=== PATIENT | female | born 1945 | race African-American/Black ===

== ENCOUNTER 2016-09-14 12:55 | Inpatient (IN) | payer MEDICARE ==
[~2016-09-14 12:55] MED LIST: ETOMIDATE 20 MG/10 ML VIAL IV ONE; MIDAZOLAM 5 MG/5 ML VIAL IV ONE; SUCCINYLCHOLINE 20 MG/1 ML INJ 10 ML MDV IV ONE
[2016-09-14 13:45] LABS: ABG Draw Site Right Radial; ALLEN'S TEST PASS; BEb 7.4 (+/- 2); TCO2 37.3 MMOL/L (23-27)
--- NOTE | 2016-09-14 14:02 | DIRPT ---
CLINICAL DATA: Dyspnea. Symptoms for 1 month, progressively worsening, with lower extremity swelling. EXAM: PORTABLE CHEST 1 VIEW COMPARISON: 03/28/2015 FINDINGS: Changes from CABG surgery are stable from the prior study. There is moderate enlargement of the cardiopericardial silhouette. No gross mediastinal mass. Elli are not well evaluated due to contiguous lung opacity. Lungs show central vascular congestion with perihilar and lower lung zone airspace opacity. Small pleural effusions are suspected. No pneumothorax. Bony thorax is grossly intact. IMPRESSION: 1. Chest radiographic findings are similar to the prior study with cardiomegaly and central vascular congestion, as well as patchy perihilar and lung base airspace opacity. Findings are most suggestive of congestive heart failure with pulmonary edema. Electronically Signed By: Lyle Pedraza M.D. On: 09/14/2016 13:59
[2016-09-14 14:06] LABS: AUTOMATED BASOPHIL 0.5 % (0-2); AUTOMATED EOSINOPHIL 0.3 % (0-5); AUTOMATED LYMPH 8.4 % (17-44); AUTOMATED MONOCYTE 12.7 % (3-10); AUTOMATED NEUTROPHIL 78.1 % (45-76)
[2016-09-14 14:22] LABS: BLOOD UREA NITROGEN 16 MG/DL (7-17); CALCIUM 8.4 MG/DL (8.4-10.2); CALCULATED OSMOLALITY 232 MOs/Kg (270-290); CHLORIDE 76 mEq/L (98-107); CPK TOTAL WITH POSSIBLE MB 237 IU/L (30-134); GLUCOSE 162 MG/DL (70-99); TOTAL PROTEIN 7.5 G/DL (6.3-8.2)
[2016-09-14 14:42] LABS: SODIUM LEVEL 117 mEq/L (137-146)
[2016-09-14 14:43] LABS: CPKMB 5.7 ng/mL (0-4.5); PARTIAL THROMB. TIME 38.4 SEC (22-35); PT-INR 2.6
[2016-09-14] MEDS ORDERED: Pharmacy Review for Metformin - IV Contrast Given SCH (15:00)
--- NOTE | 2016-09-14 15:59 | DIRPT ---
CLINICAL DATA: Dyspnea/ respiratory distress for 1 month. Lower extremity swelling. EXAM: CT ANGIOGRAPHY CHEST WITH CONTRAST TECHNIQUE: Multidetector CT imaging of the chest was performed using the standard protocol during bolus administration of intravenous contrast. Multiplanar CT image reconstructions and MIPs were obtained to evaluate the vascular anatomy. CONTRAST: 80 mL of Isovue 370 intravenous contrast COMPARISON: Current chest radiograph FINDINGS: Angiographic study: Study somewhat limited by respiratory motion and somewhat suboptimal opacification of the more peripheral pulmonary arteries particularly to the upper lobes. Lung for this, there is no evidence of a pulmonary embolus. There is enlargement of the pulmonary arteries, the main measuring 4.3 cm, right measuring 3.8 cm and left measuring 3.3 cm. Neck base and axilla: Heterogeneous thyroid gland with several hypo attenuating nodules, largest from the left lobe measuring 1.8 cm in size. Right lobe calcification. No neck base or axillary masses or adenopathy. Mediastinum and kacey: Heart is [id number]-gc-[id number] only enlarged. There are mild coronary artery calcifications and changes from previous CABG surgery. There are no mediastinal or hilar masses or pathologically enlarged lymph nodes. Lungs and pleura: Small right and minimal left pleural effusions some fluid tracks along the right oblique fissure. There is linear and reticular type opacity at the lung bases, right greater than left, with some in the mean hazy airspace opacity at the right base. This is all likely atelectasis. There is no convincing pneumonia and no pulmonary edema. No pneumothorax. Limited upper abdomen: Trace ascites. Otherwise unremarkable. Musculoskeletal: Degenerative changes along the thoracic spine. No osteoblastic or osteolytic lesions. Review of the MIP images confirms the above findings. IMPRESSION: 1. Somewhat limited exam. Smaller segmental and subsegmental pulmonary emboli are not completely excluded. Allowing for this, no pulmonary embolus is visualized. 2. Moderate to marked cardiomegaly. 3. Pulmonary artery enlargement suggestive pulmonary artery hypertension. 4. Small right and minimal left pleural effusions. Associated lung base opacity, right greater the left, consistent with atelectasis. 5. No convincing pulmonary edema. The appearance of pulmonary edema seen on the current chest radiograph was apparently due to a combination of vascular prominence and the pleural effusions and lung base atelectasis. Electronically Signed By: Lyle Pedraza M.D. On: 09/14/2016 15:56
[2016-09-14] MEDS ORDERED: FUROSEMIDE 40 MG/4 ML VIAL IV ONE (16:05)
--- NOTE | 2016-09-14 16:05 | EDPRACDOC ---
- General Information Chief Complaint: Dyspnea/Resp distress Stated Complaint: GENERALIZED WEAKNESS/SHOB Time Seen by Provider: 09/14/16 13:40 Information Source: Patient Home Medications: Home Medications Diltiazem HCl [Cardizem Cd] 300 mg PO QAM 05/25/14 Lisinopril/Hydrochlorothiazide [Zestoretic 20-12.5 mg Tablet] 1 tab PO BID 05/25 POTASSIUM CHLORIDE Tablet [K-DUR 20 mEq Tablet*] 20 meq PO QAM 05/25/14 Pravastatin [Pravachol] 80 mg PO HS 05/25/14 Sertraline HCl [Zoloft] 25 mg PO DAILY 03/19/15 Warfarin Sodium [Coumadin] 7 mg PO SUTUTHSA 09/14/16 Warfarin Sodium [Coumadin] 7.5 mg PO MOWEFR 09/14/16 Allergies/Adverse Reactions: Allergies Allergy/AdvReac Type Severity Reaction Status Date / Time Penicillins Allergy Severe Edema-Oral/ Verified 03/27/15 02:07 Lip propoxyphene HCl Allergy Unknown Verified 03/19/15 16:55 [From [facility]] ED Past Medical History - Patient Medical History Neurological History: Reports: Cerebrovascular Accident Cardiac History: Reports: Atrial Fibrillation, Hypertension, Hypercholesterolemia, Cardiomyopathy (HEART SURGERY 20 YEARS AGO) Respiratory History: Reports: COPD Psychological History: Denies: Depression Surgical History: Reports: Other (PT UNABLE TO SAY) - Social Medical History Smoking Status: Never smoker - Physical Exam Last recorded Vital Signs: Last Vital Signs Temp 98.7 F 09/14/16 13:28 Pulse 69 09/14/16 14:38 Resp 20 09/14/16 14:38 BP 157/75 09/14/16 14:38 Pulse Ox 97 09/14/16 14:38 Oxygen Pulse Oxygen Saturation 97 O2 Device Nasal Cannula Oxygen Flow Rate Fraction of Inspired Oxygen ( FIO2) ED SOB MDM - Results Result Diagrams: 09/14/16 13:55 09/14/16 13:55 Results: WBC 6.2 xk/uL (3.8-10.8) 09/14/16 13:55 RBC 4.39 xM/uL (4.20-5.40) 09/14/16 13:55 Hgb 11.2 g/dL (12.0-16.0) L 09/14/16 13:55 Hct 34.2 % (36-47) L 09/14/16 13:55 MCV 78 fL (81-99) L 09/14/16 13:55 MCH 25.4 pg (27-32) L 09/14/16 13:55 MCHC 32.6 g/dl (33-36) L 09/14/16 13:55 RDW 17.5 % (11.5-14.5) H 09/14/16 13:55 Plt Count 197 xk/uL (130-400) 09/14/16 13:55 MPV 8.0 fL (7.4-10.4) 09/14/16 13:55 Neut % (Auto) 78.1 % (45-76) H 09/14/16 13:55 Lymph % (Auto) 8.4 % (17-44) L 09/14/16 13:55 [facility] % (Auto) 12.7 % (3-10) H 09/14/16 13:55 Eos % (Auto) 0.3 % (0-5) 09/14/16 13:55 Baso % (Auto) 0.5 % (0-2) 09/14/16 13:55 Absolute Neuts (auto) 4.84 xk/uL (1.7-8.2) 09/14/16 13:55 Absolute Lymphs (auto) 0.50 xk/uL (0.65-4.75) L 09/14/16 13:55 PT 26.6 SEC (9.2-11.2) H 09/14/16 13:55 INR 2.6 09/14/16 13:55 APTT 38.4 SEC (22-35) H 09/14/16 13:55 Puncture Site Right radial 09/14/16 13:40 pH 7.350 pH UNITS (7.35-7.45) 09/14/16 13:40 pCO2 64.0 mmHg (35-45) H 09/14/16 13:40 pO2 57.0 mmHg (80-100) L 09/14/16 13:40 HCO3 35.3 MMOL/L (22-26) H 09/14/16 13:40 Total CO2 37.3 MMOL/L (23-27) H 09/14/16 13:40 Base Excess 7.4 (+/- 2) H 09/14/16 13:40 FiO2 % 21% 09/14/16 13:40 Specimen Drawn By Roude 09/14/16 13:40 Sodium 117 mEq/L (137-146) L* 09/14/16 13:55 Potassium 3.5 mEq/L (3.5-5.1) 09/14/16 13:55 Chloride 76 mEq/L (98-107) L 09/14/16 13:55 Carbon Dioxide 35 mMOL/L (22-33) H 09/14/16 13:55 Anion Gap 10 mEq/L (8-16) 09/14/16 13:55 BUN 16 MG/DL (7-17) 09/14/16 13:55 Creatinine 0.60 MG/DL (0.52-1.04) 09/14/16 13:55 Estimated GFR (MDRD) > 60 mL/min (>=60) 09/14/16 13:55 Glucose 162 MG/DL (70-99) H 09/14/16 13:55 Calculated Osmolality 232 MOs/Kg (270-290) L 09/14/16 13:55 Calcium 8.4 MG/DL (8.4-10.2) 09/14/16 13:55 Total Bilirubin 0.6 MG/DL (0.2-1.3) 09/14/16 13:55 AST 44 IU/L (14-36) H 09/14/16 13:55 ALT 30 IU/L (9-52) 09/14/16 13:55 Alkaline Phosphatase 95 IU/L (55-165) 09/14/16 13:55 Creatine Kinase 237 IU/L (30-134) H 09/14/16 13:55 CK-MB (CK-2) 5.7 ng/mL (0-4.5) H 09/14/16 13:55 Troponin I < 0.01 ng/mL (<.04) 09/14/16 13:55 Pdr-X-Rcwmyalhvuy Pept 1210 pg/mL (0-900) H 09/14/16 13:55 Total Protein 7.5 G/DL (6.3-8.2) 09/14/16 13:55 Albumin 4.1 G/DL (3.5-5.0) 09/14/16 13:55 Lab Results 09/14/16 09/14/16 09/14/16 13:55 13:55 13:55 WBC 6.2 RBC 4.39 Hgb 11.2 L Hct 34.2 L MCV 78 L MCH 25.4 L MCHC 32.6 L RDW 17.5 H Plt Count 197 MPV 8.0 Neut % (Auto) 78.1 H Lymph % (Auto) 8.4 L [facility] % (Auto) 12.7 H Eos % (Auto) 0.3 Baso % (Auto) 0.5 Absolute Neuts (auto) 4.84 Absolute Lymphs (auto) 0.50 L PT 26.6 H INR 2.6 APTT 38.4 H Puncture Site pH pCO2 pO2 HCO3 Total CO2 Base Excess FiO2 % Specimen Drawn By Sodium 117 L* Potassium 3.5 Chloride 76 L Carbon Dioxide 35 H Anion Gap 10 BUN 16 Creatinine 0.60 Estimated GFR (MDRD) > 60 Glucose 162 H Calculated Osmolality 232 L Calcium 8.4 Total Bilirubin 0.6 AST 44 H ALT 30 Alkaline Phosphatase 95 Creatine Kinase 237 H CK-MB (CK-2) 5.7 H Troponin I < 0.01 Dpc-M-Ixlhljruyjf Pept 1210 H Total Protein 7.5 Albumin 4.1 09/14/16 13:40 WBC RBC Hgb Hct MCV MCH MCHC RDW Plt Count MPV Neut % (Auto) Lymph % (Auto) [facility] % (Auto) Eos % (Auto) Baso % (Auto) Absolute Neuts (auto) Absolute Lymphs (auto) PT INR APTT Puncture Site Right radial pH 7.350 pCO2 64.0 H pO2 57.0 L HCO3 35.3 H Total CO2 37.3 H Base Excess 7.4 H FiO2 % 21% Specimen Drawn By Roude Sodium Potassium Chloride Carbon Dioxide Anion Gap BUN Creatinine Estimated GFR (MDRD) Glucose Calculated Osmolality Calcium Total Bilirubin AST ALT Alkaline Phosphatase Creatine Kinase CK-MB (CK-2) Troponin I Qul-I-Rzpyemnqbxb Pept Total Protein Albumin - Diagnostic Imaging Chest Image interpreted by: Radiologist Diagnostic Imaging Comments: 1. Somewhat limited exam. Smaller segmental and subsegmental pulmonary emboli are not completely excluded. Allowing for this, no pulmonary embolus is visualized. 2. Moderate to marked cardiomegaly. 3. Pulmonary artery enlargement suggestive pulmonary artery hypertension. 4. Small right and minimal left pleural effusions. Associated lung base opacity, right greater the left, consistent with atelectasis. 5. No convincing pulmonary edema. The appearance of pulmonary edema seen on the current chest radiograph was apparently due to a combination of vascular prominence and the pleural effusions and lung base atelectasis. - Departure Yes I personally saw and evaluated the patient. Disposition: Admit IP To This Hospital Final Diagnosis: Hyponatremia, Acute respiratory failure with hypoxia, Pulmonary artery hypertension, Bilateral pleural effusion, Peripheral edema Education/Counseling Given To: Patient Education/Counseling Given Regarding: Diagnosis, Treatment Referrals: Brandon Browning MD [Primary Care Provider] - One Week Decision to Admit Time: 16:09 Decision to admit date: 09/14/16 Decision to admit: from ED - Physician Consulted Hospitalist Provider Called: Celeste Frank
[2016-09-14] MEDS ORDERED: BISACODYL 10 MG SUPP PR PRN (16:27)
[2016-09-14] MEDS ORDERED: BENZONATATE 100 MG PERLES PO PRN (16:27)
[2016-09-14] MEDS ORDERED: PROMETHAZINE 25 MG/ML VIAL IV PRN (16:27)
[2016-09-14] MEDS ORDERED: ACETAMINOPHEN 325 MG SUPP PR PRN (16:27)
[2016-09-14] MEDS ORDERED: ONDANSETRON HCL 4 MG/2 ML VIAL IV PRN (16:27)
[2016-09-14] MEDS ORDERED: TUSSIONEX 5 ML ORAL SYRINGE PO PRN (16:27)
[2016-09-14] MEDS ORDERED: SENNA CONCENTRATE TAB PO PRN (16:27)
[2016-09-14] MEDS ORDERED: ACETAMINOPHEN 325 MG/TAB TABLET PO PRN (16:27)
[2016-09-14 16:58] LABS: BLOOD UREA NITROGEN 16 MG/DL (7-17); CALCIUM 8.3 MG/DL (8.4-10.2); CALCULATED OSMOLALITY 228 MOs/Kg (270-290); CHLORIDE 75 mEq/L (98-107); GLUCOSE 103 MG/DL (70-99); TOTAL PROTEIN 7.9 G/DL (6.3-8.2)
[2016-09-14] MEDS ORDERED: WARFARIN EDUCATION DOCUMENTATION ONE (17:00)
[2016-09-14] MEDS ORDERED: ENOXAPARIN 40 MG/0.4 ML PFS SQ SCH (17:00)
[2016-09-14] MEDS ORDERED: Pharmacy Order Set Alert SCH (17:00)
[2016-09-14 17:11] LABS: SODIUM LEVEL 117 mEq/L (137-146)
[2016-09-14] MEDS ORDERED: WARFARIN 7.5 MG TAB PO SCH (18:00)
[2016-09-14 18:03] LABS: CPK TOTAL WITH POSSIBLE MB 239 IU/L (30-134)
[2016-09-14 18:18] LABS: CPKMB 5.9 ng/mL (0-4.5)
--- NOTE | 2016-09-14 19:44 | HISTPHYS ---
- Chief Complaint Shortness breath for the past 3 weeks but worse over the past 24 hours - History of Present Illness Primary care provider is Dr. Brandon Browning Patient is a very pleasant 70-year-old female who comes in the emergency room today complaining of 3 weeks worth of progressive shortness of breath peripheral edema and denies any history of coronary artery disease or a previous myocardial infarction. She also goes on to say that she never smoked and does not have COPD. She tells me that she has been unable to sleep well over the past month due to orthopnea and is starting to get were "wiped out" more easily than before. She has a known history of atrial fib for which she is on Coumadin that she has been taking since 2010 with her stroke causing her difficulty with her speech and nothing else. This was transient. Over the past month she has also noticed some worsening edema which she states is not as bad today as it has been. She has used an albuterol inhaler in the past but to no aid. She is not aware of ever having had congestive heart failure and has not been on any diuretics other than hydrochlorothiazide which is in her combination FRANCOISE-inhibitor blood pressure pill. She also suffers with 2-3 pillow orthopnea that is getting more troublesome. She tells me that 3 weeks ago with an episode of shortness breath she also had chest heaviness and tightness. She tells me that she will get up every 20 minutes with her shortness breath it is severely interfering with her sleep. - Medical History Cardiac History: Reports: Atrial Fibrillation (On long-term Coumadin anticoagulation), Hypertension, Cardiomyopathy (Echocardiogram done 2014 showed ejection fraction between 45 and 50%), Other (ASD repair 1993 in [place] outside of [place], [place]) Respiratory History: Reports: Cough, Other (History of pulmonary hypertension on echocardiogram). Denies: COPD (denies) GI/ History: Reports: No Significant History Neurological History: Reports: Cerebrovascular Accident (2010) Psychological History: Reports: Depression (On Zoloft chronically) - Surgical History Reports: Other (Patient had ASD repaired 1993 outside of [facility]) - Medictions/Allergies Allergies Penicillins Allergy (Severe, Verified 03/27/15 02:07) Edema-Oral/Lip propoxyphene HCl [From [facility]] Allergy (Verified 03/19/15 16:55) Unknown Current Medication List: Reviewed Home Medications Diltiazem HCl [Cardizem Cd] 300 mg PO QAM 05/25/14 Lisinopril/Hydrochlorothiazide [Zestoretic 20-12.5 mg Tablet] 1 tab PO BID 05/25 POTASSIUM CHLORIDE Tablet [K-DUR 20 mEq Tablet*] 20 meq PO QAM 05/25/14 Pravastatin [Pravachol] 80 mg PO HS 05/25/14 Sertraline HCl [Zoloft] 25 mg PO DAILY 03/19/15 Warfarin Sodium [Coumadin] 7 mg PO SUTUTHSA 09/14/16 Warfarin Sodium [Coumadin] 7.5 mg PO MOWEFR 09/14/16 - Family History Reports: Hypertension - Social History Travel Outside of [place] in the Last 3 Months?: No Lives: Other Smoking Status: Never smoker Social History: Denies: Alcohol Use, Substance Use Disorder - Review of Systems Constitutional: No Symptoms Reported (No Fever, chills, wt loss/gain, diaphoresis), Fatigue, Weakness Eyes: No Symptoms Reported (No blurry vision, visual changes, eye pain, or eye redness.) Ears: No Symptoms Reported (No ear pain or discharge) Nose: No Symptoms Reported (No nasal discharge/congestion or bleeding) Mouth: No Symptoms Reported (No oropharyngeal lesions or erythema) Throat/Neck: No Symptoms Reported (No throat pain or swelling.No oropharyngeal lesions or erythema.) Respiratory: Shortness of Breath Cardiovascular: Edema, Orthopnea, PND Gastrointestinal: No Symptoms Reported (No abdominal pain, nausea, vomiting, diarrhea, constipation, or bloody stool.) Genitourinary: No Symptoms Reported (No dysuria or hematuria.) Neurological: No Symptoms Reported (No headache, dizziness, seizures, or focal weakness.) Musculoskeletal:: Weakness Integumentary: No Symptoms Reported (no rashes or lesions) Allergic/Immunologic: No Symptoms Reported (no rashes or lesions) Hematologic: Anemia, Other (Lymphatics- no lymph node swelling or pain.) Endocrine: No Symptoms Reported (No thyroid issues, polyuria, or polydipsia.) Psychiatric: No Symptoms Reported (Fully oriented, with normal and appropriate affect.) - Physical Exam Vital Signs: Initial Vitals Temperature 98.7 F 09/14/16 13:28 Pulse Rate 62 09/14/16 13:28 Respiratory Rate 32 H 09/14/16 13:28 Blood Pressure 149/66 09/14/16 13:28 Pulse Oxygen Saturation 85 L 09/14/16 13:28 Constitutional: Alert (Awake, Fully oriented. Normal and appropriate affect.Well appearing. Well nourished.), No apparent distress Oriented to: Time, Person, Place - HEENT Head: Normal (normocephalic, atraumatic.), Other (No cervical lymphadenopathy. No supraclavicular lymphadenopathy. Neck: No palpable mass, supple , trachea midline.) Eye: Normal (pupils equal, reactive to light, and round; EOMI, Sclera white) Oropharynx: Normal (Pharynx: Moist without exudate,Gums-no swelling, No oropharyngeal lesions or erythema, Mucous membranes are dry.) ENT EAC: Normal (No oropharyngeal lesions or erythema. Mucous membranes are dry. ) TMJ: Normal Nose: No Symptoms Reported (septum midline, Nares patent, without discharge or bleeding.) Respiratory: Rales. negative: Rhonchi, Tachypnea, Wheezes Cardiovascular: Normal (Normal rate but irregular), Irregular - GI Auscultation: Normal (normal active sounds) Palpation: Normal (Soft,non distended,nontender. No hepatosplenomegaly.) Tenderness: Non tender (No rebound or guarding) Longo's Sign: Negative - Musculoskeletal Back: Normal (Non-Tender) Extremities: Edema (2+ bilateral lower extremity edema), Pedal Pulse. negative : Clubbing, Cyanosis Spine: non-tender, normal inspection - Integumentary Skin: Normal (Clean, dry, and intact. No rashes. No lesions.) Lymphatics: Normal (No cervical lymphadenopathy. No supraclavicular lymphadenopathy.) - Neurologic Memory Impaired: Normal Motor Function: Normal (Motor 5/5 throughout.Normal tone, Pulses 2+ No cyanosis or edema, FROM) Cranial Nerve: Normal (CN II-XII intact sensation, strength 5/5) Cerebellar: Normal (Babinski: toes downgoing bilaterally. Intact Finger to nose. Sensory grossly intact to light touch. Intact rapid alternating movements bilaterally. No pronator drift.) Mood Description: Normal (Fully oriented. Normal and appropriate affect.) Thought: Coherent Perception: Normal (Normal and appropriate affect.) - Focused CV Perfusion Exam Vital Signs: Last Vital Signs Temp 98.7 F 09/14/16 13:28 Pulse 81 09/14/16 17:12 Resp 20 09/14/16 17:12 BP 150/78 09/14/16 18:01 Pulse Ox 97 09/14/16 17:12 - Lab Results 09/14/16 13:55 09/14/16 16:26 Laboratory Results - last 24 hr 09/14/16 09/14/16 09/14/16 13:40 13:55 13:55 WBC 6.2 RBC 4.39 Hgb 11.2 L Hct 34.2 L MCV 78 L MCH 25.4 L MCHC 32.6 L RDW 17.5 H Plt Count 197 MPV 8.0 Neut % (Auto) 78.1 H Lymph % (Auto) 8.4 L Russell % (Auto) 12.7 H Eos % (Auto) 0.3 Baso % (Auto) 0.5 Absolute Neuts (auto) 4.84 Absolute Lymphs (auto) 0.50 L PT INR APTT Puncture Site Right radial pH 7.350 pCO2 64.0 H pO2 57.0 L HCO3 35.3 H Total CO2 37.3 H Base Excess 7.4 H FiO2 % 21% Specimen Drawn By Roude Sodium 117 L* Potassium 3.5 Chloride 76 L Carbon Dioxide 35 H Anion Gap 10 BUN 16 Creatinine 0.60 Estimated GFR (MDRD) > 60 Glucose 162 H Calculated Osmolality 232 L Calcium 8.4 Total Bilirubin 0.6 AST 44 H ALT 30 Alkaline Phosphatase 95 Creatine Kinase 237 H CK-MB (CK-2) 5.7 H Troponin I < 0.01 Acu-B-Mlduvcwuzbx Pept 1210 H Total Protein 7.5 Albumin 4.1 09/14/16 09/14/16 09/14/16 13:55 16:26 16:26 WBC RBC Hgb Hct MCV MCH MCHC RDW Plt Count MPV Neut % (Auto) Lymph % (Auto) Russell % (Auto) Eos % (Auto) Baso % (Auto) Absolute Neuts (auto) Absolute Lymphs (auto) PT 26.6 H INR 2.6 APTT 38.4 H Puncture Site pH pCO2 pO2 HCO3 Total CO2 Base Excess FiO2 % Specimen Drawn By Sodium 117 L* Potassium 4.1 Chloride 75 L Carbon Dioxide 35 H Anion Gap 11 BUN 16 Creatinine 0.60 Estimated GFR (MDRD) > 60 Glucose 103 H Calculated Osmolality 228 L Calcium 8.3 L Total Bilirubin 0.7 AST 44 H ALT 28 Alkaline Phosphatase 118 Creatine Kinase 239 H CK-MB (CK-2) 5.9 H Troponin I 0.01 Csk-L-Rxffjogrbpi Pept Total Protein 7.9 Albumin 4.1 - Diagnostic Findings CT of chest: IMPRESSION: 1. Somewhat limited exam. Smaller segmental and subsegmental pulmonary emboli are not completely excluded. Allowing for this, no pulmonary embolus is visualized. 2. Moderate to marked cardiomegaly. 3. Pulmonary artery enlargement suggestive pulmonary artery hypertension. 4. Small right and minimal left pleural effusions. Associated lung base opacity, right greater the left, consistent with atelectasis. 5. No convincing pulmonary edema. The appearance of pulmonary edema seen on the current chest radiograph was apparently due to a combination of vascular prominence and the pleural effusions and lung base atelectasis. - Assessment (1) Respiratory failure with hypoxia and hypercapnia J96.91 - RESPIRATORY FAILURE, UNSPECIFIED WITH HYPOXIA; J96.92 - RESPIRATORY FAILURE, UNSPECIFIED WITH HYPERCAPNIA Acute Present on Admission: Yes Qualifiers: Chronicity: acute on chronic Qualified Code(s): J96.21 - Acute and chronic respiratory failure with hypoxia; J96.22 - Acute and chronic respiratory failure with hypercapnia Careful with supplemental O2 as patient has tendency to retain CO2. (2) Diastolic CHF I50.30 - UNSPECIFIED DIASTOLIC (CONGESTIVE) HEART FAILURE Acute Present on Admission: Yes Qualifiers: Congestive heart failure chronicity: acute on chronic Qualified Code(s): I50.33 - Acute on chronic diastolic (congestive) heart failure Concerned there may be a component of systolic CHF given the findings on physical examination. Echocardiogram ordered for tomorrow. IV Lasix is initiated. Fluid restriction necessary for hyponatremia. (3) Atrial fibrillation, controlled I48.91 - UNSPECIFIED ATRIAL FIBRILLATION Chronic Present on Admission: Yes On chronic Coumadin therapy with therapeutic INR today. (4) Bilateral pleural effusion J90 - PLEURAL EFFUSION, NOT ELSEWHERE CLASSIFIED Acute Present on Admission: Yes (5) Hyponatremia E87.1 - HYPO-OSMOLALITY AND HYPONATREMIA Acute Present on Admission: Yes P.o. fluid restriction ordered. (6) Peripheral edema R60.9 - EDEMA, UNSPECIFIED Acute Present on Admission: Yes IV Lasix for this manifestation of CHF. (7) Pulmonary artery hypertension I27.2 - OTHER SECONDARY PULMONARY HYPERTENSION Acute Present on Admission: Yes Echocardiogram is pending. - Plan Due to the presence of and / or the risk of deterioration, my attendance to this patient required critical care time, including assessment/reassessment, documentation, ordering and interpreting ancillary studies, discussion with staff and consultants,patient and family, and excludes time spent on separately billable procedures. This individual is critically ill and in danger of dying. Case Care Discussed with: Patient, Nursing Staff, Resource Management Total Time: Critical care time spent One Hour 18 minutes Critical Care: No Code: 291 (292)
[2016-09-14] MEDS: LISINOPRIL 20 MG TAB PO SCH (20:44)
[2016-09-14] MEDS: PRAVASTATIN 80 MG TABLET PO SCH (20:44)
[2016-09-14] MEDS ORDERED: LISINOPRIL PO SCH (21:00)
[2016-09-14] MEDS ORDERED: HYDROCHLOROTHIAZIDE PO SCH (21:00)
[2016-09-14] MEDS ORDERED: HYDROCHLOROTHIAZIDE 12.5 MG CAP PO SCH (21:00)
[2016-09-14] MEDS ORDERED: [UNRECOGNIZED DRUG - OTHER] PO SCH (21:00)
[2016-09-14 23:31] LABS: LEUKOCYTES/URINE NEG (NEGATIVE); NITRITE/URINE NEG (NEGATIVE); URINE OCCULT BLOOD 1+ (NEG/TRACE)
[2016-09-15] MEDS: FUROSEMIDE 40 MG/4 ML VIAL IV SCH ×3 (00:48→17:42)
[2016-09-15] MEDS ORDERED: Vaccine Screening Complete SCH (01:00)
[2016-09-15 03:38] LABS: PT-INR 2.8
--- NOTE | 2016-09-15 07:56 | GENMEDPROG ---
Chief Complaint: NAUSEA GOT ZOFRAN LETHARGIC AND HYPOXIC SHE WAS THEN GIVEN INCREASED FIO2 NOW VERY LETHARGIC AND LIKELY RETAINING CO2. Patient urgently placed on BiPAP and volumes were extremely low at approximately 150 cc. Given this I contacted anesthesia to intubate urgently. Notes Reviewed: Yes Events from last night noted and discussed with Clinical Staff Current Medication List: Reviewed Currently: Reports: Cough DVT Prophylaxis: Yes - Physical Examination Vital Signs and I&O: Last Vital Signs Temp 97.8 F 09/15/16 03:54 Pulse 80 09/15/16 06:00 Resp 20 09/15/16 03:54 BP 128/60 09/15/16 03:54 Pulse Ox 94 09/15/16 05:14 Oxygen Pulse Oxygen Saturation 94 O2 Device Nasal Cannula Oxygen Flow Rate 2 Fraction of Inspired Oxygen ( FIO2) Intake & Output 09/12/16 09/13/16 09/14/16 09/15/16 23:59 23:59 23:59 23:59 Intake Total 150 Output Total 400 800 Balance -400 -650 Patient's weight 66.395 kg 65.941 kg General: Severe distress, Well nourished, Weakness, Fatigue HEENT: Normal (Normocephalic, atraumatic;EOMI.Sclera white, Nares patent, without discharge or bleeding. No oropharyngeal lesions or erythema. Mucous membranes are dry.) Neck: No Masses palpable, No Thyromegaly palpable, Limited range of motion, JVD (jvd to angle of jaw) Lymphatics: Normal (No cervical lymphadenopathy. No supraclavicular lymphadenopathy.) Respiratory: Diminished, Rales. negative: Rhonchi, Tachypnea, Wheezes Cardiovascular: Normal S1, No Gallops,Rubs/Murmurs, Normal S2, Irregular GI: Normal bowel sounds (normal active sounds), Soft (non-distended), Non tender , No hepatospenomegaly, No masses Extremities/Musculoskeletal: Normal pulses (DP pulses 2+ bilaterally) Skin: Warm,Dry and Intact, No rashes, No significant lesion Neurological: Normal tone, Cranial nerves 3-12 NL ( 2-12 grossly intact.), Somnolent, Lethargy. negative: Strength at 5/5 X4 ext Psych/Mental Status: Drowsy, Somnolent Lab/DI/Studies Reviewed: 09/15/16 09:47 09/15/16 17:35 Laboratory Results - last 24 hr 09/14/16 09/15/16 09/15/16 23:09 02:45 02:45 WBC RBC Hgb Hct MCV MCH MCHC RDW Plt Count MPV PT 29.3 H INR 2.8 Puncture Site pH pCO2 pO2 HCO3 Total CO2 Base Excess Vent Mode FiO2 % Tidal Volume PEEP Specimen Drawn By Sodium Potassium Chloride Carbon Dioxide Anion Gap BUN Creatinine Estimated GFR (MDRD) Glucose POC Capillary Glucose Calculated Osmolality Calcium Magnesium 1.40 L Urine Color Dark yellow Urine Clarity Clear Urine pH 6.0 Ur Specific [place] 1.010 Urine Protein 2+ H Urine Glucose (UA) Neg Urine Ketones Neg Urine Occult Blood 1+ H Urine Nitrite Neg Urine Bilirubin Neg Urine Urobilinogen <2.0 Ur Leukocyte Esterase Neg Urine RBC 2-5 Urine WBC 2-5 Ur Epithelial Cells Occ Urine Bacteria Few Hyaline Casts 0-2 Urine Mucus Occ 09/15/16 09/15/16 09/15/16 06:03 07:36 07:43 WBC RBC Hgb Hct MCV MCH MCHC RDW Plt Count MPV PT INR Puncture Site Left radial pH 7.140 L* pCO2 > 124.0 H* pO2 97.0 HCO3 Total CO2 Base Excess Vent Mode FiO2 % 15lnrb Tidal Volume PEEP Specimen Drawn By Belja Sodium Potassium Chloride Carbon Dioxide Anion Gap BUN Creatinine Estimated GFR (MDRD) Glucose POC Capillary Glucose 123 H 203 H Calculated Osmolality Calcium Magnesium Urine Color Urine Clarity Urine pH Ur Specific [place] Urine Protein Urine Glucose (UA) Urine Ketones Urine Occult Blood Urine Nitrite Urine Bilirubin Urine Urobilinogen Ur Leukocyte Esterase Urine RBC Urine WBC Ur Epithelial Cells Urine Bacteria Hyaline Casts Urine Mucus 09/15/16 09/15/16 09/15/16 09:47 09:47 10:16 WBC 6.4 RBC 4.56 Hgb 11.5 L Hct 36.0 MCV 79 L MCH 25.3 L MCHC 31.9 L RDW 17.5 H Plt Count 148 MPV 8.5 PT INR Puncture Site Right radial pH 7.550 H pCO2 54.0 H pO2 63.0 L HCO3 47.2 H Total CO2 48.9 H Base Excess 21.4 H Vent Mode Ac rate 18 FiO2 % 50% Tidal Volume 500 PEEP 5 Specimen Drawn By Kasgl Sodium 119 L* Potassium 3.4 L Chloride 75 L Carbon Dioxide 33 Anion Gap 14 BUN 12 Creatinine 0.50 L Estimated GFR (MDRD) > 60 Glucose 154 H POC Capillary Glucose Calculated Osmolality 233 L Calcium 7.8 L Magnesium Urine Color Urine Clarity Urine pH Ur Specific [place] Urine Protein Urine Glucose (UA) Urine Ketones Urine Occult Blood Urine Nitrite Urine Bilirubin Urine Urobilinogen Ur Leukocyte Esterase Urine RBC Urine WBC Ur Epithelial Cells Urine Bacteria Hyaline Casts Urine Mucus 09/15/16 17:35 WBC RBC Hgb Hct MCV MCH MCHC RDW Plt Count MPV PT INR Puncture Site pH pCO2 pO2 HCO3 Total CO2 Base Excess Vent Mode FiO2 % Tidal Volume PEEP Specimen Drawn By Sodium 118 L* Potassium 3.4 L Chloride 74 L Carbon Dioxide > 40 H Anion Gap 7 L BUN 13 Creatinine 0.60 Estimated GFR (MDRD) > 60 Glucose 79 POC Capillary Glucose Calculated Osmolality 227 L Calcium 7.8 L Magnesium Urine Color Urine Clarity Urine pH Ur Specific [place] Urine Protein Urine Glucose (UA) Urine Ketones Urine Occult Blood Urine Nitrite Urine Bilirubin Urine Urobilinogen Ur Leukocyte Esterase Urine RBC Urine WBC Ur Epithelial Cells Urine Bacteria Hyaline Casts Urine Mucus - Assessment (1) Respiratory failure with hypoxia and hypercapnia Acute J96.91 - RESPIRATORY FAILURE, UNSPECIFIED WITH HYPOXIA; J96.92 - RESPIRATORY FAILURE, UNSPECIFIED WITH HYPERCAPNIA Qualifiers: Chronicity: acute on chronic Qualified Code(s): J96.21 - Acute and chronic respiratory failure with hypoxia; J96.22 - Acute and chronic respiratory failure with hypercapnia Comment/Plan: ACUTE RESP FAILURE RETAINING CO2 TRANSFER TO ICU START ON BIPAP. Likely became lethargic from the Zofran and then hypoxic with O2 sats in the 80s prompting the administration of high-flow O2 and now with significant CO2 retention noting it to be> 124 pH to 7.14. (2) Diastolic CHF Acute I50.30 - UNSPECIFIED DIASTOLIC (CONGESTIVE) HEART FAILURE Qualifiers: Congestive heart failure chronicity: acute on chronic Qualified Code(s): I50.33 - Acute on chronic diastolic (congestive) heart failure Comment/Plan: Concerned there may be a component of systolic CHF given the findings on physical examination. Echocardiogram showed normal ejection fraction so this is acute on chronic diastolic CHF. IV Lasix is initiated and has diuresed 1 L of fluid since yesterday. Fluid restriction necessary for hyponatremia. (3) Atrial fibrillation, controlled Chronic I48.91 - UNSPECIFIED ATRIAL FIBRILLATION Comment/Plan: On chronic Coumadin therapy with atrial fib with therapeutic INR today. (4) Bilateral pleural effusion Acute J90 - PLEURAL EFFUSION, NOT ELSEWHERE CLASSIFIED Comment/Plan: Related to her CHF. (5) Hyponatremia Acute E87.1 - HYPO-OSMOLALITY AND HYPONATREMIA Comment/Plan: P.o. fluid restriction ordered. Concerned that her hyponatremia may be related to occult pneumonia. Now that she is on the ventilator will be able to get a better sputum specimen. Agree with Dr. Umanzor that we should start her on Rocephin Zithromax. Will increase IV saline and administer Lasix. Concerned she has SIADH associated with her respiratory infection. (6) Peripheral edema Acute R60.9 - EDEMA, UNSPECIFIED Comment/Plan: IV Lasix for this manifestation of CHF. (7) Pulmonary artery hypertension Acute I27.2 - OTHER SECONDARY PULMONARY HYPERTENSION Comment/Plan: Echocardiogram is showed ejection fraction of 60% and left ventricular hypertrophy which shows the CHF to be more diastolic than systolic failure. Additional Notes: Due to the presence of and / or the risk of deterioration, my attendance to this patient required critical care time, including assessment/reassessment, documentation, ordering and interpreting ancillary studies, discussion with staff and consultants,patient and family, and excludes time spent on separately billable procedures. This individual is critically ill and in danger of dying. Case Care Discussed with: Family, Nursing Staff Education/Counseling Given To: Family Member Education/Counseling Given Regarding: Diagnosis, Treatment Total Time: Critical care time spent 48 minutes Critical Care: Yes Code: 291
[2016-09-15 07:59] LABS: ALLEN'S TEST PASS; PCO2 > 124.0 mmHg (35-45)
[2016-09-15 08:00] LABS: ABG Draw Site Left Radial
[2016-09-15] MEDS ORDERED: CHAPSTICK LIP BALM TOP PRN (09:03)
[2016-09-15] MEDS ORDERED: FENTANYL 2,500 MCG/250 ML BAG IV ONE ×2 (09:13→17:25)
[2016-09-15] MEDS: FENTANYL 2,500 MCG/250 ML BAG IV SCH (09:20)
--- NOTE | 2016-09-15 09:33 | HIM.ANESP ---
INTUBATION Informed of risks, benefits and alternatives described.: Yes (Spoke w son) Informed Consent Signed: Written Intubation Date: 09/15/16 Time of Intubation: 08:58 Inserted in which dept: ICU Inserted By: Richard Marc Number of Attempts: 1 ET Insertion Site: Oral Endotracheal ET Tube Size: 7.5 Tube Position: Right ETCO2 Detector Positive: Yes Breath Sounds Equal Bilaterally: Yes Stocz Used: No Glidescope/Fiberoptic/LTA/Eschman: Glidescope Comments: 09/15/16 09:32 Etomidate 12mg Succ 100mg
[2016-09-15 10:04] LABS: MPV 8.5 fL (7.4-10.4)
[2016-09-15 10:20] LABS: ALLEN'S TEST PASS; BEb 21.4 (+/- 2); TCO2 48.9 MMOL/L (23-27)
[2016-09-15] MEDS: POTASSIUM CHLORIDE 20 MEQ TAB PO SCH (10:21)
[2016-09-15 10:22] LABS: ABG Draw Site Right Radial
[2016-09-15 10:24] LABS: MODE AC RATE 18 RATE
[2016-09-15 10:31] LABS: BLOOD UREA NITROGEN 12 MG/DL (7-17); CALCIUM 7.8 MG/DL (8.4-10.2); CALCULATED OSMOLALITY 233 MOs/Kg (270-290); CHLORIDE 75 mEq/L (98-107); GLUCOSE 154 MG/DL (70-99)
--- NOTE | 2016-09-15 10:32 | DIRPT ---
CLINICAL DATA: CHF EXAM: PORTABLE CHEST 1 VIEW COMPARISON: Yesterday FINDINGS: Endotracheal tube placed. Tip is 8.4 cm from the marilou. NG tube placed with its tip beyond the gastroesophageal junction. Pulmonary edema has improved. Cardiomegaly persists. No pneumothorax. IMPRESSION: Improved pulmonary edema. Endotracheal and NG tubes as described. Electronically Signed By: Florentin Reyes M.D. On: 09/15/2016 10:14
[2016-09-15 10:34] LABS: SODIUM LEVEL 119 mEq/L (137-146)
[2016-09-15] MEDS: LISINOPRIL 20 MG TAB PO SCH ×2 (10:34→22:35)
[2016-09-15] MEDS ORDERED: ALBUTEROL 0.083% 3 ML NEB NEB PRN (10:34)
[2016-09-15] MEDS: SERTRALINE HCL 25 MG TAB PO SCH (10:35)
[2016-09-15] MEDS: CEFTRIAXONE 1 GM in D5W 100 ML IV SCH (11:31)
[2016-09-15] MEDS ORDERED: NS/KCl 20 mEq 1,000 ML IV SCH ×2 (13:30→21:05)
[2016-09-15] MEDS ORDERED: Magnesium Sulfate 2 gm/D5W 2 GM/50 ML RTU IV ONE ×2 (13:30→19:04)
[2016-09-15] MEDS: Levofloxacin 750 mg/150 ml D5W 750 MG/150 ML RTU IV SCH (13:47)
[2016-09-15] MEDS: LORAZEPAM 2 MG/ML VIAL IV PRN (13:50)
--- NOTE | 2016-09-15 14:00 | CAPUECHO ---
INDICATION: CHF HEIGHT: 160.0 cm (5 ft 3.0 in) WEIGHT: 66.2 kg (146.0 lbs) BP: 128/60 BSA: 1.35076 m MEASUREMENTS 2D RVIDd: 2.7 cm LVOT Diam: 2.1 cm IVSd: 1.3 cm LVIDd: 5.1 cm LVPWd: 1.3 cm LVIDs: 3.9 cm EF(Teich): 45.62 % LA Diam: 6.2 cm EF Biplane: 42.55 % LAESV MOD A4C: 224.1 ml LAESV MOD A2C: 311.8 ml LAESV Index (A-L): 168.93 ml/m DOPPLER MV E Aryan: 1.14 m/s MV A Aryan: 0.00 m/s MV PHT: 51.37 ms MVA By PHT: 4.28 cm LVOT Vmax: 1.14 m/s AV Vmax: 1.66 m/s DYLAN Vmax, Pt: 2.48 cm TR Vmax: 2.29 m/s TR maxP mmHg RVSP: 30.99 mmHg FINDINGS ------- Procedure:2D images, m-mode, color and spectral Doppler were obtained and reviewed. ECG rhythm:Atrial fibrillation. Study quality:This was a technically adequate study. Left Ventricle:There is mild concentric left ventricular hypertrophy. Overall left ventricular sys tolic function is normal with, an EF between 55 - 60 %. Right Ventricle:The right ventricle is normal in size and function. Left Atrium:The left atrium is markedly dilated. Left atrium is severely dilated by volume. Right Atrium:The right atrium is mildly enlarged. Aortic Valve:The aortic valve is trileaflet, and appears structurally normal. No aortic stenosis or regurgitation. Mitral Valve:Normal appearing mitral valve. Mild mitral regurgitation is present. Tricuspid Valve:The tricuspid valve appears structurally normal. Mild tricuspid regurgitation pres ent. The right ventricular systolic pressure, as measured by Doppler, is 31 mmhg}. Pulmonic Valve:The pulmonic valve is normal. Trace/mild (physiologic) pulmonic regurgitation. Aorta:The aortic root, ascending aorta and aortic arch appear normal. IVC:Normal inferior vena cava with normal inspiratory collapse. Pericardium:There is no pericardial effusion. CONCLUSIONS 1. Atrial fibrillation. 2. There is mild concentric left ventricular hypertrophy. 3. Overall left ventricular systolic function is normal with, an EF between 55 - 60 %. 4. The left atrium is markedly dilated. 5. Left atrium is severely dilated by volume. 6. Mild mitral regurgitation is present. 7. Mild tricuspid regurgitation present. Electronically Signed By: Zander Polo MD -- Electronically Signed On: 13:53:14
[2016-09-15] MEDS: POTASSIUM CHLORIDE 20 MEQ/15 ML ORAL SOLN NG SCH ×3 (14:17→17:40)
[2016-09-15] MEDS ORDERED: ALBUTEROL 6.7 GM MDI INH SCH (14:23)
[2016-09-15] MEDS: ALBUTEROL 6.7 GM MDI INH PRN (16:23)
[2016-09-15] MEDS ORDERED: WARFARIN 1 MG TAB PO SCH (16:29)
[2016-09-15] MEDS: This patient is receiving warfarin therapy SCH (17:43)
[2016-09-15] MEDS ORDERED: WARFARIN SODIUM PO SCH ×2 (18:00)
[2016-09-15] MEDS: CHLORHEXIDINE 0.12% ORAL SOLN 15 ML PO SCH (18:11)
[2016-09-15 18:12] LABS: BLOOD UREA NITROGEN 13 MG/DL (7-17); CALCIUM 7.8 MG/DL (8.4-10.2); CALCULATED OSMOLALITY 227 MOs/Kg (270-290); CHLORIDE 74 mEq/L (98-107); GLUCOSE 79 MG/DL (70-99)
[2016-09-15 18:19] LABS: SODIUM LEVEL 118 mEq/L (137-146)
--- NOTE | 2016-09-15 19:20 | HIMCONS ---
DATE OF CONSULT: REQUESTING PHYSICIAN: Scott Simmons MD REASON FOR CONSULTATION: Respiratory failure. HISTORY OF PRESENT ILLNESS: This patient is a 70-year-old lady with past medical history significant for atrial fibrillation, on long-term Coumadin with cardiomyopathy and also showing history of pulmonary hypertension on echo. The patient has not been feeling well for about 3 weeks prior to her admission according to the chart because of peripheral edema. The patient has no history of smoking, was having more orthopnea for the past several weeks prior to her admission, and became extremely weak, had difficulty speaking. Albuterol inhaler did not help and she has not been on diuretics, has been on hydrochlorothiazide with FRANCOISE inhibitors. The patient was therefore admitted with respiratory failure with hypoxia and hypercarbia, placed on oxygen. It seemed like the patient retained significant carbon dioxide and was found obtunded and therefore had to be intubated. PAST MEDICAL HISTORY: Significant for atrial fibrillation, long-term anticoagulation therapy, hypertension, cardiomyopathy with ejection fraction of 45-50%, ( ), history of pulmonary artery hypertension ( ), history of stroke in 2010, depression. PAST SURGICAL HISTORY: As above. ALLERGIES: THE PATIENT IS ALLERGIC TO PENICILLIN AND PROPOXYPHENE. MEDICATIONS: In the chart and noted. FAMILY HISTORY: Significant for hypertension. SOCIAL HISTORY: The patient has no history of smoking, drinking, or drug abuse. REVIEW OF SYSTEMS: Negative except for as mentioned in the history of present illness. PHYSICAL EXAMINATION: VITAL SIGNS: Temperature is 97.8 degrees Fahrenheit, pulse is 76, respirations 12, blood pressure 105/69, pulse ox 96% on 50% oxygen on the ventilator. CHEST: Clear to auscultation. No wheezing. HEART: S1, S2. Regularly irregular. No murmur. EXTREMITIES: No clubbing, cyanosis, or edema. ABDOMEN: Soft and nontender. Bowel sounds present. ( ). NEURO: The patient is sedated at this time on the ventilator. LABORATORY DATA: White count 6.4, hemoglobin is 11.5, hematocrit 36.0, and platelets are 148, blood gas showed a pH of 7.14, pCO2 was more than 124. Sodium 197 on 15 liters non-rebreather. Sodium 117, potassium 4.1, chloride 75, carbon dioxide 35, BUN 16, creatinine 0.6, glucose is 103. LFTs were within normal limits. CK-MB fraction was positive. IMAGING REPORTS: Chest x-ray was seen personally. The patient has history of significant enlarged heart and high endotracheal tube cannot rule out left basal infiltrates; however, the CAT scan of the chest that was seen does not show any acute infiltrate at that time; however, perihilar infiltrates cannot be ruled out. IMPRESSION: 1. [id number] respiratory failure with possible congestive heart failure and right-sided heart failure with CO2 retention. 2. Atrial fibrillation with significant hyponatremia and pulmonary artery hypertension. PLAN: The patient is going to be on the ventilator. I checked blood gas again and cut down the rate to 12 with volume 500, FiO2 is 50%, and PEEP of 5. Continue with sedation with fentanyl drip. I would start the patient on Rocephin and Levaquin IV at this time. I would continue the other supportive care. The patient was placed on diuretics with Lasix by Dr. Simmons. I would follow the patient closely as far as her sodium is concerned and repeat BMP at 1800 hours. I think the patient should improve once she has significant diuresis, antibiotics on board, and carbon dioxide level lowered. She remains critically ill and she is in danger of dying. Thank you very much for the consultation and I will follow the patient with you. Critical care time spent was approximately 90 minutes. The patient will be discussed with Dr. Simmons in detail as well. [id number]
[2016-09-15] MEDS: DILTIAZEM 60 MG TAB NG SCH ×2 (22:34→22:39)
[2016-09-15] MEDS: PROBIOTIC BLEND TAB PO SCH (22:35)
[2016-09-15] MEDS: PRAVASTATIN 80 MG TABLET PO SCH (22:35)
[2016-09-15] MEDS: CHLORHEXIDINE (HIBICLENS) 4 OZ BOTTLE TOP SCH (22:36)
[2016-09-16] MEDS: NS/KCl 20 mEq 1,000 ML IV SCH ×2 (00:19→17:52)
[2016-09-16] MEDS: FENTANYL 2,500 MCG/250 ML BAG IV SCH ×2 (01:25→09:50)
[2016-09-16] MEDS: FUROSEMIDE 40 MG/4 ML VIAL IV SCH ×2 (01:27→09:41)
[2016-09-16 04:36] LABS: ALLEN'S TEST PASS; BEb 16.2 (+/- 2); TCO2 43.8 MMOL/L (23-27)
[2016-09-16 04:37] LABS: ABG Draw Site Left Radial; ABG Draw Tech BKL
[2016-09-16 04:38] LABS: MODE AC RATE 12 RATE
[2016-09-16 05:31] LABS: AUTOMATED BASOPHIL 0.7 % (0-2); AUTOMATED EOSINOPHIL 0.4 % (0-5); AUTOMATED LYMPH 7.3 % (17-44); AUTOMATED MONOCYTE 13.2 % (3-10); AUTOMATED NEUTROPHIL 78.4 % (45-76); MPV 8.5 fL (7.4-10.4)
[2016-09-16] MEDS: DILTIAZEM 60 MG TAB NG SCH ×3 (05:36→22:42)
[2016-09-16 05:40] LABS: PT-INR 3.5
[2016-09-16] MEDS: LANSOPRAZOLE 30 MG TAB NG SCH (05:42)
[2016-09-16] MEDS: CHLORHEXIDINE 0.12% ORAL SOLN 15 ML PO SCH ×2 (05:42→16:35)
[2016-09-16 05:44] LABS: BLOOD UREA NITROGEN 17 MG/DL (7-17); CALCIUM 7.8 MG/DL (8.4-10.2); CALCULATED OSMOLALITY 233 MOs/Kg (270-290); CHLORIDE 78 mEq/L (98-107); GLUCOSE 75 MG/DL (70-99)
[2016-09-16 06:29] LABS: SODIUM LEVEL 120 mEq/L (137-146)
--- NOTE | 2016-09-16 07:36 | DIRPT ---
CLINICAL DATA: Acute respiratory failure. On ventilator. EXAM: PORTABLE CHEST 1 VIEW COMPARISON: 09/15/2016 FINDINGS: Endotracheal tube and nasogastric tube remain in appropriate position. Marked cardiac enlargement is stable. Mild bilateral airspace opacity in the mid and lower lung field shows no significant change, most likely due to pulmonary edema. Small pleural effusions cannot be excluded, however no pneumothorax visualized. IMPRESSION: Marked cardiac enlargement and mild pulmonary edema, without significant change. Electronically Signed By: Michael Berry M.D. On: 09/16/2016 07:33
[2016-09-16] MEDS: ALBUTEROL 6.7 GM MDI INH PRN (09:04)
[2016-09-16] MEDS: SERTRALINE HCL 25 MG TAB PO SCH (09:42)
[2016-09-16] MEDS: LISINOPRIL 20 MG TAB PO SCH ×2 (10:03→22:41)
--- NOTE | 2016-09-16 10:11 | PCM.PULM ---
Chief Complaint: Acute respiratory failure with hypoxia Diastolic CHF COPD exacerbation Bilateral pleural effusions Pulmonary artery hypertension Patient in Intensive care unit bed intubated sedated and on ventilator Medication list reviewed:yes Notes reviewed:yes, Events from last night noted and discussed with Clinical Staff DVT/GI prophylaxis:yes - Physical Examination Vital Signs and I&O: Last Vital Signs Temp 98.7 F 09/16/16 07:00 Pulse 90 09/16/16 10:00 Resp 12 09/16/16 10:00 BP 98/56 L 09/16/16 10:00 Pulse Ox 98 09/16/16 10:00 Oxygen Pulse Oxygen Saturation 98 O2 Device Vent Oxygen Flow Rate 40 Fraction of Inspired Oxygen ( 40 FIO2) Intake & Output 09/13/16 09/14/16 09/15/16 09/16/16 23:59 23:59 23:59 23:59 Intake Total 773 1756 Output Total 400 1625 425 Balance -400 -852 1331 Patient's weight 66.395 kg 65.941 kg 66.043 kg General: No acute distress, Other (Patient sedated intubated and on ventilator) Respiratory: Normal - CTA Cardiovascular: Regular rate, Regular rate and rhythm, Normal S1, No Gallops, Rubs/Murmurs, Normal S2, Good Pedal Pulses (Dp pulses 2+ bilaterally) GI: Normal bowel sounds, Soft, Non tender, No hepatospenomegaly, No masses Extremities/Musculoskeletal: Normal pulses Skin: Warm,Dry and Intact, No rashes, No breakdown, No significant lesion Psych/Mental Status: Sedated Result Diagrams: 09/16/16 05:10 09/16/16 05:10 Labs (last 24 hours): Laboratory Results - last 24 hr 09/15/16 09/15/16 09/15/16 09:47 10:16 17:35 WBC RBC Hgb Hct MCV MCH MCHC RDW Plt Count MPV Neut % (Auto) Lymph % (Auto) [place] % (Auto) Eos % (Auto) Baso % (Auto) Absolute Neuts (auto) Absolute Lymphs (auto) PT INR Puncture Site Right radial pH 7.550 H pCO2 54.0 H pO2 63.0 L HCO3 47.2 H Total CO2 48.9 H Base Excess 21.4 H Vent Mode Ac rate 18 FiO2 % 50% Tidal Volume 500 PEEP 5 Specimen Drawn By Kasgl Sodium 119 L* 118 L* Potassium 3.4 L 3.4 L Chloride 75 L 74 L Carbon Dioxide 33 > 40 H Anion Gap 14 7 L BUN 12 13 Creatinine 0.50 L 0.60 Estimated GFR (MDRD) > 60 > 60 Glucose 154 H 79 Calculated Osmolality 233 L 227 L Calcium 7.8 L 7.8 L Magnesium 09/16/16 09/16/16 09/16/16 04:30 05:10 05:10 WBC RBC Hgb Hct MCV MCH MCHC RDW Plt Count MPV Neut % (Auto) Lymph % (Auto) [place] % (Auto) Eos % (Auto) Baso % (Auto) Absolute Neuts (auto) Absolute Lymphs (auto) PT 36.3 H INR 3.5 Puncture Site Left radial pH 7.500 H pCO2 54.0 H pO2 69.0 L HCO3 42.1 H Total CO2 43.8 H Base Excess 16.2 H Vent Mode Ac rate 12 FiO2 % 40 Tidal Volume 500 PEEP 5 Specimen Drawn By Bkl Sodium 120 L* Potassium 3.7 Chloride 78 L Carbon Dioxide 37 H Anion Gap 9 BUN 17 Creatinine 1.00 D Estimated GFR (MDRD) > 60 Glucose 75 Calculated Osmolality 233 L Calcium 7.8 L Magnesium 09/16/16 09/16/16 05:10 05:10 WBC 7.3 RBC 4.14 L Hgb 10.5 L Hct 32.1 L MCV 77 L MCH 25.4 L MCHC 32.8 L RDW 17.7 H Plt Count 153 MPV 8.5 Neut % (Auto) 78.4 H Lymph % (Auto) 7.3 L [place] % (Auto) 13.2 H Eos % (Auto) 0.4 Baso % (Auto) 0.7 Absolute Neuts (auto) 5.69 Absolute Lymphs (auto) 0.51 L PT INR Puncture Site pH pCO2 pO2 HCO3 Total CO2 Base Excess Vent Mode FiO2 % Tidal Volume PEEP Specimen Drawn By Sodium Potassium Chloride Carbon Dioxide Anion Gap BUN Creatinine Estimated GFR (MDRD) Glucose Calculated Osmolality Calcium Magnesium 2.50 H Lab/DI/Studies Reviewed: EKG: NSR, NO ST or ST wave changes noted cxray: 1view Chest x-ray was seen personally patient seems to have pulmonary edema and significant cardiomegaly Microbiology 09/14/16 23:05 Urine - Clean Catch - Midstream Urine Culture - Final Mixed skin/vaginal contaminants Medications: Lansoprazole (Prevacid Solutabs) 30 mg NG 0600 [facility] Stop: 09/29/16 16:59 Last Admin: 09/16/16 05:42 Dose: 30 mg Warfarin Sodium 3 mg/ Warfarin (Sodium 4 mg) 7 mg PO [email or web address] [facility] Stop: 09/22/16 17:59 Last Admin: 09/15/16 17:42 Dose: 7 mg Sennosides (Senokot) 1 tab PO BID PRN PRN Reason: Constipation - First Option Stop: 09/28/16 16:59 Promethazine HCl (Phenergan) 12.5 mg IV Q6H PRN; Protocol PRN Reason: Nausea/Vomiting - Alternative Stop: 09/28/16 16:59 Acetaminophen (Tylenol Suppository) 325 mg NM Q6H PRN; Protocol PRN Reason: Mild Pain or Fever above 100.4 Stop: 09/28/16 16:59 Acetaminophen (Tylenol Tablet) 325 mg PO Q6H PRN; Protocol PRN Reason: Mild Pain or Fever above 100.4 Stop: 09/28/16 16:59 Albuterol (Proventil Hfa) 8 puff INH Q6H PRN PRN Reason: WHEEZING Stop: 09/29/16 14:21 Last Admin: 09/16/16 09:04 Dose: 8 puff Benzonatate (Tessalon) 200 mg PO Q8H PRN PRN Reason: Cough - First Option Stop: 09/28/16 16:59 Ceftriaxone Sodium 1 gm/ (Dextrose) 100 mls @ 100 mls/hr IV Q24H [facility] Stop: 09/22/16 11:59 Last Admin: 09/16/16 11:36 Dose: 100 mls/hr Chlorphenir/Hydrocodone Polistirex (Tussionex) 5 ml PO BID PRN PRN Reason: Cough - Alternative Stop: 09/28/16 16:59 Diltiazem HCl (Cardizem Cd) 300 mg PO QAM [facility] Stop: 09/29/16 08:59 Last Admin: 09/15/16 10:21 Dose: Not Given Diltiazem HCl (Cardizem) 90 mg NG Q8 [facility] Stop: 09/29/16 16:59 Last Admin: 09/16/16 05:36 Dose: Not Given Fentanyl Citrate (Fentanyl 10 Mcg/Ml) 2,500 mcg in 250 mls @ 5 mls/hr IV Q12H [place]; 50 MCG/HR PRN Reason: Protocol Stop: 09/22/16 16:59 Last Admin: 09/16/16 09:50 Dose: 5 mls/hr Furosemide (Lasix) 40 mg IV Q8H [facility] Stop: 09/29/16 00:59 Last Admin: 09/16/16 09:41 Dose: 40 mg Lact Acid/Bifidobact/Lact [place]/Streptoc Th (Felisha Q) 1 tab PO BIDLS [facility] Stop: 09/29/16 21:59 Last Admin: 09/16/16 11:36 Dose: 1 tab Levofloxacin/Dextrose (Levaquin 750 Mg) 750 mg in 150 mls @ 100 mls/hr IV Q24H [facility] Stop: 09/22/16 13:59 Last Admin: 09/15/16 13:47 Dose: 100 mls/hr Lisinopril (Zestril) 20 mg PO BID [facility] Stop: 09/28/16 20:59 Last Admin: 09/16/16 10:03 Dose: Not Given Lorazepam (Ativan) 1 - 2 mg IV Q30M PRN PRN Reason: Acute Agitation/on Ventilator Stop: 09/29/16 10:40 Last Admin: 09/15/16 13:50 Dose: 2 mg Petrolatum ([place]) 1 tube TOP DIR PRN PRN Reason: Oral Care While Intubated Stop: 09/29/16 16:59 Potassium Chloride (Kcl 20 Meq/15 Ml Oral Liquid) 20 meq NG 1200 [facility] Stop: 09/30/16 11:59 Last Admin: 09/16/16 11:36 Dose: 20 meq Potassium Chloride/Sodium Chloride (Normal Saline-Kcl 20 Meq Per 1000 Ml) 1, 000 mls @ 50 mls/hr IV Q20H [facility] Stop: 09/29/16 21:04 Last Admin: 09/16/16 00:19 Dose: Not Given Pravastatin Sodium (Pravachol) 80 mg PO HS [facility] Stop: 09/28/16 20:59 Last Admin: 09/15/16 22:35 Dose: 80 mg Sertraline HCl (Zoloft) 25 mg PO DAILY [facility] Stop: 09/29/16 08:59 Last Admin: 09/16/16 09:42 Dose: 25 mg Warfarin Sodium (Coumadin) 7.5 mg PO [email or web address] [facility] Stop: 09/21/16 17:59 Last Admin: 09/14/16 20:44 Dose: 7.5 mg - Assessment/Plan (1) Acute respiratory failure with hypoxia Acute J96.01 - ACUTE RESPIRATORY FAILURE WITH HYPOXIA Comment/Plan: I would continue the current vent settings however cut down the tidal volume to 400 because the patient seems to be significantly alkalotic at this time she remains significantly edematous and has pulmonary edema I would change the Lasix to IV drip 10 milligrams/hour and titrate according to the blood pressure continue other supportive care with DVT and GI prophylaxis repeat chest x-ray and blood gas in the morning continue Rocephin and Levaquin (2) Bilateral pleural effusion Acute J90 - PLEURAL EFFUSION, NOT ELSEWHERE CLASSIFIED Comment/Plan: Effusions have been improving slowly I would change the Lasix to drip (3) Diastolic CHF Acute I50.30 - UNSPECIFIED DIASTOLIC (CONGESTIVE) HEART FAILURE acute on chronic I50.33 - Acute on chronic diastolic (congestive) heart failure Comment/Plan: Continue supportive care continue diuresis (4) Pulmonary artery hypertension Acute I27.2 - OTHER SECONDARY PULMONARY HYPERTENSION (5) COPD exacerbation Acute J44.1 - CHRONIC OBSTRUCTIVE PULMONARY DISEASE W (ACUTE) EXACERBATION Comment/Plan: Needs to be evaluated as an outpatient within right heart catheterization I personally saw and evaluated the patient.: Yes Total Face to Face Time: 35 minutes Case Care Discussed with: Nursing Staff, Respiratory Therapy
[2016-09-16] MEDS: CEFTRIAXONE 1 GM in D5W 100 ML IV SCH (11:36)
[2016-09-16] MEDS: PROBIOTIC BLEND TAB PO SCH ×2 (11:36→16:38)
[2016-09-16] MEDS ORDERED: POTASSIUM CHLORIDE 20 MEQ/15 ML ORAL SOLN NG SCH (12:00)
--- NOTE | 2016-09-16 12:15 | GENMEDPROG ---
Chief Complaint: Intubated on vent Notes Reviewed: Yes Events from last night noted and discussed with Clinical Staff Current Medication List: Reviewed Currently: Reports: Cough DVT Prophylaxis: Yes - Physical Examination Vital Signs and I&O: Last Vital Signs Temp 98.3 F 09/16/16 10:10 Pulse 81 09/16/16 12:07 Resp 12 09/16/16 12:00 BP 100/57 L 09/16/16 12:00 Pulse Ox 99 09/16/16 12:00 Oxygen Pulse Oxygen Saturation 99 O2 Device Vent Oxygen Flow Rate 40 Fraction of Inspired Oxygen ( 40 FIO2) Intake & Output 09/13/16 09/14/16 09/15/16 09/16/16 23:59 23:59 23:59 23:59 Intake Total 773 1756 Output Total 400 1625 425 Balance -400 -852 1331 Patient's weight 66.395 kg 65.941 kg 66.043 kg General: Severe distress, Well nourished, Weakness, Fatigue HEENT: Normal (Normocephalic, atraumatic;EOMI.Sclera white, Nares patent, without discharge or bleeding. No oropharyngeal lesions or erythema. Mucous membranes are dry.) Neck: No Masses palpable, No Thyromegaly palpable, Limited range of motion, JVD (jvd to angle of jaw) Lymphatics: Normal (No cervical lymphadenopathy. No supraclavicular lymphadenopathy.) Respiratory: Diminished, Rales. negative: Rhonchi, Tachypnea, Wheezes Cardiovascular: Normal S1, No Gallops,Rubs/Murmurs, Normal S2, Irregular GI: Normal bowel sounds (normal active sounds), Soft (non-distended), Non tender , No hepatospenomegaly, No masses Extremities/Musculoskeletal: Normal pulses (DP pulses 2+ bilaterally) Skin: Warm,Dry and Intact, No rashes, No significant lesion Neurological: Normal tone, Cranial nerves 3-12 NL ( 2-12 grossly intact.), Somnolent, Lethargy. negative: Strength at 5/5 X4 ext Psych/Mental Status: Drowsy, Somnolent - Assessment (1) Diastolic CHF Acute I50.30 - UNSPECIFIED DIASTOLIC (CONGESTIVE) HEART FAILURE Qualifiers: Congestive heart failure chronicity: acute on chronic Qualified Code(s): I50.33 - Acute on chronic diastolic (congestive) heart failure Comment/Plan: Echocardiogram showed normal ejection fraction so this is acute on chronic diastolic CHF. IV Lasix is initiated and has diuresed 1 L of fluid yesterday but has now gained fluid and agree with continuous Lasix infusion. Hopefully the sodium will continue to rise with the measures taken. (2) Respiratory failure with hypoxia and hypercapnia Acute J96.91 - RESPIRATORY FAILURE, UNSPECIFIED WITH HYPOXIA; J96.92 - RESPIRATORY FAILURE, UNSPECIFIED WITH HYPERCAPNIA Qualifiers: Chronicity: acute on chronic Qualified Code(s): J96.21 - Acute and chronic respiratory failure with hypoxia; J96.22 - Acute and chronic respiratory failure with hypercapnia Comment/Plan: Patient had to be intubated yesterday and now on the vent and appreciate Dr. Umanzor's input. (3) Atrial fibrillation, controlled Chronic I48.91 - UNSPECIFIED ATRIAL FIBRILLATION Comment/Plan: On chronic Coumadin therapy with atrial fib with supratherapeutic INR today so holding Coumadin. (4) Hyponatremia Acute E87.1 - HYPO-OSMOLALITY AND HYPONATREMIA Comment/Plan: P.o. fluid restriction ordered. Concerned that her hyponatremia may be related to occult pneumonia. Now that she is on the ventilator will be able to get a better sputum specimen. Agree with Dr. Umanzor that we should start her on Rocephin Zithromax. Will increase IV saline and administer Lasix. Concerned she has SIADH associated with her respiratory infection. (5) Bilateral pleural effusion Acute J90 - PLEURAL EFFUSION, NOT ELSEWHERE CLASSIFIED Comment/Plan: Related to her CHF. (6) Peripheral edema Acute R60.9 - EDEMA, UNSPECIFIED Comment/Plan: IV Lasix for this manifestation of CHF. (7) Pulmonary artery hypertension Acute I27.2 - OTHER SECONDARY PULMONARY HYPERTENSION Comment/Plan: Echocardiogram is showed ejection fraction of 60% and left ventricular hypertrophy which shows the CHF to be more diastolic than systolic failure. - Plan Due to the presence of and / or the risk of deterioration, my attendance to this patient required critical care time, including assessment/reassessment, documentation, ordering and interpreting ancillary studies, discussion with staff and consultants,patient and family, and excludes time spent on separately billable procedures. This individual is critically ill and in danger of dying. Case Care Discussed with: Patient, Consultants, Nursing Staff Education/Counseling Given Regarding: Diagnosis, Treatment Total Time: Critical care time spent 42 minutes Critical Care: No Code: 291
[2016-09-16 12:45] LABS: TOTAL PROTEIN 5.5 G/DL (6.3-8.2)
[2016-09-16] MEDS: POTASSIUM CHLORIDE 20 MEQ TAB PO SCH (12:49)
[2016-09-16] MEDS: Levofloxacin 750 mg/150 ml D5W 750 MG/150 ML RTU IV SCH (14:40)
[2016-09-16] MEDS: Furosemide 100 MG in NS 40 ML IV SCH (16:28)
[2016-09-16] MEDS: This patient is receiving warfarin therapy SCH (16:37)
[2016-09-16] MEDS ORDERED: Furosemide 100 MG/10 ML VIAL IV SCH (17:00)
[2016-09-16] MEDS ORDERED: KCl 10 mEq/100 ml Premix (Run) 10 MEQ/100 ML RTU IV ONE (17:05)
[2016-09-16] MEDS: LORAZEPAM 2 MG/ML VIAL IV PRN (19:54)
[2016-09-16] MEDS: AZITHROMYCIN 500 MG in D5W 250 ML IV SCH (19:54)
[2016-09-16] MEDS: PRAVASTATIN 80 MG TABLET PO SCH (22:38)
[2016-09-17] MEDS: Furosemide 100 MG in NS 40 ML IV SCH ×4 (01:15→19:46)
[2016-09-17] MEDS: CHLORHEXIDINE (HIBICLENS) 4 OZ BOTTLE TOP SCH ×2 (02:57→21:08)
[2016-09-17] MEDS: FENTANYL 2,500 MCG/250 ML BAG IV SCH ×3 (02:57→19:45)
[2016-09-17 04:10] LABS: ALLEN'S TEST PASS; BEb 11.8 (+/- 2); TCO2 40.3 MMOL/L (23-27)
[2016-09-17 04:13] LABS: ABG Draw Site Left Radial; ABG Draw Tech BKL; MODE AC/VC RATE
[2016-09-17] MEDS: DILTIAZEM 60 MG TAB NG SCH ×3 (05:41→22:25)
[2016-09-17] MEDS: LANSOPRAZOLE 30 MG TAB NG SCH (05:45)
[2016-09-17] MEDS: CHLORHEXIDINE 0.12% ORAL SOLN 15 ML PO SCH ×2 (05:45→16:31)
[2016-09-17 05:47] LABS: AUTOMATED BASOPHIL 0.7 % (0-2); AUTOMATED EOSINOPHIL 0.5 % (0-5); AUTOMATED LYMPH 4.7 % (17-44); AUTOMATED MONOCYTE 11.3 % (3-10); AUTOMATED NEUTROPHIL 82.8 % (45-76); MPV 8.4 fL (7.4-10.4)
[2016-09-17 05:56] LABS: BLOOD UREA NITROGEN 15 MG/DL (7-17); CALCIUM 7.8 MG/DL (8.4-10.2); CALCULATED OSMOLALITY 235 MOs/Kg (270-290); CHLORIDE 81 mEq/L (98-107); GLUCOSE 71 MG/DL (70-99)
[2016-09-17 06:05] LABS: SODIUM LEVEL 122 mEq/L (137-146)
[2016-09-17 06:16] LABS: PT-INR 4.4
--- NOTE | 2016-09-17 07:35 | DIRPT ---
CLINICAL DATA: Respiratory failure. EXAM: PORTABLE CHEST 1 VIEW COMPARISON: 09/16/2016. FINDINGS: Endotracheal tube and NG tube in stable position. Prior CABG.Cardiomegaly. Mild bilateral pulmonary infiltrates/pulmonary edema again noted. Small bilateral pleural effusions again noted. No interim change. No pneumothorax. IMPRESSION: 1. Lines and tubes in stable position. 2. Prior CABG. Persistent severe cardiomegaly. Mild bilateral pulmonary edema and small pleural effusions again noted. No interim change. Electronically Signed By: Fritz Desai On: 09/17/2016 07:32
--- NOTE | 2016-09-17 08:42 | GENMEDPROG ---
Subjective Note: Patient intubated and sedated on ventilator. She does not arouse for examination. Notes Reviewed: Yes Events from last night noted and discussed with Clinical Staff Current Medication List: Reviewed Currently: Reports: Cough DVT Prophylaxis: Yes - Physical Examination Vital Signs and I&O: Last Vital Signs Temp 99.0 F 09/17/16 03:00 Pulse 103 09/17/16 06:00 Resp 12 09/17/16 06:00 BP 86/54 L 09/17/16 06:00 Pulse Ox 97 09/17/16 06:00 Oxygen Pulse Oxygen Saturation 97 O2 Device Vent Oxygen Flow Rate 40 Fraction of Inspired Oxygen ( 35 FIO2) Intake & Output 09/14/16 09/15/16 09/16/16 09/17/16 23:59 23:59 23:59 23:59 Intake Total 773 2190 1401 Output Total 400 1625 1675 1200 Balance -400 -852 515 201 Patient's weight 66.395 kg 65.941 kg 66.043 kg 63.367 kg General: Severe distress, Well nourished, Weakness, Fatigue HEENT: Normal (Normocephalic, atraumatic;EOMI.Sclera white, Nares patent, without discharge or bleeding. No oropharyngeal lesions or erythema. Mucous membranes are dry.) Neck: No Masses palpable, No Thyromegaly palpable, Limited range of motion, JVD (jvd to angle of jaw) Lymphatics: Normal (No cervical lymphadenopathy. No supraclavicular lymphadenopathy.) Respiratory: Diminished, Rales. negative: Rhonchi, Tachypnea, Wheezes Cardiovascular: Normal S1, No Gallops,Rubs/Murmurs, Normal S2, Irregular GI: Normal bowel sounds (normal active sounds), Soft (non-distended), Non tender , No hepatospenomegaly, No masses Extremities/Musculoskeletal: Normal pulses (DP pulses 2+ bilaterally), Edema ( Especially in dependent areas) Skin: Warm,Dry and Intact, No rashes, No significant lesion Neurological: Normal tone, Cranial nerves 3-12 NL ( 2-12 grossly intact.), Somnolent, Lethargy. negative: Strength at 5/5 X4 ext Psych/Mental Status: Drowsy, Somnolent Lab/DI/Studies Reviewed: Abnormal Lab Results 09/16/16 09/16/16 09/17/16 05:10 05:10 04:00 Hgb Hct MCV MCH MCHC RDW Neut % (Auto) Lymph % (Auto) Lyman % (Auto) Absolute Lymphs (auto) PT pCO2 58.0 H pO2 74.0 L HCO3 38.5 H Total CO2 40.3 H Base Excess 11.8 H Sodium Chloride Carbon Dioxide Calculated Osmolality Calcium Magnesium 2.50 H Total Protein 5.5 L Albumin 2.8 L 09/17/16 09/17/16 09/17/16 05:25 05:25 05:25 Hgb 11.0 L Hct 34.4 L MCV 78 L MCH 25.1 L MCHC 32.0 L RDW 17.8 H Neut % (Auto) 82.8 H Lymph % (Auto) 4.7 L Lyman % (Auto) 11.3 H Absolute Lymphs (auto) 0.37 L PT 46.3 H pCO2 pO2 HCO3 Total CO2 Base Excess Sodium 122 L* Chloride 81 L Carbon Dioxide 35 H Calculated Osmolality 235 L Calcium 7.8 L Magnesium Total Protein Albumin PORTABLE CHEST 1 VIEW COMPARISON: 09/16/2016. FINDINGS: Endotracheal tube and NG tube in stable position. Prior CABG.Cardiomegaly. Mild bilateral pulmonary infiltrates/pulmonary edema again noted. Small bilateral pleural effusions again noted. No interim change. No pneumothorax. IMPRESSION: 1. Lines and tubes in stable position. 2. Prior CABG. Persistent severe cardiomegaly. Mild bilateral pulmonary edema and small pleural effusions again noted. No interim change. Electronically Signed By: Fritz Kasilof On: 09/17/2016 07:32 - Assessment (1) Diastolic CHF Acute I50.30 - UNSPECIFIED DIASTOLIC (CONGESTIVE) HEART FAILURE Qualifiers: Congestive heart failure chronicity: acute on chronic Qualified Code(s): I50.33 - Acute on chronic diastolic (congestive) heart failure Comment/Plan: Diastolic dysfunction patient on a Lasix drip. Still with significant amounts of central edema (2) Respiratory failure with hypoxia and hypercapnia Acute J96.91 - RESPIRATORY FAILURE, UNSPECIFIED WITH HYPOXIA; J96.92 - RESPIRATORY FAILURE, UNSPECIFIED WITH HYPERCAPNIA Qualifiers: Chronicity: acute on chronic Qualified Code(s): J96.21 - Acute and chronic respiratory failure with hypoxia; J96.22 - Acute and chronic respiratory failure with hypercapnia Comment/Plan: Continue ventilator management. Wean once able. (3) Atrial fibrillation, controlled Chronic I48.91 - UNSPECIFIED ATRIAL FIBRILLATION Comment/Plan: On chronic Coumadin therapy with atrial fib with supratherapeutic INR again today Saturday the so holding Coumadin. (4) Hyponatremia Acute E87.1 - HYPO-OSMOLALITY AND HYPONATREMIA Comment/Plan: Continues to improve monitor daily. (5) Bilateral pleural effusion Acute J90 - PLEURAL EFFUSION, NOT ELSEWHERE CLASSIFIED Comment/Plan: Related to her CHF. (6) Peripheral edema Acute R60.9 - EDEMA, UNSPECIFIED Comment/Plan: IV Lasix for this manifestation of CHF. (7) Pulmonary artery hypertension Acute I27.2 - OTHER SECONDARY PULMONARY HYPERTENSION Comment/Plan: Echocardiogram is showed ejection fraction of 60% and left ventricular hypertrophy which shows the CHF to be more diastolic than systolic failure. - Plan Patient remains on ventilator critically ill. Will continue Lasix infusion. Due to the presence of and/or the risk of deterioration, my attendance to this patient required critical care time, including assessment/reassessment, documentation, ordering and interpreting ancillary studies, discussion with staff and consultants,patient and family, and excludes time spent on separately billable procedures. In summary, this patient is acutely and critically ill. The patient requires treatment of vital organ failure and measures to prevent further life-threatening deterioration of condition. Case Care Discussed with: Nursing Staff Total Time: 55 minutes Critical Care: Yes Couseling Time (>50% in counseling/coordination): No
[2016-09-17] MEDS: POTASSIUM CHLORIDE 20 MEQ/15 ML ORAL SOLN NG SCH ×3 (09:38→16:31)
[2016-09-17] MEDS: LISINOPRIL 20 MG TAB PO SCH ×2 (09:38→21:08)
[2016-09-17] MEDS: SERTRALINE HCL 25 MG TAB PO SCH (09:39)
[2016-09-17] MEDS: CEFTRIAXONE 1 GM in D5W 100 ML IV SCH (11:02)
[2016-09-17] MEDS: PROBIOTIC BLEND TAB PO SCH ×2 (11:03→16:32)
--- NOTE | 2016-09-17 12:32 | PCM.PULM ---
Chief Complaint: Uneventful overnight Patient in bed intubated on ventilator. Not breathing much over the ventilator Medication list reviewed:yes Notes reviewed:yes, Events from last night noted and discussed with Clinical Staff DVT/GI prophylaxis:yes - Physical Examination Vital Signs and I&O: Last Vital Signs Temp 99.1 F 09/17/16 11:00 Pulse 104 09/17/16 12:00 Resp 10 09/17/16 10:27 BP 87/54 L 09/17/16 12:00 Pulse Ox 96 09/17/16 12:00 Oxygen Pulse Oxygen Saturation 96 O2 Device Vent Oxygen Flow Rate 40 Fraction of Inspired Oxygen ( 35 FIO2) Intake & Output 09/14/16 09/15/16 09/16/16 09/17/16 23:59 23:59 23:59 23:59 Intake Total 773 2190 1580 Output Total 400 5463 7390 1825 Balance -400 -213 263 -891 Patient's weight 66.395 kg 65.941 kg 66.043 kg 63.367 kg General: No acute distress (intubated sedated on ventilator) Respiratory: Normal - CTA Cardiovascular: Regular rate, Regular rate and rhythm, Normal S1, No Gallops, Rubs/Murmurs, Normal S2 GI: Normal bowel sounds, Soft, Non tender, No hepatospenomegaly, No masses Extremities/Musculoskeletal: Normal pulses Skin: Warm,Dry and Intact, No rashes, No breakdown, No significant lesion Psych/Mental Status: Sedated Result Diagrams: 09/17/16 05:25 09/17/16 05:25 Labs (last 24 hours): Laboratory Results - last 24 hr 09/16/16 09/17/16 09/17/16 05:10 04:00 05:25 WBC RBC Hgb Hct MCV MCH MCHC RDW Plt Count MPV Neut % (Auto) Lymph % (Auto) Navarro % (Auto) Eos % (Auto) Baso % (Auto) Absolute Neuts (auto) Absolute Lymphs (auto) PT 46.3 H INR 4.4 Puncture Site Left radial pH 7.430 pCO2 58.0 H pO2 74.0 L HCO3 38.5 H Total CO2 40.3 H Base Excess 11.8 H Vent Mode Ac/vc FiO2 % 35 Tidal Volume 400 PEEP 5 Specimen Drawn By Bkl Sodium Potassium Chloride Carbon Dioxide Anion Gap BUN Creatinine Estimated GFR (MDRD) Glucose Calculated Osmolality Calcium Total Bilirubin 0.7 Direct Bilirubin 0.50 AST 34 ALT 36 Alkaline Phosphatase 63 Total Protein 5.5 L Albumin 2.8 L 09/17/16 09/17/16 05:25 05:25 WBC 9.3 RBC 4.39 Hgb 11.0 L Hct 34.4 L MCV 78 L MCH 25.1 L MCHC 32.0 L RDW 17.8 H Plt Count 153 MPV 8.4 Neut % (Auto) 82.8 H Lymph % (Auto) 4.7 L Navarro % (Auto) 11.3 H Eos % (Auto) 0.5 Baso % (Auto) 0.7 Absolute Neuts (auto) 7.63 Absolute Lymphs (auto) 0.37 L PT INR Puncture Site pH pCO2 pO2 HCO3 Total CO2 Base Excess Vent Mode FiO2 % Tidal Volume PEEP Specimen Drawn By Sodium 122 L* Potassium 3.6 Chloride 81 L Carbon Dioxide 35 H Anion Gap 10 BUN 15 Creatinine 0.90 Estimated GFR (MDRD) > 60 Glucose 71 Calculated Osmolality 235 L Calcium 7.8 L Total Bilirubin Direct Bilirubin AST ALT Alkaline Phosphatase Total Protein Albumin Lab/DI/Studies Reviewed: EKG: NSR, NO ST or ST wave changes noted Cxray: 1 view Chest x-ray was seen personally patient seems to have significant cardiomegaly and bilateral pulmonary edema with effusions not much change from yesterday Microbiology: 09/16/16 01:30 Tracheal Aspirate Gram Stain - Final 09/15/16 16:23 Sputum Gram Stain - Final 09/15/16 16:23 Sputum Sputum Culture - Final Normal oral/respiratory varun present 09/16/16 01:30 Tracheal Aspirate Tracheal Culture (HI) - Preliminary Medications: Lansoprazole (Prevacid Solutabs) 30 mg NG 0600 [facility] Stop: 09/29/16 16:59 Last Admin: 09/16/16 05:42 Dose: 30 mg Sennosides (Senokot) 1 tab PO BID PRN PRN Reason: Constipation - First Option Stop: 09/28/16 16:59 Promethazine HCl (Phenergan) 12.5 mg IV Q6H PRN; Protocol PRN Reason: Nausea/Vomiting - Alternative Stop: 09/28/16 16:59 Potassium Chloride (Kcl 20 Meq/15 Ml Oral Liquid) 20 meq NG TIDWM [facility] Stop: 10/01/16 16:59 Last Admin: 09/17/16 11:03 Dose: 20 meq Acetaminophen (Tylenol Suppository) 325 mg DE Q6H PRN; Protocol PRN Reason: Mild Pain or Fever above 100.4 Stop: 09/28/16 16:59 Acetaminophen (Tylenol Tablet) 325 mg PO Q6H PRN; Protocol PRN Reason: Mild Pain or Fever above 100.4 Stop: 09/28/16 16:59 Albuterol (Proventil Hfa) 8 puff INH Q6H PRN PRN Reason: WHEEZING Stop: 09/29/16 14:21 Last Admin: 09/16/16 09:04 Dose: 8 puff Benzonatate (Tessalon) 200 mg PO Q8H PRN PRN Reason: Cough - First Option Stop: 09/28/16 16:59 Ceftriaxone Sodium 1 gm/ (Dextrose) 100 mls @ 100 mls/hr IV Q24H [facility] Stop: 09/22/16 11:59 Last Admin: 09/16/16 11:36 Dose: 100 mls/hr Chlorphenir/Hydrocodone Polistirex (Tussionex) 5 ml PO BID PRN PRN Reason: Cough - Alternative Stop: 09/28/16 16:59 Diltiazem HCl (Cardizem Cd) 300 mg PO QAM [facility] Stop: 09/29/16 08:59 Last Admin: 09/15/16 10:21 Dose: Not Given Diltiazem HCl (Cardizem) 90 mg NG Q8 [facility] Stop: 09/29/16 16:59 Last Admin: 09/16/16 05:36 Dose: Not Given Fentanyl Citrate (Fentanyl 10 Mcg/Ml) 2,500 mcg in 250 mls @ 5 mls/hr IV Q12H [facility]; 50 MCG/HR PRN Reason: Protocol Stop: 09/22/16 16:59 Last Admin: 09/16/16 09:50 Dose: 5 mls/hr Lact Acid/Bifidobact/Lact [place]/Streptoc Th (Varun Q) 1 tab PO BIDLS [facility] Stop: 09/29/16 21:59 Last Admin: 09/16/16 11:36 Dose: 1 tab Levofloxacin/Dextrose (Levaquin 750 Mg) 750 mg in 150 mls @ 100 mls/hr IV Q24H [facility] Stop: 09/22/16 13:59 Last Admin: 09/15/16 13:47 Dose: 100 mls/hr Lisinopril (Zestril) 20 mg PO BID [facility] Stop: 09/28/16 20:59 Last Admin: 09/16/16 10:03 Dose: Not Given Lorazepam (Ativan) 1 - 2 mg IV Q30M PRN PRN Reason: Acute Agitation/on Ventilator Stop: 09/29/16 10:40 Last Admin: 09/15/16 13:50 Dose: 2 mg Petrolatum ([place]) 1 tube TOP DIR PRN PRN Reason: Oral Care While Intubated Stop: 09/29/16 16:59 Potassium Chloride/Sodium Chloride (Normal Saline-Kcl 20 Meq Per 1000 Ml) 1, 000 mls @ 50 mls/hr IV Q20H [facility] Stop: 09/29/16 21:04 Last Admin: 09/16/16 00:19 Dose: Not Given Pravastatin Sodium (Pravachol) 80 mg PO HS [facility] Stop: 09/28/16 20:59 Last Admin: 09/15/16 22:35 Dose: 80 mg Sertraline HCl (Zoloft) 25 mg PO DAILY [facility] Stop: 09/29/16 08:59 Last Admin: 09/16/16 09:42 Dose: 25 mg Warfarin Sodium (Coumadin) 7.5 mg PO [id number] [facility] Stop: 09/21/16 17:59 Last Admin: 09/14/16 20:44 Dose: 7.5 mg Furosemide 100 mg/ Sodium (Chloride) 50 mls @ 5 mls/hr IV Q10H [facility]; 10 MG/HR PRN Reason: Protocol Stop: 09/30/16 15:59 Last Admin: 09/17/16 11:02 Dose: 5 mls/hr - Assessment/Plan (1) Acute respiratory failure with hypoxia Acute J96.01 - ACUTE RESPIRATORY FAILURE WITH HYPOXIA Comment/Plan: Patient has not been breathing over the ventilator and has been alkalotic on the blood gas which is why I think that the patient should have lower rate and I would continue on a rate of 10 at this time I am not too much concerned about carbon dioxide as the patient seems to have baseline carbon dioxide at a higher level any way. Continue the Lasix drip and it would increase it as needed continue supportive care DVT and GI prophylaxis and would repeat chest x-ray and a blood gas in the morning. I would continue the current antibiotics (2) Bilateral pleural effusion Acute J90 - PLEURAL EFFUSION, NOT ELSEWHERE CLASSIFIED Comment/Plan: Effusions have been improving slowly I would increase the Lasix drip to 15 milligrams/hour and keep the patient negative balance (3) Diastolic CHF Acute I50.30 - UNSPECIFIED DIASTOLIC (CONGESTIVE) HEART FAILURE I50.33 - Acute on chronic diastolic (congestive) heart failure Comment/Plan: Continue supportive care continue diuresis (4) Pulmonary artery hypertension Acute I27.2 - OTHER SECONDARY PULMONARY HYPERTENSION (5) COPD exacerbation Acute J44.1 - CHRONIC OBSTRUCTIVE PULMONARY DISEASE W (ACUTE) EXACERBATION Comment/Plan: Continue the current supportive care on this patient had a prolonged discussion with the nursing staff and the respiratory therapist regarding this patient's condition if the patient starts breathing over the ventilator would attempt a CPAP trial in the morning she remains critically ill and is in danger of getting worse I personally saw and evaluated the patient.: Yes Total Face to Face Time: 35 minutes Case Care Discussed with: Patient, Nursing Staff, Respiratory Therapy Education/Counseling Given To: Patient Education/Counseling Given Regarding: Diagnosis, Treatment, Prognosis, Follow Up , Disposition Plan
[2016-09-17 14:37] LABS: A-1-ANTITRYPSIN 172 mg/dL (90-200)
[2016-09-17] MEDS: WARFARIN 7.5 MG TAB PO SCH (14:50)
[2016-09-17] MEDS: This patient is receiving warfarin therapy SCH (14:50)
[2016-09-17] MEDS: NS/KCl 20 mEq 1,000 ML IV SCH ×2 (16:14→16:29)
[2016-09-17] MEDS: AZITHROMYCIN 500 MG in D5W 250 ML IV SCH (16:29)
--- NOTE | 2016-09-17 17:49 | PCM.SURGCO ---
Consultation Date: 09/17/16 Requesting Physician: Jessica Oviedo Director Television: Lyle Andre Consult Reason: Poor Venous Access - History of Present Illness Patient is a 70 YO Female with Resp Failure currently on Ventilator. She has CHF and AFib. Sedated and unable to give any history. Chief Complaint: Shortness breath for the past 3 weeks but worse over the past 24 hours - Past Medical and Surgical History Cardiac History: Reports: No Significant History Respiratory History: Reports: No Significant History GI/ History: Reports: No Significant History Systemic History: Reports: No Significant History Musculoskeletal History: Reports: No Significant History Psychological History: Reports: No Significant History. Denies: Substance Use Disorder Neurological History: Reports: No Significant History Past Surgical History: Reports: No Significant History Allergies egg Allergy (Verified 09/14/16 23:42) Nausea/Vomiting propoxyphene HCl [From Darvon] Allergy (Verified 03/19/15 16:55) Unknown Home Medications Diltiazem HCl [Cardizem Cd] 300 mg PO QAM 05/25/14 Lisinopril/Hydrochlorothiazide [Zestoretic 20-12.5 mg Tablet] 1 tab PO BID 05/25 POTASSIUM CHLORIDE Tablet [K-DUR 20 mEq Tablet*] 20 meq PO QAM 05/25/14 Pravastatin [Pravachol] 80 mg PO HS 05/25/14 Sertraline HCl [Zoloft] 25 mg PO DAILY 03/19/15 Warfarin Sodium [Coumadin] 7 mg PO SUTUTHSA 09/14/16 Warfarin Sodium [Coumadin] 7.5 mg PO MOWEFR 09/14/16 - Social History Social History: Denies: Substance Use Disorder - Family History Reports: No Significant History, Hypertension - Review of Systems Yes Review of systems cannot be obtained due to the patient's medical condition (sedated and on ventilator.) - Physical Exam Vital Signs: Initial Vitals Temperature 98.7 F 09/14/16 13:28 Pulse Rate 62 09/14/16 13:28 Respiratory Rate 32 H 09/14/16 13:28 Blood Pressure 149/66 09/14/16 13:28 Pulse Oxygen Saturation 85 L 09/14/16 13:28 Constitutional: No apparent distress, Other (Sedated and on Vent) - HEENT Head: Normal. negative: Deformity, Swelling Eye: negative: Edema, Scleral Icterus Respiratory: Diminished, Rales. negative: Rhonchi, Tachypnea, Wheezes Cardiovascular: Irregular. negative: Diastolic murmur, Systolic murmur - GI Auscultation: Normal Palpation: Normal Tenderness: Non tender Longo's Sign: Negative - Musculoskeletal Back: negative: Ecchymosis, CVA Tenderness Extremities: Edema. negative: Calf Tenderness, Clubbing, Cyanosis - Integumentary Skin: Warm, Dry. negative: Diaphoretic Lymphatics: negative: Adenopathy, Inguinal Erythema - Lab Results 09/17/16 05:25 09/17/16 05:25 - Assessment/Plan (1) Poor venous access I87.8 - OTHER SPECIFIED DISORDERS OF VEINS Acute (2) Acute respiratory failure with hypoxia J96.01 - ACUTE RESPIRATORY FAILURE WITH HYPOXIA Acute (3) Diastolic CHF I50.30 - UNSPECIFIED DIASTOLIC (CONGESTIVE) HEART FAILURE Acute acute on chronic I50.33 - Acute on chronic diastolic (congestive) heart failure (4) COPD exacerbation J44.1 - CHRONIC OBSTRUCTIVE PULMONARY DISEASE W (ACUTE) EXACERBATION Acute (5) Atrial fibrillation, controlled I48.91 - UNSPECIFIED ATRIAL FIBRILLATION Chronic Plan: Will go ahead with central line placement.
--- NOTE | 2016-09-17 17:54 | HIMOPRPT ---
PROCEDURE: DATE OF PROCEDURE: 09/17/16 PREOPERATIVE DIAGNOSES: Poor Venous Access POSTOPERATIVE DIAGNOSES: Poor Venous Access PROCEDURES: Central Line Placement using ultrasound Guidance (Images Obtained) SURGEON: Lyle Andre MD ANESTHESIA: Local COMPLICATIONS: None. ESTIMATED BLOOD LOSS: Minimal OPERATIVE NOTE: Patient was placed supine on the hospital bed. Patient was then prepped and draped in the usual fashion. Using ultrasound guidance I was able to visualize the right internal jugular vein. The skin and subcutaneous tissue was anesthetized using local anesthetic. Large-bore needle was placed directly into the vein using ultrasound guidance. Guidewire was passed through the needle and the needle was removed. We then placed the dilator over the guidewire and then removed the dilator. Central Line was passed over the guidewire and the guidewire was removed. This left the central line in place. All 3 ports were easily aspirated and then flushed with saline. Central line was secured with silk sutures and then a dressing was applied.
[2016-09-17] MEDS ORDERED: Furosemide 100 MG in NS 40 ML IV SCH (18:00)
--- NOTE | 2016-09-17 19:13 | DIRPT ---
CLINICAL DATA: Status post central line placement. EXAM: PORTABLE CHEST 1 VIEW COMPARISON: 09/17/2016 FINDINGS: There has been interval placement of right internal jugular approach central venous catheter, tip overlies the expected location of superior vena cava. Enteric catheter, is seen with tip overlying the expected location of gastric body. Endotracheal tube is unchanged. Median sternotomy wires are noted. The cardiac silhouette is enlarged and globular. There is enlargement of the pulmonary trunk as well. Mediastinal contours appear intact. There is no evidence of focal airspace consolidation, or pneumothorax. There is a probable small right pleural effusion. Osseous structures are without acute abnormality. Soft tissues are grossly normal. IMPRESSION: Status post placement of right internal jugular approach central venous catheter. No evidence of pneumothorax. Stably enlarged cardiac silhouette. Enlargement of the pulmonary trunk. Probable small right pleural effusion. Electronically Signed By: Jeramie José M.D. On: 09/17/2016 19:10
[2016-09-17] MEDS: PRAVASTATIN 80 MG TABLET PO SCH (21:08)
[2016-09-18] MEDS: Furosemide 100 MG in NS 40 ML IV SCH ×3 (02:21→14:57)
[2016-09-18 04:27] LABS: ALLEN'S TEST PASS; BEb 8.1 (+/- 2); TCO2 39.6 MMOL/L (23-27)
[2016-09-18 04:28] LABS: ABG Draw Site Left Radial
[2016-09-18 04:29] LABS: MODE A/C 10 RATE
[2016-09-18] MEDS ORDERED: FENTANYL 2,500 MCG/250 ML BAG IV ONE ×2 (05:02→18:26)
[2016-09-18] MEDS: DILTIAZEM 60 MG TAB NG SCH ×3 (05:31→21:55)
[2016-09-18] MEDS: CHLORHEXIDINE 0.12% ORAL SOLN 15 ML PO SCH ×2 (05:32→18:30)
[2016-09-18] MEDS: LANSOPRAZOLE 30 MG TAB NG SCH (05:32)
[2016-09-18 06:21] LABS: AUTOMATED BASOPHIL 0.6 % (0-2); AUTOMATED EOSINOPHIL 0.1 % (0-5); AUTOMATED LYMPH 4.7 % (17-44); AUTOMATED MONOCYTE 12.1 % (3-10); AUTOMATED NEUTROPHIL 82.5 % (45-76); MPV 8.8 fL (7.4-10.4)
[2016-09-18 06:34] LABS: SODIUM LEVEL 125 mEq/L (137-146)
[2016-09-18 06:36] LABS: BLOOD UREA NITROGEN 15 MG/DL (7-17); CALCIUM 7.7 MG/DL (8.4-10.2); CALCULATED OSMOLALITY 242 MOs/Kg (270-290); CHLORIDE 84 mEq/L (98-107); GLUCOSE 80 MG/DL (70-99); PT-INR 4.2
[2016-09-18] MEDS: LORAZEPAM 2 MG/ML VIAL IV PRN (07:12)
[2016-09-18] MEDS: POTASSIUM CHLORIDE 20 MEQ/15 ML ORAL SOLN NG SCH ×3 (08:06→18:30)
[2016-09-18] MEDS: SERTRALINE HCL 25 MG TAB PO SCH (08:06)
[2016-09-18] MEDS: KCL 20 mEq/100 ml Premix Run 20 MEQ/100 ML RTU IV SCH ×2 (08:06→12:19)
[2016-09-18] MEDS: LISINOPRIL 20 MG TAB PO SCH ×2 (08:07→20:42)
[2016-09-18] MEDS: Magnesium Sulfate 2 gm/D5W 2 GM/50 ML RTU IV SCH ×2 (08:07→11:06)
--- NOTE | 2016-09-18 08:13 | DIRPT ---
CLINICAL DATA: Respiratory failure EXAM: PORTABLE CHEST 1 VIEW COMPARISON: Chest radiograph from one day prior. FINDINGS: Right internal jugular central venous catheter terminates in the lower third of the superior vena cava. Enteric tube terminates in the proximal stomach. Endotracheal tube tip is 2.9 cm above the marilou. Sternotomy wires appear aligned and intact. Stable cardiomediastinal silhouette with marked cardiomegaly. No pneumothorax. Stable small right pleural effusion. Stable mild pulmonary edema. Stable scarring versus atelectasis at the right lung base. IMPRESSION: 1. Well-positioned support hardware . 2. Stable marked cardiomegaly and mild pulmonary edema in keeping with mild congestive heart failure. 3. Stable small right pleural effusion. 4. Stable scarring versus atelectasis at the right lung base. Electronically Signed By: Brandon Camilo M.D. On: 09/18/2016 08:10
--- NOTE | 2016-09-18 08:42 | GENMEDPROG ---
Subjective Note: Patient intubated and sedated on ventilator. P CO2 is very high today. Notes Reviewed: Yes Events from last night noted and discussed with Clinical Staff Current Medication List: Reviewed Currently: Reports: Cough DVT Prophylaxis: Yes - Physical Examination Vital Signs and I&O: Last Vital Signs Temp 98.9 F 09/18/16 07:00 Pulse 75 09/18/16 08:00 Resp 16 09/18/16 07:42 BP 98/56 L 09/18/16 08:00 Pulse Ox 95 09/18/16 08:00 Oxygen Pulse Oxygen Saturation 95 O2 Device Vent Oxygen Flow Rate 40 Fraction of Inspired Oxygen ( 30 FIO2) Intake & Output 09/15/16 09/16/16 09/17/16 09/18/16 23:59 23:59 23:59 23:59 Intake Total 773 2190 3141 799 Output Total 1625 1675 2750 675 Balance -852 515 391 124 Patient's weight 65.941 kg 66.043 kg 63.367 kg 63.367 kg General: No acute distress, Moderate distress, Well nourished HEENT: Normal (Normocephalic, atraumatic;EOMI.Sclera white, Nares patent, without discharge or bleeding. No oropharyngeal lesions or erythema. Mucous membranes are dry.) Neck: Non-tender Lymphatics: negative: Adenopathy, Inguinal Erythema Respiratory: Diminished, Rales. negative: Rhonchi, Tachypnea, Wheezes Cardiovascular: Regular rate and rhythm (No bradycardia or tachycardia), Normal S1, No Gallops,Rubs/Murmurs, Normal S2, Good Pedal Pulses (DP pulses 2+ bilaterally) GI: Normal bowel sounds (normal active sounds), Soft (non-distended), Non tender , No hepatospenomegaly, No masses Extremities/Musculoskeletal: Normal pulses (DP pulses 2+ bilaterally) Skin: Warm,Dry and Intact, No rashes, No significant lesion Neurological: Strength at 5/5 X4 ext (Motor 5/5 throughout.), Normal tone, Cranial nerves 3-12 NL ( 2-12 grossly intact.) Lab/DI/Studies Reviewed: PORTABLE CHEST 1 VIEW COMPARISON: Chest radiograph from one day prior. FINDINGS: Right internal jugular central venous catheter terminates in the lower third of the superior vena cava. Enteric tube terminates in the proximal stomach. Endotracheal tube tip is 2.9 cm above the marilou. Sternotomy wires appear aligned and intact. Stable cardiomediastinal silhouette with marked cardiomegaly. No pneumothorax. Stable small right pleural effusion. Stable mild pulmonary edema. Stable scarring versus atelectasis at the right lung base. IMPRESSION: 1. Well-positioned support hardware . 2. Stable marked cardiomegaly and mild pulmonary edema in keeping with mild congestive heart failure. 3. Stable small right pleural effusion. 4. Stable scarring versus atelectasis at the right lung base. Electronically Signed By: Brandon Camilo M.D. On: 09/18/2016 08:10 - Assessment (1) Diastolic CHF Acute I50.30 - UNSPECIFIED DIASTOLIC (CONGESTIVE) HEART FAILURE Qualifiers: Congestive heart failure chronicity: acute on chronic Qualified Code(s): I50.33 - Acute on chronic diastolic (congestive) heart failure Comment/Plan: Diastolic dysfunction patient on a Lasix drip. Still with significant amounts of central edema. Continue diuresis will consult Cardiology. (2) Respiratory failure with hypoxia and hypercapnia Acute J96.91 - RESPIRATORY FAILURE, UNSPECIFIED WITH HYPOXIA; J96.92 - RESPIRATORY FAILURE, UNSPECIFIED WITH HYPERCAPNIA Qualifiers: Chronicity: acute on chronic Qualified Code(s): J96.21 - Acute and chronic respiratory failure with hypoxia; J96.22 - Acute and chronic respiratory failure with hypercapnia Comment/Plan: Continue ventilator management. Wean once able. Consult Dr. Umanzor. (3) Atrial fibrillation, controlled Chronic I48.91 - UNSPECIFIED ATRIAL FIBRILLATION Comment/Plan: On chronic Coumadin therapy with atrial fib with supratherapeutic INR again today ( saturday) so holding Coumadin. (4) Hyponatremia Acute E87.1 - HYPO-OSMOLALITY AND HYPONATREMIA Comment/Plan: Continues to improve monitor daily. (5) Bilateral pleural effusion Acute J90 - PLEURAL EFFUSION, NOT ELSEWHERE CLASSIFIED Comment/Plan: Related to her CHF. (6) Peripheral edema Acute R60.9 - EDEMA, UNSPECIFIED Comment/Plan: IV Lasix for this manifestation of CHF. (7) Pulmonary artery hypertension Acute I27.2 - OTHER SECONDARY PULMONARY HYPERTENSION Comment/Plan: Echocardiogram is showed ejection fraction of 60% and left ventricular hypertrophy which shows the CHF to be more diastolic than systolic failure. - Plan Patient remains on ventilator critically ill. Will continue Lasix infusion. Due to the presence of and/or the risk of deterioration, my attendance to this patient required critical care time, including assessment/reassessment, documentation, ordering and interpreting ancillary studies, discussion with staff and consultants,patient and family, and excludes time spent on separately billable procedures. In summary, this patient is acutely and critically ill. The patient requires treatment of vital organ failure and measures to prevent further life-threatening deterioration of condition. Case Care Discussed with: Consultants, Nursing Staff Total Time: 55 min Critical Care: Yes
--- NOTE | 2016-09-18 09:38 | PCM.PULM ---
Chief Complaint: Patient in bed sedated on ventilator,gets agitated at times. Ventilator setting AC rate 10, %35,400,5. Current medication list and notes reviewed:yes, Events from last night noted and discussed with Clinical Staff DVT/GI prophylaxis:yes - Physical Examination Vital Signs and I&O: Last Vital Signs Temp 98.9 F 09/18/16 07:00 Pulse 75 09/18/16 08:00 Resp 16 09/18/16 07:42 BP 98/56 L 09/18/16 08:00 Pulse Ox 95 09/18/16 08:00 Oxygen Pulse Oxygen Saturation 95 O2 Device Vent Oxygen Flow Rate 40 Fraction of Inspired Oxygen ( 30 FIO2) Intake & Output 09/15/16 09/16/16 09/17/16 09/18/16 23:59 23:59 23:59 23:59 Intake Total 773 2190 3141 799 Output Total 1625 1675 2750 675 Balance -852 515 391 124 Patient's weight 65.941 kg 66.043 kg 63.367 kg 63.367 kg General: No acute distress, Other (sedated on ventilator) Respiratory: Normal - CTA Cardiovascular: Regular rate, Regular rate and rhythm, Normal S1, No Gallops, Rubs/Murmurs, Normal S2 GI: Normal bowel sounds, Soft, Non tender, No hepatospenomegaly, No masses Extremities/Musculoskeletal: Normal pulses Skin: Warm,Dry and Intact, No rashes, No breakdown, No significant lesion Psych/Mental Status: Agitated (at times), Sedated Result Diagrams: 09/18/16 05:50 09/18/16 05:50 Labs (last 24 hours): Laboratory Results - last 24 hr 09/18/16 09/18/16 09/18/16 04:16 05:50 05:50 WBC RBC Hgb Hct MCV MCH MCHC RDW Plt Count MPV Neut % (Auto) Lymph % (Auto) [place] % (Auto) Eos % (Auto) Baso % (Auto) Absolute Neuts (auto) Absolute Lymphs (auto) PT 43.8 H INR 4.2 Puncture Site Left radial pH 7.310 L pCO2 74.0 H* pO2 72.0 L HCO3 37.3 H Total CO2 39.6 H Base Excess 8.1 H Vent Mode A/c 10 FiO2 % 35 Tidal Volume 400 PEEP 5 Specimen Drawn By Kaytr Sodium 125 L Potassium 3.8 Chloride 84 L Carbon Dioxide 33 Anion Gap 12 BUN 15 Creatinine 0.90 Estimated GFR (MDRD) > 60 Glucose 80 Calculated Osmolality 242 L Calcium 7.7 L Magnesium 1.40 L Lbm-J-Xdmgksnhjve Pept 2920 H 09/18/16 05:50 WBC 12.9 H RBC 4.40 Hgb 10.9 L Hct 35.0 L MCV 80 L MCH 24.9 L MCHC 31.2 L RDW 18.2 H Plt Count 158 MPV 8.8 Neut % (Auto) 82.5 H Lymph % (Auto) 4.7 L [place] % (Auto) 12.1 H Eos % (Auto) 0.1 Baso % (Auto) 0.6 Absolute Neuts (auto) 10.58 H Absolute Lymphs (auto) 0.52 L PT INR Puncture Site pH pCO2 pO2 HCO3 Total CO2 Base Excess Vent Mode FiO2 % Tidal Volume PEEP Specimen Drawn By Sodium Potassium Chloride Carbon Dioxide Anion Gap BUN Creatinine Estimated GFR (MDRD) Glucose Calculated Osmolality Calcium Magnesium Koy-X-Icvrazwxmju Pept Lab/DI/Studies Reviewed: EKG: Atrial fibrillation Cxray: 1 view Chest x-ray was seen personally patient seems to have significant cardiomegaly and mild pulmonary edema with small right-sided effusion with basal atelectasis Medications Lansoprazole (Prevacid Solutabs) 30 mg NG 0600 [facility] Stop: 09/29/16 16:59 Last Admin: 09/16/16 05:42 Dose: 30 mg Sennosides (Senokot) 1 tab PO BID PRN PRN Reason: Constipation - First Option Stop: 09/28/16 16:59 Promethazine HCl (Phenergan) 12.5 mg IV Q6H PRN; Protocol PRN Reason: Nausea/Vomiting - Alternative Stop: 09/28/16 16:59 Warfarin Sodium 3 mg/ Warfarin (Sodium 4 mg) 7 mg PO [id number]@1800 [facility] Stop: 09/25/16 17:59 Acetaminophen (Tylenol Suppository) 325 mg MO Q6H PRN; Protocol PRN Reason: Mild Pain or Fever above 100.4 Stop: 09/28/16 16:59 Acetaminophen (Tylenol Tablet) 325 mg PO Q6H PRN; Protocol PRN Reason: Mild Pain or Fever above 100.4 Stop: 09/28/16 16:59 Albuterol (Proventil Hfa) 8 puff INH Q6H PRN PRN Reason: WHEEZING Stop: 09/29/16 14:21 Last Admin: 09/16/16 09:04 Dose: 8 puff Benzonatate (Tessalon) 200 mg PO Q8H PRN PRN Reason: Cough - First Option Stop: 09/28/16 16:59 Ceftriaxone Sodium 1 gm/ (Dextrose) 100 mls @ 100 mls/hr IV Q24H [facility] Stop: 09/22/16 11:59 Last Admin: 09/16/16 11:36 Dose: 100 mls/hr Chlorphenir/Hydrocodone Polistirex (Tussionex) 5 ml PO BID PRN PRN Reason: Cough - Alternative Stop: 09/28/16 16:59 Diltiazem HCl (Cardizem Cd) 300 mg PO QAM [facility] Stop: 09/29/16 08:59 Last Admin: 09/15/16 10:21 Dose: Not Given Diltiazem HCl (Cardizem) 90 mg NG Q8 [facility] Stop: 09/29/16 16:59 Last Admin: 09/16/16 05:36 Dose: Not Given Lact Acid/Bifidobact/Lact [place]/Streptoc Th (Felisha Q) 1 tab PO BIDLS [facility] Stop: 09/29/16 21:59 Last Admin: 09/16/16 11:36 Dose: 1 tab Lisinopril (Zestril) 20 mg PO BID [facility] Stop: 09/28/16 20:59 Last Admin: 09/16/16 10:03 Dose: Not Given Lorazepam (Ativan) 1 - 2 mg IV Q30M PRN PRN Reason: Acute Agitation/on Ventilator Stop: 09/29/16 10:40 Last Admin: 09/15/16 13:50 Dose: 2 mg Petrolatum ([place]) 1 tube TOP DIR PRN PRN Reason: Oral Care While Intubated Stop: 09/29/16 16:59 Pravastatin Sodium (Pravachol) 80 mg PO HS [facility] Stop: 09/28/16 20:59 Last Admin: 09/15/16 22:35 Dose: 80 mg Sertraline HCl (Zoloft) 25 mg PO DAILY [facility] Stop: 09/29/16 08:59 Last Admin: 09/16/16 09:42 Dose: 25 mg Warfarin Sodium (Coumadin) 7.5 mg PO [id number]@1800 [facility] Stop: 09/21/16 17:59 Last Admin: 09/14/16 20:44 Dose: 7.5 mg Diltiazem HCl (Cardizem) 90 mg NG Q8 [facility] Stop: 09/29/16 16:59 Last Admin: 09/17/16 05:41 Dose: Not Given Magnesium Sulfate/Dextrose (Magnesium 2 Gram/50 Ml D5w) 2 gm in 50 mls @ 12.5 mls/hr IV NOW ONE Stop: 09/18/16 17:59 Potassium Chloride (Kcl 20 Meq/15 Ml Oral Liquid) 20 meq NG TIDWM [facility] Stop: 10/01/16 16:59 Last Admin: 09/18/16 11:06 Dose: 20 meq Potassium Chloride/Sodium Chloride (Normal Saline-Kcl 20 Meq Per 1000 Ml) 1, 000 mls @ 50 mls/hr IV Q20H [facility] Stop: 09/29/16 21:04 Last Admin: 09/17/16 16:29 Dose: 50 mls/hr Furosemide 100 mg/ Sodium (Chloride) 50 mls @ 7.5 mls/hr IV Q7H [facility]; 15 MG/HR PRN Reason: Protocol Stop: 10/01/16 17:59 Last Admin: 09/18/16 07:12 Dose: 7.5 mls/hr Fentanyl Citrate (Fentanyl 10 Mcg/Ml) 2,500 mcg in 250 mls @ 5 mls/hr IV Q12H [facility]; 50 MCG/HR PRN Reason: Protocol Stop: 09/22/16 16:59 Last Admin: 09/18/16 12:14 Dose: 5 mls/hr - Assessment/Plan (1) Acute respiratory failure with hypoxia Acute J96.01 - ACUTE RESPIRATORY FAILURE WITH HYPOXIA Comment/Plan: Patient has been having is some acidosis I think that her carbon dioxide level remains in the 60s IV would go up on the rate to 14 at this time with a tidal volume 400 FiO2 35% and peep of 5 her sodium remains 125 I would discontinue the Lasix drip as patient is minimally in negative balance and the that cardiology does not think that it is her congestive heart failure continue Rocephin and Zithromax at this time start the patient on Solu-Medrol 60 mg IV q.6 hours repeat chest x-ray and a blood gas in the morning and since the patient never smoked I think this is most likely restrictive lung disease because of significant cardiomegaly that is causing problems for this patient along with pneumonia (2) Bilateral pleural effusion Acute J90 - PLEURAL EFFUSION, NOT ELSEWHERE CLASSIFIED Comment/Plan: Effusions have been improving slowly I would discontinue the Lasix drip at this time and start the patient 60 mg IV Q 12 hours of Lasix (3) Diastolic CHF Acute I50.30 - UNSPECIFIED DIASTOLIC (CONGESTIVE) HEART FAILURE acute on chronic I50.33 - Acute on chronic diastolic (congestive) heart failure Comment/Plan: Continue supportive care continue diuresis (4) Pulmonary artery hypertension Resolved I27.2 - OTHER SECONDARY PULMONARY HYPERTENSION Comment/Plan: No treatment at this time continue current oxygen and on the ventilator (5) COPD exacerbation Acute J44.1 - CHRONIC OBSTRUCTIVE PULMONARY DISEASE W (ACUTE) EXACERBATION Comment/Plan: Recurrent the son blood patient never smoked therefore I would continue the current supportive care however keep the patient on Solu-Medrol I personally saw and evaluated the patient.: Yes Total Face to Face Time: 35 minutes Case Care Discussed with: Family, Nursing Staff, Respiratory Therapy Education/Counseling Given To: Family Member (I had a prolonged discussion the patient's son) Education/Counseling Given Regarding: Diagnosis, Treatment, Prognosis, Follow Up , Disposition Plan
--- NOTE | 2016-09-18 10:51 | PCM.CARDCO ---
Consultation Date: 09/17/16 Requesting Physician: Jessica Oviedo Donor Services Manager: Lyle Andre Consult Reason: CHF - History of Present Illness She is admitted to the hospital with respiratory failure requiring intubation and presented with severe hyponatremia serum sodium 117. Her son relates she has had no pulmonary evaluation to his knowledge as an outpatient. Her other cardiac problems include atrial fibrillation rate controlled as an outpatient she takes calcium channel nikolas and is anticoagulated with warfarin. As an outpatient she is on a thiazide diuretic and FRANCOISE-inhibitor no loop diuretic. Her BNP level is elevated chest x-ray suggest heart failure. She is intubated sedated with propofol and history is obtained from the son in chart review Chief Complaint: Admitted to the hospital with chronic lung disease and respiratory failure and felt to be clinically and radiographically in heart failure. CT of the chest done recently shows findings of pulmonary artery hypertension. Echocardiogram shows normal left ventricular function and no significant valvular heart disease. - Past Medical and Surgical History Cardiac History: Reports: No Significant History, Atrial Fibrillation ( Anticoagulated with previous stroke), Hypertension, Other (Notation previous record about an ASD repair decades ago with secondary pulmonary hypertension. The ER records available for me is an echocardiogram in 2014 with minimal elevation in pulmonary pressure clinically insignificant) Respiratory History: Reports: Other (Has a history of previous hypercapnic respiratory failure but no known history of chronic lung disease) GI/ History: Reports: No Significant History Systemic History: Reports: No Significant History Musculoskeletal History: Reports: No Significant History Psychological History: Reports: Depression. Denies: Substance Use Disorder Neurological History: Reports: Cerebrovascular Accident Past Surgical History: Reports: No Significant History Allergies egg Allergy (Verified 09/14/16 23:42) Nausea/Vomiting propoxyphene HCl [From Darvon] Allergy (Verified 03/19/15 16:55) Unknown Home Medications Diltiazem HCl [Cardizem Cd] 300 mg PO QAM 05/25/14 Lisinopril/Hydrochlorothiazide [Zestoretic 20-12.5 mg Tablet] 1 tab PO BID 05/25 POTASSIUM CHLORIDE Tablet [K-DUR 20 mEq Tablet*] 20 meq PO QAM 05/25/14 Pravastatin [Pravachol] 80 mg PO HS 05/25/14 Sertraline HCl [Zoloft] 25 mg PO DAILY 03/19/15 Warfarin Sodium [Coumadin] 7 mg PO SUTUTHSA 09/14/16 Warfarin Sodium [Coumadin] 7.5 mg PO MOWEFR 09/14/16 - Social History Social History: Denies: Substance Use Disorder - Family History Reports: No Significant History, Hypertension - Review of Systems Yes Review of systems cannot be obtained due to the patient's medical condition (Sedation intubation) Constitutional: No Symptoms Reported (No Fever, chills, wt loss/gain, diaphoresis), Fatigue, Weakness - Physical Exam Constitutional: Other (Sedated and on Vent, she does not appear acutely or chronically ill) Exam: Last Vital Signs Temp 98.9 F 09/18/16 07:00 Pulse 75 09/18/16 08:00 Resp 16 09/18/16 07:42 BP 98/56 L 09/18/16 08:00 Pulse Ox 95 09/18/16 08:00 Intake & Output 09/17/16 09/18/16 09/18/16 23:59 07:59 15:59 Intake Total 995 799 Output Total 600 675 Balance 395 124 Patient's weight 139 lb 11.2 oz - HEENT Head: Normal (No neck vein distention or bruit). negative: Deformity, Swelling Eye: negative: Edema, Scleral Icterus - Respiratory/Cardiovascular Respiratory: Diminished. negative: Rales, Wheezes Cardiovascular: Normal. negative: Systolic murmur, Gallop/S3, Gallop/S4 - GI Auscultation: Normal (Soft nondistended) Palpation: Normal Tenderness: Non tender - Musculoskeletal Back: negative: Ecchymosis, CVA Tenderness Extremities: Femoral Pulse, Pedal Pulse, Radial Pulse. negative: Calf Tenderness, Clubbing, Cyanosis, Edema, Pedal Edema - Integumentary Skin: Warm, Dry Lymphatics: negative: Adenopathy, Inguinal Erythema - Lab Results Laboratory Tests 09/14/16 09/18/16 09/18/16 13:55 04:16 05:50 WBC Hgb Hct Plt Count Absolute Neuts (auto) pH 7.310 L pCO2 74.0 H* pO2 72.0 L Sodium 125 L Potassium 3.8 Estimated GFR (MDRD) > 60 Eye-E-Oyvygtvdgqr Pept 1210 H 2920 H 09/18/16 05:50 WBC 12.9 H Hgb 10.9 L Hct 35.0 L Plt Count 158 Absolute Neuts (auto) 10.58 H pH pCO2 pO2 Sodium Potassium Estimated GFR (MDRD) [id number]-[id number] Pept Chest x-ray suggest heart failure and pleural effusion EKG and monitor rate controlled atrial fibrillation - Diagnostic Findings Selected Entries 09/14/16 09/14/16 09/16/16 13:28 19:51 01:40 Patient's 135 lb 5 oz 146 lb 6 oz 145 lb 6 oz weight 09/17/16 09/18/16 05:00 05:00 Patient's 139 lb 11.2 oz 139 lb 11.2 oz weight - Assessment/Plan (1) H/O atrial septal defect repair Chronic Present on Admission: Yes Comment: I clinical an echo criteria she has had an excellent result in at this time is no evidence of residual pulmonary hypertension. I do not feel that her congenital heart disease contributed to respiratory failure (2) Diastolic CHF I50.30 - UNSPECIFIED DIASTOLIC (CONGESTIVE) HEART FAILURE Acute Present on Admission: Clinically Unable to Determine acute on chronic I50.33 - Acute on chronic diastolic (congestive) heart failure Comment: At this time appears to be compensated she has no edema. (3) Pulmonary artery hypertension I27.2 - OTHER SECONDARY PULMONARY HYPERTENSION Resolved Present on Admission: No Comment: Recent echocardiogram shows normal pulmonary pressures. (4) Atrial fibrillation, controlled I48.91 - UNSPECIFIED ATRIAL FIBRILLATION Chronic Present on Admission: Yes Comment: Rate controlled with calcium channel nikolas and anticoagulated effectively with a chads 2 Vasc score of 6.
[2016-09-18] MEDS: CEFTRIAXONE 1 GM in D5W 100 ML IV SCH (11:06)
[2016-09-18] MEDS: PROBIOTIC BLEND TAB PO SCH ×2 (11:06→18:30)
[2016-09-18] MEDS: FENTANYL 2,500 MCG/250 ML BAG IV SCH ×3 (12:14→20:36)
[2016-09-18] MEDS ORDERED: Magnesium Sulfate 2 gm/D5W 2 GM/50 ML RTU IV ONE (14:00)
[2016-09-18] MEDS: NS/KCl 20 mEq 1,000 ML IV SCH (16:29)
[2016-09-18] MEDS: WARFARIN SODIUM PO SCH ×2 (16:30)
[2016-09-18] MEDS: This patient is receiving warfarin therapy SCH (16:30)
[2016-09-18] MEDS: AZITHROMYCIN 500 MG in D5W 250 ML IV SCH (18:30)
[2016-09-18] MEDS: METHYLPREDNISOLONE 125 MG/2 ML VIAL IV SCH ×2 (18:30→23:18)
[2016-09-18] MEDS: Furosemide 100 MG/10 ML VIAL IV SCH (18:31)
[2016-09-18] MEDS: CHLORHEXIDINE (HIBICLENS) 4 OZ BOTTLE TOP SCH (20:42)
[2016-09-18] MEDS: PRAVASTATIN 80 MG TABLET PO SCH (20:42)
[2016-09-19] MEDS: FENTANYL 2,500 MCG/250 ML BAG IV SCH ×2 (01:48→08:48)
[2016-09-19] MEDS: LORAZEPAM 2 MG/ML VIAL IV PRN (01:53)
[2016-09-19 04:28] LABS: ALLEN'S TEST PASS
[2016-09-19 04:29] LABS: BEb 10.3 (+/- 2); TCO2 36.5 MMOL/L (23-27)
[2016-09-19 04:53] LABS: ABG Draw Site Right Brachial; MODE AC 14 RATE
[2016-09-19] MEDS: Furosemide 100 MG/10 ML VIAL IV SCH ×2 (06:09→17:24)
[2016-09-19] MEDS: DILTIAZEM 60 MG TAB NG SCH ×3 (06:09→22:09)
[2016-09-19] MEDS: LANSOPRAZOLE 30 MG TAB NG SCH (06:09)
[2016-09-19] MEDS: CHLORHEXIDINE 0.12% ORAL SOLN 15 ML PO SCH ×2 (06:09→17:24)
[2016-09-19] MEDS: METHYLPREDNISOLONE 125 MG/2 ML VIAL IV SCH ×3 (06:10→17:24)
[2016-09-19] MEDS: NS/KCl 20 mEq 1,000 ML IV SCH ×2 (06:10→12:35)
[2016-09-19 07:05] LABS: BLOOD UREA NITROGEN 16 MG/DL (7-17); CALCIUM 8.2 MG/DL (8.4-10.2); CALCULATED OSMOLALITY 255 MOs/Kg (270-290); CHLORIDE 87 mEq/L (98-107); GLUCOSE 153 MG/DL (70-99); SODIUM LEVEL 130 mEq/L (137-146)
[2016-09-19 07:06] LABS: MPV 8.6 fL (7.4-10.4)
[2016-09-19 07:08] LABS: PT-INR 2.9
--- NOTE | 2016-09-19 07:40 | PCM.CARD ---
- Subjective Reason for visit: For heart failure Current Assessment: No New Symptoms (Remains intubated sedated) Vital Signs: Last Vital Signs Temp 97.9 F 09/19/16 06:00 Pulse 61 09/19/16 07:00 Resp 14 09/19/16 07:00 BP 101/65 09/19/16 07:00 Pulse Ox 95 09/19/16 07:00 Vital Signs Temp 97.9 F 09/19/16 06:00 Pulse 61 09/19/16 07:00 Resp 14 09/19/16 07:00 BP 101/65 09/19/16 07:00 Pulse Ox 95 09/19/16 07:00 Intake & Output 09/17/16 09/18/16 09/19/16 23:59 23:59 23:59 Intake Total 3141 2772 759 Output Total 2750 4720 650 Balance 391 1948 109 Patient's weight 139 lb 11.2 oz 139 lb 11.2 oz 139 lb 11.2 oz Intake: IV Fluids 2941 2652 759 Fentanyl 10 mcg/ml 2,500 621 765 279 mcg In 250 ml UD IV .STK- [facility] Rx#:[id number] Lasix 100 MG In Normal 129 Saline 40 ml @ 10 MG/HR 5 mls/hr IV Q10H [facility] Rx#: [id number] Lasix 100 MG In Normal 32 137 Saline 40 ml @ 15 MG/HR 7 .5 mls/hr IV Q10H [facility] Rx# :[id number] NS+MEDS 646 523 80 Normal Saline-KCl 20 Meq 1513 1227 400 Per 1000 ml 1,000 ml @ 50 mls/hr IV Q20H [facility] Rx#: [id number] Free Water Bolus Amount 200 120 Output: Gastric Drainage 0 20 100 Paisley sump (NG) 0 20 100 Urine 2750 4700 550 Other: Irrigation Fluid Type Paisley sump (NG) Water Water Water Feeding Tube Type NG Tube Tube Irrigation Amount Paisley sump (NG) 60 60 60 Elimination Method Indwelling Catheter Indwelling Catheter Indwelling Catheter Urine Color Yellow Yellow Yellow Urethral (Marlow) Yellow Yellow Wt Change in KG 2.676 kg loss No Change No Change Weight Change from 5.9 lb(s) loss No Change No Change Previous Weight Weight (Calculated 63.367 63.367 63.367 Kilograms) Respiratory: Diminished. negative: Rales Jugular Vein Distention: None Pulse Rhythm: Irregular EKG Rhythm: Atrial Fibrillation (Controlled rate) EKG Ectopy: negative: Runs >10 beats Heart Sounds: Distant. negative: S1 & S2 (Variable S1), S3, Murmur (She has no edema) Lab/DI Results Reviewed: Telemetry strips reviewed Selected Entries 09/14/16 09/16/16 09/16/16 13:28 01:40 05:00 Patient's 135 lb 5 oz 145 lb 6 oz 145 lb 9.6 oz weight 09/17/16 09/18/16 05:00 05:00 Patient's 139 lb 11.2 oz 139 lb 11.2 oz weight Laboratory Tests 09/14/16 09/14/16 09/14/16 13:40 13:55 16:26 WBC Hgb Hct Absolute Neuts (auto) INR pH 7.350 pCO2 64.0 H pO2 57.0 L Sodium Potassium Creatinine Magnesium Troponin I < 0.01 0.01 Cuk-D-Kgkkhpjgcvq Pept 1210 H 09/14/16 09/15/16 09/15/16 20:15 07:36 17:35 WBC Hgb Hct Absolute Neuts (auto) INR pH 7.140 L* pCO2 > 124.0 H* pO2 Sodium 118 L* Potassium Creatinine Magnesium Troponin I < 0.01 Vao-X-Btfkixkcwhp Pept 09/16/16 09/17/16 09/18/16 05:10 05:25 04:16 WBC Hgb Hct Absolute Neuts (auto) INR pH 7.310 L pCO2 74.0 H* pO2 72.0 L Sodium 120 L* 122 L* Potassium Creatinine Magnesium Troponin I Wio-F-Akjrneotxvj Pept 09/18/16 09/18/16 09/18/16 05:50 05:50 05:50 WBC 12.9 H Hgb 10.9 L Hct 35.0 L Absolute Neuts (auto) 10.58 H INR 4.2 pH pCO2 pO2 Sodium 125 L Potassium 3.8 Creatinine Magnesium 1.40 L Troponin I Imq-Z-Behktskmwnp Pept 2920 H 09/19/16 09/19/16 06:30 06:30 WBC 9.3 Hgb 11.3 L Hct 34.5 L Absolute Neuts (auto) INR pH pCO2 pO2 Sodium 130 L Potassium 3.9 Creatinine 0.80 Magnesium Troponin I Xzc-C-Xnjwmjdeplu Pept - Assessment/Plan (1) H/O atrial septal defect repair Chronic Present on Admission: Yes Comment/Plan: Stable no evidence of right ventricular dysfunction or pulmonary artery hypertension by recent echocardiogram (2) Diastolic CHF Acute I50.30 - UNSPECIFIED DIASTOLIC (CONGESTIVE) HEART FAILURE Present on Admission: Clinically Unable to Determine acute on chronic I50.33 - Acute on chronic diastolic (congestive) heart failure Comment/Plan: Stable compensated continue current treatment including loop diuretic (3) Atrial fibrillation, controlled Chronic I48.91 - UNSPECIFIED ATRIAL FIBRILLATION Present on Admission: Yes Comment/Plan: Rate controlled on calcium channel nikolas remains anticoagulated with a high chads 2 Vasc score with warfarin
[2016-09-19 07:46] LABS: SEG NEUTROPHIL 93 % (45-76)
[2016-09-19] MEDS: LISINOPRIL 20 MG TAB PO SCH ×2 (07:54→20:17)
[2016-09-19] MEDS: POTASSIUM CHLORIDE 20 MEQ/15 ML ORAL SOLN NG SCH ×3 (07:54→17:23)
[2016-09-19] MEDS: SERTRALINE HCL 25 MG TAB PO SCH (07:54)
--- NOTE | 2016-09-19 08:13 | DIRPT ---
CLINICAL DATA: Endotracheal tube placement EXAM: PORTABLE CHEST 1 VIEW COMPARISON: 09/18/2016 FINDINGS: Endotracheal tube in good position. Right jugular central venous catheter tip in the lower SVC unchanged. No pneumothorax Cardiac enlargement. Progressive bilateral airspace disease most consistent with pulmonary edema. Possible small pleural effusions. Mild right lower lobe atelectasis. IMPRESSION: Support lines remain in good position Progressive bilateral airspace disease consistent with pulmonary edema. Electronically Signed By: John Morales M.D. On: 09/19/2016 08:11
--- NOTE | 2016-09-19 09:55 | PCM.PULM ---
Chief Complaint: Respiratory failure acute on chronic with hypoxia COPD exacerbation Bilateral pleural effusion Pneumonia Pulmonary artery hypertension Uneventful overnight Patient has been on ventilator and off the sedation her rate was increased to 10 however patient is still drowsy and has not been able to be weaned today Current medication list reviewed:yes Notes reviewed:yes, Events from last night noted and discussed with Clinical Staff GI/DVT prophylaxis:yes - Physical Examination Vital Signs and I&O: Last Vital Signs Temp 97.9 F 09/19/16 06:00 Pulse 62 09/19/16 09:00 Resp 14 09/19/16 09:00 BP 117/65 09/19/16 09:00 Pulse Ox 95 09/19/16 09:00 Oxygen Pulse Oxygen Saturation 95 O2 Device Vent Oxygen Flow Rate 40 Fraction of Inspired Oxygen ( 30 FIO2) Intake & Output 09/16/16 09/17/16 09/18/16 09/19/16 23:59 23:59 23:59 23:59 Intake Total 2190 3141 2772 759 Output Total 1675 2750 4720 650 Balance 515 938 -1645 109 Patient's weight 66.043 kg 63.367 kg 63.367 kg 63.367 kg General: No acute distress (sedated on ventilator) Respiratory: Normal - CTA Cardiovascular: Regular rate, No Gallops,Rubs/Murmurs, Good Pedal Pulses, Irregular (atrial fibrillation with controlled rate) GI: Normal bowel sounds, Soft, Non tender, No hepatospenomegaly, No masses Extremities/Musculoskeletal: Normal pulses Skin: Warm,Dry and Intact, No rashes, No significant lesion Psych/Mental Status: Agitated, Sedated Result Diagrams: 09/19/16 06:30 09/19/16 06:30 Labs (last 24 hours): Laboratory Results - last 24 hr 09/19/16 09/19/16 09/19/16 04:25 06:30 06:30 WBC RBC Hgb Hct MCV MCH MCHC RDW Plt Count MPV Neut % (Auto) Lymph % (Auto) [place] % (Auto) Eos % (Auto) Baso % (Auto) Absolute Neuts (auto) Absolute Lymphs (auto) Seg Neuts % (Manual) Band Neutrophils % Lymphocytes % (Manual) Monocytes % (Manual) Absolute Neutrophils Absolute Lymphocytes Platelet Estimate RBC Morphology PT 29.8 H INR 2.9 Puncture Site Right brachial pH 7.490 H pCO2 46.0 H pO2 71.0 L HCO3 35.1 H Total CO2 36.5 H Base Excess 10.3 H Vent Mode Ac 14 FiO2 % .30 Tidal Volume 400 PEEP 5 Specimen Drawn By Baras Sodium 130 L Potassium 3.9 Chloride 87 L Carbon Dioxide 34 H Anion Gap 13 BUN 16 Creatinine 0.80 Estimated GFR (MDRD) > 60 Glucose 153 H Calculated Osmolality 255 L Calcium 8.2 L Magnesium 2.10 09/19/16 06:30 WBC 9.3 RBC 4.42 Hgb 11.3 L Hct 34.5 L MCV 78 L MCH 25.7 L MCHC 32.8 L RDW 17.8 H Plt Count 162 MPV 8.6 Neut % (Auto) Cancelled Lymph % (Auto) Cancelled [place] % (Auto) Cancelled Eos % (Auto) Cancelled Baso % (Auto) Cancelled Absolute Neuts (auto) Cancelled Absolute Lymphs (auto) Cancelled Seg Neuts % (Manual) 93 H Band Neutrophils % 1 Lymphocytes % (Manual) 4 L Monocytes % (Manual) 2 Absolute Neutrophils 8.74 H Absolute Lymphocytes 0.37 L Platelet Estimate Norm RBC Morphology 1+ aniso PT INR Puncture Site pH pCO2 pO2 HCO3 Total CO2 Base Excess Vent Mode FiO2 % Tidal Volume PEEP Specimen Drawn By Sodium Potassium Chloride Carbon Dioxide Anion Gap BUN Creatinine Estimated GFR (MDRD) Glucose Calculated Osmolality Calcium Magnesium Lab/DI/Studies Reviewed: EKG: atrial fibrillation Cxray: 1 view Chest x-ray was seen personally patient seems to have bilateral airspace disease consistent with congestive heart failure or pneumonia with significant cardiomegaly Medications Lansoprazole (Prevacid Solutabs) 30 mg NG 0600 [facility] Stop: 09/29/16 16:59 Last Admin: 09/16/16 05:42 Dose: 30 mg Sennosides (Senokot) 1 tab PO BID PRN PRN Reason: Constipation - First Option Stop: 09/28/16 16:59 Promethazine HCl (Phenergan) 12.5 mg IV Q6H PRN; Protocol PRN Reason: Nausea/Vomiting - Alternative Stop: 09/28/16 16:59 Acetaminophen (Tylenol Suppository) 325 mg UT Q6H PRN; Protocol PRN Reason: Mild Pain or Fever above 100.4 Stop: 09/28/16 16:59 Acetaminophen (Tylenol Tablet) 325 mg PO Q6H PRN; Protocol PRN Reason: Mild Pain or Fever above 100.4 Stop: 09/28/16 16:59 Albuterol (Proventil Hfa) 8 puff INH Q6H PRN PRN Reason: WHEEZING Stop: 09/29/16 14:21 Last Admin: 09/16/16 09:04 Dose: 8 puff Benzonatate (Tessalon) 200 mg PO Q8H PRN PRN Reason: Cough - First Option Stop: 09/28/16 16:59 Ceftriaxone Sodium 1 gm/ (Dextrose) 100 mls @ 100 mls/hr IV Q24H [facility] Stop: 09/22/16 11:59 Last Admin: 09/16/16 11:36 Dose: 100 mls/hr Chlorphenir/Hydrocodone Polistirex (Tussionex) 5 ml PO BID PRN PRN Reason: Cough - Alternative Stop: 09/28/16 16:59 Lact Acid/Bifidobact/Lact [place]/Streptoc Th (Felisha Q) 1 tab PO BIDLS [facility] Stop: 09/29/16 21:59 Last Admin: 09/16/16 11:36 Dose: 1 tab Levofloxacin/Dextrose (Levaquin 750 Mg) 750 mg in 150 mls @ 100 mls/hr IV Q24H [facility] Stop: 09/22/16 13:59 Last Admin: 09/15/16 13:47 Dose: 100 mls/hr Lisinopril (Zestril) 20 mg PO BID [facility] Stop: 09/28/16 20:59 Last Admin: 09/16/16 10:03 Dose: Not Given Lorazepam (Ativan) 1 - 2 mg IV Q30M PRN PRN Reason: Acute Agitation/on Ventilator Stop: 09/29/16 10:40 Last Admin: 09/15/16 13:50 Dose: 2 mg Petrolatum ([place]) 1 tube TOP DIR PRN PRN Reason: Oral Care While Intubated Stop: 09/29/16 16:59 Pravastatin Sodium (Pravachol) 80 mg PO HS [facility] Stop: 09/28/16 20:59 Last Admin: 09/15/16 22:35 Dose: 80 mg Sertraline HCl (Zoloft) 25 mg PO DAILY [facility] Stop: 09/29/16 08:59 Last Admin: 01/15/17 09:42 Dose: 25 mg Diltiazem HCl (Cardizem) 90 mg NG Q8 [facility] Stop: 09/29/16 16:59 Last Admin: 09/17/16 05:41 Dose: Not Given Fentanyl Citrate (Fentanyl 10 Mcg/Ml) 2,500 mcg in 250 mls @ 5 mls/hr IV Q12H [facility]; 50 MCG/HR PRN Reason: Protocol Stop: 09/22/16 16:59 Last Admin: 09/19/16 08:48 Dose: 5 mls/hr Potassium Chloride (Kcl 20 Meq/15 Ml Oral Liquid) 20 meq NG TIDWM [facility] Stop: 10/01/16 16:59 Last Admin: 09/19/16 07:54 Dose: 20 meq Potassium Chloride/Sodium Chloride (Normal Saline-Kcl 20 Meq Per 1000 Ml) 1, 000 mls @ 50 mls/hr IV Q20H [facility] Stop: 09/29/16 21:04 Last Admin: 09/19/16 06:10 Dose: Not Given Furosemide (Lasix) 60 mg IV Q12H [facility] Stop: 10/02/16 17:59 Last Admin: 09/19/16 06:09 Dose: 60 mg Warfarin Sodium (Coumadin) 7.5 mg PO [id number] [facility] Stop: 09/24/16 17:59 Last Admin: 09/17/16 14:50 Dose: Not Given Warfarin Sodium 3 mg/ Warfarin (Sodium 4 mg) 7 mg PO [id number]@1800 [facility] Stop: 09/25/16 17:59 Last Admin: 09/18/16 16:30 Dose: Not Given Azithromycin 500 mg/ Dextrose 250 mls @ 250 mls/hr IV Q24H [facility] Stop: 09/21/16 17:59 Last Admin: 09/18/16 18:30 Dose: 250 mls/hr Diltiazem HCl (Cardizem Cd) 300 mg PO QAM [facility] Stop: 09/29/16 08:59 Last Admin: 09/15/16 10:21 Dose: Not Given Methylprednisolone Sodium Succinate (Solu-Medrol) 60 mg IV Q6H [facility] Stop: 10/02/16 17:59 Last Admin: 09/19/16 06:10 Dose: 60 mg - Assessment/Plan (1) Acute respiratory failure with hypoxia Acute J96.01 - ACUTE RESPIRATORY FAILURE WITH HYPOXIA Comment/Plan: I would cut down the rate to 10 I would continue the current supportive care with DVT and GI prophylaxis and would stop the sedation completely till morning I am hoping that patient would be more awake and alert in the morning and be able to breathe better and hopefully we can do the CPAP trial and wean the patient off the ventilator continue the Lasix continue nebulizers DVT and GI prophylaxis continue Rocephin and Zithromax repeat chest x-ray and blood gas in the morning patient remains critically ill she is in ICU and will be kept here for being so sick (2) Bilateral pleural effusion Acute J90 - PLEURAL EFFUSION, NOT ELSEWHERE CLASSIFIED Comment/Plan: Effusions have been improving slowly continue Lasix at 60 mg IV Q 12 hours (3) Diastolic CHF Acute I50.30 - UNSPECIFIED DIASTOLIC (CONGESTIVE) HEART FAILURE acute on chronic I50.33 - Acute on chronic diastolic (congestive) heart failure Comment/Plan: Continue supportive care continue diuresis (4) Pulmonary artery hypertension Resolved I27.2 - OTHER SECONDARY PULMONARY HYPERTENSION Comment/Plan: No treatment at this time continue current oxygen and on the ventilator (5) COPD exacerbation Acute J44.1 - CHRONIC OBSTRUCTIVE PULMONARY DISEASE W (ACUTE) EXACERBATION Comment/Plan: Recurrent the son blood patient never smoked therefore I would continue the current supportive care however keep the patient on Solu-Medrol I personally saw and evaluated the patient.: Yes Total Face to Face Time: 35 minutes Case Care Discussed with: Consultants, Family, Nursing Staff, Respiratory Therapy Education/Counseling Given To: Family Member Education/Counseling Given Regarding: Diagnosis, Treatment, Prognosis, Follow Up , Disposition Plan
[2016-09-19] MEDS: PROBIOTIC BLEND TAB PO SCH ×2 (11:00→17:24)
[2016-09-19] MEDS: CEFTRIAXONE 1 GM in D5W 100 ML IV SCH (11:04)
--- NOTE | 2016-09-19 14:47 | GENMEDPROG ---
Subjective Note: 70-year-old female admitted to our facility with a CONGESTIVE HEART FAILURE exacerbation. She required intubation is now been on the ventilator. We are attempting to wean her accept she is not waking up. She remains sedated. Notes Reviewed: Yes Events from last night noted and discussed with Clinical Staff Current Medication List: Reviewed Currently: Reports: Cough DVT Prophylaxis: Yes - Physical Examination Vital Signs and I&O: Last Vital Signs Temp 97.8 F 09/19/16 14:00 Pulse 70 09/19/16 14:00 Resp 10 09/19/16 14:00 BP 103/60 09/19/16 14:00 Pulse Ox 94 09/19/16 14:00 Oxygen Pulse Oxygen Saturation 94 O2 Device Vent Oxygen Flow Rate 40 Fraction of Inspired Oxygen ( 30 FIO2) Intake & Output 09/16/16 09/17/16 09/18/16 09/19/16 23:59 23:59 23:59 23:59 Intake Total 2190 3141 2772 1428 Output Total 1675 2750 4720 1250 Balance 515 843 -8329 178 Patient's weight 66.043 kg 63.367 kg 63.367 kg 63.367 kg General: negative: Alert, Oriented x3 HEENT: Normal (Normocephalic, atraumatic;EOMI.Sclera white, Nares patent, without discharge or bleeding. No oropharyngeal lesions or erythema. Mucous membranes are dry.) Neck: Non-tender, Full range of motion, Normal Trachea alignment, Normal inspection (No cervical lymphadenopathy. No supraclavicular lymphadenopathy.), No Masses palpable, Supple Respiratory: Diminished. negative: Rales Cardiovascular: Regular rate and rhythm (No bradycardia or tachycardia), Normal S1, No Gallops,Rubs/Murmurs, Normal S2, Good Pedal Pulses (DP pulses 2+ bilaterally) GI: Normal bowel sounds (normal active sounds), Soft (non-distended), Non tender , No hepatospenomegaly, No masses Extremities/Musculoskeletal: Normal pulses (DP pulses 2+ bilaterally) Skin: Warm,Dry and Intact, No rashes, No significant lesion Neurological: Strength at 5/5 X4 ext (Motor 5/5 throughout.), Normal tone, Cranial nerves 3-12 NL ( 2-12 grossly intact.) Psych/Mental Status: Appropriate, Normal Affect Lab/DI/Studies Reviewed: Laboratory Results - last 24 hr 09/19/16 09/19/16 09/19/16 04:25 06:30 06:30 WBC RBC Hgb Hct MCV MCH MCHC RDW Plt Count MPV Neut % (Auto) Lymph % (Auto) [place] % (Auto) Eos % (Auto) Baso % (Auto) Absolute Neuts (auto) Absolute Lymphs (auto) Seg Neuts % (Manual) Band Neutrophils % Lymphocytes % (Manual) Monocytes % (Manual) Absolute Neutrophils Absolute Lymphocytes Platelet Estimate RBC Morphology PT 29.8 H INR 2.9 Puncture Site Right brachial pH 7.490 H pCO2 46.0 H pO2 71.0 L HCO3 35.1 H Total CO2 36.5 H Base Excess 10.3 H Vent Mode Ac 14 FiO2 % .30 Tidal Volume 400 PEEP 5 Specimen Drawn By Baras Sodium 130 L Potassium 3.9 Chloride 87 L Carbon Dioxide 34 H Anion Gap 13 BUN 16 Creatinine 0.80 Estimated GFR (MDRD) > 60 Glucose 153 H Calculated Osmolality 255 L Calcium 8.2 L Magnesium 2.10 09/19/16 06:30 WBC 9.3 RBC 4.42 Hgb 11.3 L Hct 34.5 L MCV 78 L MCH 25.7 L MCHC 32.8 L RDW 17.8 H Plt Count 162 MPV 8.6 Neut % (Auto) Cancelled Lymph % (Auto) Cancelled [place] % (Auto) Cancelled Eos % (Auto) Cancelled Baso % (Auto) Cancelled Absolute Neuts (auto) Cancelled Absolute Lymphs (auto) Cancelled Seg Neuts % (Manual) 93 H Band Neutrophils % 1 Lymphocytes % (Manual) 4 L Monocytes % (Manual) 2 Absolute Neutrophils 8.74 H Absolute Lymphocytes 0.37 L Platelet Estimate Norm RBC Morphology 1+ aniso PT INR Puncture Site pH pCO2 pO2 HCO3 Total CO2 Base Excess Vent Mode FiO2 % Tidal Volume PEEP Specimen Drawn By Sodium Potassium Chloride Carbon Dioxide Anion Gap BUN Creatinine Estimated GFR (MDRD) Glucose Calculated Osmolality Calcium Magnesium - Assessment (1) Diastolic CHF Acute I50.30 - UNSPECIFIED DIASTOLIC (CONGESTIVE) HEART FAILURE Qualifiers: Congestive heart failure chronicity: acute on chronic Qualified Code(s): I50.33 - Acute on chronic diastolic (congestive) heart failure Comment/Plan: Diastolic dysfunction patient on a Lasix drip. Still with significant amounts of central edema. Cardiology consult appreciated. (2) Respiratory failure with hypoxia and hypercapnia Acute J96.91 - RESPIRATORY FAILURE, UNSPECIFIED WITH HYPOXIA; J96.92 - RESPIRATORY FAILURE, UNSPECIFIED WITH HYPERCAPNIA Qualifiers: Chronicity: acute on chronic Qualified Code(s): J96.21 - Acute and chronic respiratory failure with hypoxia; J96.22 - Acute and chronic respiratory failure with hypercapnia Comment/Plan: Continue ventilator management. too sedated to wean today (3) Atrial fibrillation, controlled Chronic I48.91 - UNSPECIFIED ATRIAL FIBRILLATION Comment/Plan: On chronic Coumadin therapy with atrial fib with therapeutic INR today (Saturday) so restarting Coumadin. (4) Hyponatremia Acute E87.1 - HYPO-OSMOLALITY AND HYPONATREMIA Comment/Plan: Continues to improve monitor daily. Improving significantly. (5) Bilateral pleural effusion Acute J90 - PLEURAL EFFUSION, NOT ELSEWHERE CLASSIFIED Comment/Plan: Related to her CHF. (6) Peripheral edema Acute R60.9 - EDEMA, UNSPECIFIED Comment/Plan: IV Lasix for this manifestation of CHF. (7) Pulmonary artery hypertension Resolved I27.2 - OTHER SECONDARY PULMONARY HYPERTENSION Comment/Plan: Echocardiogram is showed ejection fraction of 60% and left ventricular hypertrophy which shows the CHF to be more diastolic than systolic failure. - Plan Patient remains on ventilator critically ill. Will continue Lasix infusion. Due to the presence of and/or the risk of deterioration, my attendance to this patient required critical care time, including assessment/reassessment, documentation, ordering and interpreting ancillary studies, discussion with staff and consultants,patient and family, and excludes time spent on separately billable procedures. In summary, this patient is acutely and critically ill. The patient requires treatment of vital organ failure and measures to prevent further life-threatening deterioration of condition. Disposition Plan: Hopefully home Case Care Discussed with: Consultants, Nursing Staff Total Time: 45 minutes Critical Care: No Couseling Time (>50% in counseling/coordination): No
[2016-09-19] MEDS: This patient is receiving warfarin therapy SCH (15:52)
[2016-09-19] MEDS: WARFARIN 7.5 MG TAB PO SCH (17:24)
[2016-09-19] MEDS: ENTERAL NUTRITION FORMULA NG SCH (17:24)
[2016-09-19] MEDS: AZITHROMYCIN 500 MG in D5W 250 ML IV SCH (17:25)
[2016-09-19] MEDS: CHLORHEXIDINE (HIBICLENS) 4 OZ BOTTLE TOP SCH (20:17)
[2016-09-19] MEDS: PRAVASTATIN 80 MG TABLET PO SCH (22:09)
[2016-09-20] MEDS: METHYLPREDNISOLONE 125 MG/2 ML VIAL IV SCH ×2 (00:36→05:18)
[2016-09-20] MEDS: NS/KCl 20 mEq 1,000 ML IV SCH ×3 (02:48→09:00)
[2016-09-20] MEDS: LORAZEPAM 2 MG/ML VIAL IV PRN (03:41)
[2016-09-20 04:43] LABS: ALLEN'S TEST PASS; BEb 7.4 (+/- 2)
[2016-09-20] MEDS: CHLORHEXIDINE 0.12% ORAL SOLN 15 ML PO SCH ×2 (05:18→16:59)
[2016-09-20] MEDS: Furosemide 100 MG/10 ML VIAL IV SCH ×2 (05:18→16:59)
[2016-09-20] MEDS: LANSOPRAZOLE 30 MG TAB NG SCH (05:20)
[2016-09-20 05:46] LABS: ABG Draw Site Right Radial
[2016-09-20 05:47] LABS: MODE SIMV10 RATE
[2016-09-20] MEDS: DILTIAZEM 60 MG TAB NG SCH (06:35)
[2016-09-20 07:23] LABS: PT-INR 3.4
[2016-09-20] MEDS: POTASSIUM CHLORIDE 20 MEQ/15 ML ORAL SOLN NG SCH ×3 (07:38→16:59)
[2016-09-20] MEDS: LISINOPRIL 20 MG TAB PO SCH ×2 (07:39→21:02)
[2016-09-20] MEDS: SERTRALINE HCL 25 MG TAB PO SCH (07:39)
[2016-09-20] MEDS ORDERED: CALCIUM CHLORIDE 1000 MG/10 ML (10%) PFS IV ONE ×2 (07:58→09:00)
--- NOTE | 2016-09-20 08:02 | DIRPT ---
CLINICAL DATA: Respiratory failure. EXAM: PORTABLE CHEST 1 VIEW COMPARISON: 09/19/2016. FINDINGS: Endotracheal tube, NG tube, right IJ line stable position. Prior median sternotomy. Stable severe cardiomegaly. Interim partial clearing of bilateral pulmonary infiltrates/edema. Low lung volumes with right base subsegmental atelectasis. Small right pleural effusion . No pneumothorax. IMPRESSION: 1. Lines and tubes in stable position. 2. Prior median sternotomy. Stable severe cardiomegaly. Interim partial clearing of bilateral pulmonary infiltrates and or edema. Small right pleural effusion. 3. Low lung volumes with mild right base subsegmental atelectasis. Electronically Signed By: Fritz [place] On: 09/20/2016 07:59
[2016-09-20 08:33] LABS: MPV 8.6 fL (7.4-10.4)
[2016-09-20 08:59] LABS: BLOOD UREA NITROGEN 29 MG/DL (7-17); CALCIUM 8.2 MG/DL (8.4-10.2); CALCULATED OSMOLALITY 267 MOs/Kg (270-290); CHLORIDE 91 mEq/L (98-107); GLUCOSE 198 MG/DL (70-99); SODIUM LEVEL 132 mEq/L (137-146)
[2016-09-20] MEDS ORDERED: NS IV ONE (09:00)
[2016-09-20] MEDS ORDERED: CALCIUM CHLORIDE IV ONE (09:00)
--- NOTE | 2016-09-20 09:15 | GENMEDPROG ---
Subjective Note: Patient still on the ventilator had episodes of heart rate into the low 30s and 40s today. She remains very somnolent lethargic despite being off sedation for 24 hours. She was more alert and awake yesterday afternoon following commands. Notes Reviewed: Yes Events from last night noted and discussed with Clinical Staff Current Medication List: Reviewed Currently: Reports: Cough DVT Prophylaxis: Yes - Physical Examination Vital Signs and I&O: Last Vital Signs Temp 97.8 F 09/20/16 07:00 Pulse 78 09/20/16 08:00 Resp 9 L 09/20/16 08:00 BP 106/58 L 09/20/16 08:00 Pulse Ox 98 09/20/16 08:00 Oxygen Pulse Oxygen Saturation 98 O2 Device Vent Oxygen Flow Rate 40 Fraction of Inspired Oxygen ( 30 FIO2) Intake & Output 09/17/16 09/18/16 09/19/16 09/20/16 23:59 23:59 23:59 23:59 Intake Total 3141 2772 2284 735 Output Total 2750 4720 1580 200 Balance 391 -1445 704 535 Patient's weight 63.367 kg 63.367 kg 63.367 kg 64.274 kg General: negative: Alert, Oriented x3 HEENT: Normal (Normocephalic, atraumatic;EOMI.Sclera white, Nares patent, without discharge or bleeding. No oropharyngeal lesions or erythema. Mucous membranes are dry.) Neck: Non-tender, Full range of motion, Normal Trachea alignment, Normal inspection (No cervical lymphadenopathy. No supraclavicular lymphadenopathy.), No Masses palpable, Supple Respiratory: Diminished. negative: Rales Cardiovascular: Regular rate and rhythm (No bradycardia or tachycardia), Normal S1, No Gallops,Rubs/Murmurs, Normal S2, Good Pedal Pulses (DP pulses 2+ bilaterally) GI: Normal bowel sounds (normal active sounds), Soft (non-distended), Non tender , No hepatospenomegaly, No masses Extremities/Musculoskeletal: Normal pulses (DP pulses 2+ bilaterally) Skin: Warm,Dry and Intact, No rashes, No significant lesion Neurological: Strength at 5/5 X4 ext (Motor 5/5 throughout.), Normal tone, Cranial nerves 3-12 NL ( 2-12 grossly intact.) Psych/Mental Status: Appropriate, Normal Affect Lab/DI/Studies Reviewed: PORTABLE CHEST 1 VIEW COMPARISON: 09/19/2016. FINDINGS: Endotracheal tube, NG tube, right IJ line stable position. Prior median sternotomy. Stable severe cardiomegaly. Interim partial clearing of bilateral pulmonary infiltrates/edema. Low lung volumes with right base subsegmental atelectasis. Small right pleural effusion . No pneumothorax. IMPRESSION: 1. Lines and tubes in stable position. 2. Prior median sternotomy. Stable severe cardiomegaly. Interim partial clearing of bilateral pulmonary infiltrates and or edema. Small right pleural effusion. 3. Low lung volumes with mild right base subsegmental atelectasis. Electronically Signed By: Fritz [place] On: 09/20/2016 07:59 Abnormal Lab Results 09/20/16 09/20/16 09/20/16 04:37 05:44 05:45 Hgb Hct MCV MCH MCHC RDW PT 35.4 H pH 7.330 L pCO2 68.0 H* pO2 73.0 L HCO3 35.9 H Total CO2 38.0 H Base Excess 7.4 H Sodium Chloride BUN Glucose POC Capillary Glucose 196 H Calculated Osmolality Calcium 09/20/16 09/20/16 05:45 05:45 Hgb 10.7 L Hct 33.6 L MCV 79 L MCH 25.2 L MCHC 31.8 L RDW 18.6 H PT pH pCO2 pO2 HCO3 Total CO2 Base Excess Sodium 132 L Chloride 91 L BUN 29 H Glucose 198 H POC Capillary Glucose Calculated Osmolality 267 L Calcium 8.2 L - Assessment (1) Bradycardia Acute R00.1 - BRADYCARDIA, UNSPECIFIED Comment/Plan: Patient's heart rate slow will hold her oral Cardizem. She is receiving 90 mg q.8 hours. I have given her dose of calcium chloride IV and ask pharmacy to put some calcium in her IV fluids. Heart rate is now up to 65. (2) Diastolic CHF Acute I50.30 - UNSPECIFIED DIASTOLIC (CONGESTIVE) HEART FAILURE Qualifiers: Congestive heart failure chronicity: acute on chronic Qualified Code(s): I50.33 - Acute on chronic diastolic (congestive) heart failure Comment/Plan: Diastolic dysfunction patient on a Lasix every 12 hours.. Still with significant amounts of central edema. Cardiology consult appreciated. (3) Respiratory failure with hypoxia and hypercapnia Acute J96.91 - RESPIRATORY FAILURE, UNSPECIFIED WITH HYPOXIA; J96.92 - RESPIRATORY FAILURE, UNSPECIFIED WITH HYPERCAPNIA Qualifiers: Chronicity: acute on chronic Qualified Code(s): J96.21 - Acute and chronic respiratory failure with hypoxia; J96.22 - Acute and chronic respiratory failure with hypercapnia Comment/Plan: Continue ventilator management. Try CPAP trial today. (4) Atrial fibrillation, controlled Chronic I48.91 - UNSPECIFIED ATRIAL FIBRILLATION Comment/Plan: Continue Coumadin therapy. Continue rate control as able. Holding Cardizem for today. (5) Hyponatremia Acute E87.1 - HYPO-OSMOLALITY AND HYPONATREMIA Comment/Plan: Continues to improve monitor daily. Improving significantly but still abnormal.. (6) Bilateral pleural effusion Acute J90 - PLEURAL EFFUSION, NOT ELSEWHERE CLASSIFIED Comment/Plan: Related to her CHF. (7) Peripheral edema Acute R60.9 - EDEMA, UNSPECIFIED Comment/Plan: IV Lasix for this manifestation of CHF. (8) Pulmonary artery hypertension Resolved I27.2 - OTHER SECONDARY PULMONARY HYPERTENSION Comment/Plan: Echocardiogram is showed ejection fraction of 60% and left ventricular hypertrophy which shows the CHF to be more diastolic than systolic failure. - Plan Patient remains on ventilator critically ill. Will continue Lasix and rate control measures.. Due to the presence of and/or the risk of deterioration, my attendance to this patient required critical care time, including assessment/reassessment, documentation, ordering and interpreting ancillary studies, discussion with staff and consultants,patient and family, and excludes time spent on separately billable procedures. In summary, this patient is acutely and critically ill. The patient requires treatment of vital organ failure and measures to prevent further life-threatening deterioration of condition. Case Care Discussed with: Nursing Staff Education/Counseling Given To: Family Member (No family present) Total Time: 65 minutes Critical Care: Yes Couseling Time (>50% in counseling/coordination): No
[2016-09-20 09:27] LABS: SEG NEUTROPHIL 98 % (45-76)
--- NOTE | 2016-09-20 10:47 | PCM.CARD ---
- Subjective Reason for visit: For diastolic heart failure and bradycardia in the intensive care unit, she is on a fentanyl drip and 1 of the side effects can be bradycardia, she will likely need to resume her calcium channel nikolas once extubated Current Assessment: No New Symptoms (She remains intubated no longer sedated she is lethargic but arousable and there is a waning attempt in process. She appears of a poor respiratory Dr.) Vital Signs: Last Vital Signs Temp 98.3 F 09/20/16 10:00 Pulse 85 09/20/16 10:00 Resp 10 09/20/16 10:00 BP 132/68 09/20/16 10:00 Pulse Ox 93 09/20/16 10:00 Bradycardia is improved, currently off calcium channel nikolas Respiratory: Diminished. negative: Rales, Rhonchi, Wheezes Jugular Vein Distention: None Pulse Rhythm: Irregular EKG Rhythm: Atrial Fibrillation (Rate controlled atrial fibrillation) Heart Sounds: negative: S1 & S2 (Variable S1), S3, Murmur (She has no edema) Lab/DI Results Reviewed: Laboratory Tests 09/20/16 09/20/16 09/20/16 04:37 05:45 05:45 Hgb 10.7 L Absolute Neutrophils 8.22 H pH 7.330 L pCO2 68.0 H* pO2 73.0 L Potassium 4.9 D Creatinine 0.90 Monitor strips reviewed - Assessment/Plan (1) H/O atrial septal defect repair Chronic Present on Admission: Yes Comment/Plan: Stable she has no evidence of right heart failure pulmonary hypertension at this time and I do not think that her congenital heart disease plays a role in her respiratory failure (2) Diastolic CHF Acute I50.30 - UNSPECIFIED DIASTOLIC (CONGESTIVE) HEART FAILURE Present on Admission: Clinically Unable to Determine acute on chronic I50.33 - Acute on chronic diastolic (congestive) heart failure Comment/Plan: Nicely compensated she has no volume overload continue current diuretic (3) Atrial fibrillation, controlled Chronic I48.91 - UNSPECIFIED ATRIAL FIBRILLATION Present on Admission: Yes Comment/Plan: She is bradycardic yesterday which may have been influenced by her fentanyl, rates are controlled will likely need to resume her calcium channel nikolas. If rapid heart rates recurrent limited weaning we could place her on IV Cardizem to transition back to oral.
[2016-09-20] MEDS: CEFTRIAXONE 1 GM in D5W 100 ML IV SCH (11:06)
[2016-09-20] MEDS: PROBIOTIC BLEND TAB PO SCH ×2 (11:08→16:59)
[2016-09-20] MEDS: ENTERAL NUTRITION FORMULA NG SCH (11:13)
--- NOTE | 2016-09-20 14:00 | PCM.PULM ---
Chief Complaint: Current medication list reviewed:yes Notes reviewed:yes, Events from last night noted and discussed with Clinical Staff patient was placed on CPAP trial and blood gas showed significant worsening with hypoxia and hypercarbia and therefore CPAP trial was terminated DVT/GI prophylaxis:yes - Physical Examination Vital Signs and I&O: Last Vital Signs Temp 98.3 F 09/20/16 10:00 Pulse 87 09/20/16 13:00 Resp 8 L 09/20/16 12:00 BP 109/60 09/20/16 13:00 Pulse Ox 95 09/20/16 13:00 Oxygen Pulse Oxygen Saturation 95 O2 Device Vent Oxygen Flow Rate 40 Fraction of Inspired Oxygen ( 40 FIO2) Intake & Output 09/17/16 09/18/16 09/19/16 09/20/16 23:59 23:59 23:59 23:59 Intake Total 3141 2772 2284 1171 Output Total 2750 4747 1580 600 Balance 391 -8630 701 571 Patient's weight 63.367 kg 63.367 kg 63.367 kg 64.274 kg General: No acute distress, Other (sedated on ventilator) Respiratory: Normal - CTA Cardiovascular: Regular rate, No Gallops,Rubs/Murmurs, Irregular (atrial fibrillation at the rate of 70s) GI: Normal bowel sounds, Soft, Non tender, No hepatospenomegaly Extremities/Musculoskeletal: Normal pulses Skin: Warm,Dry and Intact, No rashes, No breakdown, No significant lesion Psych/Mental Status: Sedated (intubated sedated on ventilator) Result Diagrams: 09/20/16 05:45 09/20/16 05:45 Labs (last 24 hours): Laboratory Results - last 24 hr 09/20/16 09/20/16 09/20/16 04:37 05:44 05:45 WBC RBC Hgb Hct MCV MCH MCHC RDW Plt Count MPV Neut % (Auto) Lymph % (Auto) [place] % (Auto) Eos % (Auto) Baso % (Auto) Absolute Neuts (auto) Absolute Lymphs (auto) Seg Neuts % (Manual) Band Neutrophils % Lymphocytes % (Manual) Absolute Neutrophils Absolute Lymphocytes Platelet Estimate RBC Morphology PT 35.4 H INR 3.4 Puncture Site Right radial pH 7.330 L pCO2 68.0 H* pO2 73.0 L HCO3 35.9 H Total CO2 38.0 H Base Excess 7.4 H Vent Mode Simv10 FiO2 % 30 Tidal Volume 400 PEEP 5 Specimen Drawn By [place] Sodium Potassium Chloride Carbon Dioxide Anion Gap BUN Creatinine Estimated GFR (MDRD) Glucose POC Capillary Glucose 196 H Calculated Osmolality Calcium Magnesium 09/20/16 09/20/16 09/20/16 05:45 05:45 05:45 WBC 8.3 RBC 4.24 Hgb 10.7 L Hct 33.6 L MCV 79 L MCH 25.2 L MCHC 31.8 L RDW 18.6 H Plt Count 181 MPV 8.6 Neut % (Auto) Cancelled Lymph % (Auto) Cancelled [place] % (Auto) Cancelled Eos % (Auto) Cancelled Baso % (Auto) Cancelled Absolute Neuts (auto) Cancelled Absolute Lymphs (auto) Cancelled Seg Neuts % (Manual) 98 H Band Neutrophils % 1 Lymphocytes % (Manual) 1 L Absolute Neutrophils 8.22 H Absolute Lymphocytes 0.08 L Platelet Estimate Norm RBC Morphology Reviewed this admiss PT INR Puncture Site pH pCO2 pO2 HCO3 Total CO2 Base Excess Vent Mode FiO2 % Tidal Volume PEEP Specimen Drawn By Sodium 132 L Potassium 4.9 D Chloride 91 L Carbon Dioxide 33 Anion Gap 13 BUN 29 H Creatinine 0.90 Estimated GFR (MDRD) > 60 Glucose 198 H POC Capillary Glucose Calculated Osmolality 267 L Calcium 8.2 L Magnesium 1.90 Cancelled Lab/DI/Studies Reviewed: EKG: Atrial fibrillation at the rate of 70s cxray: 1 view Chest x-ray was seen personally patient seems to have major cardiomegaly with bibasilar atelectasis and possible small right-sided effusion improving bilateral pulmonary infiltrates was noted Medications: Lansoprazole (Prevacid Solutabs) 30 mg NG 0600 [facility] Stop: 09/29/16 16:59 Last Admin: 09/16/16 05:42 Dose: 30 mg Sennosides (Senokot) 1 tab PO BID PRN PRN Reason: Constipation - First Option Stop: 09/28/16 16:59 Promethazine HCl (Phenergan) 12.5 mg IV Q6H PRN; Protocol PRN Reason: Nausea/Vomiting - Alternative Stop: 09/28/16 16:59 Azithromycin 500 mg/ Dextrose 250 mls @ 250 mls/hr IV Q24H [facility] Stop: 09/21/16 17:59 Last Admin: 09/18/16 18:30 Dose: 250 mls/hr Acetaminophen (Tylenol Suppository) 325 mg [place] Q6H PRN; Protocol PRN Reason: Mild Pain or Fever above 100.4 Stop: 09/28/16 16:59 Acetaminophen (Tylenol Tablet) 325 mg PO Q6H PRN; Protocol PRN Reason: Mild Pain or Fever above 100.4 Stop: 09/28/16 16:59 Albuterol (Proventil Hfa) 8 puff INH Q6H PRN PRN Reason: WHEEZING Stop: 09/29/16 14:21 Last Admin: 09/16/16 09:04 Dose: 8 puff Benzonatate (Tessalon) 200 mg PO Q8H PRN PRN Reason: Cough - First Option Stop: 09/28/16 16:59 Ceftriaxone Sodium 1 gm/ (Dextrose) 100 mls @ 100 mls/hr IV Q24H [facility] Stop: 09/22/16 11:59 Last Admin: 09/16/16 11:36 Dose: 100 mls/hr Chlorphenir/Hydrocodone Polistirex (Tussionex) 5 ml PO BID PRN PRN Reason: Cough - Alternative Stop: 09/28/16 16:59 Fentanyl Citrate (Fentanyl 10 Mcg/Ml) 2,500 mcg in 250 mls @ 5 mls/hr IV Q12H [facility]; 50 MCG/HR PRN Reason: Protocol Stop: 09/22/16 16:59 Last Admin: 09/16/16 09:50 Dose: 5 mls/hr Lact Acid/Bifidobact/Lact [place]/Streptoc Th (Felisha Q) 1 tab PO BIDLS [facility] Stop: 09/29/16 21:59 Last Admin: 09/16/16 11:36 Dose: 1 tab Lisinopril (Zestril) 20 mg PO BID [facility] Stop: 09/28/16 20:59 Last Admin: 09/16/16 10:03 Dose: Not Given Lorazepam (Ativan) 1 - 2 mg IV Q30M PRN PRN Reason: Acute Agitation/on Ventilator Stop: 09/29/16 10:40 Last Admin: 09/15/16 13:50 Dose: 2 mg Petrolatum ([place]) 1 tube TOP DIR PRN PRN Reason: Oral Care While Intubated Stop: 09/29/16 16:59 Pravastatin Sodium (Pravachol) 80 mg PO HS [facility] Stop: 09/28/16 20:59 Last Admin: 09/15/16 22:35 Dose: 80 mg Sertraline HCl (Zoloft) 25 mg PO DAILY [facility] Stop: 09/29/16 08:59 Last Admin: 09/16/16 09:42 Dose: 25 mg Diltiazem HCl (Cardizem) 90 mg NG Q8 [facility] Stop: 09/29/16 16:59 Last Admin: 09/17/16 05:41 Dose: Not Given Fentanyl Citrate (Fentanyl 10 Mcg/Ml) 2,500 mcg in 250 mls @ 5 mls/hr IV Q12H [facility]; 50 MCG/HR PRN Reason: Protocol Stop: 09/22/16 16:59 Last Admin: 09/18/16 12:14 Dose: 5 mls/hr Furosemide (Lasix) 60 mg IV Q12H [facility] Stop: 10/02/16 17:59 Last Admin: 09/19/16 06:09 Dose: 60 mg Warfarin Sodium (Coumadin) 7.5 mg PO [id number] [facility] Stop: 09/24/16 17:59 Last Admin: 09/19/16 17:24 Dose: 7.5 mg Methylprednisolone Sodium Succinate (Solu-Medrol) 60 mg IV Q12H [facility] Stop: 10/04/16 17:59 Last Admin: 09/20/16 16:59 Dose: 60 mg Warfarin Sodium 3 mg/ Warfarin (Sodium 4 mg) 7 mg PO [id number] [facility] Stop: 09/25/16 17:59 Last Admin: 09/18/16 16:30 Dose: Not Given Enteral Nutritional Formula (Jevity 1.0) 1,000 ml NG Q18H [facility] Stop: 10/03/16 17:59 Last Admin: 09/20/16 11:13 Dose: 1,000 ml Diltiazem HCl (Cardizem Cd) 300 mg PO QAM [facility] Stop: 09/29/16 08:59 Last Admin: 09/15/16 10:21 Dose: Not Given - Assessment/Plan (1) Acute respiratory failure with hypoxia Acute J96.01 - ACUTE RESPIRATORY FAILURE WITH HYPOXIA Comment/Plan: Patient feels the CPAP trial and therefore would be placed back on assist control with a rate of 12 and would continue the current supportive care keep the patient off sedation and would try to do the CPAP trial in the morning for an hour and followed by a blood gas. Continue supportive care at this time continue diuresis as the patient has positive balance at this time would observe the patient closely as she is critically ill in ICU and and has a danger of dying also consider [place] evaluation on this patient for further long-term caring would repeat a blood gas in the morning continue the current antibiotics including Rocephin and Zithromax Patient was significantly awake at the time of examination and therefore I would go ahead and start her on Diprivan drip for tonight and stop it in the morning in an attempt to wean the ventilator (2) Bilateral pleural effusion Acute J90 - PLEURAL EFFUSION, NOT ELSEWHERE CLASSIFIED Comment/Plan: Effusions have been improving slowly would start Lasix at 60 mg IV Q 8 hours (3) Diastolic CHF Acute I50.30 - UNSPECIFIED DIASTOLIC (CONGESTIVE) HEART FAILURE acute on chronic I50.33 - Acute on chronic diastolic (congestive) heart failure Comment/Plan: Continue supportive care continue diuresis (4) Pulmonary artery hypertension Resolved I27.2 - OTHER SECONDARY PULMONARY HYPERTENSION Comment/Plan: No treatment at this time continue current oxygen and on the ventilator (5) COPD exacerbation Acute J44.1 - CHRONIC OBSTRUCTIVE PULMONARY DISEASE W (ACUTE) EXACERBATION Comment/Plan: Recurrent the son blood patient never smoked therefore I would continue the current supportive care however keep the patient on Solu-Medrol however would change Solu-Medrol to 40 mg IV q.8 hours I personally saw and evaluated the patient.: Yes Total Face to Face Time: 35 minutes Case Care Discussed with: Family, Nursing Staff, Respiratory Therapy Education/Counseling Given To: Family Member Education/Counseling Given Regarding: Diagnosis, Treatment, Prognosis, Follow Up , Disposition Plan
[2016-09-20 15:07] LABS: ALLEN'S TEST PASS; BEb 4.9 (+/- 2); TCO2 38.8 MMOL/L (23-27)
[2016-09-20 15:10] LABS: ABG Draw Site Right Radial; PS 10 cm H2O
[2016-09-20 15:11] LABS: MODE CPAP RATE
[2016-09-20] MEDS: This patient is receiving warfarin therapy SCH (15:28)
[2016-09-20] MEDS: AZITHROMYCIN 500 MG in D5W 250 ML IV SCH (16:59)
[2016-09-20] MEDS ORDERED: METHYLPREDNISOLONE 125 MG/2 ML VIAL IV SCH (18:00)
[2016-09-20] MEDS: PRAVASTATIN 80 MG TABLET PO SCH (21:03)
[2016-09-20] MEDS: CHLORHEXIDINE (HIBICLENS) 4 OZ BOTTLE TOP SCH (21:08)
[2016-09-21] MEDS: METHYLPREDNISOLONE 40 MG/1 ML VIAL IV SCH ×4 (00:11→21:45)
[2016-09-21] MEDS: Furosemide 100 MG/10 ML VIAL IV SCH ×2 (05:36→16:53)
[2016-09-21] MEDS: CHLORHEXIDINE 0.12% ORAL SOLN 15 ML PO SCH ×2 (05:38→17:02)
[2016-09-21] MEDS: ENTERAL NUTRITION FORMULA NG SCH (05:39)
[2016-09-21] MEDS: LANSOPRAZOLE 30 MG TAB NG SCH (05:41)
[2016-09-21] MEDS: POTASSIUM CHLORIDE 20 MEQ/15 ML ORAL SOLN NG SCH ×3 (05:42→16:57)
[2016-09-21 06:08] LABS: MPV 8.5 fL (7.4-10.4)
[2016-09-21 06:42] LABS: PT-INR 3.8
[2016-09-21 06:49] LABS: BLOOD UREA NITROGEN 38 MG/DL (7-17); CALCIUM 8.5 MG/DL (8.4-10.2); CALCULATED OSMOLALITY 272 MOs/Kg (270-290); CHLORIDE 92 mEq/L (98-107); GLUCOSE 249 MG/DL (70-99); SODIUM LEVEL 132 mEq/L (137-146)
[2016-09-21] MEDS: SERTRALINE HCL 25 MG TAB PO SCH (08:09)
[2016-09-21] MEDS: LISINOPRIL 20 MG TAB PO SCH ×2 (08:09→21:45)
[2016-09-21 08:19] LABS: ALLEN'S TEST PASS; BEb 10.5 (+/- 2); TCO2 39.7 MMOL/L (23-27)
[2016-09-21 08:21] LABS: ABG Draw Site Right Radial; MODE AC RATE 12 RATE
--- NOTE | 2016-09-21 08:28 | DIRPT ---
CLINICAL DATA: Hypoxia EXAM: PORTABLE CHEST 1 VIEW COMPARISON: September 20, 2016 chest radiograph [address] chest CT September 14, 2016 FINDINGS: Endotracheal tube tip is 4.7 cm above marilou. Central catheter tip is in the superior vena cava. No pneumothorax. There is a right pleural effusion with right base atelectasis. Lungs elsewhere clear. There is generalized cardiac enlargement with pulmonary vascular within normal limits. No adenopathy. Patient is status post median sternotomy. There is degenerative change in each shoulder. IMPRESSION: Tube and catheter positions as described without pneumothorax. Stable generalized cardiomegaly. Small right pleural effusion with right base atelectasis, stable. No new opacity. Electronically Signed By: Sd Lund III, M.D. On: 09/21/2016 08:26
[2016-09-21 08:41] LABS: SEG NEUTROPHIL 86 % (45-76); TOTAL CELL COUNT 100
--- NOTE | 2016-09-21 09:26 | PCM.PULM ---
Chief Complaint: Uneventful overnight Patient in bed sedated on ventilator gets agitated at times Medication list and notes reviewed:yes, Events form last night noted and discussed with Clinical Staff DVT prophylaxis:yes - Physical Examination Vital Signs and I&O: Last Vital Signs Temp 97.6 F 09/21/16 07:00 Pulse 126 H 09/21/16 09:06 Resp 23 09/21/16 08:28 BP 154/87 09/21/16 08:28 Pulse Ox 97 09/21/16 08:00 Oxygen Pulse Oxygen Saturation 97 O2 Device Vent Oxygen Flow Rate 40 Fraction of Inspired Oxygen ( 30 FIO2) Intake & Output 09/18/16 09/19/16 09/20/16 09/21/16 23:59 23:59 23:59 23:59 Intake Total 2772 2284 2520 657 Output Total 4720 1580 1700 400 Balance -1948 704 820 257 Patient's weight 63.367 kg 63.367 kg 64.274 kg 65.408 kg General: No acute distress Respiratory: Normal - CTA Cardiovascular: Regular rate, No Gallops,Rubs/Murmurs, Irregular (atrial fibrillation) GI: Normal bowel sounds, Soft, Non tender, No hepatospenomegaly, No masses Extremities/Musculoskeletal: Normal pulses Skin: Warm,Dry and Intact, No rashes, No breakdown, No significant lesion Psych/Mental Status: Agitated, Sedated Result Diagrams: 09/21/16 05:20 09/21/16 05:20 Labs (last 24 hours): Laboratory Results - last 24 hr 09/20/16 09/20/16 09/21/16 05:45 15:00 05:20 WBC 8.3 7.0 RBC 4.24 4.17 L Hgb 10.7 L 10.6 L Hct 33.6 L 33.2 L MCV 79 L 80 L MCH 25.2 L 25.5 L MCHC 31.8 L 32.0 L RDW 18.6 H 18.5 H Plt Count 181 180 MPV 8.6 8.5 Neut % (Auto) Cancelled Cancelled Lymph % (Auto) Cancelled Cancelled Pitt % (Auto) Cancelled Cancelled Eos % (Auto) Cancelled Cancelled Baso % (Auto) Cancelled Cancelled Absolute Neuts (auto) Cancelled Cancelled Absolute Lymphs (auto) Cancelled Cancelled Seg Neuts % (Manual) 98 H 86 H Band Neutrophils % 1 7 H Lymphocytes % (Manual) 1 L 4 L Monocytes % (Manual) 3 Absolute Neutrophils 8.22 H 6.51 Absolute Lymphocytes 0.08 L 0.28 L Vacuolated Neuts 1+ Toxic Granulation Tr Dohle Bodies Present Platelet Estimate Norm Norm RBC Morphology Reviewed this admiss 1+ schisto PT INR Puncture Site Right radial pH 7.210 L* pCO2 90.0 H* pO2 118.0 H HCO3 36.0 H Total CO2 38.8 H Base Excess 4.9 H Vent Mode Cpap FiO2 % 40 Tidal Volume PEEP 5 Pressure Support 10 Specimen Drawn By Mike Sodium Potassium Chloride Carbon Dioxide Anion Gap BUN Creatinine Estimated GFR (MDRD) Glucose POC Capillary Glucose Calculated Osmolality Calcium Magnesium Hwk-K-Xxwkneqcgve Pept 09/21/16 09/21/16 09/21/16 05:20 05:20 05:20 WBC RBC Hgb Hct MCV MCH MCHC RDW Plt Count MPV Neut % (Auto) Lymph % (Auto) Pitt % (Auto) Eos % (Auto) Baso % (Auto) Absolute Neuts (auto) Absolute Lymphs (auto) Seg Neuts % (Manual) Band Neutrophils % Lymphocytes % (Manual) Monocytes % (Manual) Absolute Neutrophils Absolute Lymphocytes Vacuolated Neuts Toxic Granulation Dohle Bodies Platelet Estimate RBC Morphology PT 39.3 H INR 3.8 Puncture Site pH pCO2 pO2 HCO3 Total CO2 Base Excess Vent Mode FiO2 % Tidal Volume PEEP Pressure Support Specimen Drawn By Sodium 132 L Potassium 4.9 Chloride 92 L Carbon Dioxide 34 H Anion Gap 11 BUN 38 H Creatinine 0.80 Estimated GFR (MDRD) > 60 Glucose 249 H POC Capillary Glucose Calculated Osmolality 272 Calcium 8.5 Magnesium 1.80 Tka-L-Nfxccwmuxnq Pept 3930 H 09/21/16 09/21/16 05:27 08:14 WBC RBC Hgb Hct MCV MCH MCHC RDW Plt Count MPV Neut % (Auto) Lymph % (Auto) Pitt % (Auto) Eos % (Auto) Baso % (Auto) Absolute Neuts (auto) Absolute Lymphs (auto) Seg Neuts % (Manual) Band Neutrophils % Lymphocytes % (Manual) Monocytes % (Manual) Absolute Neutrophils Absolute Lymphocytes Vacuolated Neuts Toxic Granulation Dohle Bodies Platelet Estimate RBC Morphology PT INR Puncture Site Right radial pH 7.400 pCO2 61.0 H pO2 74.0 L HCO3 37.8 H Total CO2 39.7 H Base Excess 10.5 H Vent Mode Ac rate 12 FiO2 % 30% Tidal Volume 400 PEEP 5 Pressure Support Specimen Drawn By Kasgl Sodium Potassium Chloride Carbon Dioxide Anion Gap BUN Creatinine Estimated GFR (MDRD) Glucose POC Capillary Glucose 248 H Calculated Osmolality Calcium Magnesium Bxr-B-Vmokrbkgcae Pept Lab/DI/Studies Reviewed: EKG: Atrial fibrillation Cxray: 1 view Tube and catheter positions as described without pneumothorax. Stable generalized cardiomegaly. Small right pleural effusion with right base atelectasis, stable. No new opacity. Medications Lansoprazole (Prevacid Solutabs) 30 mg NG 0600 [facility] Stop: 09/29/16 16:59 Last Admin: 09/16/16 05:42 Dose: 30 mg Sennosides (Senokot) 1 tab PO BID PRN PRN Reason: Constipation - First Option Stop: 09/28/16 16:59 Promethazine HCl (Phenergan) 12.5 mg IV Q6H PRN; Protocol PRN Reason: Nausea/Vomiting - Alternative Stop: 09/28/16 16:59 Azithromycin 500 mg/ Dextrose 250 mls @ 250 mls/hr IV Q24H [facility] Stop: 09/21/16 17:59 Last Admin: 09/18/16 18:30 Dose: 250 mls/hr Acetaminophen (Tylenol Suppository) 325 mg [place] Q6H PRN; Protocol PRN Reason: Mild Pain or Fever above 100.4 Stop: 09/28/16 16:59 Acetaminophen (Tylenol Tablet) 325 mg PO Q6H PRN; Protocol PRN Reason: Mild Pain or Fever above 100.4 Stop: 09/28/16 16:59 Albuterol (Proventil Hfa) 8 puff INH Q6H PRN PRN Reason: WHEEZING Stop: 09/29/16 14:21 Last Admin: 09/16/16 09:04 Dose: 8 puff Benzonatate (Tessalon) 200 mg PO Q8H PRN PRN Reason: Cough - First Option Stop: 09/28/16 16:59 Ceftriaxone Sodium 1 gm/ (Dextrose) 100 mls @ 100 mls/hr IV Q24H [facility] Stop: 09/22/16 11:59 Last Admin: 09/16/16 11:36 Dose: 100 mls/hr Chlorphenir/Hydrocodone Polistirex (Tussionex) 5 ml PO BID PRN PRN Reason: Cough - Alternative Stop: 09/28/16 16:59 Diltiazem HCl (Cardizem Cd) 300 mg PO QAM [facility] Stop: 09/29/16 08:59 Last Admin: 09/15/16 10:21 Dose: Not Given Diltiazem HCl (Cardizem) 90 mg NG Q8 [facility] Stop: 09/29/16 16:59 Last Admin: 09/16/16 05:36 Dose: Not Given Lact Acid/Bifidobact/Lact [place]/Streptoc Th (Felisha Q) 1 tab PO BIDLS [facility] Stop: 09/29/16 21:59 Last Admin: 09/16/16 11:36 Dose: 1 tab Lisinopril (Zestril) 20 mg PO BID [facility] Stop: 09/28/16 20:59 Last Admin: 09/16/16 10:03 Dose: Not Given Lorazepam (Ativan) 1 - 2 mg IV Q30M PRN PRN Reason: Acute Agitation/on Ventilator Stop: 09/29/16 10:40 Last Admin: 09/15/16 13:50 Dose: 2 mg Petrolatum ([place]) 1 tube TOP DIR PRN PRN Reason: Oral Care While Intubated Stop: 09/29/16 16:59 Pravastatin Sodium (Pravachol) 80 mg PO HS [facility] Stop: 09/28/16 20:59 Last Admin: 09/15/16 22:35 Dose: 80 mg Sertraline HCl (Zoloft) 25 mg PO DAILY [facility] Stop: 09/29/16 08:59 Last Admin: 09/16/16 09:42 Dose: 25 mg Warfarin Sodium (Coumadin) 7.5 mg PO [email or web address] [facility] Stop: 09/21/16 17:59 Last Admin: 09/14/16 20:44 Dose: 7.5 mg Diltiazem HCl (Cardizem) 90 mg NG Q8 [facility] Stop: 09/29/16 16:59 Last Admin: 09/17/16 05:41 Dose: Not Given Fentanyl Citrate (Fentanyl 10 Mcg/Ml) 2,500 mcg in 250 mls @ 5 mls/hr IV Q12H [facility]; 50 MCG/HR PRN Reason: Protocol Stop: 09/22/16 16:59 Last Admin: 09/18/16 12:14 Dose: 5 mls/hr Potassium Chloride (Kcl 20 Meq/15 Ml Oral Liquid) 20 meq NG TIDWM [facility] Stop: 10/01/16 16:59 Last Admin: 09/19/16 07:54 Dose: 20 meq Warfarin Sodium 3 mg/ Warfarin (Sodium 4 mg) 7 mg PO [email or web address] [facility] Stop: 09/25/16 17:59 Last Admin: 09/18/16 16:30 Dose: Not Given Enteral Nutritional Formula (Jevity 1.0) 1,000 ml NG Q18H [facility] Stop: 10/03/16 17:59 Last Admin: 09/20/16 11:13 Dose: 1,000 ml Furosemide (Lasix) 60 mg IV Q12H [facility] Stop: 10/02/16 17:59 Last Admin: 09/21/16 05:36 Dose: 60 mg Methylprednisolone Sodium Succinate (Solu-Medrol) 40 mg IV Q8H [facility] Stop: 10/05/16 00:00 Last Admin: 09/21/16 08:09 Dose: 40 mg - Assessment/Plan (1) Acute respiratory failure with hypoxia Acute J96.01 - ACUTE RESPIRATORY FAILURE WITH HYPOXIA Comment/Plan: Patient has failed the CPAP trial again and would be placed back on the ventilator at a rate of 12 and would attempt to do a CPAP trial again in the morning I would continue the current supportive care with antibiotics DVT and GI prophylaxis continue the patient on Rocephin and Zithromax I had a prolonged discussion with Dr. Oviedo regarding this patient to see the patient can be transferred to [facility] and she is going to look into that I would continue the other supportive care patient remains critically ill she is in danger of dying would start the patient on Diprivan drip as needed and continue supportive care (2) Bilateral pleural effusion Acute J90 - PLEURAL EFFUSION, NOT ELSEWHERE CLASSIFIED Comment/Plan: Effusions have been improving slowly would start Lasix at 60 mg IV Q 8 hours (3) Diastolic CHF Acute I50.30 - UNSPECIFIED DIASTOLIC (CONGESTIVE) HEART FAILURE acute on chronic I50.33 - Acute on chronic diastolic (congestive) heart failure Comment/Plan: Continue supportive care continue diuresis (4) Pulmonary artery hypertension Resolved I27.2 - OTHER SECONDARY PULMONARY HYPERTENSION Comment/Plan: No treatment at this time continue current oxygen and on the ventilator (5) COPD exacerbation Acute J44.1 - CHRONIC OBSTRUCTIVE PULMONARY DISEASE W (ACUTE) EXACERBATION Comment/Plan: Recurrent the son blood patient never smoked therefore I would continue the current supportive care however keep the patient on Solu-Medrol however would change Solu-Medrol to 40 mg IV q.8 hours I personally saw and evaluated the patient.: Yes Total Face to Face Time: 35 minutes Case Care Discussed with: Nursing Staff
--- NOTE | 2016-09-21 09:39 | PCM.CARD ---
- Subjective Reason for visit: For atrial fibrillation and diastolic heart failure. She remains intubated and sedated Current Assessment: No New Symptoms Vital Signs: Last Vital Signs Temp 97.6 F 09/21/16 07:00 Pulse 126 H 09/21/16 09:06 Resp 23 09/21/16 08:28 BP 154/87 09/21/16 08:28 Pulse Ox 97 09/21/16 08:00 Respiratory: Diminished. negative: Rales, Rhonchi, Wheezes Jugular Vein Distention: None Pulse Rhythm: Irregular EKG Rhythm: Atrial Fibrillation (Co) EKG Ectopy: negative: Runs >10 beats (ntrolled rate) Heart Sounds: negative: S1 & S2, S3, Murmur (She has no edema) Lab/DI Results Reviewed: Laboratory Tests 09/14/16 09/18/16 09/21/16 13:55 05:50 05:20 Hgb 10.6 L Hct 33.2 L Plt Count 180 INR pH pCO2 pO2 Vent Mode FiO2 % Sodium Potassium Rkn-D-Pfvbkjwduxr Pept 1210 H 2920 H 09/21/16 09/21/16 09/21/16 05:20 05:20 05:20 Hgb Hct Plt Count INR 3.8 pH pCO2 pO2 Vent Mode FiO2 % Sodium 132 L Potassium 4.9 Woj-X-Vcjwzogwanw Pept 3930 H 09/21/16 08:14 Hgb Hct Plt Count INR pH 7.400 pCO2 61.0 H pO2 74.0 L Vent Mode Ac rate 12 FiO2 % 30% Sodium Potassium Hxq-Q-Olkcuvjjbpz Pept Chest x-ray today:IMPRESSION: Tube and catheter positions as described without pneumothorax. Stable generalized cardiomegaly. Small right pleural effusion with right base atelectasis, stable. No new opacity. - Assessment/Plan (1) H/O atrial septal defect repair Chronic Present on Admission: Yes Comment/Plan: Stable no evidence of pulmonary artery hypertension or right ventricular dysfunction, do not think that her atrial arrhythmia heart failure respiratory failure related to her congenital heart disease. (2) Diastolic CHF Acute I50.30 - UNSPECIFIED DIASTOLIC (CONGESTIVE) HEART FAILURE Present on Admission: Clinically Unable to Determine acute on chronic I50.33 - Acute on chronic diastolic (congestive) heart failure Comment/Plan: Stable compensated continue current diuretic (3) Atrial fibrillation, controlled Chronic I48.91 - UNSPECIFIED ATRIAL FIBRILLATION Present on Admission: Yes Comment/Plan: Stable continue current treatment including anticoagulant goal INR of 2-3.5
--- NOTE | 2016-09-21 10:11 | GENMEDPROG ---
Subjective Note: 70-year-old female admitted to our facility with congestive heart failure required intubation. She has been very difficult to wean. Yesterday we tried a CPAP trial in her CO2 went up into the 80s. She is on a CPAP trial again this morning. I have discussed at length with Dr. Umanzor. Will have Timur evaluate the patient. Notes Reviewed: Yes Events from last night noted and discussed with Clinical Staff Current Medication List: Reviewed Currently: Reports: Cough, SOB. Denies: Nausea and Vomiting, Abdominal Pain DVT Prophylaxis: Yes - Physical Examination Vital Signs and I&O: Last Vital Signs Temp 97.6 F 09/21/16 07:00 Pulse 126 H 09/21/16 09:06 Resp 23 09/21/16 08:28 BP 154/87 09/21/16 08:28 Pulse Ox 97 09/21/16 08:00 Oxygen Pulse Oxygen Saturation 97 O2 Device Vent Oxygen Flow Rate 40 Fraction of Inspired Oxygen ( 30 FIO2) Intake & Output 09/18/16 09/19/16 09/20/16 09/21/16 23:59 23:59 23:59 23:59 Intake Total 2772 2284 2520 657 Output Total 4720 1580 1700 400 Balance -1948 704 820 257 Patient's weight 63.367 kg 63.367 kg 64.274 kg 65.408 kg General: Alert, Oriented x3, No acute distress, Well appearing, Well nourished HEENT: Normal (Normocephalic, atraumatic;EOMI.Sclera white, Nares patent, without discharge or bleeding. No oropharyngeal lesions or erythema. Mucous membranes are dry.) Neck: Non-tender, Full range of motion, Normal Trachea alignment, Normal inspection (No cervical lymphadenopathy. No supraclavicular lymphadenopathy.), No Masses palpable, Supple Lymphatics: Normal (No lymph node swelling or pain.) Respiratory: Diminished. negative: Rales, Rhonchi, Wheezes Cardiovascular: Regular rate and rhythm (No bradycardia or tachycardia), Normal S1, No Gallops,Rubs/Murmurs, Normal S2, Good Pedal Pulses (DP pulses 2+ bilaterally) GI: Normal bowel sounds (normal active sounds), Soft (non-distended), Non tender , No hepatospenomegaly, No masses Extremities/Musculoskeletal: Normal pulses (DP pulses 2+ bilaterally) Skin: Warm,Dry and Intact, No rashes, No significant lesion Neurological: Strength at 5/5 X4 ext (Motor 5/5 throughout.), Normal tone, Cranial nerves 3-12 NL ( 2-12 grossly intact.) Lab/DI/Studies Reviewed: Abnormal Lab Results 09/20/16 09/21/16 09/21/16 15:00 05:20 05:20 RBC 4.17 L Hgb 10.6 L Hct 33.2 L MCV 80 L MCH 25.5 L MCHC 32.0 L RDW 18.5 H Seg Neuts % (Manual) 86 H Band Neutrophils % 7 H Lymphocytes % (Manual) 4 L Absolute Lymphocytes 0.28 L PT pH 7.210 L* pCO2 90.0 H* pO2 118.0 H HCO3 36.0 H Total CO2 38.8 H Base Excess 4.9 H Sodium 132 L Chloride 92 L Carbon Dioxide 34 H BUN 38 H Glucose 249 H POC Capillary Glucose Ffc-L-Ubqbnzbtgsk Pept 09/21/16 09/21/16 09/21/16 05:20 05:20 05:27 RBC Hgb Hct MCV MCH MCHC RDW Seg Neuts % (Manual) Band Neutrophils % Lymphocytes % (Manual) Absolute Lymphocytes PT 39.3 H pH pCO2 pO2 HCO3 Total CO2 Base Excess Sodium Chloride Carbon Dioxide BUN Glucose POC Capillary Glucose 248 H Hki-Z-Rdkdlpaxwos Pept 3930 H 09/21/16 08:14 RBC Hgb Hct MCV MCH MCHC RDW Seg Neuts % (Manual) Band Neutrophils % Lymphocytes % (Manual) Absolute Lymphocytes PT pH pCO2 61.0 H pO2 74.0 L HCO3 37.8 H Total CO2 39.7 H Base Excess 10.5 H Sodium Chloride Carbon Dioxide BUN Glucose POC Capillary Glucose Ayn-J-Tnptnaxvsiv Pept PORTABLE CHEST 1 VIEW COMPARISON: September 20, 2016 chest radiograph and chest CT September 14, 2016 FINDINGS: Endotracheal tube tip is 4.7 cm above marilou. Central catheter tip is in the superior vena cava. No pneumothorax. There is a right pleural effusion with right base atelectasis. Lungs elsewhere clear. There is generalized cardiac enlargement with pulmonary vascular within normal limits. No adenopathy. Patient is status post median sternotomy. There is degenerative change in each shoulder. IMPRESSION: Tube and catheter positions as described without pneumothorax. Stable generalized cardiomegaly. Small right pleural effusion with right base atelectasis, stable. No new opacity. Electronically Signed By: Sd Lund III, M.D. On: 09/21/2016 08:26 - Assessment (1) Bradycardia Acute R00.1 - BRADYCARDIA, UNSPECIFIED Comment/Plan: Bradycardia has resolved. Continue off calcium channel blockers. (2) Diastolic CHF Acute I50.30 - UNSPECIFIED DIASTOLIC (CONGESTIVE) HEART FAILURE Qualifiers: Congestive heart failure chronicity: acute on chronic Qualified Code(s): I50.33 - Acute on chronic diastolic (congestive) heart failure Comment/Plan: Massively large cardiac silhouette on chest x-ray. Patient will need extensive weaning. (3) Respiratory failure with hypoxia and hypercapnia Acute J96.91 - RESPIRATORY FAILURE, UNSPECIFIED WITH HYPOXIA; J96.92 - RESPIRATORY FAILURE, UNSPECIFIED WITH HYPERCAPNIA Qualifiers: Chronicity: acute on chronic Qualified Code(s): J96.21 - Acute and chronic respiratory failure with hypoxia; J96.22 - Acute and chronic respiratory failure with hypercapnia Comment/Plan: Continue ventilator management. Try CPAP trial today. Discuss with Dr. Umanzor he feels transfer to [facility] long-term [facility] management of her ventilator would be appropriate. (4) Atrial fibrillation, controlled Chronic I48.91 - UNSPECIFIED ATRIAL FIBRILLATION Comment/Plan: Continue Coumadin therapy. Continue rate control as able. Holding Cardizem for today. (5) Hyponatremia Acute E87.1 - HYPO-OSMOLALITY AND HYPONATREMIA Comment/Plan: Continues to improve monitor daily. Sodium 132 today continue present care. (6) Bilateral pleural effusion Acute J90 - PLEURAL EFFUSION, NOT ELSEWHERE CLASSIFIED Comment/Plan: Related to her CHF. (7) Peripheral edema Acute R60.9 - EDEMA, UNSPECIFIED Comment/Plan: IV Lasix for this manifestation of CHF. (8) Pulmonary artery hypertension Resolved I27.2 - OTHER SECONDARY PULMONARY HYPERTENSION Comment/Plan: Echocardiogram is showed ejection fraction of 60% and left ventricular hypertrophy which shows the CHF to be more diastolic than systolic failure. - Plan Patient remains on ventilator critically ill. Will continue Lasix and rate control measures. working on possible transfer to [facility]. Due to the presence of and/or the risk of deterioration, my attendance to this patient required critical care time, including assessment/reassessment, documentation, ordering and interpreting ancillary studies, discussion with staff and consultants,patient and family, and excludes time spent on separately billable procedures. In summary, this patient is acutely and critically ill. The patient requires treatment of vital organ failure and measures to prevent further life-threatening deterioration of condition. Disposition Plan: Possible transfer to [place]. Case Care Discussed with: Consultants, Nursing Staff Total Time: 72 minutes Critical Care: Yes
[2016-09-21 10:18] LABS: ABG Draw Site Right Radial; ALLEN'S TEST PASS; BEb 9.6 (+/- 2); MODE CPAP TRIAL RATE; TCO2 41.9 MMOL/L (23-27)
[2016-09-21 10:19] LABS: PS 10 cm H2O
[2016-09-21] MEDS: LORAZEPAM 2 MG/ML VIAL IV PRN (10:27)
[2016-09-21] MEDS: PROBIOTIC BLEND TAB PO SCH ×2 (12:44→16:57)
[2016-09-21] MEDS: CEFTRIAXONE 1 GM in D5W 100 ML IV SCH (12:44)
[2016-09-21] MEDS: This patient is receiving warfarin therapy SCH (15:15)
[2016-09-21] MEDS ORDERED: Medication Special Instructions SCH (16:00)
[2016-09-21] MEDS: AZITHROMYCIN 500 MG in D5W 250 ML IV SCH (16:50)
[2016-09-21] MEDS: PRAVASTATIN 80 MG TABLET PO SCH (21:45)
[2016-09-21] MEDS: CHLORHEXIDINE (HIBICLENS) 4 OZ BOTTLE TOP SCH (21:46)
[2016-09-22] MEDS: ENTERAL NUTRITION FORMULA NG SCH ×2 (02:48→23:35)
[2016-09-22 04:06] LABS: ALLEN'S TEST PASS; BEb 15.2 (+/- 2); TCO2 43.8 MMOL/L (23-27)
[2016-09-22 04:08] LABS: ABG Draw Site Right Radial; ABG Draw Tech BKL
[2016-09-22 04:09] LABS: MODE ac/vc RATE 12 RATE
[2016-09-22 05:26] LABS: AUTOMATED BASOPHIL 0.1 % (0-2); AUTOMATED LYMPH 2.5 % (17-44); AUTOMATED NEUTROPHIL 89.4 % (45-76); MPV 8.3 fL (7.4-10.4)
[2016-09-22 05:34] LABS: PT-INR 2.2
[2016-09-22] MEDS: LANSOPRAZOLE 30 MG TAB NG SCH (05:36)
[2016-09-22] MEDS: Furosemide 100 MG/10 ML VIAL IV SCH (05:36)
[2016-09-22] MEDS: CHLORHEXIDINE 0.12% ORAL SOLN 15 ML PO SCH ×2 (05:36→16:33)
[2016-09-22] MEDS: POTASSIUM CHLORIDE 20 MEQ/15 ML ORAL SOLN NG SCH ×3 (05:36→16:31)
[2016-09-22 06:32] LABS: BLOOD UREA NITROGEN 47 MG/DL (7-17); CALCIUM 8.6 MG/DL (8.4-10.2); CALCULATED OSMOLALITY 276 MOs/Kg (270-290); CHLORIDE 88 mEq/L (98-107); GLUCOSE 239 MG/DL (70-99); SODIUM LEVEL 133 mEq/L (137-146)
[2016-09-22] MEDS: METHYLPREDNISOLONE 40 MG/1 ML VIAL IV SCH ×2 (07:41→16:23)
[2016-09-22] MEDS: LISINOPRIL 20 MG TAB PO SCH ×2 (08:02→21:17)
[2016-09-22] MEDS: SERTRALINE HCL 25 MG TAB PO SCH (08:03)
--- NOTE | 2016-09-22 08:07 | DIRPT ---
CLINICAL DATA: Respiratory failure EXAM: PORTABLE CHEST 1 VIEW COMPARISON: Chest x-rays dated 09/21/2016, 09/20/2016 and 09/19/2016. FINDINGS: Patient is status post median sternotomy. Endotracheal tube is well positioned with tip approximately 3 cm above the marilou. Right IJ central line well positioned with tip overlying the lower SVC. Enteric tube passes below the diaphragm. Cardiomegaly is unchanged. There is mild central pulmonary vascular congestion without overt pulmonary edema. Suspect mild bibasilar atelectasis and small bilateral pleural effusions. No new lung findings seen. No pneumothorax. IMPRESSION: 1. Cardiomegaly with central pulmonary vascular congestion suggesting mild volume overload/CHF. No overt pulmonary edema. 2. Probable mild bibasilar atelectasis and/or small pleural effusions. 3. Tubes and lines are in satisfactory position. Electronically Signed By: Gavino Wells M.D. On: 09/22/2016 08:05
--- NOTE | 2016-09-22 08:38 | GENMEDPROG ---
Chief Complaint: CHF exacerbation, severe respiratory failure requiring ventilator Subjective Note: Resting comfortably this morning on ventilator, breathing well. She is tachycardic. She is awake and alert, off of sedation and calm. Notes Reviewed: Yes Events from last night noted and discussed with Clinical Staff Current Medication List: Reviewed Currently: Denies: Nausea and Vomiting, Abdominal Pain DVT Prophylaxis: Yes - Physical Examination Vital Signs and I&O: Last Vital Signs Temp 98.3 F 09/22/16 07:00 Pulse 126 H 09/22/16 07:51 Resp 12 09/22/16 04:00 BP 156/75 09/22/16 07:00 Pulse Ox 96 09/22/16 07:00 Oxygen Pulse Oxygen Saturation 96 O2 Device Vent Oxygen Flow Rate 40 Fraction of Inspired Oxygen ( 30 FIO2) Intake & Output 09/20/16 09/21/16 09/22/16 09/23/16 06:59 06:59 06:59 06:59 Intake Total 2260 2442 2411 50 Output Total 1130 1900 2325 450 Balance 1130 542 86 -400 Patient's weight 64.274 kg 65.408 kg 65.998 kg General: Alert, Oriented x3, No acute distress, Well appearing, Well nourished HEENT: Normal (Normocephalic, atraumatic;EOMI.Sclera white, Nares patent, without discharge or bleeding. No oropharyngeal lesions or erythema. Mucous membranes are dry.) Neck: Non-tender, Full range of motion, Normal Trachea alignment, Normal inspection (No cervical lymphadenopathy. No supraclavicular lymphadenopathy.), No Masses palpable, Supple Lymphatics: Normal (No lymph node swelling or pain.) Respiratory: Diminished. negative: Rales, Rhonchi, Wheezes Cardiovascular: Regular rate and rhythm (No bradycardia or tachycardia), Normal S1, No Gallops,Rubs/Murmurs, Normal S2, Good Pedal Pulses (DP pulses 2+ bilaterally) GI: Normal bowel sounds (normal active sounds), Soft (non-distended), Non tender , No hepatospenomegaly, No masses Extremities/Musculoskeletal: Normal pulses (DP pulses 2+ bilaterally) Skin: Warm,Dry and Intact, No rashes, No significant lesion Neurological: Strength at 5/5 X4 ext (Motor 5/5 throughout.), Normal tone, Cranial nerves 3-12 NL ( 2-12 grossly intact.) She has some upper extremity and edema, trace edema in the bilateral lower extremities. She has some rhonchi, but no wheezing. Lab/DI/Studies Reviewed: Laboratory Tests 09/21/16 09/22/16 09/22/16 05:20 04:00 05:10 WBC 6.5 Hgb 10.8 L Plt Count 197 INR 3.8 pH 7.460 H pCO2 59.0 H pO2 72.0 L Sodium Potassium BUN Creatinine 09/22/16 09/22/16 05:10 05:10 WBC Hgb Plt Count INR 2.2 pH pCO2 pO2 Sodium 133 L Potassium 4.2 BUN 47 H Creatinine 0.80 - Assessment (1) Acute respiratory failure with hypoxia Acute J96.01 - ACUTE RESPIRATORY FAILURE WITH HYPOXIA (2) Bilateral pleural effusion Acute J90 - PLEURAL EFFUSION, NOT ELSEWHERE CLASSIFIED Comment/Plan: Related to her CHF. (3) Bradycardia Acute R00.1 - BRADYCARDIA, UNSPECIFIED Comment/Plan: Bradycardia has resolved. Continue off calcium channel blockers. (4) Diastolic CHF Acute I50.30 - UNSPECIFIED DIASTOLIC (CONGESTIVE) HEART FAILURE Qualifiers: Congestive heart failure chronicity: acute on chronic Qualified Code(s): I50.33 - Acute on chronic diastolic (congestive) heart failure Comment/Plan: Massively large cardiac silhouette on chest x-ray. Patient will need extensive weaning from ventilator. She has diastolic dysfunction, continue IV Lasix q.12 hours. Still with significant amounts of central edema. Cardiology is following, appreciate their help. (5) Hyponatremia Acute E87.1 - HYPO-OSMOLALITY AND HYPONATREMIA Comment/Plan: P.o. fluid restriction ordered. Concerned that her hyponatremia may be related to occult pneumonia. Now that she is on the ventilator will be able to get a better sputum specimen. Agree with Dr. Umanzor that we should start her on Rocephin Zithromax. Sodium is now improving with increased saline and IV Lasix. She may have some SIADH associated with her respiratory infection. (6) Peripheral edema Acute R60.9 - EDEMA, UNSPECIFIED Comment/Plan: IV Lasix for this manifestation of CHF. (7) Poor venous access Acute I87.8 - OTHER SPECIFIED DISORDERS OF VEINS (8) Respiratory failure with hypoxia and hypercapnia Acute J96.91 - RESPIRATORY FAILURE, UNSPECIFIED WITH HYPOXIA; J96.92 - RESPIRATORY FAILURE, UNSPECIFIED WITH HYPERCAPNIA Qualifiers: Chronicity: acute on chronic Qualified Code(s): J96.21 - Acute and chronic respiratory failure with hypoxia; J96.22 - Acute and chronic respiratory failure with hypercapnia Comment/Plan: Continue ventilator management. She had elevated CO2 with CPAP trial yesterday morning. She is now off sedation, and other CPAP trial will be attempted today. Will check ABG during CPAP trial of patient is clinically looking well. - Plan In summary this patient is acutely and critically ill. The patient requires treatment of vital organ failure and measures to prevent further life- threatening deterioration of the above conditions. I personally reviewed and ordered lab testing, as well as imaging. I reviewed old medical records from previous hospitalizations as available, and spent the time mentioned below in critical care of this patient including counseling and coordination of care. Patient will be evaluated by [facility] for potential LTAC placement today. Total Time: 65
[2016-09-22] MEDS: LORAZEPAM 2 MG/ML VIAL IV PRN ×2 (09:00→16:17)
--- NOTE | 2016-09-22 09:45 | PCM.CARD ---
- Subjective Reason for visit: For atrial fibrillation Current Assessment: No New Symptoms (intubated ventilated) Vital Signs: Last Vital Signs Temp 98.3 F 09/22/16 07:00 Pulse 141 H 09/22/16 09:00 Resp 18 09/22/16 08:00 BP 163/103 H 09/22/16 09:00 Pulse Ox 94 09/22/16 09:00 Selected Entries 09/22/16 09/22/16 09/22/16 00:00 01:00 02:00 Pulse Rate 116 109 110 09/22/16 09/22/16 09/22/16 03:00 04:00 05:00 Pulse Rate 111 106 113 09/22/16 09/22/16 09/22/16 06:00 07:00 07:36 Pulse Rate 126 H 114 126 H 09/22/16 09/22/16 09/22/16 07:51 08:00 09:00 Pulse Rate 126 H 124 H 141 H Selected Entries 09/18/16 09/20/16 09/22/16 05:00 15:43 05:00 Patient's 139 lb 11.2 oz 141 lb 11.2 oz 145 lb 8 oz weight Respiratory: Normal - CTA. negative: Rales, Wheezes Jugular Vein Distention: None Pulse Rhythm: Irregular EKG Rhythm: Atrial Fibrillation (With a rapid ventricular response occurring in the setting of attempting to wean, she is receiving IV beta-nikolas.) EKG Ectopy: negative: Runs >10 beats Heart Sounds: negative: S1 & S2 (Variable S1), S3, Murmur (No edema) Lab/DI Results Reviewed: Laboratory Tests 09/22/16 09/22/16 05:10 05:10 Hgb 10.8 L Potassium 4.2 Estimated GFR (MDRD) > 60 - Assessment/Plan (1) H/O atrial septal defect repair Chronic Present on Admission: Yes Comment/Plan: Stable (2) Diastolic CHF Acute I50.30 - UNSPECIFIED DIASTOLIC (CONGESTIVE) HEART FAILURE Present on Admission: Clinically Unable to Determine acute on chronic I50.33 - Acute on chronic diastolic (congestive) heart failure Comment/Plan: Her weights are up 6 lb and I will switch her to continuous IV Lasix to avoid decompensated heart failure interfering with attempts to wean (3) Atrial fibrillation, controlled Chronic I48.91 - UNSPECIFIED ATRIAL FIBRILLATION Present on Admission: Yes Comment/Plan: Rates are rapid today I will leave an order for IV Cardizem to be used as needed. I suspect the precipitant here is pulmonary weaning.
[2016-09-22] MEDS ORDERED: DILTIAZEM 25 MG/5 ML VIAL IV ONE (09:47)
[2016-09-22] MEDS ORDERED: Diltiazem HCl 100 MG in D5W 100 ML IV SCH (09:47)
--- NOTE | 2016-09-22 09:52 | PCM.PULM ---
Chief Complaint: Patient in Intensive care unit on ventilator, CPAP trial was tried earlier. She is now A fib with RVR and on Diltiazem IV drip,Beta nikolas IV and IV Lasix Current medication list and notes reviewed:yes, Events from last night noted and discussed with Clinical Staff DVT/GI prophylaxis:yes - Physical Examination Vital Signs and I&O: Last Vital Signs Temp 98.3 F 09/22/16 07:00 Pulse 141 H 09/22/16 09:00 Resp 18 09/22/16 08:00 BP 163/103 H 09/22/16 09:00 Pulse Ox 94 09/22/16 09:00 Oxygen Pulse Oxygen Saturation 94 O2 Device Vent Oxygen Flow Rate 40 Fraction of Inspired Oxygen ( 30 FIO2) Intake & Output 09/19/16 09/20/16 09/21/16 09/22/16 23:59 23:59 23:59 23:59 Intake Total 2284 2520 1773 1345 Output Total 1580 1700 2275 900 Balance 704 820 -502 445 Patient's weight 63.367 kg 64.274 kg 65.408 kg 65.998 kg General: No acute distress Respiratory: Normal - CTA, Rhonchi Cardiovascular: Regular rate, No Gallops,Rubs/Murmurs, Irregular GI: Normal bowel sounds, Soft, Non tender, No hepatospenomegaly, No masses Extremities/Musculoskeletal: Normal pulses Skin: Warm,Dry and Intact, No rashes, No breakdown, No significant lesion Psych/Mental Status: Sedated (On Ventilator), Restless Result Diagrams: 09/22/16 05:10 09/22/16 05:10 Labs (last 24 hours): Laboratory Results - last 24 hr 09/21/16 09/22/16 09/22/16 10:12 04:00 05:10 WBC 6.5 RBC 4.28 Hgb 10.8 L Hct 33.7 L MCV 79 L MCH 25.2 L MCHC 32.0 L RDW 18.0 H Plt Count 197 MPV 8.3 Neut % (Auto) 89.4 H Lymph % (Auto) 2.5 L [place] % (Auto) 8.0 Eos % (Auto) 0.0 Baso % (Auto) 0.1 Absolute Neuts (auto) 5.79 Absolute Lymphs (auto) 0.13 L PT INR Puncture Site Right radial Right radial pH 7.300 L 7.460 H pCO2 80.0 H* 59.0 H pO2 74.0 L 72.0 L HCO3 39.4 H 42.0 H Total CO2 41.9 H 43.8 H Base Excess 9.6 H 15.2 H Vent Mode Cpap trial ac/vc rate 12 FiO2 % 30% 30 Tidal Volume 400 PEEP 5 5 Pressure Support 10 Specimen Drawn By [place] Bkl Sodium Potassium Chloride Carbon Dioxide Anion Gap BUN Creatinine Estimated GFR (MDRD) Glucose Calculated Osmolality Calcium Magnesium 09/22/16 09/22/16 05:10 05:10 WBC RBC Hgb Hct MCV MCH MCHC RDW Plt Count MPV Neut % (Auto) Lymph % (Auto) [place] % (Auto) Eos % (Auto) Baso % (Auto) Absolute Neuts (auto) Absolute Lymphs (auto) PT 23.2 H INR 2.2 Puncture Site pH pCO2 pO2 HCO3 Total CO2 Base Excess Vent Mode FiO2 % Tidal Volume PEEP Pressure Support Specimen Drawn By Sodium 133 L Potassium 4.2 Chloride 88 L Carbon Dioxide 38 H Anion Gap 11 BUN 47 H Creatinine 0.80 Estimated GFR (MDRD) > 60 Glucose 239 H Calculated Osmolality 276 Calcium 8.6 Magnesium 1.80 Lab/DI/Studies Reviewed: EKG: Atrial fibrillation with RVR at rate of 130/min Cxray: 1 view Chest x-ray was seen personally patient seems to have pulmonary vascular congestion with no acute edema and no acute infiltrates significant cardiomegaly Medications Lansoprazole (Prevacid Solutabs) 30 mg NG 0600 [facility] Stop: 09/29/16 16:59 Last Admin: 09/16/16 05:42 Dose: 30 mg Sennosides (Senokot) 1 tab PO BID PRN PRN Reason: Constipation - First Option Stop: 09/28/16 16:59 Promethazine HCl (Phenergan) 12.5 mg IV Q6H PRN; Protocol PRN Reason: Nausea/Vomiting - Alternative Stop: 09/28/16 16:59 Azithromycin 500 mg/ Dextrose 250 mls @ 250 mls/hr IV Q24H [facility] Stop: 09/21/16 17:59 Last Admin: 09/18/16 18:30 Dose: 250 mls/hr Acetaminophen (Tylenol Suppository) 325 mg AL Q6H PRN; Protocol PRN Reason: Mild Pain or Fever above 100.4 Stop: 09/28/16 16:59 Acetaminophen (Tylenol Tablet) 325 mg PO Q6H PRN; Protocol PRN Reason: Mild Pain or Fever above 100.4 Stop: 09/28/16 16:59 Albuterol (Proventil Hfa) 8 puff INH Q6H PRN PRN Reason: WHEEZING Stop: 09/29/16 14:21 Last Admin: 09/16/16 09:04 Dose: 8 puff Benzonatate (Tessalon) 200 mg PO Q8H PRN PRN Reason: Cough - First Option Stop: 09/28/16 16:59 Ceftriaxone Sodium 1 gm/ (Dextrose) 100 mls @ 100 mls/hr IV Q24H [facility] Stop: 09/22/16 11:59 Last Admin: 09/16/16 11:36 Dose: 100 mls/hr Chlorphenir/Hydrocodone Polistirex (Tussionex) 5 ml PO BID PRN PRN Reason: Cough - Alternative Stop: 09/28/16 16:59 Lact Acid/Bifidobact/Lact [place]/Streptoc Th (Felisha Q) 1 tab PO BIDLS [facility] Stop: 09/29/16 21:59 Last Admin: 09/16/16 11:36 Dose: 1 tab Lisinopril (Zestril) 20 mg PO BID [facility] Stop: 09/28/16 20:59 Last Admin: 09/16/16 10:03 Dose: Not Given Lorazepam (Ativan) 1 - 2 mg IV Q30M PRN PRN Reason: Acute Agitation/on Ventilator Stop: 09/29/16 10:40 Last Admin: 09/15/16 13:50 Dose: 2 mg Petrolatum ([place]) 1 tube TOP DIR PRN PRN Reason: Oral Care While Intubated Stop: 09/29/16 16:59 Pravastatin Sodium (Pravachol) 80 mg PO HS [facility] Stop: 09/28/16 20:59 Last Admin: 09/15/16 22:35 Dose: 80 mg Sertraline HCl (Zoloft) 25 mg PO DAILY [facility] Stop: 09/29/16 08:59 Last Admin: 09/16/16 09:42 Dose: 25 mg Fentanyl Citrate (Fentanyl 10 Mcg/Ml) 2,500 mcg in 250 mls @ 5 mls/hr IV Q12H [facility]; 50 MCG/HR PRN Reason: Protocol Stop: 09/22/16 16:59 Last Admin: 09/18/16 12:14 Dose: 5 mls/hr Warfarin Sodium (Coumadin) 7.5 mg PO [id number] [facility] Stop: 09/24/16 17:59 Last Admin: 09/17/16 14:50 Dose: Not Given Warfarin Sodium 3 mg/ Warfarin (Sodium 4 mg) 7 mg PO [id number]@1800 [facility] Stop: 09/25/16 17:59 Last Admin: 09/18/16 16:30 Dose: Not Given Enteral Nutritional Formula (Jevity 1.0) 1,000 ml NG Q18H [facility] Stop: 10/03/16 17:59 Last Admin: 09/20/16 11:13 Dose: 1,000 ml Methylprednisolone Sodium Succinate (Solu-Medrol) 40 mg IV Q8H [facility] Stop: 10/05/16 00:00 Last Admin: 09/21/16 08:09 Dose: 40 mg Potassium Chloride (Kcl 20 Meq/15 Ml Oral Liquid) 20 meq NG TIDWM [facility] Stop: 10/01/16 16:59 Last Admin: 09/22/16 11:35 Dose: 20 meq Furosemide 100 mg/ Sodium (Chloride) 50 mls @ 2.5 mls/hr IV Q20H [facility]; 5 MG/HR PRN Reason: Protocol Stop: 10/06/16 09:59 Last Admin: 09/22/16 10:25 Dose: 2.5 mls/hr Diltiazem HCl (Cardizem) 20 mg IV DIR PRN PRN Reason: AFIB/HR SUSTAINED ABOVE 125 Stop: 10/06/16 10:06 Diltiazem HCl 100 mg/ Dextrose 100 mls @ 5 mls/hr IV DIR [facility]; 5 MG/HR PRN Reason: Protocol Stop: 10/06/16 09:46 Metoprolol Tartrate (Lopressor) 5 mg IV Q6 [facility] Stop: 10/06/16 16:59 Last Admin: 09/22/16 11:40 Dose: 5 mg - Assessment/Plan (1) Acute respiratory failure with hypoxia Acute J96.01 - ACUTE RESPIRATORY FAILURE WITH HYPOXIA Comment/Plan: Patient has been placed on CPAP most of the day and had rapid ventricular response due to atrial fibrillation and therefore I would put the patient back on the ventilator and would repeat a CPAP trial for 1 hour repeat a gas and then hopefully extubate the patient if she is doing well continue supportive care DVT and GI prophylaxis nebulizers as needed and sedation recommend for the patient to be on Diprivan while she is on the ventilator at night. patient can be transferred to [facility] . she is looking into a prolonged recovery (2) Bilateral pleural effusion Acute J90 - PLEURAL EFFUSION, NOT ELSEWHERE CLASSIFIED Comment/Plan: Effusions have been improving slowly would start Lasix at 60 mg IV Q 8 hours (3) Diastolic CHF Acute I50.30 - UNSPECIFIED DIASTOLIC (CONGESTIVE) HEART FAILURE acute on chronic I50.33 - Acute on chronic diastolic (congestive) heart failure Comment/Plan: Continue supportive care continue diuresis (4) Pulmonary artery hypertension Resolved I27.2 - OTHER SECONDARY PULMONARY HYPERTENSION Comment/Plan: No treatment at this time continue current oxygen and on the ventilator
[2016-09-22] MEDS ORDERED: DILTIAZEM 25 MG/5 ML VIAL IV PRN (10:07)
[2016-09-22] MEDS: Furosemide 100 MG in NS 40 ML IV SCH (10:25)
[2016-09-22] MEDS: PROBIOTIC BLEND TAB PO SCH ×2 (11:35→16:33)
[2016-09-22] MEDS: METOPROLOL 5 MG/5 ML SDV IV SCH ×2 (11:40→17:48)
[2016-09-22] MEDS: CEFTRIAXONE 1 GM in D5W 100 ML IV SCH (11:45)
[2016-09-22] MEDS: This patient is receiving warfarin therapy SCH (16:31)
[2016-09-22] MEDS: WARFARIN SODIUM PO SCH ×2 (16:32)
[2016-09-22] MEDS: AZITHROMYCIN 500 MG in D5W 250 ML IV SCH (16:33)
[2016-09-22] MEDS ORDERED: Medication Special Instructions SCH (17:00)
[2016-09-22] MEDS: PRAVASTATIN 80 MG TABLET PO SCH (21:17)
[2016-09-22] MEDS: CHLORHEXIDINE (HIBICLENS) 4 OZ BOTTLE TOP SCH (21:17)
[2016-09-23] MEDS: METHYLPREDNISOLONE 40 MG/1 ML VIAL IV SCH ×4 (00:05→23:02)
[2016-09-23] MEDS: METOPROLOL 5 MG/5 ML SDV IV SCH ×3 (00:05→11:12)
[2016-09-23] MEDS: LORAZEPAM 2 MG/ML VIAL IV PRN (00:07)
[2016-09-23] MEDS: Furosemide 100 MG in NS 40 ML IV SCH ×2 (02:07→23:02)
[2016-09-23 04:38] LABS: ALLEN'S TEST PASS; BEb 19.4 (+/- 2); TCO2 47.8 MMOL/L (23-27)
[2016-09-23 04:39] LABS: ABG Draw Site Right Radial; MODE AC 12 RATE
[2016-09-23] MEDS: ENTERAL NUTRITION FORMULA NG SCH (05:22)
[2016-09-23] MEDS: CHLORHEXIDINE 0.12% ORAL SOLN 15 ML PO SCH ×2 (05:24→17:05)
[2016-09-23] MEDS: LANSOPRAZOLE 30 MG TAB NG SCH (05:25)
[2016-09-23] MEDS: POTASSIUM CHLORIDE 20 MEQ/15 ML ORAL SOLN NG SCH ×4 (05:26→23:02)
[2016-09-23 05:35] LABS: MPV 8.5 fL (7.4-10.4)
[2016-09-23 05:51] LABS: BLOOD UREA NITROGEN 45 MG/DL (7-17); CALCIUM 8.2 MG/DL (8.4-10.2); CALCULATED OSMOLALITY 286 MOs/Kg (270-290); CHLORIDE 87 mEq/L (98-107); GLUCOSE 275 MG/DL (70-99); SODIUM LEVEL 137 mEq/L (137-146)
[2016-09-23 06:15] LABS: SEG NEUTROPHIL 94 % (45-76)
[2016-09-23] MEDS: LISINOPRIL 20 MG TAB PO SCH ×2 (07:32→19:58)
[2016-09-23] MEDS: SERTRALINE HCL 25 MG TAB PO SCH (07:33)
--- NOTE | 2016-09-23 08:53 | PCM.CARD ---
- Subjective Reason for visit: For atrial fibrillation and heart failure Current Assessment: No New Symptoms (She is making progress with weaning and may be extubated today, her atrial fibrillation is rapid is back on IV Cardizem. ) Vital Signs: Last Vital Signs Temp 98.3 F 09/23/16 07:00 Pulse 126 H 09/23/16 08:50 Resp 18 09/23/16 08:50 BP 137/88 09/23/16 08:50 Pulse Ox 96 09/23/16 08:50 Vital Signs Temp 98.3 F 09/23/16 07:00 Pulse 126 H 09/23/16 08:50 Resp 18 09/23/16 08:50 BP 137/88 09/23/16 08:50 Pulse Ox 96 09/23/16 08:50 Intake & Output 09/21/16 09/22/16 09/23/16 23:59 23:59 23:59 Intake Total 1773 1763 1216 Output Total 2275 2200 1725 Balance -502 -073 -509 Patient's weight 144 lb 3.2 oz 145 lb 8 oz 144 lb 12.8 oz Intake: IV Fluids 332 835 590 Diprivan 100 ML @ 5 MCG/ 49 57 0 KG/MIN 1.928 mls/hr IV Q6H [facility] Rx#:[id number] Lasix 100 MG In Normal 0 48 Saline 40 ml @ 5 MG/HR 2. 5 mls/hr IV Q20H [facility] Rx#: [id number] NS+MEDS 283 778 542 Tube Feeding 1061 668 496 Free Water Bolus Amount 380 260 130 Output: Urine 2275 2200 1725 Other: Irrigation Fluid Type [place] sump (NG) Water Water Water Feeding Tube Type NG Tube NG Tube NG Tube Tube Feeding Residual 0 0 0 Amount Residual Comment Held for CPAP trial Tube Irrigation Amount [place] sump (NG) 60 60 Elimination Method Indwelling Catheter Indwelling Catheter Indwelling Catheter Urine Color Yellow Yellow Yellow Urethral ([place]) Yellow Yellow Yellow Wt Change in KG 1.134 kg gained 0.590 kg gained 0.318 kg loss Weight Change from 2.5 lb(s) gained 1.3 lb(s) gained 11.2 oz loss Previous Weight Weight (Calculated 65.408 65.998 65.680 Kilograms) PE: In no distress sedated at this time Respiratory: Diminished. negative: Rales, Rhonchi, Wheezes Jugular Vein Distention: None Pulse Rhythm: Irregular (Rapid atrial fibrillation) EKG Rhythm: Atrial Fibrillation EKG Ectopy: negative: Runs >10 beats Heart Sounds: negative: S1 & S2 (Variable S1), S3, Murmur (No edema) Lab/DI Results Reviewed: Selected Entries 09/23/16 09/23/16 09/23/16 07:00 07:14 08:00 Pulse Rate 116 116 119 09/23/16 08:50 Pulse Rate 126 H Laboratory Tests 09/23/16 09/23/16 05:00 05:00 Hgb 10.9 L Hct 34.2 L Potassium 3.5 Creatinine 0.80 Estimated GFR (MDRD) > 60 - Assessment/Plan (1) Diastolic CHF Acute I50.30 - UNSPECIFIED DIASTOLIC (CONGESTIVE) HEART FAILURE Present on Admission: Clinically Unable to Determine acute on chronic I50.33 - Acute on chronic diastolic (congestive) heart failure Comment/Plan: Improved continue IV Lasix until tomorrow and reassess diuretic (2) Atrial fibrillation, controlled Chronic I48.91 - UNSPECIFIED ATRIAL FIBRILLATION Present on Admission: Yes Comment/Plan: Rate is rapid weaning attempts I will increase her oral calcium channel nikolas added oral beta-nikolas and continue IV calcium channel nikloas at this time to avoid tachycardia interfering with weaning from ventilator. Continue warfarin anticoagulation goal of an INR of 2-3.5
--- NOTE | 2016-09-23 09:08 | GENMEDPROG ---
Notes Reviewed: Yes Events from last night noted and discussed with Clinical Staff Current Medication List: Reviewed Currently: Denies: Nausea and Vomiting, Abdominal Pain DVT Prophylaxis: Yes - Physical Examination Vital Signs and I&O: Last Vital Signs Temp 98.3 F 09/23/16 07:00 Pulse 126 H 09/23/16 08:50 Resp 18 09/23/16 08:50 BP 137/88 09/23/16 08:50 Pulse Ox 96 09/23/16 08:50 Oxygen Pulse Oxygen Saturation 96 O2 Device Vent Oxygen Flow Rate 30 Fraction of Inspired Oxygen ( 30 FIO2) Intake & Output 09/20/16 09/21/16 09/22/16 09/23/16 23:59 23:59 23:59 23:59 Intake Total 2520 1773 1763 1216 Output Total 1700 2275 2200 1725 Balance 820 -502 -437 -509 Patient's weight 64.274 kg 65.408 kg 65.998 kg 65.68 kg General: Alert HEENT: Normal (Normocephalic, atraumatic;EOMI.Sclera white, Nares patent, without discharge or bleeding. No oropharyngeal lesions or erythema. Mucous membranes are dry.) Neck: Non-tender, Normal Trachea alignment, Normal inspection (No cervical lymphadenopathy. No supraclavicular lymphadenopathy.), No Masses palpable, Limited range of motion, Supple Lymphatics: Normal (No lymph node swelling or pain.) Respiratory: Normal - CTA, Diminished. negative: Rales, Rhonchi, Wheezes Cardiovascular: Regular rate and rhythm (No bradycardia or tachycardia), Normal S1, No Gallops,Rubs/Murmurs, Normal S2, Good Pedal Pulses (DP pulses 2+ bilaterally) GI: Normal bowel sounds (normal active sounds), Soft (non-distended), Non tender , No hepatospenomegaly, No masses Extremities/Musculoskeletal: Normal pulses (DP pulses 2+ bilaterally). negative : Edema, Clubbing, Cyanosis Skin: Warm,Dry and Intact, No rashes, No significant lesion Neurological: Normal tone, Cranial nerves 3-12 NL Psych/Mental Status: Appropriate, Normal Affect Lab/DI/Studies Reviewed: 09/23/16 05:00 09/23/16 05:00 Laboratory Results - last 24 hr 01/22/17 01/22/17 01/22/17 04:30 05:00 05:00 WBC 6.4 RBC 4.34 Hgb 10.9 L Hct 34.2 L MCV 79 L MCH 25.2 L MCHC 32.1 L RDW 18.0 H Plt Count 216 MPV 8.5 Neut % (Auto) Cancelled Lymph % (Auto) Cancelled [place] % (Auto) Cancelled Eos % (Auto) Cancelled Baso % (Auto) Cancelled Absolute Neuts (auto) Cancelled Absolute Lymphs (auto) Cancelled Seg Neuts % (Manual) 94 H Band Neutrophils % 1 Lymphocytes % (Manual) 3 L Monocytes % (Manual) 2 Absolute Neutrophils 6.08 Absolute Lymphocytes 0.19 L Platelet Estimate Norm RBC Morphology Reviewed this admiss PT INR Puncture Site Right radial pH 7.500 H pCO2 59.0 H pO2 68.0 L HCO3 46.0 H Total CO2 47.8 H Base Excess 19.4 H Vent Mode Ac 12 FiO2 % .30 Tidal Volume 400 PEEP 5 Specimen Drawn By [place]as Sodium 137 Potassium 3.5 Chloride 87 L Carbon Dioxide 44 H Anion Gap 10 BUN 45 H Creatinine 0.80 Estimated GFR (MDRD) > 60 Glucose 275 H Calculated Osmolality 286 Calcium 8.2 L Magnesium 1.90 09/23/16 05:00 WBC RBC Hgb Hct MCV MCH MCHC RDW Plt Count MPV Neut % (Auto) Lymph % (Auto) [place] % (Auto) Eos % (Auto) Baso % (Auto) Absolute Neuts (auto) Absolute Lymphs (auto) Seg Neuts % (Manual) Band Neutrophils % Lymphocytes % (Manual) Monocytes % (Manual) Absolute Neutrophils Absolute Lymphocytes Platelet Estimate RBC Morphology PT 20.6 H INR 2.0 Puncture Site pH pCO2 pO2 HCO3 Total CO2 Base Excess Vent Mode FiO2 % Tidal Volume PEEP Specimen Drawn By Sodium Potassium Chloride Carbon Dioxide Anion Gap BUN Creatinine Estimated GFR (MDRD) Glucose Calculated Osmolality Calcium Magnesium - Assessment (1) Diastolic CHF Acute I50.30 - UNSPECIFIED DIASTOLIC (CONGESTIVE) HEART FAILURE Qualifiers: Congestive heart failure chronicity: acute on chronic Qualified Code(s): I50.33 - Acute on chronic diastolic (congestive) heart failure Comment/Plan: Cardiomegaly on chest x-ray & on ventilator. She has diastolic dysfunction, continue Lasix drip. Cardiology is following, appreciate their help. (2) Respiratory failure with hypoxia and hypercapnia Acute J96.91 - RESPIRATORY FAILURE, UNSPECIFIED WITH HYPOXIA; J96.92 - RESPIRATORY FAILURE, UNSPECIFIED WITH HYPERCAPNIA Qualifiers: Chronicity: acute on chronic Qualified Code(s): J96.21 - Acute and chronic respiratory failure with hypoxia; J96.22 - Acute and chronic respiratory failure with hypercapnia Comment/Plan: Continue ventilator management. She had elevated CO2 with CPAP trial yesterday morning. She is now off sedation, and other CPAP trial will be attempted today. Will check ABG during CPAP trial. (3) Atrial fibrillation, controlled Chronic I48.91 - UNSPECIFIED ATRIAL FIBRILLATION Comment/Plan: Adjusting Coumadin therapy. Continue rate control as able. Giving Cardizem at 30 mg q.8h. Lopressor scheduled 5 mg IV Q 6 hours. (4) Bilateral pleural effusion Acute J90 - PLEURAL EFFUSION, NOT ELSEWHERE CLASSIFIED Comment/Plan: Related to her CHF much improved. (5) Peripheral edema Acute R60.9 - EDEMA, UNSPECIFIED Comment/Plan: Peripheral edema has improved with the IV Lasix for this manifestation of CHF. (6) Pulmonary artery hypertension Resolved I27.2 - OTHER SECONDARY PULMONARY HYPERTENSION Comment/Plan: Echocardiogram is showed ejection fraction of 60% and left ventricular hypertrophy which shows the CHF to be more diastolic than systolic failure. (7) Hyponatremia Resolved E87.1 - HYPO-OSMOLALITY AND HYPONATREMIA Comment/Plan: SIADH appears improved with normalization of the sodium. Tolerating the IV Rocephin and finished her course of Zithromax. Additional Notes: Due to the presence of and / or the risk of deterioration, my attendance to this patient required critical care time, including assessment/reassessment, documentation, ordering and interpreting ancillary studies, discussion with staff and consultants,patient and family, and excludes time spent on separately billable procedures. This individual is critically ill and in danger of dying. Disposition Plan: Possible [facility] placement. Case Care Discussed with: Patient, Nursing Staff Education/Counseling Given To: Patient Education/Counseling Given Regarding: Diagnosis Total Time: Critical care time spent 38 minutes Critical Care: Yes Code: 291
[2016-09-23] MEDS ORDERED: DILTIAZEM 30 MG TAB NG SCH (10:00)
--- NOTE | 2016-09-23 10:24 | PCM.PULM ---
Chief Complaint: Uneventful overbright. Patient on CPAP trial has tolerated fair so far Current medication list reviewed:yes Notes reviewed:yes, Events from last night noted and discussed with Clinical Staff DVT/GI prophylaxis:yes - Physical Examination Vital Signs and I&O: Last Vital Signs Temp 98.3 F 09/23/16 07:00 Pulse 126 H 09/23/16 08:50 Resp 18 09/23/16 08:50 BP 137/88 09/23/16 08:50 Pulse Ox 96 09/23/16 08:50 Oxygen Pulse Oxygen Saturation 96 O2 Device Vent Oxygen Flow Rate 30 Fraction of Inspired Oxygen ( 30 FIO2) Intake & Output 09/20/16 09/21/16 09/22/16 09/23/16 23:59 23:59 23:59 23:59 Intake Total 2520 1773 1763 1216 Output Total 1700 2272 2204 1725 Balance 820 -502 -437 -509 Patient's weight 64.274 kg 65.408 kg 65.998 kg 65.68 kg General: No acute distress Respiratory: Normal - CTA, Diminished, Rhonchi Cardiovascular: No Gallops,Rubs/Murmurs, Irregular (afib) GI: Normal bowel sounds, Soft, Non tender, No hepatospenomegaly, No masses Extremities/Musculoskeletal: Normal pulses Skin: Warm,Dry and Intact, No rashes, No breakdown, No significant lesion Psych/Mental Status: Agitated, Sedated Result Diagrams: 09/23/16 05:00 09/23/16 05:00 Labs (last 24 hours): Laboratory Results - last 24 hr 09/23/16 09/23/16 09/23/16 04:30 05:00 05:00 WBC 6.4 RBC 4.34 Hgb 10.9 L Hct 34.2 L MCV 79 L MCH 25.2 L MCHC 32.1 L RDW 18.0 H Plt Count 216 MPV 8.5 Neut % (Auto) Cancelled Lymph % (Auto) Cancelled [place] % (Auto) Cancelled Eos % (Auto) Cancelled Baso % (Auto) Cancelled Absolute Neuts (auto) Cancelled Absolute Lymphs (auto) Cancelled Seg Neuts % (Manual) 94 H Band Neutrophils % 1 Lymphocytes % (Manual) 3 L Monocytes % (Manual) 2 Absolute Neutrophils 6.08 Absolute Lymphocytes 0.19 L Platelet Estimate Norm RBC Morphology Reviewed this admiss PT INR Puncture Site Right radial pH 7.500 H pCO2 59.0 H pO2 68.0 L HCO3 46.0 H Total CO2 47.8 H Base Excess 19.4 H Vent Mode Ac 12 FiO2 % .30 Tidal Volume 400 PEEP 5 Specimen Drawn By Baras Sodium 137 Potassium 3.5 Chloride 87 L Carbon Dioxide 44 H Anion Gap 10 BUN 45 H Creatinine 0.80 Estimated GFR (MDRD) > 60 Glucose 275 H Calculated Osmolality 286 Calcium 8.2 L Magnesium 1.90 09/23/16 05:00 WBC RBC Hgb Hct MCV MCH MCHC RDW Plt Count MPV Neut % (Auto) Lymph % (Auto) [place] % (Auto) Eos % (Auto) Baso % (Auto) Absolute Neuts (auto) Absolute Lymphs (auto) Seg Neuts % (Manual) Band Neutrophils % Lymphocytes % (Manual) Monocytes % (Manual) Absolute Neutrophils Absolute Lymphocytes Platelet Estimate RBC Morphology PT 20.6 H INR 2.0 Puncture Site pH pCO2 pO2 HCO3 Total CO2 Base Excess Vent Mode FiO2 % Tidal Volume PEEP Specimen Drawn By Sodium Potassium Chloride Carbon Dioxide Anion Gap BUN Creatinine Estimated GFR (MDRD) Glucose Calculated Osmolality Calcium Magnesium Laboratory Tests 09/23/16 11:03 pH 7.470 H pO2 74.0 L HCO3 48.0 H Base Excess 20.3 H Spontaneous Rate 10 Pressure Support 10 Lab/DI/Studies Reviewed: EKG: Atrial fibrillation at rate of 110 Medications Lansoprazole (Prevacid Solutabs) 30 mg NG 0600 [facility] Stop: 09/29/16 16:59 Last Admin: 09/16/16 05:42 Dose: 30 mg Sennosides (Senokot) 1 tab PO BID PRN PRN Reason: Constipation - First Option Stop: 09/28/16 16:59 Promethazine HCl (Phenergan) 12.5 mg IV Q6H PRN; Protocol PRN Reason: Nausea/Vomiting - Alternative Stop: 09/28/16 16:59 Acetaminophen (Tylenol Suppository) 325 mg [place] Q6H PRN; Protocol PRN Reason: Mild Pain or Fever above 100.4 Stop: 09/28/16 16:59 Acetaminophen (Tylenol Tablet) 325 mg PO Q6H PRN; Protocol PRN Reason: Mild Pain or Fever above 100.4 Stop: 09/28/16 16:59 Albuterol (Proventil Hfa) 8 puff INH Q6H PRN PRN Reason: WHEEZING Stop: 09/29/16 14:21 Last Admin: 09/16/16 09:04 Dose: 8 puff Benzonatate (Tessalon) 200 mg PO Q8H PRN PRN Reason: Cough - First Option Stop: 09/28/16 16:59 Ceftriaxone Sodium 1 gm/ (Dextrose) 100 mls @ 100 mls/hr IV Q24H [facility] Stop: 09/22/16 11:59 Last Admin: 09/16/16 11:36 Dose: 100 mls/hr Chlorphenir/Hydrocodone Polistirex (Tussionex) 5 ml PO BID PRN PRN Reason: Cough - Alternative Stop: 09/28/16 16:59 Lact Acid/Bifidobact/Lact [place]/Streptoc Th (Felisha Q) 1 tab PO BIDLS [facility] Stop: 09/29/16 21:59 Last Admin: 09/16/16 11:36 Dose: 1 tab Lisinopril (Zestril) 20 mg PO BID [facility] Stop: 09/28/16 20:59 Last Admin: 09/16/16 10:03 Dose: Not Given Lorazepam (Ativan) 1 - 2 mg IV Q30M PRN PRN Reason: Acute Agitation/on Ventilator Stop: 09/29/16 10:40 Last Admin: 09/15/16 13:50 Dose: 2 mg Petrolatum ([place]) 1 tube TOP DIR PRN PRN Reason: Oral Care While Intubated Stop: 09/29/16 16:59 Pravastatin Sodium (Pravachol) 80 mg PO HS [facility] Stop: 09/28/16 20:59 Last Admin: 09/15/16 22:35 Dose: 80 mg Sertraline HCl (Zoloft) 25 mg PO DAILY [facility] Stop: 09/29/16 08:59 Last Admin: 09/16/16 09:42 Dose: 25 mg Enteral Nutritional Formula (Jevity 1.0) 1,000 ml NG Q18H [facility] Stop: 10/03/16 17:59 Last Admin: 09/20/16 11:13 Dose: 1,000 ml Methylprednisolone Sodium Succinate (Solu-Medrol) 40 mg IV Q8H [facility] Stop: 10/05/16 00:00 Last Admin: 09/21/16 08:09 Dose: 40 mg Furosemide 100 mg/ Sodium (Chloride) 50 mls @ 2.5 mls/hr IV Q20H [facility]; 5 MG/HR PRN Reason: Protocol Stop: 10/06/16 09:59 Last Admin: 09/22/16 10:25 Dose: 2.5 mls/hr Diltiazem HCl (Cardizem) 20 mg IV DIR PRN PRN Reason: AFIB/HR SUSTAINED ABOVE 125 Stop: 10/06/16 10:06 Diltiazem HCl 100 mg/ Dextrose 100 mls @ 5 mls/hr IV DIR [facility]; 5 MG/HR PRN Reason: Protocol Stop: 10/06/16 09:46 Metoprolol Tartrate (Lopressor) 5 mg IV Q6 [facility] Stop: 10/06/16 16:59 Last Admin: 09/22/16 11:40 Dose: 5 mg Diltiazem HCl (Cardizem) 30 mg PEG Q6 [facility] Stop: 10/07/16 16:59 Metoprolol Tartrate (Lopressor) 50 mg PEG Q8 [facility] Stop: 10/07/16 16:59 Potassium Chloride (Kcl 20 Meq/15 Ml Oral Liquid) 20 meq NG Q6 [facility] Stop: 10/07/16 16:59 Last Admin: 09/23/16 11:09 Dose: 20 meq Propofol (Diprivan) 100 mls @ 1.928 mls/hr IV DIR [facility]; 5 MCG/KG/MIN PRN Reason: Protocol Stop: 10/04/16 20:59 Warfarin Sodium 6 mg/ Warfarin (Sodium 1.25 mg) 7.25 mg PO 1800 [facility] Stop: 09/30/16 17:59 - Assessment/Plan (1) Acute respiratory failure with hypoxia Acute J96.01 - ACUTE RESPIRATORY FAILURE WITH HYPOXIA Comment/Plan: This is the 3rd day in the rule that the patient has been put on CPAP trial and she tolerates it reasonably well however remains drowsy. We did a gas earlier today and I instructed the respiratory therapist to extubate the patient even though her CO2 was high but her pH was within reasonable range however the staff discussed this with Dr. singer and did not extubate the patient and she remains on the CPAP trial for several hours today which is not a standard practice. I had a prolonged discussion with the nursing staff and respiratory therapy and I told them that we need to do a gas in the morning back into the CPAP trial after that and do a gas 1 hour after the CPAP trial and call me and I was very clear in my instructions today so I hope that we can extubate the patient tomorrow before she can become of vent dependent patient. Patient will need BiPAP/CPAP after extubation as long as she stays drowsy to blow off the carbon dioxide. Would discontinue and even drip that patient keeps getting despite of my request not to give her Ativan and also fentanyl drip the patient may get Diprivan during the night if needed. Continue DVT and GI prophylaxis and supportive care prognosis is guarded patient may be a [place] candidate (2) Bilateral pleural effusion Acute J90 - PLEURAL EFFUSION, NOT ELSEWHERE CLASSIFIED Comment/Plan: Effusions have been improving slowly continue Lasix at 60 mg IV Q 8 hours (3) Diastolic CHF Acute I50.30 - UNSPECIFIED DIASTOLIC (CONGESTIVE) HEART FAILURE acute on chronic I50.33 - Acute on chronic diastolic (congestive) heart failure Comment/Plan: Continue supportive care continue diuresis (4) Pulmonary artery hypertension Resolved I27.2 - OTHER SECONDARY PULMONARY HYPERTENSION Comment/Plan: No treatment at this time continue current oxygen and on the ventilator
[2016-09-23] MEDS: CEFTRIAXONE 1 GM in D5W 100 ML IV SCH (11:04)
[2016-09-23 11:07] LABS: ALLEN'S TEST PASS; BEb 20.3 (+/- 2)
[2016-09-23 11:08] LABS: ABG Draw Site Right Radial; ABG Draw Tech SI; MODE CPAP 5 RATE; PS 10 cm H2O
[2016-09-23 11:09] LABS: SPONT. RR 10 BR/MIN; SPONT. VT 287 ML
[2016-09-23] MEDS: PROBIOTIC BLEND TAB PO SCH ×2 (11:11→17:02)
[2016-09-23] MEDS ORDERED: GLUCOSE (ORAL GEL) 15 GM TUBE PO PRN (11:51)
[2016-09-23] MEDS ORDERED: DEXTROSE 25 GM/50 ML PFS IV PRN (11:51)
[2016-09-23] MEDS ORDERED: GLUCAGON 1 MG VIAL SQ PRN (11:51)
[2016-09-23] MEDS: DILTIAZEM 30 MG TAB PEG SCH ×3 (12:14→23:02)
[2016-09-23] MEDS: METOPROLOL TARTRATE 50 MG TAB PEG SCH ×2 (13:36→19:59)
[2016-09-23 14:09] LABS: ALLEN'S TEST PASS; BEb 20.4 (+/- 2)
[2016-09-23 14:13] LABS: ABG Draw Site rr; PS 10 cm H2O; SPONT. VT 301 ML; TCO2 50.8 MMOL/L (23-27)
[2016-09-23 14:14] LABS: SPONT. RR 18 BR/MIN
[2016-09-23] MEDS: WARFARIN SODIUM PO SCH ×2 (17:04)
[2016-09-23] MEDS: This patient is receiving warfarin therapy SCH (17:15)
[2016-09-23] MEDS: REGULAR INSULIN 100 UNITS/ML - 3 ML VIAL SQ SCH (17:19)
[2016-09-23] MEDS ORDERED: WARFARIN 7.5 MG TAB PO SCH (18:00)
--- NOTE | 2016-09-23 19:06 | DIRPT ---
CLINICAL DATA: Respiratory failure, drowsiness, altered mental status EXAM: CT HEAD WITHOUT CONTRAST TECHNIQUE: Contiguous axial images were obtained from the base of the skull through the vertex without intravenous contrast. COMPARISON: 03/25/2015 FINDINGS: Mild low attenuation diffusely in the deep white matter. Mild to moderate diffuse cortical atrophy. Study limited by motion artifact. Motion artifact persists on repeated images. There is no hemorrhage or extra-axial fluid. Calvarium is intact. IMPRESSION: Study mildly limited by motion artifact with no acute abnormalities suspected. Electronically Signed By: Alexi De Leon M.D. On: 09/23/2016 19:04
[2016-09-23] MEDS: CHLORHEXIDINE (HIBICLENS) 4 OZ BOTTLE TOP SCH (19:59)
[2016-09-23] MEDS: PRAVASTATIN 80 MG TABLET PO SCH (19:59)
[2016-09-24] MEDS: ENTERAL NUTRITION FORMULA NG SCH ×2 (03:45→15:43)
[2016-09-24 05:01] LABS: MPV 8.3 fL (7.4-10.4)
[2016-09-24 05:11] LABS: PT-INR 2.6
[2016-09-24 05:16] LABS: ALLEN'S TEST PASS; BEb 22.2 (+/- 2); TCO2 49.2 MMOL/L (23-27)
[2016-09-24 05:17] LABS: ABG Draw Site Right Radial
[2016-09-24 05:18] LABS: MODE A/C 12 RATE
[2016-09-24 05:21] LABS: BLOOD UREA NITROGEN 49 MG/DL (7-17); CALCIUM 8.4 MG/DL (8.4-10.2); CALCULATED OSMOLALITY 295 MOs/Kg (270-290); CHLORIDE 88 mEq/L (98-107); GLUCOSE 295 MG/DL (70-99); SODIUM LEVEL 141 mEq/L (137-146)
[2016-09-24] MEDS: DILTIAZEM 30 MG TAB PEG SCH ×2 (05:45→10:47)
[2016-09-24] MEDS: METOPROLOL TARTRATE 50 MG TAB PEG SCH ×3 (05:45→21:24)
[2016-09-24] MEDS: POTASSIUM CHLORIDE 20 MEQ/15 ML ORAL SOLN NG SCH ×4 (05:46→21:25)
[2016-09-24] MEDS: CHLORHEXIDINE 0.12% ORAL SOLN 15 ML PO SCH ×2 (05:46→17:47)
[2016-09-24] MEDS: LANSOPRAZOLE 30 MG TAB NG SCH (05:55)
[2016-09-24] MEDS: REGULAR INSULIN 100 UNITS/ML - 3 ML VIAL SQ SCH ×2 (05:57→17:53)
[2016-09-24 05:58] LABS: SEG NEUTROPHIL 89 % (45-76)
[2016-09-24] MEDS: SERTRALINE HCL 25 MG TAB PO SCH (07:57)
[2016-09-24] MEDS: METHYLPREDNISOLONE 40 MG/1 ML VIAL IV SCH ×2 (07:58→15:00)
[2016-09-24] MEDS: LISINOPRIL 20 MG TAB PO SCH ×2 (07:58→21:24)
[2016-09-24 08:35] LABS: ABG Draw Site Right Radial; ALLEN'S TEST PASS; BEb 23.2 (+/- 2); TCO2 51.4 MMOL/L (23-27)
--- NOTE | 2016-09-24 08:35 | PCM.PULM ---
Chief Complaint: Patient alert and responsive eyes open follows simple commands. gets agitated at times. CPAP trial repeated this morning patient was extubated at my instructions after the CPAP trial Current medication list reviewed:yes Notes reviewed:yes, Events from last night noted and discussed with Clinical Staff DVT prophylaxis:yes - Physical Examination Vital Signs and I&O: Last Vital Signs Temp 98 F 09/24/16 07:00 Pulse 127 H 09/24/16 08:21 Resp 17 09/24/16 07:00 BP 171/92 09/24/16 07:00 Pulse Ox 97 09/24/16 07:00 Oxygen Pulse Oxygen Saturation 97 O2 Device Vent Oxygen Flow Rate 30 Fraction of Inspired Oxygen ( 30 FIO2) Intake & Output 09/21/16 09/22/16 09/23/16 09/24/16 23:59 23:59 23:59 23:59 Intake Total 1773 1763 2176 447 Output Total 2271 2200 2725 350 Balance -502 -437 -549 97 Patient's weight 65.408 kg 65.998 kg 65.68 kg 65.68 kg General: Alert, Cooperative, Mild distress, Weakness, Fatigue Respiratory: Diminished, Rhonchi Cardiovascular: No Gallops,Rubs/Murmurs, Irregular GI: Normal bowel sounds, Soft, Non tender, No masses Extremities/Musculoskeletal: Normal pulses Skin: Warm,Dry and Intact, No rashes, No breakdown, No significant lesion Psych/Mental Status: Cooperative, Sedated, Restless Result Diagrams: 09/24/16 04:55 09/24/16 04:55 Labs (last 24 hours): Laboratory Results - last 24 hr 09/23/16 09/24/16 09/24/16 17:17 04:55 04:55 WBC 8.3 RBC 4.57 Hgb 11.4 L Hct 35.7 L MCV 78 L MCH 25.0 L MCHC 31.9 L RDW 17.5 H Plt Count 256 MPV 8.3 Neut % (Auto) Cancelled Lymph % (Auto) Cancelled [place] % (Auto) Cancelled Eos % (Auto) Cancelled Baso % (Auto) Cancelled Absolute Neuts (auto) Cancelled Absolute Lymphs (auto) Cancelled Seg Neuts % (Manual) 89 H Band Neutrophils % 3 Lymphocytes % (Manual) 5 L Monocytes % (Manual) 3 Absolute Neutrophils 7.64 Absolute Lymphocytes 0.42 L Platelet Estimate Norm RBC Morphology Reviewed this admiss PT INR Puncture Site pH pCO2 pO2 HCO3 Total CO2 Base Excess Vent Mode Spontaneous Rate FiO2 % Tidal Volume Spontaneous Tidal Vol PEEP Pressure Support Specimen Drawn By Sodium 141 Potassium 3.9 Chloride 88 L Carbon Dioxide > 40 H Anion Gap 17 H BUN 49 H Creatinine 0.80 Estimated GFR (MDRD) > 60 Glucose 295 H POC Capillary Glucose 192 H Calculated Osmolality 295 H Calcium 8.4 Magnesium 2.10 09/24/16 09/24/16 04:55 05:10 WBC RBC Hgb Hct MCV MCH MCHC RDW Plt Count MPV Neut % (Auto) Lymph % (Auto) [place] % (Auto) Eos % (Auto) Baso % (Auto) Absolute Neuts (auto) Absolute Lymphs (auto) Seg Neuts % (Manual) Band Neutrophils % Lymphocytes % (Manual) Monocytes % (Manual) Absolute Neutrophils Absolute Lymphocytes Platelet Estimate RBC Morphology PT 27.3 H INR 2.6 Puncture Site Right radial pH 7.570 H pCO2 52.0 H pO2 74.0 L HCO3 47.6 H Total CO2 49.2 H Base Excess 22.2 H Vent Mode A/c 12 Spontaneous Rate FiO2 % .30 Tidal Volume 400 Spontaneous Tidal Vol PEEP 5 Pressure Support Specimen Drawn By Baras Sodium Potassium Chloride Carbon Dioxide Anion Gap BUN Creatinine Estimated GFR (MDRD) Glucose POC Capillary Glucose Calculated Osmolality Calcium Magnesium Lab/DI/Studies Reviewed: EKG: Atrial fibrillation CT HEAD WITHOUT CONTRAST: 09/23/16 IMPRESSION: Study mildly limited by motion artifact with no acute abnormalities suspected. Medications: Lansoprazole (Prevacid Solutabs) 30 mg NG 0600 [facility] Stop: 09/29/16 16:59 Last Admin: 09/16/16 05:42 Dose: 30 mg Sennosides (Senokot) 1 tab PO BID PRN PRN Reason: Constipation - First Option Stop: 09/28/16 16:59 Promethazine HCl (Phenergan) 12.5 mg IV Q6H PRN; Protocol PRN Reason: Nausea/Vomiting - Alternative Stop: 09/28/16 16:59 Acetaminophen (Tylenol Suppository) 325 mg [place] Q6H PRN; Protocol PRN Reason: Mild Pain or Fever above 100.4 Stop: 09/28/16 16:59 Acetaminophen (Tylenol Tablet) 325 mg PO Q6H PRN; Protocol PRN Reason: Mild Pain or Fever above 100.4 Stop: 09/28/16 16:59 Albuterol (Proventil Hfa) 8 puff INH Q6H PRN PRN Reason: WHEEZING Stop: 09/29/16 14:21 Last Admin: 09/16/16 09:04 Dose: 8 puff Benzonatate (Tessalon) 200 mg PO Q8H PRN PRN Reason: Cough - First Option Stop: 09/28/16 16:59 Ceftriaxone Sodium 1 gm/ (Dextrose) 100 mls @ 100 mls/hr IV Q24H [facility] Stop: 09/22/16 11:59 Last Admin: 09/16/16 11:36 Dose: 100 mls/hr Chlorphenir/Hydrocodone Polistirex (Tussionex) 5 ml PO BID PRN PRN Reason: Cough - Alternative Stop: 09/28/16 16:59 Lact Acid/Bifidobact/Lact [place]/Streptoc Th (Felisha Q) 1 tab PO BIDLS [facility] Stop: 09/29/16 21:59 Last Admin: 09/16/16 11:36 Dose: 1 tab Diltiazem HCl (Cardizem) 30 mg PEG Q6 [facility] Stop: 10/07/16 16:59 Lisinopril (Zestril) 20 mg PO BID [facility] Stop: 09/28/16 20:59 Last Admin: 09/16/16 10:03 Dose: Not Given Last Admin: 09/15/16 13:50 Dose: 2 mg Petrolatum ([place]) 1 tube TOP DIR PRN PRN Reason: Oral Care While Intubated Stop: 09/29/16 16:59 Pravastatin Sodium (Pravachol) 80 mg PO HS [facility] Stop: 09/28/16 20:59 Last Admin: 09/15/16 22:35 Dose: 80 mg Sertraline HCl (Zoloft) 25 mg PO DAILY [facility] Stop: 09/29/16 08:59 Last Admin: 09/16/16 09:42 Dose: 25 mg Enteral Nutritional Formula (Jevity 1.0) 1,000 ml NG Q18H [facility] Stop: 10/03/16 17:59 Last Admin: 09/20/16 11:13 Dose: 1,000 ml Methylprednisolone Sodium Succinate (Solu-Medrol) 40 mg IV Q8H [facility] Stop: 10/05/16 00:00 Last Admin: 09/21/16 08:09 Dose: 40 mg Furosemide 100 mg/ Sodium (Chloride) 50 mls @ 2.5 mls/hr IV Q20H [facility]; 5 MG/HR PRN Reason: Protocol Stop: 10/06/16 09:59 Last Admin: 09/22/16 10:25 Dose: 2.5 mls/hr Diltiazem HCl 100 mg/ Dextrose 100 mls @ 5 mls/hr IV DIR [facility]; 5 MG/HR PRN Reason: Protocol Stop: 10/06/16 09:46 Potassium Chloride (Kcl 20 Meq/15 Ml Oral Liquid) 20 meq NG Q6 [facility] Stop: 10/07/16 16:59 Last Admin: 09/23/16 11:09 Dose: 20 meq Warfarin Sodium 6 mg/ Warfarin (Sodium 1.25 mg) 7.25 mg PO 1800 [facility] Stop: 09/30/16 17:59 - Assessment/Plan (1) Acute respiratory failure with hypoxia Acute J96.01 - ACUTE RESPIRATORY FAILURE WITH HYPOXIA Comment/Plan: Patient has been improving overall today I examined the patient while she was on CPAP and she had decent tidal volumes more than 350s with a rate of breathing around 15 the only issue was that she had significant tachycardia and atrial fibrillation with a heart rate approaching 150 that time and therefore I gave her next dose of Lopressor and ordered for the patient to be extubated as a blood gas had been better. The patient has been doing fairly well after extubation has been more communicative however still drowsy and lethargic . I would repeat a chest x-ray and a blood gas in the morning the blood gas done 2 hours after extubation was reasonably good I had a prolonged discussion Dr. Simmons regarding this patient as well. She remains critically ill and would be kept in ICU she is in danger of getting intubated again . patient may be a [place] candidate (2) Bilateral pleural effusion Acute J90 - PLEURAL EFFUSION, NOT ELSEWHERE CLASSIFIED Comment/Plan: Effusions have been improving slowly continue Lasix drip for now as patient has been in negative balance (3) Diastolic CHF Chronic I50.30 - UNSPECIFIED DIASTOLIC (CONGESTIVE) HEART FAILURE acute on chronic I50.33 - Acute on chronic diastolic (congestive) heart failure Comment/Plan: Continue supportive care continue diuresis (4) Pulmonary artery hypertension Resolved I27.2 - OTHER SECONDARY PULMONARY HYPERTENSION Comment/Plan: No treatment at this time continue current oxygen and on the ventilator I personally saw and evaluated the patient.: Yes Total Face to Face Time: 35 minutes Case Care Discussed with: Consultants, Nursing Staff, Respiratory Therapy
[2016-09-24 08:36] LABS: CPAP 5 cm H20; MODE CPAP RATE; PS 10 cm H2O; SPONT. RR 32 BR/MIN; SPONT. VT 350 ML
[2016-09-24] MEDS ORDERED: METOPROLOL 5 MG/5 ML SDV IV ONE ×2 (09:34→10:00)
--- NOTE | 2016-09-24 10:26 | PCM.CARD ---
- Subjective Reason for visit: Follow-up diastolic congestive heart failure, atrial fibrillation. Seems to be mild respiratory distress. Offers otherwise no complaint. Vital Signs: Last Vital Signs Temp 98.4 F 09/24/16 10:00 Pulse 128 H 09/24/16 10:00 Resp 25 H 09/24/16 10:00 BP 155/96 09/24/16 10:00 Pulse Ox 99 09/24/16 10:00 PE: General Appearance: Well developed. Chronically sick-appearing. In no acute distress. Lungs: Chest was not overinflated. Few rhonchi bilaterally. Cardiovascular: Jugular Venous Distention: JVD not increased. Heart Rate And Rhythm: Irregularly irregular, tachycardic. Heart Sounds: Normal. Murmurs: No murmurs were heard. Carotid Arteries: Carotid pulses were normal. No bruit in the carotid artery. Edema: Not present. Lower extremities pulses normal (including femoral popliteal and dorsalis pedis) . Musculoskeletal System: General/bilateral: No cyanosis of the fingers. Neurological: Oriented to time, place, and person. Nails: No clubbing of the fingernails. Lab/DI Results Reviewed: Laboratory Results - last 24 hr 09/23/16 09/23/16 09/23/16 11:03 12:13 14:09 WBC RBC Hgb Hct MCV MCH MCHC RDW Plt Count MPV Neut % (Auto) Lymph % (Auto) [place] % (Auto) Eos % (Auto) Baso % (Auto) Absolute Neuts (auto) Absolute Lymphs (auto) Seg Neuts % (Manual) Band Neutrophils % Lymphocytes % (Manual) Monocytes % (Manual) Absolute Neutrophils Absolute Lymphocytes Platelet Estimate RBC Morphology PT INR Puncture Site Right radial rr pH 7.470 H 7.450 pCO2 66.0 H 70.0 H* pO2 74.0 L 73.0 L HCO3 48.0 H 48.7 H Total CO2 50.0 H 50.8 H Base Excess 20.3 H 20.4 H Vent Mode Cpap 5 cpap 5 Spontaneous Rate 10 18 FiO2 % 30% 30% Tidal Volume Spontaneous Tidal Vol 287 301 PEEP Pressure Support 10 10 CPAP Specimen Drawn By Si si Sodium Potassium Chloride Carbon Dioxide Anion Gap BUN Creatinine Estimated GFR (MDRD) Glucose POC Capillary Glucose 228 H Calculated Osmolality Calcium Magnesium [id number] Pept 09/23/16 09/24/16 09/24/16 17:17 04:55 04:55 WBC 8.3 RBC 4.57 Hgb 11.4 L Hct 35.7 L MCV 78 L MCH 25.0 L MCHC 31.9 L RDW 17.5 H Plt Count 256 MPV 8.3 Neut % (Auto) Cancelled Lymph % (Auto) Cancelled [place] % (Auto) Cancelled Eos % (Auto) Cancelled Baso % (Auto) Cancelled Absolute Neuts (auto) Cancelled Absolute Lymphs (auto) Cancelled Seg Neuts % (Manual) 89 H Band Neutrophils % 3 Lymphocytes % (Manual) 5 L Monocytes % (Manual) 3 Absolute Neutrophils 7.64 Absolute Lymphocytes 0.42 L Platelet Estimate Norm RBC Morphology Reviewed this admiss PT INR Puncture Site pH pCO2 pO2 HCO3 Total CO2 Base Excess Vent Mode Spontaneous Rate FiO2 % Tidal Volume Spontaneous Tidal Vol PEEP Pressure Support CPAP Specimen Drawn By Sodium 141 Potassium 3.9 Chloride 88 L Carbon Dioxide > 40 H Anion Gap 17 H BUN 49 H Creatinine 0.80 Estimated GFR (MDRD) > 60 Glucose 295 H POC Capillary Glucose 192 H Calculated Osmolality 295 H Calcium 8.4 Magnesium 2.10 [id number] Pept 09/24/16 09/24/16 09/24/16 04:55 04:55 05:10 WBC RBC Hgb Hct MCV MCH MCHC RDW Plt Count MPV Neut % (Auto) Lymph % (Auto) [place] % (Auto) Eos % (Auto) Baso % (Auto) Absolute Neuts (auto) Absolute Lymphs (auto) Seg Neuts % (Manual) Band Neutrophils % Lymphocytes % (Manual) Monocytes % (Manual) Absolute Neutrophils Absolute Lymphocytes Platelet Estimate RBC Morphology PT 27.3 H INR 2.6 Puncture Site Right radial pH 7.570 H pCO2 52.0 H pO2 74.0 L HCO3 47.6 H Total CO2 49.2 H Base Excess 22.2 H Vent Mode A/c 12 Spontaneous Rate FiO2 % .30 Tidal Volume 400 Spontaneous Tidal Vol PEEP 5 Pressure Support CPAP Specimen Drawn By Baras Sodium Potassium Chloride Carbon Dioxide Anion Gap BUN Creatinine Estimated GFR (MDRD) Glucose POC Capillary Glucose Calculated Osmolality Calcium Magnesium [id number]-[id number] Pept 6510 H 09/24/16 08:29 WBC RBC Hgb Hct MCV MCH MCHC RDW Plt Count MPV Neut % (Auto) Lymph % (Auto) [place] % (Auto) Eos % (Auto) Baso % (Auto) Absolute Neuts (auto) Absolute Lymphs (auto) Seg Neuts % (Manual) Band Neutrophils % Lymphocytes % (Manual) Monocytes % (Manual) Absolute Neutrophils Absolute Lymphocytes Platelet Estimate RBC Morphology PT INR Puncture Site Right radial pH 7.540 H pCO2 58.0 H pO2 77.0 L HCO3 49.6 H Total CO2 51.4 H Base Excess 23.2 H Vent Mode Cpap Spontaneous Rate 32 FiO2 % Tidal Volume Spontaneous Tidal Vol 350 PEEP Pressure Support 10 CPAP 5 Specimen Drawn By Belja Sodium Potassium Chloride Carbon Dioxide Anion Gap BUN Creatinine Estimated GFR (MDRD) Glucose POC Capillary Glucose Calculated Osmolality Calcium Magnesium [id number]-Gulakooiwuq Pept - Assessment/Plan (1) Atrial fibrillation Chronic I48.91 - UNSPECIFIED ATRIAL FIBRILLATION Present on Admission: Yes A Comment/Plan: Rate appears to be still somewhat excessive. However overall I think is adequate sick current clinical scenario. (2) Bilateral pleural effusion Acute J90 - PLEURAL EFFUSION, NOT ELSEWHERE CLASSIFIED Present on Admission: Yes Comment/Plan: Noted. Managed by Pulmonary. (3) Diastolic CHF Chronic I50.30 - UNSPECIFIED DIASTOLIC (CONGESTIVE) HEART FAILURE Present on Admission: Yes acute on chronic I50.33 - Acute on chronic diastolic (congestive) heart failure Comment/Plan: On IV diuretic. Will continue for another 24 hours interesting proBNP is increasing. Diuresis is very minor will continue present management. Will monitor kidney function carefully. (4) Pulmonary artery hypertension Resolved I27.2 - OTHER SECONDARY PULMONARY HYPERTENSION Present on Admission: No Comment/Plan: Last estimation of pulmonary artery pressure based on echocardiogram she had done in our hospital showed normal pulmonary artery pressure. (5) CRI (chronic renal insufficiency) Acute N18.9 - CHRONIC KIDNEY DISEASE, UNSPECIFIED C Comment/Plan: Will watch Chem 7 the regular basis.
[2016-09-24] MEDS: PROBIOTIC BLEND TAB PO SCH ×2 (10:54→17:48)
[2016-09-24] MEDS: CEFTRIAXONE 1 GM in D5W 100 ML IV SCH (11:00)
[2016-09-24 12:12] LABS: ALLEN'S TEST PASS; BEb 22.7 (+/- 2); TCO2 51.1 MMOL/L (23-27)
[2016-09-24 12:13] LABS: ABG Draw Site Left Radial
[2016-09-24] MEDS: DILTIAZEM 60 MG TAB NG SCH ×2 (14:25→17:45)
[2016-09-24] MEDS: This patient is receiving warfarin therapy SCH (15:42)
--- NOTE | 2016-09-24 15:43 | GENMEDPROG ---
Chief Complaint: Extubated today today slightly sitting up in bed very lethargic. Notes Reviewed: Yes Events from last night noted and discussed with Clinical Staff Current Medication List: Reviewed Currently: Reports: NICK, SOB. Denies: Nausea and Vomiting, Abdominal Pain DVT Prophylaxis: Yes - Physical Examination Vital Signs and I&O: Last Vital Signs Temp 97.9 F 09/24/16 14:00 Pulse 124 H 09/24/16 14:00 Resp 18 09/24/16 14:00 BP 158/99 09/24/16 14:00 Pulse Ox 98 09/24/16 14:00 Oxygen Pulse Oxygen Saturation 98 O2 Device Vent Oxygen Flow Rate 2 Fraction of Inspired Oxygen ( 99 FIO2) Intake & Output 09/21/16 09/22/16 09/23/16 09/24/16 23:59 23:59 23:59 23:59 Intake Total 1773 1763 2176 630 Output Total 2271 2200 4325 1200 Balance -502 -437 -549 -570 Patient's weight 65.408 kg 65.998 kg 65.68 kg 65.68 kg General: Alert, Oriented x3, No acute distress, Well appearing, Well nourished HEENT: Normal (Normocephalic, atraumatic;EOMI.Sclera white, Nares patent, without discharge or bleeding. No oropharyngeal lesions or erythema. Mucous membranes are dry.) Neck: Non-tender, Normal Trachea alignment, Normal inspection (No cervical lymphadenopathy. No supraclavicular lymphadenopathy.), No Masses palpable, Limited range of motion, Supple Lymphatics: Normal (No lymph node swelling or pain.) Respiratory: Diminished. negative: Rales, Rhonchi, Wheezes Cardiovascular: Normal S1, No Gallops,Rubs/Murmurs, Normal S2, Irregular GI: Normal bowel sounds (normal active sounds), Soft (non-distended), No hepatospenomegaly, No masses, Tenderness (Mildly tender diffusely) Extremities/Musculoskeletal: Normal pulses (DP pulses 2+ bilaterally) Skin: Warm,Dry and Intact, No rashes, No significant lesion Neurological: Strength at 5/5 X4 ext (Motor 5/5 throughout.), Normal tone, Cranial nerves 3-12 NL ( 2-12 grossly intact.) Psych/Mental Status: Drowsy, Somnolent, Lethargic Lab/DI/Studies Reviewed: 09/24/16 04:55 09/24/16 04:55 Laboratory Results - last 24 hr 09/23/16 09/24/16 09/24/16 17:17 04:55 04:55 WBC 8.3 RBC 4.57 Hgb 11.4 L Hct 35.7 L MCV 78 L MCH 25.0 L MCHC 31.9 L RDW 17.5 H Plt Count 256 MPV 8.3 Neut % (Auto) Cancelled Lymph % (Auto) Cancelled [place] % (Auto) Cancelled Eos % (Auto) Cancelled Baso % (Auto) Cancelled Absolute Neuts (auto) Cancelled Absolute Lymphs (auto) Cancelled Seg Neuts % (Manual) 89 H Band Neutrophils % 3 Lymphocytes % (Manual) 5 L Monocytes % (Manual) 3 Absolute Neutrophils 7.64 Absolute Lymphocytes 0.42 L Platelet Estimate Norm RBC Morphology Reviewed this admiss PT INR Puncture Site pH pCO2 pO2 HCO3 Total CO2 Base Excess Vent Mode Spontaneous Rate FiO2 % Tidal Volume Spontaneous Tidal Vol PEEP Pressure Support CPAP Specimen Drawn By Sodium 141 Potassium 3.9 Chloride 88 L Carbon Dioxide > 40 H Anion Gap 17 H BUN 49 H Creatinine 0.80 Estimated GFR (MDRD) > 60 Glucose 295 H POC Capillary Glucose 192 H Calculated Osmolality 295 H Calcium 8.4 Magnesium 2.10 [id number] Pept 09/24/16 09/24/16 09/24/16 04:55 04:55 05:10 WBC RBC Hgb Hct MCV MCH MCHC RDW Plt Count MPV Neut % (Auto) Lymph % (Auto) [place] % (Auto) Eos % (Auto) Baso % (Auto) Absolute Neuts (auto) Absolute Lymphs (auto) Seg Neuts % (Manual) Band Neutrophils % Lymphocytes % (Manual) Monocytes % (Manual) Absolute Neutrophils Absolute Lymphocytes Platelet Estimate RBC Morphology PT 27.3 H INR 2.6 Puncture Site Right radial pH 7.570 H pCO2 52.0 H pO2 74.0 L HCO3 47.6 H Total CO2 49.2 H Base Excess 22.2 H Vent Mode A/c 12 Spontaneous Rate FiO2 % .30 Tidal Volume 400 Spontaneous Tidal Vol PEEP 5 Pressure Support CPAP Specimen Drawn By Baras Sodium Potassium Chloride Carbon Dioxide Anion Gap BUN Creatinine Estimated GFR (MDRD) Glucose POC Capillary Glucose Calculated Osmolality Calcium Magnesium [id number] Pept 6510 H 09/24/16 09/24/16 09/24/16 08:29 11:34 12:07 WBC RBC Hgb Hct MCV MCH MCHC RDW Plt Count MPV Neut % (Auto) Lymph % (Auto) [place] % (Auto) Eos % (Auto) Baso % (Auto) Absolute Neuts (auto) Absolute Lymphs (auto) Seg Neuts % (Manual) Band Neutrophils % Lymphocytes % (Manual) Monocytes % (Manual) Absolute Neutrophils Absolute Lymphocytes Platelet Estimate RBC Morphology PT INR Puncture Site Right radial Left radial pH 7.540 H 7.530 H pCO2 58.0 H 59.0 H pO2 77.0 L 73.0 L HCO3 49.6 H 49.3 H Total CO2 51.4 H 51.1 H Base Excess 23.2 H 22.7 H Vent Mode Cpap Spontaneous Rate 32 FiO2 % 2lpmnc Tidal Volume Spontaneous Tidal Vol 350 PEEP Pressure Support 10 CPAP 5 Specimen Drawn By Hamzah Goodson Sodium Potassium Chloride Carbon Dioxide Anion Gap BUN Creatinine Estimated GFR (MDRD) Glucose POC Capillary Glucose 178 H Calculated Osmolality Calcium Magnesium [id number] Pept - Assessment (1) Diastolic CHF Chronic I50.30 - UNSPECIFIED DIASTOLIC (CONGESTIVE) HEART FAILURE Qualifiers: Congestive heart failure chronicity: acute on chronic Qualified Code(s): I50.33 - Acute on chronic diastolic (congestive) heart failure Comment/Plan: Cardiomegaly on chest x-ray & on ventilator. She has diastolic dysfunction, continue Lasix drip and very slowly diuresing. Cardiology is following, appreciate their help. (2) Respiratory failure with hypoxia and hypercapnia Acute J96.91 - RESPIRATORY FAILURE, UNSPECIFIED WITH HYPOXIA; J96.92 - RESPIRATORY FAILURE, UNSPECIFIED WITH HYPERCAPNIA Qualifiers: Chronicity: acute on chronic Qualified Code(s): J96.21 - Acute and chronic respiratory failure with hypoxia; J96.22 - Acute and chronic respiratory failure with hypercapnia Comment/Plan: Continue ventilator management. She had elevated CO2 with CPAP trial yesterday morning. She is now off sedation, and other CPAP trial will be attempted today. Will check ABG during CPAP trial. (3) Atrial fibrillation, controlled Chronic I48.91 - UNSPECIFIED ATRIAL FIBRILLATION Comment/Plan: Adjusting Coumadin therapy. Continue rate control as able. Tachycardic some increased Cardizem 60 mg p.o. q.6 and getting Lopressor 50 p.o. Q 8. (4) Bilateral pleural effusion Acute J90 - PLEURAL EFFUSION, NOT ELSEWHERE CLASSIFIED Comment/Plan: Related to her CHF much improved. (5) Peripheral edema Acute R60.9 - EDEMA, UNSPECIFIED Comment/Plan: Peripheral edema has improved with the IV Lasix for this manifestation of CHF. (6) Pulmonary artery hypertension Resolved I27.2 - OTHER SECONDARY PULMONARY HYPERTENSION Comment/Plan: Echocardiogram is showed ejection fraction of 60% and left ventricular hypertrophy which shows the CHF to be more diastolic than systolic failure. (7) Hyponatremia Resolved E87.1 - HYPO-OSMOLALITY AND HYPONATREMIA Comment/Plan: SIADH appears improved with normalization of the sodium. Tolerating the IV Rocephin and finished her course of Zithromax. Case Care Discussed with: Patient, Nursing Staff, Resource Management Education/Counseling Given To: Patient Education/Counseling Given Regarding: Diagnosis, Treatment Total Time: 37 min Critical Care: No Code: 72803 (12+)
[2016-09-24] MEDS: WARFARIN SODIUM PO SCH ×2 (17:44)
[2016-09-24] MEDS: CHLORHEXIDINE (HIBICLENS) 4 OZ BOTTLE TOP SCH (21:24)
[2016-09-24] MEDS: PRAVASTATIN 80 MG TABLET PO SCH (21:24)
[2016-09-24] MEDS: Furosemide 100 MG in NS 40 ML IV SCH (21:25)
[2016-09-25] MEDS: DILTIAZEM 60 MG TAB NG SCH ×5 (00:46→21:15)
[2016-09-25] MEDS: METHYLPREDNISOLONE 40 MG/1 ML VIAL IV SCH ×2 (03:25→17:02)
[2016-09-25 04:38] LABS: ALLEN'S TEST PASS; BEb 25.7 (+/- 2); TCO2 56.9 MMOL/L (23-27)
[2016-09-25 04:39] LABS: ABG Draw Site Right Radial
[2016-09-25] MEDS: ENTERAL NUTRITION FORMULA NG SCH ×2 (05:34→17:05)
[2016-09-25] MEDS: CHLORHEXIDINE 0.12% ORAL SOLN 15 ML PO SCH (05:35)
[2016-09-25] MEDS: POTASSIUM CHLORIDE 20 MEQ/15 ML ORAL SOLN NG SCH ×4 (05:41→21:15)
[2016-09-25] MEDS: LANSOPRAZOLE 30 MG TAB NG SCH (05:41)
[2016-09-25] MEDS: METOPROLOL TARTRATE 50 MG TAB PEG SCH ×3 (05:41→21:14)
[2016-09-25] MEDS: REGULAR INSULIN 100 UNITS/ML - 3 ML VIAL SQ SCH ×2 (05:49→17:17)
[2016-09-25 06:20] LABS: PT-INR 3.3
[2016-09-25 06:35] LABS: MPV 8.3 fL (7.4-10.4)
[2016-09-25 06:43] LABS: BLOOD UREA NITROGEN 46 MG/DL (7-17); CALCIUM 8.6 MG/DL (8.4-10.2); CALCULATED OSMOLALITY 297 MOs/Kg (270-290); CHLORIDE 86 mEq/L (98-107); GLUCOSE 275 MG/DL (70-99); SODIUM LEVEL 143 mEq/L (137-146)
[2016-09-25 07:25] LABS: SEG NEUTROPHIL 92 % (45-76)
--- NOTE | 2016-09-25 07:41 | DIRPT ---
CLINICAL DATA: Respiratory failure EXAM: PORTABLE CHEST 1 VIEW COMPARISON: September 22, 2016 FINDINGS: Endotracheal tube is no longer apparent. Nasogastric tube tip and side port are below the diaphragm. Central catheter tip is in the superior vena cava. No pneumothorax. There is stable cardiomegaly with mild pulmonary venous hypertension. There is atelectatic change in both lower lobes, stable. No new opacity. IMPRESSION: Tube and catheter positions as described without pneumothorax. Stable cardiomegaly with mild pulmonary venous hypertension. Bibasilar atelectasis. No new opacity. Findings are consistent with a degree of pulmonary vascular congestion. Electronically Signed By: Sd Lund III, M.D. On: 09/25/2016 07:39
[2016-09-25] MEDS: SERTRALINE HCL 25 MG TAB PO SCH (09:00)
[2016-09-25] MEDS: LISINOPRIL 20 MG TAB PO SCH ×2 (09:00→21:18)
--- NOTE | 2016-09-25 10:02 | PCM.PULM ---
Chief Complaint: Uneventful overnight with no acute distress. patient was extubated yesterday and on BIPAP since. Breathing stable. Current medication list reviewed:yes Notes reviewed:yes, Events from last night noted and discussed with Clinical Staff DVT/GI prophylaxis:yes - Physical Examination Vital Signs and I&O: Last Vital Signs Temp 98.4 F 09/25/16 07:00 Pulse 112 09/25/16 08:15 Resp 17 09/25/16 08:00 BP 155/97 09/25/16 08:00 Pulse Ox 96 09/25/16 08:00 Oxygen Pulse Oxygen Saturation 96 O2 Device BiPAP Oxygen Flow Rate 2 Fraction of Inspired Oxygen ( 94 FIO2) Intake & Output 09/22/16 09/23/16 09/24/16 09/25/16 23:59 23:59 23:59 23:59 Intake Total 1763 2176 924 919 Output Total 2200 9003 2850 1225 Balance -437 -549 -1926 -306 Patient's weight 65.998 kg 65.68 kg 65.68 kg 60.963 kg General: Alert, Oriented x3, Cooperative, No acute distress, Fatigue Respiratory: Diminished, Rhonchi Cardiovascular: No Gallops,Rubs/Murmurs, Irregular GI: Normal bowel sounds, Soft, Non tender, No hepatospenomegaly, No masses Extremities/Musculoskeletal: Normal pulses Skin: Warm,Dry and Intact, No rashes, No breakdown, No significant lesion Neurological: Normal speech, Cranial nerves 3-12 NL Psych/Mental Status: Cooperative, Anxious Result Diagrams: 09/25/16 05:50 09/25/16 05:50 Labs (last 24 hours): Laboratory Results - last 24 hr 09/25/16 09/25/16 09/25/16 04:30 05:48 05:50 WBC 10.5 RBC 4.63 Hgb 11.5 L Hct 36.8 MCV 79 L MCH 24.9 L MCHC 31.4 L RDW 18.1 H Plt Count 286 MPV 8.3 Neut % (Auto) Cancelled Lymph % (Auto) Cancelled [place] % (Auto) Cancelled Eos % (Auto) Cancelled Baso % (Auto) Cancelled Absolute Neuts (auto) Cancelled Absolute Lymphs (auto) Cancelled Seg Neuts % (Manual) 92 H Band Neutrophils % 0 Lymphocytes % (Manual) 4 L Monocytes % (Manual) 4 Absolute Neutrophils 9.66 H Absolute Lymphocytes 0.42 L Platelet Estimate Norm RBC Morphology Reviewed this admiss PT INR Puncture Site Right radial pH 7.470 H pCO2 75.0 H* pO2 85.0 HCO3 54.6 H Total CO2 56.9 H Base Excess 25.7 H FiO2 % 2l nc Specimen Drawn By Mike Sodium Potassium Chloride Carbon Dioxide Anion Gap BUN Creatinine Estimated GFR (MDRD) Glucose POC Capillary Glucose 271 H Calculated Osmolality Calcium 09/25/16 09/25/16 05:50 05:50 WBC RBC Hgb Hct MCV MCH MCHC RDW Plt Count MPV Neut % (Auto) Lymph % (Auto) [place] % (Auto) Eos % (Auto) Baso % (Auto) Absolute Neuts (auto) Absolute Lymphs (auto) Seg Neuts % (Manual) Band Neutrophils % Lymphocytes % (Manual) Monocytes % (Manual) Absolute Neutrophils Absolute Lymphocytes Platelet Estimate RBC Morphology PT 34.7 H INR 3.3 Puncture Site pH pCO2 pO2 HCO3 Total CO2 Base Excess FiO2 % Specimen Drawn By Sodium 143 Potassium 3.6 Chloride 86 L Carbon Dioxide 49 H Anion Gap 12 BUN 46 H Creatinine 0.80 Estimated GFR (MDRD) > 60 Glucose 275 H POC Capillary Glucose Calculated Osmolality 297 H Calcium 8.6 Lab/DI/Studies Reviewed: EKG: Atrial fibrillation with rate controlled Cxray: 1 view Chest x-ray was seen personally patient has significant cardiomegaly with hyperinflated lung seaman and bibasilar atelectasis mild pulmonary vascular congestion was noted as well Medications: Lansoprazole (Prevacid Solutabs) 30 mg NG 0600 [facility] Stop: 09/29/16 16:59 Last Admin: 09/16/16 05:42 Dose: 30 mg Sennosides (Senokot) 1 tab PO BID PRN PRN Reason: Constipation - First Option Stop: 09/28/16 16:59 Promethazine HCl (Phenergan) 12.5 mg IV Q6H PRN; Protocol PRN Reason: Nausea/Vomiting - Alternative Stop: 09/28/16 16:59 Acetaminophen (Tylenol Suppository) 325 mg AL Q6H PRN; Protocol PRN Reason: Mild Pain or Fever above 100.4 Stop: 09/28/16 16:59 Acetaminophen (Tylenol Tablet) 325 mg PO Q6H PRN; Protocol PRN Reason: Mild Pain or Fever above 100.4 Stop: 09/28/16 16:59 Albuterol (Proventil Hfa) 8 puff INH Q6H PRN PRN Reason: WHEEZING Stop: 09/29/16 14:21 Last Admin: 09/16/16 09:04 Dose: 8 puff Benzonatate (Tessalon) 200 mg PO Q8H PRN PRN Reason: Cough - First Option Stop: 09/28/16 16:59 Ceftriaxone Sodium 1 gm/ (Dextrose) 100 mls @ 100 mls/hr IV Q24H [facility] Stop: 09/22/16 11:59 Last Admin: 09/16/16 11:36 Dose: 100 mls/hr Chlorphenir/Hydrocodone Polistirex (Tussionex) 5 ml PO BID PRN PRN Reason: Cough - Alternative Stop: 09/28/16 16:59 Lact Acid/Bifidobact/Lact [place]/Streptoc Th (Felisha Q) 1 tab PO BIDLS [facility] Stop: 09/29/16 21:59 Last Admin: 09/16/16 11:36 Dose: 1 tab Lisinopril (Zestril) 20 mg PO BID [facility] Stop: 09/28/16 20:59 Last Admin: 09/16/16 10:03 Dose: Not Given Lorazepam (Ativan) 1 - 2 mg IV Q30M PRN PRN Reason: Acute Agitation/on Ventilator Stop: 09/29/16 10:40 Last Admin: 09/15/16 13:50 Dose: 2 mg Petrolatum ([place]) 1 tube TOP DIR PRN PRN Reason: Oral Care While Intubated Stop: 09/29/16 16:59 Pravastatin Sodium (Pravachol) 80 mg PO HS [facility] Stop: 09/28/16 20:59 Last Admin: 09/15/16 22:35 Dose: 80 mg Sertraline HCl (Zoloft) 25 mg PO DAILY [facility] Stop: 09/29/16 08:59 Last Admin: 09/16/16 09:42 Dose: 25 mg Enteral Nutritional Formula (Jevity 1.0) 1,000 ml NG Q18H [facility] Stop: 10/03/16 17:59 Last Admin: 09/20/16 11:13 Dose: 1,000 ml Furosemide 100 mg/ Sodium (Chloride) 50 mls @ 2.5 mls/hr IV Q20H [place]; 5 MG/HR PRN Reason: Protocol Stop: 10/06/16 09:59 Last Admin: 09/22/16 10:25 Dose: 2.5 mls/hr Diltiazem HCl 100 mg/ Dextrose 100 mls @ 5 mls/hr IV DIR [place]; 5 MG/HR PRN Reason: Protocol Stop: 10/06/16 09:46 Metoprolol Tartrate (Lopressor) 50 mg PEG Q8 [facility] Stop: 10/07/16 16:59 Potassium Chloride (Kcl 20 Meq/15 Ml Oral Liquid) 20 meq NG Q6 [facility] Stop: 10/07/16 16:59 Last Admin: 09/23/16 11:09 Dose: 20 meq Warfarin Sodium 6 mg/ Warfarin (Sodium 1.25 mg) 7.25 mg PO 1800 [facility] Stop: 09/30/16 17:59 Diltiazem HCl (Cardizem) 60 mg NG Q6 [facility] Stop: 10/08/16 16:59 Last Admin: 09/25/16 05:41 Dose: 60 mg Methylprednisolone Sodium Succinate (Solu-Medrol) 40 mg IV Q12H [facility] Stop: 10/08/16 16:59 Last Admin: 09/25/16 03:25 Dose: 40 mg Diltiazem HCl (Cardizem) 20 mg IV DIR PRN PRN Reason: AFIB/HR SUSTAINED ABOVE 125 Stop: 10/06/16 10:06 - Assessment/Plan (1) Acute respiratory failure with hypoxia Acute J96.01 - ACUTE RESPIRATORY FAILURE WITH HYPOXIA Comment/Plan: Patient remained extubated and has been relatively stable I would get a blood gas in the morning and keep the patient on BiPAP while she is sleeping at night continue the current supportive care at this time heart rate remains high however has been stable continue other supportive care consider starting physiotherapy on this patient and getting her out of bed to the chair Patient remains critically ill and is in danger of getting worse and would be kept in ICU for another 24 hours (2) Bilateral pleural effusion Acute J90 - PLEURAL EFFUSION, NOT ELSEWHERE CLASSIFIED Comment/Plan: Effusions have been improving slowly continue Lasix drip for now as patient has been in negative balance (3) Diastolic CHF Chronic I50.30 - UNSPECIFIED DIASTOLIC (CONGESTIVE) HEART FAILURE acute on chronic I50.33 - Acute on chronic diastolic (congestive) heart failure Comment/Plan: Continue supportive care continue diuresis (4) Pulmonary artery hypertension Resolved I27.2 - OTHER SECONDARY PULMONARY HYPERTENSION Comment/Plan: No treatment at this time continue current oxygen and on the ventilator I personally saw and evaluated the patient.: Yes Total Face to Face Time: 35 minutes Case Care Discussed with: Patient, Consultants (Patient was discussed with dermatological surgeon in detail), Nursing Staff Education/Counseling Given To: Patient, Family Member Education/Counseling Given Regarding: Diagnosis, Treatment, Prognosis, Follow Up , Disposition Plan
[2016-09-25] MEDS: CEFTRIAXONE 1 GM in D5W 100 ML IV SCH (11:01)
[2016-09-25] MEDS: PROBIOTIC BLEND TAB PO SCH ×2 (11:02→16:59)
--- NOTE | 2016-09-25 14:30 | PCM.CARD ---
- Subjective Reason for visit: Doing better today. According to the family still somewhat confused. Denies having any issues. According to the family somewhat confused but overall doing better. She is sitting in the chair while I went to examine her. Vital Signs: Last Vital Signs Temp 98.5 F 09/25/16 12:00 Pulse 93 09/25/16 13:00 Resp 17 09/25/16 08:00 BP 159/94 09/25/16 13:00 Pulse Ox 98 09/25/16 13:00 PE: General Appearance: Well developed. Well nourished. In no acute distress. Lungs: Chest was not overinflated. Clear to auscultation. Cardiovascular: Jugular Venous Distention: JVD not increased. Heart Rate And Rhythm: Normal. Heart Sounds: Normal. Murmurs: No murmurs were heard. Carotid Arteries: Carotid pulses were normal. No bruit in the carotid artery. Edema: Not present. Lower extremities pulses normal (including femoral popliteal and dorsalis pedis) . Musculoskeletal System: General/bilateral: No cyanosis of the fingers. Neurological: Oriented to time, place, and person. Nails: No clubbing of the fingernails. Lab/DI Results Reviewed: Laboratory Results - last 24 hr 09/24/16 09/25/16 09/25/16 17:53 04:30 05:48 WBC RBC Hgb Hct MCV MCH MCHC RDW Plt Count MPV Neut % (Auto) Lymph % (Auto) [place] % (Auto) Eos % (Auto) Baso % (Auto) Absolute Neuts (auto) Absolute Lymphs (auto) Seg Neuts % (Manual) Band Neutrophils % Lymphocytes % (Manual) Monocytes % (Manual) Absolute Neutrophils Absolute Lymphocytes Platelet Estimate RBC Morphology PT INR Puncture Site Right radial pH 7.470 H pCO2 75.0 H* pO2 85.0 HCO3 54.6 H Total CO2 56.9 H Base Excess 25.7 H FiO2 % 2l nc Specimen Drawn By Mike Sodium Potassium Chloride Carbon Dioxide Anion Gap BUN Creatinine Estimated GFR (MDRD) Glucose POC Capillary Glucose 223 H 271 H Calculated Osmolality Calcium 09/25/16 09/25/16 09/25/16 05:50 05:50 05:50 WBC 10.5 RBC 4.63 Hgb 11.5 L Hct 36.8 MCV 79 L MCH 24.9 L MCHC 31.4 L RDW 18.1 H Plt Count 286 MPV 8.3 Neut % (Auto) Cancelled Lymph % (Auto) Cancelled [place] % (Auto) Cancelled Eos % (Auto) Cancelled Baso % (Auto) Cancelled Absolute Neuts (auto) Cancelled Absolute Lymphs (auto) Cancelled Seg Neuts % (Manual) 92 H Band Neutrophils % 0 Lymphocytes % (Manual) 4 L Monocytes % (Manual) 4 Absolute Neutrophils 9.66 H Absolute Lymphocytes 0.42 L Platelet Estimate Norm RBC Morphology Reviewed this admiss PT 34.7 H INR 3.3 Puncture Site pH pCO2 pO2 HCO3 Total CO2 Base Excess FiO2 % Specimen Drawn By Sodium 143 Potassium 3.6 Chloride 86 L Carbon Dioxide 49 H Anion Gap 12 BUN 46 H Creatinine 0.80 Estimated GFR (MDRD) > 60 Glucose 275 H POC Capillary Glucose Calculated Osmolality 297 H Calcium 8.6 - Assessment/Plan (1) Atrial fibrillation Chronic I48.91 - UNSPECIFIED ATRIAL FIBRILLATION Present on Admission: Yes A Comment/Plan: Rate control, anticoagulated. Will continue. Follow-up INR. (2) Bilateral pleural effusion Acute J90 - PLEURAL EFFUSION, NOT ELSEWHERE CLASSIFIED Present on Admission: Yes Comment/Plan: Follow up as per Pulmonary. (3) Diastolic CHF Chronic I50.30 - UNSPECIFIED DIASTOLIC (CONGESTIVE) HEART FAILURE Present on Admission: Yes acute on chronic I50.33 - Acute on chronic diastolic (congestive) heart failure Comment/Plan: Continue present diuresis. Will i continue monitoring Chem 7. (4) Pulmonary artery hypertension Resolved I27.2 - OTHER SECONDARY PULMONARY HYPERTENSION Present on Admission: No Comment/Plan: For now oxygen and pulmonary toilet. (5) CRI (chronic renal insufficiency) Acute N18.9 - CHRONIC KIDNEY DISEASE, UNSPECIFIED C
[2016-09-25] MEDS: This patient is receiving warfarin therapy SCH (17:00)
[2016-09-25] MEDS: WARFARIN SODIUM PO SCH ×2 (17:01)
[2016-09-25] MEDS: Furosemide 100 MG in NS 40 ML IV SCH (18:31)
[2016-09-25] MEDS: CHLORHEXIDINE (HIBICLENS) 4 OZ BOTTLE TOP SCH (21:15)
[2016-09-25] MEDS: PRAVASTATIN 80 MG TABLET PO SCH (21:24)
--- NOTE | 2016-09-25 23:36 | GENMEDPROG ---
Chief Complaint: Lethargic today on bipap Notes Reviewed: Yes Events from last night noted and discussed with Clinical Staff Current Medication List: Reviewed Currently: Reports: NICK, SOB. Denies: Nausea and Vomiting, Abdominal Pain DVT Prophylaxis: Yes - Physical Examination Vital Signs and I&O: Last Vital Signs Temp 98.3 F 09/25/16 19:00 Pulse 97 09/25/16 21:39 Resp 17 09/25/16 20:35 BP 144/81 09/25/16 21:00 Pulse Ox 95 09/25/16 21:00 Oxygen Pulse Oxygen Saturation 95 O2 Device BiPAP Oxygen Flow Rate 2 Fraction of Inspired Oxygen ( 30 FIO2) Intake & Output 09/22/16 09/23/16 09/24/16 09/25/16 23:59 23:59 23:59 23:59 Intake Total 1763 2176 924 221 Output Total 2206 8791 0070 1095 Balance -645 [phone] Patient's weight 65.998 kg 65.68 kg 65.68 kg 60.963 kg General: Alert, Oriented x3, No acute distress, Well appearing, Well nourished HEENT: Normal (Normocephalic, atraumatic;EOMI.Sclera white, Nares patent, without discharge or bleeding. No oropharyngeal lesions or erythema. Mucous membranes are dry.) Neck: Non-tender, Normal Trachea alignment, Normal inspection (No cervical lymphadenopathy. No supraclavicular lymphadenopathy.), No Masses palpable, Limited range of motion, Supple Lymphatics: Normal (No lymph node swelling or pain.) Respiratory: Diminished. negative: Rales, Rhonchi, Wheezes Cardiovascular: Normal S1, No Gallops,Rubs/Murmurs, Normal S2, Irregular GI: Normal bowel sounds (normal active sounds), Soft (non-distended), No hepatospenomegaly, No masses, Tenderness (Mildly tender diffusely) Extremities/Musculoskeletal: Normal pulses (DP pulses 2+ bilaterally) Skin: Warm,Dry and Intact, No rashes, No significant lesion Neurological: Strength at 5/5 X4 ext (Motor 5/5 throughout.), Normal tone, Cranial nerves 3-12 NL ( 2-12 grossly intact.) Psych/Mental Status: Drowsy, Somnolent, Lethargic Lab/DI/Studies Reviewed: 09/25/16 05:50 09/25/16 05:50 Laboratory Results - last 24 hr 09/25/16 09/25/16 09/25/16 04:30 05:48 05:50 WBC 10.5 RBC 4.63 Hgb 11.5 L Hct 36.8 MCV 79 L MCH 24.9 L MCHC 31.4 L RDW 18.1 H Plt Count 286 MPV 8.3 Neut % (Auto) Cancelled Lymph % (Auto) Cancelled [place] % (Auto) Cancelled Eos % (Auto) Cancelled Baso % (Auto) Cancelled Absolute Neuts (auto) Cancelled Absolute Lymphs (auto) Cancelled Seg Neuts % (Manual) 92 H Band Neutrophils % 0 Lymphocytes % (Manual) 4 L Monocytes % (Manual) 4 Absolute Neutrophils 9.66 H Absolute Lymphocytes 0.42 L Platelet Estimate Norm RBC Morphology Reviewed this admiss PT INR Puncture Site Right radial pH 7.470 H pCO2 75.0 H* pO2 85.0 HCO3 54.6 H Total CO2 56.9 H Base Excess 25.7 H FiO2 % 2l nc Specimen Drawn By Mike Sodium Potassium Chloride Carbon Dioxide Anion Gap BUN Creatinine Estimated GFR (MDRD) Glucose POC Capillary Glucose 271 H Calculated Osmolality Calcium 09/25/16 09/25/16 09/25/16 05:50 05:50 17:16 WBC RBC Hgb Hct MCV MCH MCHC RDW Plt Count MPV Neut % (Auto) Lymph % (Auto) [place] % (Auto) Eos % (Auto) Baso % (Auto) Absolute Neuts (auto) Absolute Lymphs (auto) Seg Neuts % (Manual) Band Neutrophils % Lymphocytes % (Manual) Monocytes % (Manual) Absolute Neutrophils Absolute Lymphocytes Platelet Estimate RBC Morphology PT 34.7 H INR 3.3 Puncture Site pH pCO2 pO2 HCO3 Total CO2 Base Excess FiO2 % Specimen Drawn By Sodium 143 Potassium 3.6 Chloride 86 L Carbon Dioxide 49 H Anion Gap 12 BUN 46 H Creatinine 0.80 Estimated GFR (MDRD) > 60 Glucose 275 H POC Capillary Glucose 154 H Calculated Osmolality 297 H Calcium 8.6 - Assessment (1) Diastolic CHF Chronic I50.30 - UNSPECIFIED DIASTOLIC (CONGESTIVE) HEART FAILURE Qualifiers: Congestive heart failure chronicity: acute on chronic Qualified Code(s): I50.33 - Acute on chronic diastolic (congestive) heart failure Comment/Plan: Cardiomegaly on chest x-ray & on ventilator. She has diastolic dysfunction, continue Lasix drip and very slowly diuresing. Cardiology is following, appreciate their help. (2) Respiratory failure with hypoxia and hypercapnia Acute J96.91 - RESPIRATORY FAILURE, UNSPECIFIED WITH HYPOXIA; J96.92 - RESPIRATORY FAILURE, UNSPECIFIED WITH HYPERCAPNIA Qualifiers: Chronicity: acute on chronic Qualified Code(s): J96.21 - Acute and chronic respiratory failure with hypoxia; J96.22 - Acute and chronic respiratory failure with hypercapnia Comment/Plan: Extubated using BiPAP at present. (3) Atrial fibrillation, controlled Chronic I48.91 - UNSPECIFIED ATRIAL FIBRILLATION Comment/Plan: Adjusting Coumadin therapy. Continue rate control as able. Cardizem 60 mg p.o. q.6 and getting Lopressor 50 p.o. Q 8. (4) Bilateral pleural effusion Acute J90 - PLEURAL EFFUSION, NOT ELSEWHERE CLASSIFIED Comment/Plan: Related to her CHF much improved. (5) Peripheral edema Acute R60.9 - EDEMA, UNSPECIFIED Comment/Plan: Peripheral edema has improved with the IV Lasix for this manifestation of CHF. (6) Pulmonary artery hypertension Resolved I27.2 - OTHER SECONDARY PULMONARY HYPERTENSION Comment/Plan: Echocardiogram is showed ejection fraction of 60% and left ventricular hypertrophy which shows the CHF to be more diastolic than systolic failure. (7) Hyponatremia Resolved E87.1 - HYPO-OSMOLALITY AND HYPONATREMIA Comment/Plan: SIADH appears improved with normalization of the sodium. Tolerating the IV Rocephin and finished her course of Zithromax. Case Care Discussed with: Patient, Nursing Staff, Resource Management Education/Counseling Given To: Patient Education/Counseling Given Regarding: Diagnosis, Treatment Total Time: 38 min Critical Care: No Code: 29715 (12+)
[2016-09-25] MEDS ORDERED: WARFARIN SODIUM PO SCH ×2 (23:37)
[2016-09-26] MEDS: METHYLPREDNISOLONE 40 MG/1 ML VIAL IV SCH ×2 (04:08→13:52)
[2016-09-26 05:16] LABS: ALLEN'S TEST PASS; TCO2 59.9 MMOL/L (23-27)
[2016-09-26 05:21] LABS: ABG Draw Site Right Radial
[2016-09-26] MEDS: DILTIAZEM 60 MG TAB NG SCH ×4 (05:38→23:36)
[2016-09-26] MEDS: METOPROLOL TARTRATE 50 MG TAB PEG SCH ×3 (05:38→20:24)
[2016-09-26] MEDS: LANSOPRAZOLE 30 MG TAB NG SCH (05:39)
[2016-09-26] MEDS: POTASSIUM CHLORIDE 20 MEQ/15 ML ORAL SOLN NG SCH ×4 (05:39→23:36)
[2016-09-26] MEDS: REGULAR INSULIN 100 UNITS/ML - 3 ML VIAL SQ SCH ×2 (05:39→18:15)
[2016-09-26 05:51] LABS: MPV 8.4 fL (7.4-10.4)
[2016-09-26 05:54] LABS: PT-INR 3.6
[2016-09-26 06:07] LABS: BLOOD UREA NITROGEN 46 MG/DL (7-17); CALCIUM 8.5 MG/DL (8.4-10.2); CALCULATED OSMOLALITY 301 MOs/Kg (270-290); CHLORIDE 86 mEq/L (98-107); GLUCOSE 246 MG/DL (70-99); SODIUM LEVEL 146 mEq/L (137-146)
[2016-09-26 06:20] LABS: SEG NEUTROPHIL 94 % (45-76)
--- NOTE | 2016-09-26 10:08 | PCM.CARD ---
- Subjective Reason for visit: Follow up congestive heart failure, atrial fibrillation. Denies have any complaint except being hungry she wants to eat. According to the family she is confused. Vital Signs: Last Vital Signs Temp 98 F 09/26/16 07:00 Pulse 106 09/26/16 08:00 Resp 20 09/26/16 07:00 BP 159/83 09/26/16 08:00 Pulse Ox 97 09/26/16 09:35 PE: General Appearance: Well developed. Well nourished. In no acute distress. Lungs: Chest was not overinflated. Clear to auscultation. Cardiovascular: Jugular Venous Distention: JVD not increased. Heart Rate And Rhythm: Irregularly irregular Heart Sounds: Normal. Murmurs: No murmurs were heard. Carotid Arteries: Carotid pulses were normal. No bruit in the carotid artery. Edema: Not present. Lower extremities pulses normal (including femoral popliteal and dorsalis pedis) . Musculoskeletal System: General/bilateral: No cyanosis of the fingers. Neurological: Oriented to time, place, and person. Nails: No clubbing of the fingernails. Lab/DI Results Reviewed: Laboratory Results - last 24 hr 09/25/16 09/26/16 09/26/16 17:16 05:10 05:23 WBC RBC Hgb Hct MCV MCH MCHC RDW Plt Count MPV Neut % (Auto) Lymph % (Auto) [place] % (Auto) Eos % (Auto) Baso % (Auto) Absolute Neuts (auto) Absolute Lymphs (auto) Seg Neuts % (Manual) Band Neutrophils % Lymphocytes % (Manual) Monocytes % (Manual) Absolute Neutrophils Absolute Lymphocytes Platelet Estimate RBC Morphology PT INR Puncture Site Right radial pH 7.470 H pCO2 79.0 H* pO2 106.0 H HCO3 57.5 H Total CO2 59.9 H Base Excess 28.0 H FiO2 % 2.5l nc Specimen Drawn By Whitr Sodium Potassium Chloride Carbon Dioxide Anion Gap BUN Creatinine Estimated GFR (MDRD) Glucose POC Capillary Glucose 154 H 236 H Calculated Osmolality Calcium 09/26/16 09/26/16 09/26/16 05:25 05:25 05:25 WBC 11.8 H RBC 4.61 Hgb 11.4 L Hct 37.1 MCV 81 MCH 24.8 L MCHC 30.9 L RDW 18.4 H Plt Count 279 MPV 8.4 Neut % (Auto) Cancelled Lymph % (Auto) Cancelled [place] % (Auto) Cancelled Eos % (Auto) Cancelled Baso % (Auto) Cancelled Absolute Neuts (auto) Cancelled Absolute Lymphs (auto) Cancelled Seg Neuts % (Manual) 94 H Band Neutrophils % 1 Lymphocytes % (Manual) 3 L Monocytes % (Manual) 2 Absolute Neutrophils 11.21 H Absolute Lymphocytes 0.35 L Platelet Estimate Norm RBC Morphology Reviewed this admiss PT 37.5 H INR 3.6 Puncture Site pH pCO2 pO2 HCO3 Total CO2 Base Excess FiO2 % Specimen Drawn By Sodium 146 Potassium 3.4 L Chloride 86 L Carbon Dioxide 51 H Anion Gap 12 BUN 46 H Creatinine 0.80 Estimated GFR (MDRD) > 60 Glucose 246 H POC Capillary Glucose Calculated Osmolality 301 H Calcium 8.5 - Assessment/Plan (1) Atrial fibrillation Chronic I48.91 - UNSPECIFIED ATRIAL FIBRILLATION Present on Admission: Yes A Comment/Plan: Rate is sufficiently controlled to this clinical scenario. Continue anticoagulation. (2) Bilateral pleural effusion Acute J90 - PLEURAL EFFUSION, NOT ELSEWHERE CLASSIFIED Present on Admission: Yes Comment/Plan: Noted, stable, follow up by Pulmonary. (3) Diastolic CHF Chronic I50.30 - UNSPECIFIED DIASTOLIC (CONGESTIVE) HEART FAILURE Present on Admission: Yes acute on chronic I50.33 - Acute on chronic diastolic (congestive) heart failure Comment/Plan: Continue sling on IV drip of 4 0 somewhat. Will change to IV twice daily. (4) Pulmonary artery hypertension Resolved I27.2 - OTHER SECONDARY PULMONARY HYPERTENSION Present on Admission: No Comment/Plan: Noted, will provide the best pulmonary care possible. (5) CRI (chronic renal insufficiency) Acute N18.9 - CHRONIC KIDNEY DISEASE, UNSPECIFIED C Comment/Plan: Noted, stable.
--- NOTE | 2016-09-26 10:10 | PCM.PULM ---
Chief Complaint: Uneventful overnight no acute distress on BIPAP Nursing report: Patient has been confused and agitated over night Current medication list reviewed:yes Notes reviewed:yes, Events from last night noted and discussed with Clinical Staff GI/DVT prophylaxis:yes - Physical Examination Vital Signs and I&O: Last Vital Signs Temp 98 F 09/26/16 07:00 Pulse 106 09/26/16 08:00 Resp 20 09/26/16 07:00 BP 159/83 09/26/16 08:00 Pulse Ox 97 09/26/16 09:35 Oxygen Pulse Oxygen Saturation 97 O2 Device Nasal Cannula Oxygen Flow Rate 2 Fraction of Inspired Oxygen ( 30 FIO2) Intake & Output 09/23/16 09/24/16 09/25/16 09/26/16 23:59 23:59 23:59 23:59 Intake Total 2178 924 2214 224 Output Total 9578 9983 8104 650 [facility] -[phone] Patient's weight 65.68 kg 65.68 kg 60.963 kg 59.738 kg General: Alert, Oriented x3, Cooperative, No acute distress, Weakness, Fatigue Respiratory: Diminished (bilaterally), Rhonchi Cardiovascular: No Gallops,Rubs/Murmurs, Irregular (a fib with rate controlled) GI: Normal bowel sounds, Soft, Non tender, No masses Extremities/Musculoskeletal: Normal pulses Skin: Warm,Dry and Intact, No rashes, No breakdown, No significant lesion Neurological: Normal speech, Normal tone, Cranial nerves 3-12 NL Psych/Mental Status: Appropriate, Cooperative, Agitated, Anxious, Confused Result Diagrams: 09/26/16 05:25 09/26/16 05:25 Labs (last 24 hours): Laboratory Results - last 24 hr 09/25/16 09/26/16 09/26/16 17:16 05:10 05:23 WBC RBC Hgb Hct MCV MCH MCHC RDW Plt Count MPV Neut % (Auto) Lymph % (Auto) [place] % (Auto) Eos % (Auto) Baso % (Auto) Absolute Neuts (auto) Absolute Lymphs (auto) Seg Neuts % (Manual) Band Neutrophils % Lymphocytes % (Manual) Monocytes % (Manual) Absolute Neutrophils Absolute Lymphocytes Platelet Estimate RBC Morphology PT INR Puncture Site Right radial pH 7.470 H pCO2 79.0 H* pO2 106.0 H HCO3 57.5 H Total CO2 59.9 H Base Excess 28.0 H FiO2 % 2.5l nc Specimen Drawn By Whitr Sodium Potassium Chloride Carbon Dioxide Anion Gap BUN Creatinine Estimated GFR (MDRD) Glucose POC Capillary Glucose 154 H 236 H Calculated Osmolality Calcium 09/26/16 09/26/16 09/26/16 05:25 05:25 05:25 WBC 11.8 H RBC 4.61 Hgb 11.4 L Hct 37.1 MCV 81 MCH 24.8 L MCHC 30.9 L RDW 18.4 H Plt Count 279 MPV 8.4 Neut % (Auto) Cancelled Lymph % (Auto) Cancelled [place] % (Auto) Cancelled Eos % (Auto) Cancelled Baso % (Auto) Cancelled Absolute Neuts (auto) Cancelled Absolute Lymphs (auto) Cancelled Seg Neuts % (Manual) 94 H Band Neutrophils % 1 Lymphocytes % (Manual) 3 L Monocytes % (Manual) 2 Absolute Neutrophils 11.21 H Absolute Lymphocytes 0.35 L Platelet Estimate Norm RBC Morphology Reviewed this admiss PT 37.5 H INR 3.6 Puncture Site pH pCO2 pO2 HCO3 Total CO2 Base Excess FiO2 % Specimen Drawn By Sodium 146 Potassium 3.4 L Chloride 86 L Carbon Dioxide 51 H Anion Gap 12 BUN 46 H Creatinine 0.80 Estimated GFR (MDRD) > 60 Glucose 246 H POC Capillary Glucose Calculated Osmolality 301 H Calcium 8.5 Lab/DI/Studies Reviewed: EKG: Atrial fibrillation. rate controlled 90/min Medications: Lansoprazole (Prevacid Solutabs) 30 mg NG 0600 [facility] Stop: 09/29/16 16:59 Last Admin: 09/16/16 05:42 Dose: 30 mg Sennosides (Senokot) 1 tab PO BID PRN PRN Reason: Constipation - First Option Stop: 09/28/16 16:59 Promethazine HCl (Phenergan) 12.5 mg IV Q6H PRN; Protocol PRN Reason: Nausea/Vomiting - Alternative Stop: 09/28/16 16:59 Acetaminophen (Tylenol Suppository) 325 mg CA Q6H PRN; Protocol PRN Reason: Mild Pain or Fever above 100.4 Stop: 09/28/16 16:59 Acetaminophen (Tylenol Tablet) 325 mg PO Q6H PRN; Protocol PRN Reason: Mild Pain or Fever above 100.4 Stop: 09/28/16 16:59 Albuterol (Proventil Hfa) 8 puff INH Q6H PRN PRN Reason: WHEEZING Stop: 09/29/16 14:21 Last Admin: 09/16/16 09:04 Dose: 8 puff Benzonatate (Tessalon) 200 mg PO Q8H PRN PRN Reason: Cough - First Option Stop: 09/28/16 16:59 Chlorphenir/Hydrocodone Polistirex (Tussionex) 5 ml PO BID PRN PRN Reason: Cough - Alternative Stop: 09/28/16 16:59 Lact Acid/Bifidobact/Lact [place]/Streptoc Th (Felisha Q) 1 tab PO BIDLS [facility] Stop: 09/29/16 21:59 Last Admin: 09/16/16 11:36 Dose: 1 tab Lisinopril (Zestril) 20 mg PO BID [facility] Stop: 09/28/16 20:59 Last Admin: 09/16/16 10:03 Dose: Not Given Lorazepam (Ativan) 1 - 2 mg IV Q30M PRN PRN Reason: Acute Agitation/on Ventilator Stop: 09/29/16 10:40 Last Admin: 09/15/16 13:50 Dose: 2 mg Petrolatum ([place]) 1 tube TOP DIR PRN PRN Reason: Oral Care While Intubated Stop: 09/29/16 16:59 Pravastatin Sodium (Pravachol) 80 mg PO HS [facility] Stop: 09/28/16 20:59 Last Admin: 09/15/16 22:35 Dose: 80 mg Sertraline HCl (Zoloft) 25 mg PO DAILY [facility] Stop: 09/29/16 08:59 Last Admin: 09/16/16 09:42 Dose: 25 mg Enteral Nutritional Formula (Jevity 1.0) 1,000 ml NG Q18H [facility] Stop: 10/03/16 17:59 Last Admin: 09/20/16 11:13 Dose: 1,000 ml Diltiazem HCl (Cardizem) 20 mg IV DIR PRN PRN Reason: AFIB/HR SUSTAINED ABOVE 125 Stop: 10/06/16 10:06 Diltiazem HCl 100 mg/ Dextrose 100 mls @ 5 mls/hr IV DIR [facility]; 5 MG/HR PRN Reason: Protocol Stop: 02/04/17 09:46 Metoprolol Tartrate (Lopressor) 5 mg IV Q6 [facility] Stop: 10/06/16 16:59 Last Admin: 09/22/16 11:40 Dose: 5 mg Metoprolol Tartrate (Lopressor) 50 mg PEG Q8 [facility] Stop: 10/07/16 16:59 Potassium Chloride (Kcl 20 Meq/15 Ml Oral Liquid) 20 meq NG Q6 [facility] Stop: 10/07/16 16:59 Last Admin: 09/23/16 11:09 Dose: 20 meq Warfarin Sodium 6 mg/ Warfarin (Sodium 1.25 mg) 7.25 mg PO 1800 [facility] Stop: 09/30/16 17:59 Enteral Nutritional Formula (Jevity 1.0) 1,000 ml NG Q18H [facility] Stop: 10/03/16 17:59 Last Admin: 09/25/16 17:05 Dose: 1,000 ml Furosemide (Lasix) 10 mls @ 24 mls/hr IV Q12H [facility] Stop: 10/10/16 11:59 Methylprednisolone Sodium Succinate (Solu-Medrol) 40 mg IV Q12H [facility] Stop: 10/08/16 16:59 Last Admin: 09/26/16 04:08 Dose: 40 mg - Assessment/Plan (1) Acute respiratory failure with hypoxia Acute J96.01 - ACUTE RESPIRATORY FAILURE WITH HYPOXIA Comment/Plan: Uneventful overnight Patient remained extubated and has been relatively stable patient has significant carbon dioxide and therefore would cut down the oxygen to as low as 1 L to keep the pulse ox just above 90%. I would get a blood gas in the morning and keep the patient on BiPAP while she is sleeping at night continue the current supportive care at this time heart rate remains high however has been stable continue other supportive care consider starting physiotherapy on this patient and getting her out of bed to the chair Patient remains critically ill and is in danger of getting worse and would be kept in ICU for another 24 hours (2) Bilateral pleural effusion Acute J90 - PLEURAL EFFUSION, NOT ELSEWHERE CLASSIFIED Comment/Plan: Effusions have been improving slowly continue Lasix drip for now as patient has been in negative balance (3) Diastolic CHF Chronic I50.30 - UNSPECIFIED DIASTOLIC (CONGESTIVE) HEART FAILURE acute on chronic I50.33 - Acute on chronic diastolic (congestive) heart failure Comment/Plan: Continue supportive care continue diuresis (4) Pulmonary artery hypertension Resolved I27.2 - OTHER SECONDARY PULMONARY HYPERTENSION Comment/Plan: No treatment at this time continue current oxygen and on noninvasive ventilation as needed I personally saw and evaluated the patient.: Yes Total Face to Face Time: 35 minutes Case Care Discussed with: Patient, Nursing Staff, Respiratory Therapy Education/Counseling Given To: Patient Education/Counseling Given Regarding: Diagnosis, Treatment, Follow Up, Disposition Plan
[2016-09-26] MEDS: LISINOPRIL 20 MG TAB PO SCH ×2 (10:19→20:24)
[2016-09-26] MEDS: SERTRALINE HCL 25 MG TAB PO SCH (10:19)
[2016-09-26] MEDS: PROBIOTIC BLEND TAB PO SCH ×2 (13:48→18:16)
[2016-09-26] MEDS: ENTERAL NUTRITION FORMULA NG SCH (13:52)
[2016-09-26] MEDS: CEFTRIAXONE 1 GM in D5W 100 ML IV SCH (14:01)
[2016-09-26] MEDS: This patient is receiving warfarin therapy SCH (14:01)
[2016-09-26] MEDS: PRAVASTATIN 80 MG TABLET PO SCH (20:23)
[2016-09-26] MEDS: CHLORHEXIDINE (HIBICLENS) 4 OZ BOTTLE TOP SCH (20:24)
[2016-09-26] MEDS: THEOPHYLLINE 200 MG PO SCH (20:25)
--- NOTE | 2016-09-26 21:02 | GENMEDPROG ---
Chief Complaint: Patient much more alert today sitting up talking with her relative and alert. Oriented times person place and time when she is able to see the chart on the wall. Notes Reviewed: Yes Events from last night noted and discussed with Clinical Staff Current Medication List: Reviewed Currently: Reports: NICK, SOB. Denies: Nausea and Vomiting, Abdominal Pain DVT Prophylaxis: Yes - Physical Examination Vital Signs and I&O: Last Vital Signs Temp 97.8 F 09/26/16 15:00 Pulse 105 09/26/16 20:30 Resp 20 09/26/16 19:54 BP 159/94 09/26/16 18:00 Pulse Ox 94 09/26/16 19:54 Oxygen Pulse Oxygen Saturation 94 O2 Device BiPAP Oxygen Flow Rate 1 Fraction of Inspired Oxygen ( 30 FIO2) Intake & Output 09/23/16 09/24/16 09/25/16 09/26/16 23:59 23:59 23:59 23:59 Intake Total 2176 924 2214 632 Output Total 7141 0550 5252 1855 [facility] [phone] Patient's weight 65.68 kg 65.68 kg 60.963 kg 59.738 kg General: Alert, Oriented x3, No acute distress, Well appearing, Well nourished HEENT: Normal (Normocephalic, atraumatic;EOMI.Sclera white, Nares patent, without discharge or bleeding. No oropharyngeal lesions or erythema. Mucous membranes are dry.) Neck: Non-tender, Normal Trachea alignment, Normal inspection (No cervical lymphadenopathy. No supraclavicular lymphadenopathy.), No Masses palpable, Limited range of motion, Supple Lymphatics: Normal (No lymph node swelling or pain.) Respiratory: Diminished. negative: Rales, Rhonchi, Wheezes Cardiovascular: Normal S1, No Gallops,Rubs/Murmurs, Normal S2, Irregular GI: Normal bowel sounds (normal active sounds), Soft (non-distended), No hepatospenomegaly, No masses, Tenderness (Mildly tender diffusely) Extremities/Musculoskeletal: Normal pulses (DP pulses 2+ bilaterally) Skin: Warm,Dry and Intact, No rashes, No significant lesion Neurological: Strength at 5/5 X4 ext (Motor 5/5 throughout.), Normal tone, Cranial nerves 3-12 NL ( 2-12 grossly intact.) Psych/Mental Status: Drowsy, Somnolent, Lethargic Lab/DI/Studies Reviewed: 09/26/16 05:25 09/26/16 05:25 Laboratory Results - last 24 hr 09/26/16 09/26/16 09/26/16 05:10 05:23 05:25 WBC 11.8 H RBC 4.61 Hgb 11.4 L Hct 37.1 MCV 81 MCH 24.8 L MCHC 30.9 L RDW 18.4 H Plt Count 279 MPV 8.4 Neut % (Auto) Cancelled Lymph % (Auto) Cancelled [place] % (Auto) Cancelled Eos % (Auto) Cancelled Baso % (Auto) Cancelled Absolute Neuts (auto) Cancelled Absolute Lymphs (auto) Cancelled Seg Neuts % (Manual) 94 H Band Neutrophils % 1 Lymphocytes % (Manual) 3 L Monocytes % (Manual) 2 Absolute Neutrophils 11.21 H Absolute Lymphocytes 0.35 L Platelet Estimate Norm RBC Morphology Reviewed this admiss PT INR Puncture Site Right radial pH 7.470 H pCO2 79.0 H* pO2 106.0 H HCO3 57.5 H Total CO2 59.9 H Base Excess 28.0 H FiO2 % 2.5l nc Specimen Drawn By Whitr Sodium Potassium Chloride Carbon Dioxide Anion Gap BUN Creatinine Estimated GFR (MDRD) Glucose POC Capillary Glucose 236 H Calculated Osmolality Calcium 09/26/16 09/26/16 09/26/16 05:25 05:25 17:13 WBC RBC Hgb Hct MCV MCH MCHC RDW Plt Count MPV Neut % (Auto) Lymph % (Auto) [place] % (Auto) Eos % (Auto) Baso % (Auto) Absolute Neuts (auto) Absolute Lymphs (auto) Seg Neuts % (Manual) Band Neutrophils % Lymphocytes % (Manual) Monocytes % (Manual) Absolute Neutrophils Absolute Lymphocytes Platelet Estimate RBC Morphology PT 37.5 H INR 3.6 Puncture Site pH pCO2 pO2 HCO3 Total CO2 Base Excess FiO2 % Specimen Drawn By Sodium 146 Potassium 3.4 L Chloride 86 L Carbon Dioxide 51 H Anion Gap 12 BUN 46 H Creatinine 0.80 Estimated GFR (MDRD) > 60 Glucose 246 H POC Capillary Glucose 211 H Calculated Osmolality 301 H Calcium 8.5 - Assessment (1) Diastolic CHF Chronic I50.30 - UNSPECIFIED DIASTOLIC (CONGESTIVE) HEART FAILURE Qualifiers: Congestive heart failure chronicity: acute on chronic Qualified Code(s): I50.33 - Acute on chronic diastolic (congestive) heart failure Comment/Plan: Cardiomegaly on chest x-ray & on ventilator. She has diastolic dysfunction, continue Lasix drip and very slowly diuresing. Cardiology is following, appreciate their help. (2) COPD exacerbation Acute J44.1 - CHRONIC OBSTRUCTIVE PULMONARY DISEASE W (ACUTE) EXACERBATION Comment/Plan: Patient has improved greatly after extubation and continuing with her present medical therapy. (3) Ambulatory dysfunction Acute R26.2 - DIFFICULTY IN WALKING, NOT ELSEWHERE CLASSIFIED Comment/Plan: Ambulatory function is assisted by physical therapy able to walk 3 feet today. She will need assisted placement time of discharge. (4) Respiratory failure with hypoxia and hypercapnia Acute J96.91 - RESPIRATORY FAILURE, UNSPECIFIED WITH HYPOXIA; J96.92 - RESPIRATORY FAILURE, UNSPECIFIED WITH HYPERCAPNIA Qualifiers: Chronicity: acute on chronic Qualified Code(s): J96.21 - Acute and chronic respiratory failure with hypoxia; J96.22 - Acute and chronic respiratory failure with hypercapnia Comment/Plan: Extubated using BiPAP at present. (5) Atrial fibrillation, controlled Chronic I48.91 - UNSPECIFIED ATRIAL FIBRILLATION Comment/Plan: Adjusting Coumadin therapy. Continue rate control as able. Cardizem 60 mg p.o. q.6 and getting Lopressor 50 p.o. Q 8. (6) Bilateral pleural effusion Acute J90 - PLEURAL EFFUSION, NOT ELSEWHERE CLASSIFIED Comment/Plan: Related to her CHF much improved. (7) Peripheral edema Acute R60.9 - EDEMA, UNSPECIFIED Comment/Plan: Peripheral edema has improved with the IV Lasix for this manifestation of CHF. (8) Pulmonary artery hypertension Resolved I27.2 - OTHER SECONDARY PULMONARY HYPERTENSION Comment/Plan: Echocardiogram is showed ejection fraction of 60% and left ventricular hypertrophy which shows the CHF to be more diastolic than systolic failure. (9) Hyponatremia Resolved E87.1 - HYPO-OSMOLALITY AND HYPONATREMIA Comment/Plan: SIADH appears improved with normalization of the sodium. Tolerating the IV Rocephin and finished her course of Zithromax. Disposition Plan: I feel she needs assisted placement and also recommended by physical therapy. Case Care Discussed with: Patient, Nursing Staff Education/Counseling Given To: Patient Education/Counseling Given Regarding: Diagnosis Total Time: 38 minutes Critical Care: No Code: 13549 (12+)
[2016-09-27] MEDS: METHYLPREDNISOLONE 40 MG/1 ML VIAL IV SCH ×2 (03:36→15:48)
[2016-09-27] MEDS: DILTIAZEM 60 MG TAB NG SCH ×4 (05:07→23:36)
[2016-09-27] MEDS: METOPROLOL TARTRATE 50 MG TAB PEG SCH ×3 (05:07→21:47)
[2016-09-27] MEDS: LANSOPRAZOLE 30 MG TAB NG SCH (05:07)
[2016-09-27] MEDS: POTASSIUM CHLORIDE 20 MEQ/15 ML ORAL SOLN NG SCH ×4 (05:07→23:36)
[2016-09-27] MEDS: REGULAR INSULIN 100 UNITS/ML - 3 ML VIAL SQ SCH ×2 (05:13→17:25)
[2016-09-27 06:33] LABS: MPV 8.7 fL (7.4-10.4)
--- NOTE | 2016-09-27 07:33 | DIRPT ---
CLINICAL DATA: Respiratory failure. EXAM: PORTABLE CHEST 1 VIEW COMPARISON: 09/25/2016. FINDINGS: Right IJ line stable position. Prior median sternotomy. Persistent severe cardiomegaly. Very mild interstitial edema cannot be excluded . No prominent pleural effusion. No pneumothorax IMPRESSION: 1. Right IJ line stable position . 2. Prior median sternotomy. Persistent severe cardiomegaly. A very mild component of pulmonary interstitial edema cannot be completely excluded. Electronically Signed By: Fritz Desai On: 09/27/2016 07:30
--- NOTE | 2016-09-27 08:23 | GENMEDPROG ---
Subjective Note: Patient doing well. Still on her overnight BiPAP which is being weaned. Notes Reviewed: Yes Events from last night noted and discussed with Clinical Staff Current Medication List: Reviewed Currently: Reports: NICK, SOB. Denies: Nausea and Vomiting, Abdominal Pain DVT Prophylaxis: Yes - Physical Examination Vital Signs and I&O: Last Vital Signs Temp 98.7 F 09/27/16 07:00 Pulse 110 09/27/16 07:00 Resp 22 09/27/16 07:00 BP 152/84 09/27/16 07:00 Pulse Ox 96 09/27/16 07:00 Oxygen Pulse Oxygen Saturation 96 O2 Device BiPAP Oxygen Flow Rate 1 Fraction of Inspired Oxygen ( 30 FIO2) Intake & Output 09/24/16 09/25/16 09/26/16 09/27/16 23:59 23:59 23:59 23:59 Intake Total 924 2214 667 77 Output Total 2850 2785 2350 975 Balance -1926 -1611 -1683 -898 Patient's weight 65.68 kg 60.963 kg 59.738 kg 59.738 kg General: Alert, Oriented x3, No acute distress, Well appearing, Well nourished HEENT: Normal (Normocephalic, atraumatic;EOMI.Sclera white, Nares patent, without discharge or bleeding. No oropharyngeal lesions or erythema. Mucous membranes are dry.) Neck: Non-tender, Normal Trachea alignment, Normal inspection (No cervical lymphadenopathy. No supraclavicular lymphadenopathy.), No Masses palpable, Limited range of motion, Supple Lymphatics: Normal (No lymph node swelling or pain.) Respiratory: Diminished. negative: Rales, Rhonchi, Wheezes Cardiovascular: Normal S1, No Gallops,Rubs/Murmurs, Normal S2, Irregular GI: Normal bowel sounds (normal active sounds), Soft (non-distended), No hepatospenomegaly, No masses, Tenderness (Mildly tender diffusely) Extremities/Musculoskeletal: Normal pulses (DP pulses 2+ bilaterally) Skin: Warm,Dry and Intact, No rashes, No significant lesion Neurological: Strength at 5/5 X4 ext (Motor 5/5 throughout.), Normal tone, Cranial nerves 3-12 NL ( 2-12 grossly intact.) Psych/Mental Status: Drowsy, Somnolent, Lethargic Lab/DI/Studies Reviewed: PORTABLE CHEST 1 VIEW COMPARISON: 09/25/2016. FINDINGS: Right IJ line stable position. Prior median sternotomy. Persistent severe cardiomegaly. Very mild interstitial edema cannot be excluded . No prominent pleural effusion. No pneumothorax IMPRESSION: 1. Right IJ line stable position . 2. Prior median sternotomy. Persistent severe cardiomegaly. A very mild component of pulmonary interstitial edema cannot be completely excluded. Electronically Signed By: Fritz Desai On: 09/27/2016 07:30 Abnormal Lab Results 09/26/16 09/27/16 09/27/16 17:13 05:09 05:45 WBC 16.2 H MCV 80 L MCH 24.7 L MCHC 30.8 L RDW 18.8 H PT POC Capillary Glucose 211 H 154 H 09/27/16 05:45 WBC MCV MCH MCHC RDW PT 30.9 H POC Capillary Glucose - Assessment (1) Diastolic CHF Chronic I50.30 - UNSPECIFIED DIASTOLIC (CONGESTIVE) HEART FAILURE Qualifiers: Congestive heart failure chronicity: acute on chronic Qualified Code(s): I50.33 - Acute on chronic diastolic (congestive) heart failure Comment/Plan: Cardiomegaly on chest x-ray. She has diastolic dysfunction, continue Lasix drip and very slowly diuresing. Cardiology is following, appreciate their help. (2) Respiratory failure with hypoxia and hypercapnia Acute J96.91 - RESPIRATORY FAILURE, UNSPECIFIED WITH HYPOXIA; J96.92 - RESPIRATORY FAILURE, UNSPECIFIED WITH HYPERCAPNIA Qualifiers: Chronicity: acute on chronic Qualified Code(s): J96.21 - Acute and chronic respiratory failure with hypoxia; J96.22 - Acute and chronic respiratory failure with hypercapnia Comment/Plan: Extubated using BiPAP at present. Will try to wean to a routine she can do at home. Will need to try to approved BiPAP for home use. (3) Atrial fibrillation, controlled Chronic I48.91 - UNSPECIFIED ATRIAL FIBRILLATION Comment/Plan: Adjusting Coumadin therapy, INR today acceptable. Continue rate control as able. Cardizem 60 mg p.o. q.6 and getting Lopressor 50 p.o. Q 8. (4) Pulmonary artery hypertension Resolved I27.2 - OTHER SECONDARY PULMONARY HYPERTENSION Comment/Plan: Echocardiogram is showed ejection fraction of 60% and left ventricular hypertrophy which shows the CHF to be more diastolic than systolic failure. (5) Bradycardia Resolved R00.1 - BRADYCARDIA, UNSPECIFIED Comment/Plan: Bradycardia has resolved. Continue off calcium channel blockers. (6) Bilateral pleural effusion Resolved J90 - PLEURAL EFFUSION, NOT ELSEWHERE CLASSIFIED Comment/Plan: Related to her CHF much improved. (7) Peripheral edema Resolved R60.9 - EDEMA, UNSPECIFIED Comment/Plan: Peripheral edema has improved with the IV Lasix for this manifestation of CHF. (8) Hyponatremia Resolved E87.1 - HYPO-OSMOLALITY AND HYPONATREMIA Comment/Plan: Continues to improve monitor daily. Sodium 147 today continue present care. - Plan Patient unable to transfer to long-term acute Care Hospital due to insurance limitations. We will attempt to get a BiPAP for her for use at skilled facility she will transfer to skilled facility prior to discharge home. Medical team conference was held on the patient discussion of diagnosis treatments plans and prognosis as well as disposition. In addition to myself the following team members were present nursing, physical therapy, speech therapy, occupational therapy, case management, social work, nutrition, sewing trimmer , palliative care, and home health nursing. Input from each discipline was recieved and is incorporated in the plan of care in the medical record as well as in the plans in the progress notes. Disposition Plan: I feel she needs [place] [facility] placement and also recommended by physical therapy. Case Care Discussed with: Patient, Nursing Staff Education/Counseling Given To: Patient Education/Counseling Given Regarding: Diagnosis, Treatment, Prognosis, Follow Up , Disposition Plan Total Time: 45 min Critical Care: No Couseling Time (>50% in counseling/coordination): No
[2016-09-27] MEDS: ENTERAL NUTRITION FORMULA NG SCH (08:26)
[2016-09-27] MEDS: LISINOPRIL 20 MG TAB PO SCH ×2 (08:26→20:28)
[2016-09-27] MEDS: SERTRALINE HCL 25 MG TAB PO SCH (08:26)
[2016-09-27] MEDS: THEOPHYLLINE 200 MG PO SCH ×2 (08:26→20:28)
[2016-09-27 08:32] LABS: SEG NEUTROPHIL 96 % (45-76)
[2016-09-27 08:32] LABS: ALLEN'S TEST PASS; BEb 28.7 (+/- 2); TCO2 58.4 MMOL/L (23-27)
[2016-09-27 08:33] LABS: ABG Draw Site Right Radial
[2016-09-27 08:39] LABS: BLOOD UREA NITROGEN 53 MG/DL (7-17); CALCIUM 9.1 MG/DL (8.4-10.2); CALCULATED OSMOLALITY 305 MOs/Kg (270-290); CHLORIDE 91 mEq/L (98-107); GLUCOSE 190 MG/DL (70-99); SODIUM LEVEL 149 mEq/L (137-146)
--- NOTE | 2016-09-27 10:28 | PCM.CARD ---
- Subjective Reason for visit: Follow-up pulmonary hypertension, congestive heart failure, Somewhat confused apparently doing better from physical therapy point of view. Vital Signs: Last Vital Signs Temp 98.3 F 09/27/16 10:00 Pulse 128 H 09/27/16 10:00 Resp 22 09/27/16 10:00 BP 148/88 09/27/16 10:00 Pulse Ox 93 09/27/16 10:00 PE: General Appearance: Well developed. Well nourished. In no acute distress. Lungs: Chest was not overinflated. Clear to auscultation. Cardiovascular: Jugular Venous Distention: JVD not increased. Heart Rate And Rhythm: Normal. Heart Sounds: Normal. Murmurs: No murmurs were heard. Carotid Arteries: Carotid pulses were normal. No bruit in the carotid artery. Edema: Not present. Lower extremities pulses normal (including femoral popliteal and dorsalis pedis) . Musculoskeletal System: General/bilateral: No cyanosis of the fingers. Neurological: Oriented to time, place, and person. Nails: No clubbing of the fingernails. Lab/DI Results Reviewed: Laboratory Results - last 24 hr 09/26/16 09/27/16 09/27/16 17:13 05:09 05:45 WBC 16.2 H RBC 4.93 Hgb 12.2 Hct 39.5 MCV 80 L MCH 24.7 L MCHC 30.8 L RDW 18.8 H Plt Count 291 MPV 8.7 Neut % (Auto) Cancelled Lymph % (Auto) Cancelled [place] % (Auto) Cancelled Eos % (Auto) Cancelled Baso % (Auto) Cancelled Absolute Neuts (auto) Cancelled Absolute Lymphs (auto) Cancelled Seg Neuts % (Manual) 96 H Band Neutrophils % 1 Lymphocytes % (Manual) 3 L Absolute Neutrophils 15.71 H Absolute Lymphocytes 0.49 L Platelet Estimate Norm RBC Morphology Reviewed this admiss PT INR Puncture Site pH pCO2 pO2 HCO3 Total CO2 Base Excess FiO2 % Specimen Drawn By Sodium Potassium Chloride Carbon Dioxide Anion Gap BUN Creatinine Estimated GFR (MDRD) Glucose POC Capillary Glucose 211 H 154 H Calculated Osmolality Calcium Magnesium 09/27/16 09/27/16 09/27/16 05:45 05:45 08:25 WBC RBC Hgb Hct MCV MCH MCHC RDW Plt Count MPV Neut % (Auto) Lymph % (Auto) [place] % (Auto) Eos % (Auto) Baso % (Auto) Absolute Neuts (auto) Absolute Lymphs (auto) Seg Neuts % (Manual) Band Neutrophils % Lymphocytes % (Manual) Absolute Neutrophils Absolute Lymphocytes Platelet Estimate RBC Morphology PT 30.9 H INR 3.0 Puncture Site Right radial pH 7.540 H pCO2 66.0 H pO2 63.0 L HCO3 56.4 H Total CO2 58.4 H Base Excess 28.7 H FiO2 % 1 lpm Specimen Drawn By Stana Sodium 149 H Potassium 4.0 Chloride 91 L Carbon Dioxide 49 H Anion Gap 13 BUN 53 H Creatinine 0.80 Estimated GFR (MDRD) > 60 Glucose 190 H POC Capillary Glucose Calculated Osmolality 305 H Calcium 9.1 Magnesium 2.20 - Assessment/Plan (1) Atrial fibrillation Chronic I48.91 - UNSPECIFIED ATRIAL FIBRILLATION Present on Admission: Yes A Comment/Plan: Rate control, will adjust anticoagulation. (2) Bilateral pleural effusion Resolved J90 - PLEURAL EFFUSION, NOT ELSEWHERE CLASSIFIED Present on Admission: Yes Comment/Plan: Noted, management as per pulmonology team. (3) Diastolic CHF Chronic I50.30 - UNSPECIFIED DIASTOLIC (CONGESTIVE) HEART FAILURE Present on Admission: Yes acute on chronic I50.33 - Acute on chronic diastolic (congestive) heart failure Comment/Plan: Continue diuresis, continue monitoring Chem 7. (4) Pulmonary artery hypertension Resolved I27.2 - OTHER SECONDARY PULMONARY HYPERTENSION Present on Admission: No Comment/Plan: Will address this as an outpatient. For now improvement in pulmonary status is critical and essential 1. (5) CRI (chronic renal insufficiency) Acute N18.9 - CHRONIC KIDNEY DISEASE, UNSPECIFIED C Comment/Plan: Continue watching her kidney function.
[2016-09-27] MEDS: CEFTRIAXONE 1 GM in D5W 100 ML IV SCH (11:38)
[2016-09-27] MEDS: PROBIOTIC BLEND TAB PO SCH ×2 (11:38→17:25)
[2016-09-27] MEDS ORDERED: VARIBAR NECTAR 40% BARIUM 240 ML ONE (14:32)
[2016-09-27] MEDS ORDERED: VARIBAR HONEY 40% BARIUM 250 ML ONE (14:32)
[2016-09-27] MEDS ORDERED: VARIBAR THIN 40% BARIUM 250 ML ONE (14:32)
[2016-09-27] MEDS ORDERED: BARIUM SULFATE 700 MG TABLET ONE (14:32)
[2016-09-27] MEDS: This patient is receiving warfarin therapy SCH (15:54)
--- NOTE | 2016-09-27 19:25 | PCM.PULM ---
Chief Complaint: Patient had been BiPAP overnight and has been overall relatively stable - Physical Examination Vital Signs and I&O: Last Vital Signs Temp 98.3 F 09/27/16 10:00 Pulse 109 09/27/16 18:00 Resp 22 09/27/16 10:00 BP 122/72 09/27/16 18:00 Pulse Ox 93 09/27/16 18:00 Oxygen Pulse Oxygen Saturation 93 O2 Device Nasal Cannula Oxygen Flow Rate 1 Fraction of Inspired Oxygen ( 30 FIO2) Intake & Output 09/24/16 09/25/16 09/26/16 09/27/16 23:59 23:59 23:59 23:59 Intake Total 924 2214 667 760 Output Total 2852 8643 5213 0018 Balance -9013 -4051 -4706 -3051 Patient's weight 65.68 kg 60.963 kg 59.738 kg 59.738 kg General: Alert, Oriented x3, Cooperative, No acute distress, Weakness, Fatigue Respiratory: Diminished (bilaterally), Rhonchi Cardiovascular: No Gallops,Rubs/Murmurs, Irregular (a fib with rate controlled) GI: Normal bowel sounds, Soft, Non tender, No masses Extremities/Musculoskeletal: Normal pulses Skin: Warm,Dry and Intact, No rashes, No breakdown, No significant lesion Neurological: Normal speech, Normal tone, Cranial nerves 3-12 NL Psych/Mental Status: Appropriate, Cooperative, Agitated, Anxious, Confused Result Diagrams: 09/27/16 05:45 09/27/16 05:45 Labs (last 24 hours): Laboratory Results - last 24 hr 09/27/16 09/27/16 09/27/16 05:09 05:45 05:45 WBC 16.2 H RBC 4.93 Hgb 12.2 Hct 39.5 MCV 80 L MCH 24.7 L MCHC 30.8 L RDW 18.8 H Plt Count 291 MPV 8.7 Neut % (Auto) Cancelled Lymph % (Auto) Cancelled [place] % (Auto) Cancelled Eos % (Auto) Cancelled Baso % (Auto) Cancelled Absolute Neuts (auto) Cancelled Absolute Lymphs (auto) Cancelled Seg Neuts % (Manual) 96 H Band Neutrophils % 1 Lymphocytes % (Manual) 3 L Absolute Neutrophils 15.71 H Absolute Lymphocytes 0.49 L Platelet Estimate Norm RBC Morphology Reviewed this admiss PT 30.9 H INR 3.0 Puncture Site pH pCO2 pO2 HCO3 Total CO2 Base Excess FiO2 % Specimen Drawn By Sodium Potassium Chloride Carbon Dioxide Anion Gap BUN Creatinine Estimated GFR (MDRD) Glucose POC Capillary Glucose 154 H Calculated Osmolality Calcium Magnesium 09/27/16 09/27/16 09/27/16 05:45 08:25 16:34 WBC RBC Hgb Hct MCV MCH MCHC RDW Plt Count MPV Neut % (Auto) Lymph % (Auto) [place] % (Auto) Eos % (Auto) Baso % (Auto) Absolute Neuts (auto) Absolute Lymphs (auto) Seg Neuts % (Manual) Band Neutrophils % Lymphocytes % (Manual) Absolute Neutrophils Absolute Lymphocytes Platelet Estimate RBC Morphology PT INR Puncture Site Right radial pH 7.540 H pCO2 66.0 H pO2 63.0 L HCO3 56.4 H Total CO2 58.4 H Base Excess 28.7 H FiO2 % 1 lpm Specimen Drawn By Stana Sodium 149 H Potassium 4.0 Chloride 91 L Carbon Dioxide 49 H Anion Gap 13 BUN 53 H Creatinine 0.80 Estimated GFR (MDRD) > 60 Glucose 190 H POC Capillary Glucose 312 H Calculated Osmolality 305 H Calcium 9.1 Magnesium 2.20 Lab/DI/Studies Reviewed: Chest x-ray Chest x-ray was seen personally patient seems to have significant cardiomegaly with mild pulmonary vascular congestion - Assessment/Plan (1) Acute respiratory failure with hypoxia Acute J96.01 - ACUTE RESPIRATORY FAILURE WITH HYPOXIA Comment/Plan: Patient has been on BiPAP overnight and would be tapered off of BiPAP during the daytime and continue on BiPAP at nighttime. I would continue the oxygen as low as possible to keep the pulse ox above 90% as patient is a significant carbon dioxide retainer. I would also get a chest x-ray and a blood gas on the patient in the morning she is critically ill and would be kept in ICU she might end up needing intubation. Continue other supportive care with DVT and GI prophylaxis antibiotics prognosis remains guarded would follow the patient closely NG tube was removed today Patient remains critically ill and is in danger of getting worse and would be kept in ICU for another 24 hours (2) Bilateral pleural effusion Resolved J90 - PLEURAL EFFUSION, NOT ELSEWHERE CLASSIFIED Comment/Plan: Effusions have been improving slowly continue Lasix drip for now as patient has been in negative balance (3) Diastolic CHF Chronic I50.30 - UNSPECIFIED DIASTOLIC (CONGESTIVE) HEART FAILURE acute on chronic I50.33 - Acute on chronic diastolic (congestive) heart failure Comment/Plan: Continue supportive care continue diuresis (4) Pulmonary artery hypertension Resolved I27.2 - OTHER SECONDARY PULMONARY HYPERTENSION Comment/Plan: No treatment at this time continue current oxygen and on noninvasive ventilation as needed I personally saw and evaluated the patient.: Yes Case Care Discussed with: Patient, Nursing Staff Education/Counseling Given To: Patient Education/Counseling Given Regarding: Diagnosis, Treatment, Prognosis, Follow Up , Disposition Plan
[2016-09-27] MEDS: PRAVASTATIN 80 MG TABLET PO SCH (20:28)
[2016-09-27] MEDS: CHLORHEXIDINE (HIBICLENS) 4 OZ BOTTLE TOP SCH (20:28)
[2016-09-28] MEDS: METHYLPREDNISOLONE 40 MG/1 ML VIAL IV SCH (05:00)
[2016-09-28] MEDS: DILTIAZEM 60 MG TAB NG SCH ×4 (05:01→23:56)
[2016-09-28] MEDS: METOPROLOL TARTRATE 50 MG TAB PEG SCH ×3 (05:01→21:18)
[2016-09-28] MEDS: POTASSIUM CHLORIDE 20 MEQ/15 ML ORAL SOLN NG SCH ×5 (05:01→23:56)
[2016-09-28] MEDS: LANSOPRAZOLE 30 MG TAB NG SCH (05:01)
[2016-09-28] MEDS: REGULAR INSULIN 100 UNITS/ML - 3 ML VIAL SQ SCH ×3 (06:06→20:16)
[2016-09-28 07:48] LABS: MPV 8.3 fL (7.4-10.4)
[2016-09-28 08:02] LABS: PT-INR 2.5
[2016-09-28 08:14] LABS: BLOOD UREA NITROGEN 54 MG/DL (7-17); CALCIUM 8.8 MG/DL (8.4-10.2); CALCULATED OSMOLALITY 304 MOs/Kg (270-290); CHLORIDE 92 mEq/L (98-107); GLUCOSE 190 MG/DL (70-99); SODIUM LEVEL 148 mEq/L (137-146)
[2016-09-28] MEDS: ACETAZOLAMIDE 250 MG TAB PO SCH (08:41)
[2016-09-28] MEDS: THEOPHYLLINE 200 MG PO SCH ×2 (08:41→20:16)
[2016-09-28] MEDS: SERTRALINE HCL 25 MG TAB PO SCH (08:42)
[2016-09-28] MEDS: LISINOPRIL 20 MG TAB PO SCH ×2 (08:42→21:17)
--- NOTE | 2016-09-28 09:27 | GENMEDPROG ---
Subjective Note: Pleasant 70-year-old female admitted to our facility with congestive heart failure. Lasix Drip has been discontinued she is now off it and getting Lasix every 12 hours. She remains very weak. Patient has a bed offer at [facility]. Notes Reviewed: Yes Events from last night noted and discussed with Clinical Staff Current Medication List: Reviewed Currently: Reports: NICK, SOB. Denies: Nausea and Vomiting, Abdominal Pain DVT Prophylaxis: Yes - Physical Examination Vital Signs and I&O: Last Vital Signs Temp 98.3 F 09/27/16 10:00 Pulse 105 09/28/16 07:55 Resp 20 09/28/16 06:00 BP 111/65 09/28/16 06:00 Pulse Ox 97 09/28/16 06:00 Oxygen Pulse Oxygen Saturation 97 O2 Device Nasal Cannula Oxygen Flow Rate 1 Fraction of Inspired Oxygen ( 30 FIO2) Intake & Output 09/25/16 09/26/16 09/27/16 09/28/16 23:59 23:59 23:59 23:59 Intake Total 221 667 803 318 Output Total 6838 5340 2275 Balance -1616 -1556 -7736 318 Patient's weight 60.963 kg 59.738 kg 59.738 kg 59.165 kg General: Alert, Oriented x3, No acute distress, Well appearing, Well nourished HEENT: Normal (Normocephalic, atraumatic;EOMI.Sclera white, Nares patent, without discharge or bleeding. No oropharyngeal lesions or erythema. Mucous membranes are dry.) Neck: Non-tender, Normal Trachea alignment, Normal inspection (No cervical lymphadenopathy. No supraclavicular lymphadenopathy.), No Masses palpable, Limited range of motion, Supple Lymphatics: Normal (No lymph node swelling or pain.) Respiratory: Diminished. negative: Rales, Rhonchi, Wheezes Cardiovascular: Normal S1, No Gallops,Rubs/Murmurs, Normal S2, Irregular GI: Normal bowel sounds (normal active sounds), Soft (non-distended), No hepatospenomegaly, No masses, Tenderness (Mildly tender diffusely) Extremities/Musculoskeletal: Normal pulses (DP pulses 2+ bilaterally) Skin: Warm,Dry and Intact, No rashes, No significant lesion Neurological: Strength at 5/5 X4 ext (Motor 5/5 throughout.), Normal tone, Cranial nerves 3-12 NL ( 2-12 grossly intact.) Psych/Mental Status: Drowsy, Somnolent, Lethargic Lab/DI/Studies Reviewed: Laboratory Results - last 24 hr 09/27/16 09/28/16 09/28/16 16:34 05:12 07:30 WBC 17.5 H RBC 4.81 Hgb 12.2 Hct 38.5 MCV 80 L MCH 25.3 L MCHC 31.7 L RDW 18.5 H Plt Count 263 MPV 8.3 PT INR Sodium Potassium Chloride Carbon Dioxide Anion Gap BUN Creatinine Estimated GFR (MDRD) Glucose POC Capillary Glucose 312 H 169 H Calculated Osmolality Calcium Magnesium 09/28/16 09/28/16 09/28/16 07:30 07:30 07:30 WBC RBC Hgb Hct MCV MCH MCHC RDW Plt Count MPV PT 26.3 H INR 2.5 Sodium 148 H Potassium 3.5 Chloride 92 L Carbon Dioxide 48 H Anion Gap 12 BUN 54 H Creatinine 0.70 Estimated GFR (MDRD) > 60 Glucose 190 H POC Capillary Glucose Calculated Osmolality 304 H Calcium 8.8 Magnesium 2.20 Cancelled - Assessment (1) Diastolic CHF Chronic I50.30 - UNSPECIFIED DIASTOLIC (CONGESTIVE) HEART FAILURE Qualifiers: Congestive heart failure chronicity: acute on chronic Qualified Code(s): I50.33 - Acute on chronic diastolic (congestive) heart failure Comment/Plan: Cardiomegaly on chest x-ray. She has diastolic dysfunction, continue Lasix every 12 hours with very slowly diuresing. Cardiology is following, appreciate their help. (2) Respiratory failure with hypoxia and hypercapnia Acute J96.91 - RESPIRATORY FAILURE, UNSPECIFIED WITH HYPOXIA; J96.92 - RESPIRATORY FAILURE, UNSPECIFIED WITH HYPERCAPNIA Qualifiers: Chronicity: acute on chronic Qualified Code(s): J96.21 - Acute and chronic respiratory failure with hypoxia; J96.22 - Acute and chronic respiratory failure with hypercapnia Comment/Plan: Extubated using BiPAP at present. Will try to wean to a routine she can do at home. Will need to try to approved BiPAP for home use. (3) Atrial fibrillation, controlled Chronic I48.91 - UNSPECIFIED ATRIAL FIBRILLATION Comment/Plan: Adjusting Coumadin therapy, INR today acceptable. Continue rate control as able. Cardizem 60 mg p.o. q.6 and getting Lopressor 50 p.o. Q 8. (4) Pulmonary artery hypertension Resolved I27.2 - OTHER SECONDARY PULMONARY HYPERTENSION Comment/Plan: Echocardiogram is showed ejection fraction of 60% and left ventricular hypertrophy which shows the CHF to be more diastolic than systolic failure. (5) Bradycardia Resolved R00.1 - BRADYCARDIA, UNSPECIFIED Comment/Plan: Bradycardia has resolved. Continue off calcium channel blockers. (6) Bilateral pleural effusion Resolved J90 - PLEURAL EFFUSION, NOT ELSEWHERE CLASSIFIED Comment/Plan: Related to her CHF much improved. (7) Peripheral edema Resolved R60.9 - EDEMA, UNSPECIFIED Comment/Plan: Peripheral edema has improved with the IV Lasix for this manifestation of CHF. - Plan Patient unable to transfer to long-term acute Care Hospital due to insurance limitations. We will attempt to get a BiPAP for her for use at skilled facility she will transfer to skilled facility prior to discharge home. Medical team conference was held on the patient discussion of diagnosis treatments plans and prognosis as well as disposition. In addition to myself the following team members were present nursing, physical therapy, speech therapy, occupational therapy, case management, social work, nutrition, skein winder , palliative care, and home health nursing. Input from each discipline was recieved and is incorporated in the plan of care in the medical record as well as in the plans in the progress notes. Disposition Plan: I feel she needs long-term placement and also recommended by physical therapy. Likely discharge to skilled facility in 24-48 hours. Case Care Discussed with: Patient, Family, Nursing Staff Education/Counseling Given To: Patient, Family Member Education/Counseling Given Regarding: Diagnosis, Treatment, Prognosis, Follow Up , Disposition Plan Total Time: 45 minutes. Critical Care: No Couseling Time (>50% in counseling/coordination): No
--- NOTE | 2016-09-28 09:54 | PCM.PULM ---
Chief Complaint: Patient had uneventful overnight Patient is alert and responsive in bed follows commands. Breathing is fair on oxygen via nasal cannula Medication list and notes reviewed:yes, Events from last night noted and discussed with Clinical Staff - Physical Examination Vital Signs and I&O: Last Vital Signs Temp 98.1 F 09/28/16 09:28 Pulse 108 09/28/16 09:28 Resp 21 09/28/16 09:28 BP 160/88 09/28/16 09:28 Pulse Ox 95 09/28/16 09:28 Oxygen Pulse Oxygen Saturation 95 O2 Device Nasal Cannula Oxygen Flow Rate 1 Fraction of Inspired Oxygen ( 30 FIO2) Intake & Output 09/25/16 09/26/16 09/27/16 09/28/16 23:59 23:59 23:59 23:59 Intake Total 2211 667 803 318 Output Total 4256 5123 2275 Balance -9679 -8604 -2135 318 Patient's weight 60.963 kg 59.738 kg 59.738 kg 59.165 kg General: Alert, Oriented x3, Cooperative, No acute distress, Fatigue Respiratory: Diminished Cardiovascular: Regular rate, No Gallops,Rubs/Murmurs, Irregular (atrial fibrillation) GI: Normal bowel sounds, Soft, Non tender, No hepatospenomegaly, No masses Extremities/Musculoskeletal: Normal pulses Skin: Warm,Dry and Intact, No rashes, No significant lesion Neurological: Normal speech, Strength at 5/5 X4 ext, Normal tone, Cranial nerves 3-12 NL Psych/Mental Status: Normal Affect, Cooperative Result Diagrams: 09/28/16 07:30 09/28/16 07:30 Labs (last 24 hours): Laboratory Results - last 24 hr 09/27/16 09/28/16 09/28/16 16:34 05:12 07:30 WBC 17.5 H RBC 4.81 Hgb 12.2 Hct 38.5 MCV 80 L MCH 25.3 L MCHC 31.7 L RDW 18.5 H Plt Count 263 MPV 8.3 PT INR Sodium Potassium Chloride Carbon Dioxide Anion Gap BUN Creatinine Estimated GFR (MDRD) Glucose POC Capillary Glucose 312 H 169 H Calculated Osmolality Calcium Magnesium 09/28/16 09/28/16 09/28/16 07:30 07:30 07:30 WBC RBC Hgb Hct MCV MCH MCHC RDW Plt Count MPV PT 26.3 H INR 2.5 Sodium 148 H Potassium 3.5 Chloride 92 L Carbon Dioxide 48 H Anion Gap 12 BUN 54 H Creatinine 0.70 Estimated GFR (MDRD) > 60 Glucose 190 H POC Capillary Glucose Calculated Osmolality 304 H Calcium 8.8 Magnesium 2.20 Cancelled Lab/DI/Studies Reviewed: EKG: Atrial fibrillation, rate 100/min Medications Lansoprazole (Prevacid Solutabs) 30 mg NG 0600 [facility] Stop: 09/29/16 16:59 Last Admin: 09/16/16 05:42 Dose: 30 mg Sennosides (Senokot) 1 tab PO BID PRN PRN Reason: Constipation - First Option Stop: 09/28/16 16:59 Promethazine HCl (Phenergan) 12.5 mg IV Q6H PRN; Protocol PRN Reason: Nausea/Vomiting - Alternative Stop: 09/28/16 16:59 Acetaminophen (Tylenol Suppository) 325 mg MN Q6H PRN; Protocol PRN Reason: Mild Pain or Fever above 100.4 Stop: 09/28/16 16:59 Acetaminophen (Tylenol Tablet) 325 mg PO Q6H PRN; Protocol PRN Reason: Mild Pain or Fever above 100.4 Stop: 09/28/16 16:59 Albuterol (Proventil Hfa) 8 puff INH Q6H PRN PRN Reason: WHEEZING Stop: 09/29/16 14:21 Last Admin: 09/16/16 09:04 Dose: 8 puff Benzonatate (Tessalon) 200 mg PO Q8H PRN PRN Reason: Cough - First Option Stop: 09/28/16 16:59 Chlorphenir/Hydrocodone Polistirex (Tussionex) 5 ml PO BID PRN PRN Reason: Cough - Alternative Stop: 09/28/16 16:59 Lact Acid/Bifidobact/Lact [place]/Streptoc Th (Felisha Q) 1 tab PO BIDLS [facility] Stop: 09/29/16 21:59 Lisinopril (Zestril) 20 mg PO BID [facility] Stop: 09/28/16 20:59 Last Admin: 09/16/16 10:03 Dose: Not Given Petrolatum ([place]) 1 tube TOP DIR PRN PRN Reason: Oral Care While Intubated Stop: 09/29/16 16:59 Pravastatin Sodium (Pravachol) 80 mg PO HS [facility] Stop: 09/28/16 20:59 Last Admin: 09/15/16 22:35 Dose: 80 mg Sertraline HCl (Zoloft) 25 mg PO DAILY [facility] Stop: 09/29/16 08:59 Last Admin: 09/16/16 09:42 Dose: 25 mg Enteral Nutritional Formula (Jevity 1.0) 1,000 ml NG Q18H [facility] Stop: 10/03/16 17:59 Last Admin: 09/25/16 17:05 Dose: 1,000 ml Furosemide (Lasix) 80 mg IV LASBID [facility] Stop: 10/12/16 16:59 Diltiazem HCl (Cardizem) 60 mg NG Q6 [facility] Stop: 10/08/16 16:59 Last Admin: 09/28/16 05:01 Dose: 60 mg Metoprolol Tartrate (Lopressor) 50 mg PEG Q8 [facility] Stop: 10/07/16 16:59 Last Admin: 09/28/16 05:01 Dose: 50 mg Potassium Chloride (Kcl 20 Meq/15 Ml Oral Liquid) 20 meq NG Q6 [facility] Stop: 10/07/16 16:59 Last Admin: 09/28/16 05:01 Dose: 20 meq Warfarin Sodium 6 mg/ Warfarin (Sodium 1.25 mg) 7.25 mg PO 1800 [facility] Stop: 09/30/16 17:59 - Assessment/Plan (1) Acute respiratory failure with hypoxia Acute J96.01 - ACUTE RESPIRATORY FAILURE WITH HYPOXIA Comment/Plan: Patient has been on BiPAP overnight and would be tapered off of BiPAP during the daytime and continue on BiPAP at nighttime. I would continue the oxygen as low as possible to keep the pulse ox above 90% as patient is a significant carbon dioxide retainer. Continue other supportive care with DVT and GI prophylaxis antibiotics prognosis remains guarded would follow the patient closely NG tube was removed today (2) Bilateral pleural effusion Resolved J90 - PLEURAL EFFUSION, NOT ELSEWHERE CLASSIFIED Comment/Plan: Effusions have been improving slowly continue Lasix drip for now as patient has been in negative balance (3) Diastolic CHF Chronic I50.30 - UNSPECIFIED DIASTOLIC (CONGESTIVE) HEART FAILURE acute on chronic I50.33 - Acute on chronic diastolic (congestive) heart failure Comment/Plan: Continue supportive care continue diuresis (4) Pulmonary artery hypertension Resolved I27.2 - OTHER SECONDARY PULMONARY HYPERTENSION Comment/Plan: No treatment at this time continue current oxygen and on noninvasive ventilation as needed
[2016-09-28 10:13] LABS: SEG NEUTROPHIL 94 % (45-76); TOTAL CELL COUNT 100
--- NOTE | 2016-09-28 11:01 | PCM.CARD ---
- Subjective Reason for visit: Follow up atrial fibrillation, congestive heart failure. Offers no complaints. Vital Signs: Last Vital Signs Temp 98.1 F 09/28/16 09:28 Pulse 108 09/28/16 09:28 Resp 21 09/28/16 09:28 BP 160/88 09/28/16 09:28 Pulse Ox 95 09/28/16 09:28 PE: General Appearance: Well developed. Well nourished. In no acute distress. Lungs: Chest was not overinflated. Clear to auscultation. Cardiovascular: Jugular Venous Distention: JVD not increased. Heart Rate And Rhythm: Irregularly irregular l. Heart Sounds: Normal. Murmurs: No murmurs were heard. Carotid Arteries: Carotid pulses were normal. No bruit in the carotid artery. Edema: Not present. Lower extremities pulses normal (including femoral popliteal and dorsalis pedis) . Musculoskeletal System: General/bilateral: No cyanosis of the fingers. Neurological: Oriented to time, place, and person. Nails: No clubbing of the fingernails. - Assessment/Plan (1) Atrial fibrillation Chronic I48.91 - UNSPECIFIED ATRIAL FIBRILLATION Present on Admission: Yes A Comment/Plan: Rate control, anticoagulated. Will continue present management. (2) Bilateral pleural effusion Resolved J90 - PLEURAL EFFUSION, NOT ELSEWHERE CLASSIFIED Present on Admission: Yes Comment/Plan: Noted, follow up by Pulmonary. (3) Diastolic CHF Chronic I50.30 - UNSPECIFIED DIASTOLIC (CONGESTIVE) HEART FAILURE Present on Admission: Yes acute on chronic I50.33 - Acute on chronic diastolic (congestive) heart failure Comment/Plan: Will reduce IV diuretics from continues infusion to 80 mg twice daily IV. (4) Pulmonary artery hypertension Resolved I27.2 - OTHER SECONDARY PULMONARY HYPERTENSION Present on Admission: No Comment/Plan: Noted, stable. (5) CRI (chronic renal insufficiency) Acute N18.9 - CHRONIC KIDNEY DISEASE, UNSPECIFIED C Comment/Plan: Continue watching kidney function. - Plan Overall there is slow but sure improvement. Will continue present management. Diuretic being reduced. I will sign off for now please call if situation changed.
[2016-09-28] MEDS: PROBIOTIC BLEND TAB PO SCH ×2 (13:48→17:53)
[2016-09-28] MEDS ORDERED: REGULAR INSULIN 100 UNITS/ML - 3 ML VIAL IV ONE (16:17)
[2016-09-28] MEDS ORDERED: GLUCOSE (ORAL GEL) 15 GM TUBE PO PRN (16:19)
[2016-09-28] MEDS ORDERED: GLUCAGON 1 MG VIAL SQ PRN (16:19)
[2016-09-28] MEDS ORDERED: DEXTROSE 25 GM/50 ML PFS IV PRN (16:19)
[2016-09-28] MEDS: This patient is receiving warfarin therapy SCH (16:28)
[2016-09-28] MEDS: FUROSEMIDE 40 MG/4 ML VIAL IV SCH (16:29)
[2016-09-28] MEDS: WARFARIN 6 MG TAB PO SCH (17:54)
[2016-09-28] MEDS: CHLORHEXIDINE (HIBICLENS) 4 OZ BOTTLE TOP SCH (20:13)
[2016-09-28] MEDS: PRAVASTATIN 80 MG TABLET PO SCH (20:16)
[2016-09-29] MEDS: DILTIAZEM 60 MG TAB NG SCH (05:22)
[2016-09-29] MEDS: METOPROLOL TARTRATE 50 MG TAB PEG SCH (05:22)
[2016-09-29] MEDS: POTASSIUM CHLORIDE 20 MEQ/15 ML ORAL SOLN NG SCH (05:22)
[2016-09-29] MEDS: LANSOPRAZOLE 30 MG TAB NG SCH (05:28)
[2016-09-29] MEDS: REGULAR INSULIN 100 UNITS/ML - 3 ML VIAL SQ SCH ×4 (05:44→22:30)
[2016-09-29 07:04] LABS: BLOOD UREA NITROGEN 42 MG/DL (7-17); CALCIUM 8.4 MG/DL (8.4-10.2); CALCULATED OSMOLALITY 279 MOs/Kg (270-290); CHLORIDE 89 mEq/L (98-107); GLUCOSE 99 MG/DL (70-99); SODIUM LEVEL 139 mEq/L (137-146)
[2016-09-29 07:11] LABS: PT-INR 2.2
[2016-09-29] MEDS: LISINOPRIL 20 MG TAB PO SCH (07:32)
[2016-09-29] MEDS: THEOPHYLLINE 200 MG PO SCH ×2 (07:32→22:32)
[2016-09-29] MEDS: SERTRALINE HCL 25 MG TAB PO SCH (07:32)
[2016-09-29] MEDS: FUROSEMIDE 40 MG/4 ML VIAL IV SCH ×2 (07:32→15:46)
[2016-09-29 08:46] LABS: SEG NEUTROPHIL 93 % (45-76)
--- NOTE | 2016-09-29 09:42 | PCM.PULM ---
Chief Complaint: Uneventful overnight with no acute distress. Breathing is improved a lot. Wore BIPAP overnight and doing fair Current medication list reviewed:yes Notes reviewed:yes, Events from last night noted and discussed with Clinical Staff - Physical Examination Vital Signs and I&O: Last Vital Signs Temp 98.0 F 09/29/16 08:39 Pulse 93 09/29/16 08:39 Resp 20 09/29/16 08:39 BP 80/54 L 09/29/16 08:39 Pulse Ox 97 09/29/16 08:39 Oxygen Pulse Oxygen Saturation 97 O2 Device Nasal Cannula Oxygen Flow Rate 1 Fraction of Inspired Oxygen ( 30 FIO2) Intake & Output 09/26/16 09/27/16 09/28/16 09/29/16 23:59 23:59 23:59 23:59 Intake Total 667 803 648 756 Output Total 1384 2275 250 Balance -2743 -6672 398 756 Patient's weight 59.738 kg 59.738 kg 59.165 kg 59.874 kg General: Alert, Oriented x3, No acute distress Respiratory: Diminished Cardiovascular: Regular rate, No Gallops,Rubs/Murmurs, Irregular (A fib) GI: Normal bowel sounds, Soft, Non tender, No hepatospenomegaly, No masses Extremities/Musculoskeletal: Normal pulses Skin: Warm,Dry and Intact, No rashes, No significant lesion Neurological: Normal speech, Strength at 5/5 X4 ext, Normal tone, Cranial nerves 3-12 NL Psych/Mental Status: Appropriate Result Diagrams: 09/29/16 06:20 09/29/16 06:20 Labs (last 24 hours): Laboratory Results - last 24 hr 09/28/16 09/28/16 09/29/16 18:30 20:09 05:26 WBC RBC Hgb Hct MCV MCH MCHC RDW Plt Count MPV Neut % (Auto) Lymph % (Auto) [place] % (Auto) Eos % (Auto) Baso % (Auto) Absolute Neuts (auto) Absolute Lymphs (auto) Seg Neuts % (Manual) Band Neutrophils % Lymphocytes % (Manual) Monocytes % (Manual) Absolute Neutrophils Absolute Lymphocytes Nucl RBC Rel Cnt (Man) Vacuolated Neuts Platelet Estimate RBC Morphology PT INR Sodium Potassium Chloride Carbon Dioxide Anion Gap BUN Creatinine Estimated GFR (MDRD) Glucose POC Capillary Glucose 276 H 312 H 73 Calculated Osmolality Calcium Magnesium 09/29/16 09/29/16 09/29/16 06:20 06:20 06:20 WBC 18.1 H RBC 4.65 Hgb 11.5 L Hct 37.7 MCV 81 MCH 24.7 L MCHC 30.4 L RDW 18.4 H Plt Count 232 MPV 9.0 Neut % (Auto) Cancelled Lymph % (Auto) Cancelled [place] % (Auto) Cancelled Eos % (Auto) Cancelled Baso % (Auto) Cancelled Absolute Neuts (auto) Cancelled Absolute Lymphs (auto) Cancelled Seg Neuts % (Manual) 93 H Band Neutrophils % 0 Lymphocytes % (Manual) 5 L Monocytes % (Manual) 2 Absolute Neutrophils 16.83 H Absolute Lymphocytes 0.91 Nucl RBC Rel Cnt (Man) 1 Vacuolated Neuts Platelet Estimate Norm RBC Morphology 1+ hypo PT INR Sodium 139 D Potassium 3.4 L Chloride 89 L Carbon Dioxide 47 H Anion Gap 6 L BUN 42 H Creatinine 0.90 Estimated GFR (MDRD) > 60 Glucose 99 POC Capillary Glucose Calculated Osmolality 279 Calcium 8.4 Magnesium 2.10 09/29/16 06:20 WBC RBC Hgb Hct MCV MCH MCHC RDW Plt Count MPV Neut % (Auto) Lymph % (Auto) [place] % (Auto) Eos % (Auto) Baso % (Auto) Absolute Neuts (auto) Absolute Lymphs (auto) Seg Neuts % (Manual) Band Neutrophils % Lymphocytes % (Manual) Monocytes % (Manual) Absolute Neutrophils Absolute Lymphocytes Nucl RBC Rel Cnt (Man) Vacuolated Neuts Platelet Estimate RBC Morphology PT 22.7 H INR 2.2 Sodium Potassium Chloride Carbon Dioxide Anion Gap BUN Creatinine Estimated GFR (MDRD) Glucose POC Capillary Glucose Calculated Osmolality Calcium Magnesium Lab/DI/Studies Reviewed: EKG: Atrial fibrillation Medications Lansoprazole (Prevacid Solutabs) 30 mg NG 0600 [facility] Stop: 09/29/16 16:59 Last Admin: 09/16/16 05:42 Dose: 30 mg Sennosides (Senokot) 1 tab PO BID PRN PRN Reason: Constipation - [facility] Stop: 09/28/16 16:59 Promethazine HCl (Phenergan) 12.5 mg IV Q6H PRN; Protocol PRN Reason: Nausea/Vomiting - Alternative Stop: 09/28/16 16:59 Magnesium Sulfate/Dextrose (Magnesium 2 Gram/50 Ml D5w) 2 gm in 50 mls @ 12.5 mls/hr IV NOW ONE Stop: 09/18/16 17:59 Acetaminophen (Tylenol Suppository) 325 mg MD Q6H PRN; Protocol PRN Reason: Mild Pain or Fever above 100.4 Stop: 09/28/16 16:59 Acetaminophen (Tylenol Tablet) 325 mg PO Q6H PRN; Protocol PRN Reason: Mild Pain or Fever above 100.4 Stop: 09/28/16 16:59 Albuterol (Proventil Hfa) 8 puff INH Q6H PRN PRN Reason: WHEEZING Stop: 09/29/16 14:21 Last Admin: 09/16/16 09:04 Dose: 8 puff Benzonatate (Tessalon) 200 mg PO Q8H PRN PRN Reason: Cough - First Option Stop: 09/28/16 16:59 Lact Acid/Bifidobact/Lact [place]/Streptoc Th (Felisha Q) 1 tab PO BIDLS [facility] Stop: 09/29/16 21:59 Last Admin: 09/16/16 11:36 Dose: 1 tab Petrolatum ([place]) 1 tube TOP DIR PRN PRN Reason: Oral Care While Intubated Stop: 09/29/16 16:59 Pravastatin Sodium (Pravachol) 80 mg PO HS [facility] Stop: 09/28/16 20:59 Last Admin: 09/15/16 22:35 Dose: 80 mg Sertraline HCl (Zoloft) 25 mg PO DAILY [facility] Stop: 09/29/16 08:59 Last Admin: 09/16/16 09:42 Dose: 25 mg Enteral Nutritional Formula (Jevity 1.0) 1,000 ml NG Q18H [facility] Stop: 10/03/16 17:59 Last Admin: 09/20/16 11:13 Dose: 1,000 ml Diltiazem HCl (Cardizem) 20 mg IV DIR PRN PRN Reason: AFIB/HR SUSTAINED ABOVE 125 Stop: 10/06/16 10:06 Enteral Nutritional Formula (Jevity 1.0) 1,000 ml NG Q18H [facility] Stop: 10/03/16 17:59 Last Admin: 09/25/16 17:05 Dose: 1,000 ml Theophylline (Alexis-Dur) 200 mg PO BID [facility] Stop: 10/10/16 16:59 Last Admin: 09/29/16 07:32 Dose: 200 mg Metoprolol Tartrate (Lopressor) 50 mg PO BID [facility] Stop: 10/13/16 20:59 Potassium Chloride (Klor-Con M20) 40 meq PO TIDWM [facility] Stop: 10/02/16 11:59 Diltiazem HCl (Cardizem) 60 mg PO Q8 [facility] Stop: 10/13/16 16:59 Furosemide (Lasix) 80 mg IV LASBID [facility] Stop: 10/12/16 16:59 Last Admin: 09/29/16 07:32 Dose: 80 mg - Assessment/Plan (1) Acute respiratory failure with hypoxia Acute J96.01 - ACUTE RESPIRATORY FAILURE WITH HYPOXIA Comment/Plan: I would continue the patient on BiPAP overnight and would be tapered off of BiPAP during the daytime and continue on BiPAP at nighttime. I would continue the oxygen as low as possible to keep the pulse ox above 90% as patient is a significant carbon dioxide retainer. Continue other supportive care with DVT and GI prophylaxis antibiotics prognosis remains guarded would follow the patient closely NG tube was removed today (2) Bilateral pleural effusion Resolved J90 - PLEURAL EFFUSION, NOT ELSEWHERE CLASSIFIED Comment/Plan: Effusions have been improving slowly continue Lasix (3) Diastolic CHF Chronic I50.30 - UNSPECIFIED DIASTOLIC (CONGESTIVE) HEART FAILURE acute on chronic I50.33 - Acute on chronic diastolic (congestive) heart failure Comment/Plan: Continue supportive care continue diuresis (4) Pulmonary artery hypertension Resolved I27.2 - OTHER SECONDARY PULMONARY HYPERTENSION Comment/Plan: No treatment at this time continue current oxygen and on noninvasive ventilation as needed
[2016-09-29] MEDS: DILTIAZEM 60 MG TAB PO SCH ×2 (12:58→22:32)
[2016-09-29] MEDS: PROBIOTIC BLEND TAB PO SCH ×2 (12:59→18:02)
[2016-09-29] MEDS: POTASSIUM CHLORIDE 20 MEQ TAB PO SCH ×2 (12:59→18:02)
--- NOTE | 2016-09-29 14:30 | GENMEDPROG ---
Subjective Note: Patient's blood pressure is running rather low today. Blood pressure medicines have been adjusted. Notes Reviewed: Yes Events from last night noted and discussed with Clinical Staff Current Medication List: Reviewed Currently: Reports: NICK, SOB. Denies: Nausea and Vomiting, Abdominal Pain DVT Prophylaxis: Yes - Physical Examination Vital Signs and I&O: Last Vital Signs Temp 98.1 F 09/29/16 11:30 Pulse 97 09/29/16 11:30 Resp 17 09/29/16 11:30 BP 94/67 L 09/29/16 11:30 Pulse Ox 97 09/29/16 11:30 Oxygen Pulse Oxygen Saturation 97 O2 Device Nasal Cannula Oxygen Flow Rate 1 Fraction of Inspired Oxygen ( 30 FIO2) Intake & Output 09/26/16 09/27/16 09/28/16 09/29/16 23:59 23:59 23:59 23:59 Intake Total 667 803 648 756 Output Total 2350 2275 250 500 Balance -6183 -1472 398 256 Patient's weight 59.738 kg 59.738 kg 59.165 kg 59.874 kg General: Alert, Oriented x3, No acute distress, Well appearing, Well nourished HEENT: Normal (Normocephalic, atraumatic;EOMI.Sclera white, Nares patent, without discharge or bleeding. No oropharyngeal lesions or erythema. Mucous membranes are dry.) Neck: Non-tender, Normal Trachea alignment, Normal inspection (No cervical lymphadenopathy. No supraclavicular lymphadenopathy.), No Masses palpable, Limited range of motion, Supple Lymphatics: Normal (No lymph node swelling or pain.) Respiratory: Diminished. negative: Rales, Rhonchi, Wheezes Cardiovascular: Normal S1, No Gallops,Rubs/Murmurs, Normal S2, Irregular GI: Normal bowel sounds (normal active sounds), Soft (non-distended), No hepatospenomegaly, No masses, Tenderness (Mildly tender diffusely) Extremities/Musculoskeletal: Normal pulses (DP pulses 2+ bilaterally) Skin: Warm,Dry and Intact, No rashes, No significant lesion Neurological: Strength at 5/5 X4 ext (Motor 5/5 throughout.), Normal tone, Cranial nerves 3-12 NL ( 2-12 grossly intact.) Psych/Mental Status: Drowsy, Somnolent, Lethargic Lab/DI/Studies Reviewed: Laboratory Results - last 24 hr 09/28/16 09/28/16 09/28/16 16:06 16:08 18:30 WBC RBC Hgb Hct MCV MCH MCHC RDW Plt Count MPV Neut % (Auto) Lymph % (Auto) [place] % (Auto) Eos % (Auto) Baso % (Auto) Absolute Neuts (auto) Absolute Lymphs (auto) Seg Neuts % (Manual) Band Neutrophils % Lymphocytes % (Manual) Monocytes % (Manual) Absolute Neutrophils Absolute Lymphocytes Nucl RBC Rel Cnt (Man) Platelet Estimate RBC Morphology PT INR Sodium Potassium Chloride Carbon Dioxide Anion Gap BUN Creatinine Estimated GFR (MDRD) Glucose POC Capillary Glucose 432 H* 442 H* 276 H Calculated Osmolality Calcium Magnesium 09/28/16 09/29/16 09/29/16 20:09 05:26 06:20 WBC 18.1 H RBC 4.65 Hgb 11.5 L Hct 37.7 MCV 81 MCH 24.7 L MCHC 30.4 L RDW 18.4 H Plt Count 232 MPV 9.0 Neut % (Auto) Cancelled Lymph % (Auto) Cancelled [place] % (Auto) Cancelled Eos % (Auto) Cancelled Baso % (Auto) Cancelled Absolute Neuts (auto) Cancelled Absolute Lymphs (auto) Cancelled Seg Neuts % (Manual) 93 H Band Neutrophils % 0 Lymphocytes % (Manual) 5 L Monocytes % (Manual) 2 Absolute Neutrophils 16.83 H Absolute Lymphocytes 0.91 Nucl RBC Rel Cnt (Man) 1 Platelet Estimate Norm RBC Morphology 1+ hypo PT INR Sodium Potassium Chloride Carbon Dioxide Anion Gap BUN Creatinine Estimated GFR (MDRD) Glucose POC Capillary Glucose 312 H 73 Calculated Osmolality Calcium Magnesium 09/29/16 09/29/16 09/29/16 06:20 06:20 06:20 WBC RBC Hgb Hct MCV MCH MCHC RDW Plt Count MPV Neut % (Auto) Lymph % (Auto) [place] % (Auto) Eos % (Auto) Baso % (Auto) Absolute Neuts (auto) Absolute Lymphs (auto) Seg Neuts % (Manual) Band Neutrophils % Lymphocytes % (Manual) Monocytes % (Manual) Absolute Neutrophils Absolute Lymphocytes Nucl RBC Rel Cnt (Man) Platelet Estimate RBC Morphology PT 22.7 H INR 2.2 Sodium 139 D Potassium 3.4 L Chloride 89 L Carbon Dioxide 47 H Anion Gap 6 L BUN 42 H Creatinine 0.90 Estimated GFR (MDRD) > 60 Glucose 99 POC Capillary Glucose Calculated Osmolality 279 Calcium 8.4 Magnesium 2.10 09/29/16 11:33 WBC RBC Hgb Hct MCV MCH MCHC RDW Plt Count MPV Neut % (Auto) Lymph % (Auto) [place] % (Auto) Eos % (Auto) Baso % (Auto) Absolute Neuts (auto) Absolute Lymphs (auto) Seg Neuts % (Manual) Band Neutrophils % Lymphocytes % (Manual) Monocytes % (Manual) Absolute Neutrophils Absolute Lymphocytes Nucl RBC Rel Cnt (Man) Platelet Estimate RBC Morphology PT INR Sodium Potassium Chloride Carbon Dioxide Anion Gap BUN Creatinine Estimated GFR (MDRD) Glucose POC Capillary Glucose 107 H Calculated Osmolality Calcium Magnesium - Assessment (1) Diastolic CHF Chronic I50.30 - UNSPECIFIED DIASTOLIC (CONGESTIVE) HEART FAILURE Qualifiers: Congestive heart failure chronicity: acute on chronic Qualified Code(s): I50.33 - Acute on chronic diastolic (congestive) heart failure Comment/Plan: Cardiomegaly on chest x-ray. She has diastolic dysfunction, continue Lasix every 12 hours with very slowly diuresing. Cardiology is following, appreciate their help. (2) Respiratory failure with hypoxia and hypercapnia Acute J96.91 - RESPIRATORY FAILURE, UNSPECIFIED WITH HYPOXIA; J96.92 - RESPIRATORY FAILURE, UNSPECIFIED WITH HYPERCAPNIA Qualifiers: Chronicity: acute on chronic Qualified Code(s): J96.21 - Acute and chronic respiratory failure with hypoxia; J96.22 - Acute and chronic respiratory failure with hypercapnia Comment/Plan: Extubated using BiPAP at present. Will try to wean to a routine she can do at home. Will need to try to approved BiPAP for home use. (3) Atrial fibrillation, controlled Chronic I48.91 - UNSPECIFIED ATRIAL FIBRILLATION Comment/Plan: Adjusting Coumadin therapy, INR today acceptable. Continue rate control as able. Cardizem 60 mg p.o. q.6 and getting Lopressor 50 p.o. Q 8. (4) Pulmonary artery hypertension Resolved I27.2 - OTHER SECONDARY PULMONARY HYPERTENSION Comment/Plan: Echocardiogram is showed ejection fraction of 60% and left ventricular hypertrophy which shows the CHF to be more diastolic than systolic failure. (5) Bradycardia Resolved R00.1 - BRADYCARDIA, UNSPECIFIED Comment/Plan: Blood pressures are very low. Will adjust both beta-blockers and calcium channel nikolas (6) Bilateral pleural effusion Resolved J90 - PLEURAL EFFUSION, NOT ELSEWHERE CLASSIFIED Comment/Plan: Related to her CHF much improved. (7) Peripheral edema Resolved R60.9 - EDEMA, UNSPECIFIED Comment/Plan: Peripheral edema has improved with the IV Lasix for this manifestation of CHF. - Plan Patient unable to transfer to long[facility]term acute [facility] due to insurance limitations. We will attempt to get a BiPAP for her for use at skilled facility she will transfer to skilled facility prior to discharge home. Given low blood pressures today will monitor on adjusted medications for 24 hours. . Disposition Plan: I feel she needs correction placement and also recommended by physical therapy. Likely discharge to skilled facility in 24-48 hours. Case Care Discussed with: Patient, Nursing Staff Education/Counseling Given To: Patient Education/Counseling Given Regarding: Diagnosis, Treatment, Prognosis Total Time: 45 minutes Critical Care: No Couseling Time (>50% in counseling/coordination): No
[2016-09-29] MEDS ORDERED: NS 250 ML IV ONE ×2 (15:36→16:54)
[2016-09-29] MEDS: This patient is receiving warfarin therapy SCH (17:58)
[2016-09-29] MEDS: WARFARIN 6 MG TAB PO SCH (18:02)
[2016-09-29] MEDS: METOPROLOL TARTRATE 50 MG TAB PO SCH (22:31)
[2016-09-29] MEDS: PRAVASTATIN 80 MG TABLET PO SCH (22:32)
[2016-09-30] MEDS: DILTIAZEM 60 MG TAB PO SCH ×3 (05:53→18:12)
[2016-09-30] MEDS: LANSOPRAZOLE 30 MG TAB NG SCH (05:53)
[2016-09-30] MEDS: REGULAR INSULIN 100 UNITS/ML - 3 ML VIAL SQ SCH ×4 (05:55→20:07)
[2016-09-30 06:22] VITALS: BMI 23.7
[2016-09-30 07:00] LABS: BLOOD UREA NITROGEN 38 MG/DL (7-17); CALCIUM 7.8 MG/DL (8.4-10.2); CALCULATED OSMOLALITY 275 MOs/Kg (270-290); CHLORIDE 94 mEq/L (98-107); GLUCOSE 132 MG/DL (70-99); SODIUM LEVEL 137 mEq/L (137-146); THEOPHYLLINE LEVEL 5.8 MCG/ML (10-20)
[2016-09-30 07:02] LABS: AUTOMATED BASOPHIL 0.2 % (0-2); AUTOMATED EOSINOPHIL 0.5 % (0-5); AUTOMATED LYMPH 3.4 % (17-44); AUTOMATED NEUTROPHIL 89.9 % (45-76); MPV 8.8 fL (7.4-10.4)
[2016-09-30 07:09] LABS: PT-INR 2.2
[2016-09-30] MEDS: FUROSEMIDE 40 MG/4 ML VIAL IV SCH (08:22)
[2016-09-30] MEDS: POTASSIUM CHLORIDE 20 MEQ TAB PO SCH ×3 (08:22→18:12)
[2016-09-30] MEDS: THEOPHYLLINE 200 MG PO SCH ×2 (08:22→20:07)
[2016-09-30] MEDS: SERTRALINE HCL 25 MG TAB PO SCH (08:22)
--- NOTE | 2016-09-30 10:40 | GENMEDPROG ---
Subjective Note: Patient feeling better no new complaints has begun asking questions about appropriate nutrition. Notes Reviewed: Yes Events from last night noted and discussed with Clinical Staff Current Medication List: Reviewed Currently: Reports: NICK, SOB. Denies: Nausea and Vomiting, Abdominal Pain DVT Prophylaxis: Yes - Physical Examination Vital Signs and I&O: Last Vital Signs Temp 97.2 F L 09/30/16 08:06 Pulse 89 09/30/16 08:06 Resp 18 09/30/16 08:06 BP 110/60 09/30/16 08:06 Pulse Ox 98 09/30/16 09:25 Oxygen Pulse Oxygen Saturation 98 O2 Device Nasal Cannula Oxygen Flow Rate 1 Fraction of Inspired Oxygen ( 30 FIO2) Intake & Output 09/27/16 09/28/16 09/29/16 09/30/16 23:59 23:59 23:59 23:59 Intake Total 662 939 4044 Output Total 2275 250 500 Balance -7694 544 2905 Patient's weight 59.738 kg 59.165 kg 59.874 kg 60.781 kg General: Alert, Oriented x3, No acute distress, Well appearing, Well nourished HEENT: Normal (Normocephalic, atraumatic;EOMI.Sclera white, Nares patent, without discharge or bleeding. No oropharyngeal lesions or erythema. Mucous membranes are dry.) Neck: Non-tender, Normal Trachea alignment, Normal inspection (No cervical lymphadenopathy. No supraclavicular lymphadenopathy.), No Masses palpable, Limited range of motion, Supple Lymphatics: Normal (No lymph node swelling or pain.) Respiratory: Diminished. negative: Rales, Rhonchi, Wheezes Cardiovascular: Normal S1, No Gallops,Rubs/Murmurs, Normal S2, Irregular GI: Normal bowel sounds (normal active sounds), Soft (non-distended), No hepatospenomegaly, No masses, Tenderness (Mildly tender diffusely) Extremities/Musculoskeletal: Normal pulses (DP pulses 2+ bilaterally) Skin: Warm,Dry and Intact, No rashes, No significant lesion Neurological: Strength at 5/5 X4 ext (Motor 5/5 throughout.), Normal tone, Cranial nerves 3-12 NL ( 2-12 grossly intact.) Psych/Mental Status: Drowsy, Somnolent, Lethargic Lab/DI/Studies Reviewed: Abnormal Lab Results 09/29/16 09/29/16 09/29/16 11:33 18:06 21:19 WBC Hgb MCH MCHC RDW Neut % (Auto) Lymph % (Auto) Absolute Neuts (auto) Absolute Lymphs (auto) PT Chloride Carbon Dioxide BUN Glucose POC Capillary Glucose 107 H 170 H 200 H Calcium Theophylline 09/30/16 09/30/16 09/30/16 05:49 06:35 06:35 WBC 13.8 H Hgb 11.5 L MCH 25.3 L MCHC 31.4 L RDW 18.3 H Neut % (Auto) 89.9 H Lymph % (Auto) 3.4 L Absolute Neuts (auto) 12.28 H Absolute Lymphs (auto) 0.41 L PT Chloride 94 L Carbon Dioxide 38 H BUN 38 H Glucose 132 H POC Capillary Glucose 134 H Calcium 7.8 L Theophylline 5.8 L 09/30/16 06:35 WBC Hgb MCH MCHC RDW Neut % (Auto) Lymph % (Auto) Absolute Neuts (auto) Absolute Lymphs (auto) PT 22.4 H Chloride Carbon Dioxide BUN Glucose POC Capillary Glucose Calcium Theophylline - Assessment (1) Diastolic CHF Chronic I50.30 - UNSPECIFIED DIASTOLIC (CONGESTIVE) HEART FAILURE Qualifiers: Congestive heart failure chronicity: acute on chronic Qualified Code(s): I50.33 - Acute on chronic diastolic (congestive) heart failure Comment/Plan: Cardiomegaly on chest x-ray. She has diastolic dysfunction, will hold Lasix for today is patient's blood pressure is a bit low she appears to be a bit dehydrated. Cardiology is following, appreciate their help. (2) Respiratory failure with hypoxia and hypercapnia Acute J96.91 - RESPIRATORY FAILURE, UNSPECIFIED WITH HYPOXIA; J96.92 - RESPIRATORY FAILURE, UNSPECIFIED WITH HYPERCAPNIA Qualifiers: Chronicity: acute on chronic Qualified Code(s): J96.21 - Acute and chronic respiratory failure with hypoxia; J96.22 - Acute and chronic respiratory failure with hypercapnia Comment/Plan: Continue p.r. n. BiPAP specially at night.. (3) Atrial fibrillation, controlled Chronic I48.91 - UNSPECIFIED ATRIAL FIBRILLATION Comment/Plan: Adjusting Coumadin therapy, INR today acceptable. Continue rate control as able. Cardizem 60 mg p.o. q.6 and getting Lopressor 50 p.o. Q 12. Doses had to be adjusted yesterday due to hypotension. Will monitor throughout today. (4) Pulmonary artery hypertension Resolved I27.2 - OTHER SECONDARY PULMONARY HYPERTENSION Comment/Plan: Echocardiogram is showed ejection fraction of 60% and left ventricular hypertrophy which shows the CHF to be more diastolic than systolic failure. (5) Bradycardia Resolved R00.1 - BRADYCARDIA, UNSPECIFIED Comment/Plan: Blood pressure is improving today will bring calcium channel nikolas back up to normal dose hold Lasix continue twice daily beta-nikolas (6) Bilateral pleural effusion Resolved J90 - PLEURAL EFFUSION, NOT ELSEWHERE CLASSIFIED Comment/Plan: Related to her CHF much improved. (7) Peripheral edema Resolved R60.9 - EDEMA, UNSPECIFIED Comment/Plan: Peripheral edema has improved with the IV Lasix for this manifestation of CHF. - Plan Patient unable to transfer to long-term acute Care Hospital due to insurance limitations. We will attempt to get a BiPAP for her for use at skilled facility she will transfer to skilled facility prior to discharge home. Given low blood pressures today will monitor on adjusted medications for 24 hours. . Disposition Plan: I feel she needs [facility]iary placement and also recommended by physical therapy. Likely discharge to skilled facility in 24-48 hours. Case Care Discussed with: Patient, Consultants, Family Education/Counseling Given To: Patient, Family Member Education/Counseling Given Regarding: Diagnosis, Treatment, Prognosis, Follow Up , Disposition Plan Total Time: 45 minutes Critical Care: No Couseling Time (>50% in counseling/coordination): No
[2016-09-30] MEDS: METOPROLOL TARTRATE 50 MG TAB PO SCH ×2 (11:08→20:07)
[2016-09-30] MEDS: PROBIOTIC BLEND TAB PO SCH ×2 (11:08→18:12)
[2016-09-30] MEDS: This patient is receiving warfarin therapy SCH (17:40)
[2016-09-30] MEDS: WARFARIN 6 MG TAB PO SCH (18:12)
[2016-09-30] MEDS: PRAVASTATIN 80 MG TABLET PO SCH (20:07)
[2016-10-01] MEDS: DILTIAZEM 60 MG TAB PO SCH ×4 (01:20→18:20)
[2016-10-01] MEDS: REGULAR INSULIN 100 UNITS/ML - 3 ML VIAL SQ SCH ×4 (05:34→21:59)
[2016-10-01] MEDS: LANSOPRAZOLE 30 MG TAB NG SCH (05:39)
[2016-10-01 08:11] LABS: AUTOMATED BASOPHIL 0.1 % (0-2); AUTOMATED EOSINOPHIL 1.2 % (0-5); AUTOMATED LYMPH 5.5 % (17-44); AUTOMATED MONOCYTE 7.2 % (3-10); MPV 8.8 fL (7.4-10.4)
[2016-10-01 08:29] LABS: PT-INR 2.2
[2016-10-01 08:41] LABS: BLOOD UREA NITROGEN 27 MG/DL (7-17); CALCIUM 7.8 MG/DL (8.4-10.2); CALCULATED OSMOLALITY 266 MOs/Kg (270-290); CHLORIDE 99 mEq/L (98-107); GLUCOSE 89 MG/DL (70-99); SODIUM LEVEL 136 mEq/L (137-146)
[2016-10-01] MEDS: KCL 20 mEq/100 ml Premix Run 20 MEQ/100 ML RTU IV SCH ×2 (08:46→10:51)
[2016-10-01] MEDS: POTASSIUM CHLORIDE 20 MEQ TAB PO SCH ×3 (08:47→17:05)
[2016-10-01] MEDS: ACETAZOLAMIDE 250 MG TAB PO SCH (08:49)
[2016-10-01] MEDS: THEOPHYLLINE 200 MG PO SCH (08:49)
[2016-10-01] MEDS: METOPROLOL TARTRATE 50 MG TAB PO SCH ×2 (08:49→20:16)
[2016-10-01] MEDS: SERTRALINE HCL 25 MG TAB PO SCH (08:50)
--- NOTE | 2016-10-01 09:40 | PCM.PULM ---
Chief Complaint: Patient in bed alert and responsive breathing has been fair. Wears BIPAP overnight Current medication list reviewed:yes Notes reviewed:yes, Events from last night noted and discussed with Clinical Staff - Physical Examination Vital Signs and I&O: Last Vital Signs Temp 98.8 F 10/01/16 08:00 Pulse 94 10/01/16 08:00 Resp 18 10/01/16 08:00 BP 107/72 10/01/16 08:00 Pulse Ox 94 10/01/16 08:00 Oxygen Pulse Oxygen Saturation 94 O2 Device Room Air Oxygen Flow Rate 1 Fraction of Inspired Oxygen ( 30 FIO2) Intake & Output 09/28/16 09/29/16 09/30/16 10/01/16 23:59 23:59 23:59 23:59 Intake Total 648 1963 720 Output Total 250 500 800 400 Balance 398 1463 -80 -400 Patient's weight 59.165 kg 59.874 kg 60.781 kg 60.781 kg General: Alert, Oriented x3, Cooperative, No acute distress Respiratory: Diminished Cardiovascular: Regular rate, No Gallops,Rubs/Murmurs, Irregular GI: Normal bowel sounds, Soft, Non tender, No hepatospenomegaly, No masses Extremities/Musculoskeletal: Normal pulses Skin: Warm,Dry and Intact, No rashes, No significant lesion Neurological: Normal speech, Strength at 5/5 X4 ext, Normal tone, Cranial nerves 3-12 NL Psych/Mental Status: Normal Affect, Cooperative Result Diagrams: 10/01/16 07:45 10/01/16 07:45 Labs (last 24 hours): Laboratory Results - last 24 hr 10/01/16 10/01/16 10/01/16 05:14 07:45 07:45 WBC 10.8 RBC 4.22 Hgb 10.8 L Hct 34.0 L MCV 81 MCH 25.7 L MCHC 31.8 L RDW 18.8 H Plt Count 189 MPV 8.8 Neut % (Auto) 86.0 H Lymph % (Auto) 5.5 L [place] % (Auto) 7.2 Eos % (Auto) 1.2 Baso % (Auto) 0.1 Absolute Neuts (auto) 9.29 H Absolute Lymphs (auto) 0.54 L PT INR Sodium 136 L Potassium 4.6 Chloride 99 Carbon Dioxide 36 H Anion Gap 6 L BUN 27 H Creatinine 0.70 Estimated GFR (MDRD) > 60 Glucose 89 POC Capillary Glucose 81 Calculated Osmolality 266 L Calcium 7.8 L Magnesium 2.20 10/01/16 10/01/16 07:45 07:45 WBC RBC Hgb Hct MCV MCH MCHC RDW Plt Count MPV Neut % (Auto) Lymph % (Auto) [place] % (Auto) Eos % (Auto) Baso % (Auto) Absolute Neuts (auto) Absolute Lymphs (auto) PT 22.9 H INR 2.2 Sodium Potassium Chloride Carbon Dioxide Anion Gap BUN Creatinine Estimated GFR (MDRD) Glucose POC Capillary Glucose Calculated Osmolality Calcium Magnesium Cancelled Lab/DI/Studies Reviewed: EKG: atrial fibrillation rate controlled Medications Lansoprazole (Prevacid Solutabs) 30 mg NG 0600 [facility] Stop: 09/29/16 16:59 Last Admin: 09/16/16 05:42 Dose: 30 mg Sennosides (Senokot) 1 tab PO BID PRN PRN Reason: Constipation - First Option Stop: 09/28/16 16:59 Promethazine HCl (Phenergan) 12.5 mg IV Q6H PRN; Protocol PRN Reason: Nausea/Vomiting - Alternative Stop: 09/28/16 16:59 Acetaminophen (Tylenol Suppository) 325 mg NE Q6H PRN; Protocol PRN Reason: Mild Pain or Fever above 100.4 Stop: 09/28/16 16:59 Acetaminophen (Tylenol Tablet) 325 mg PO Q6H PRN; Protocol PRN Reason: Mild Pain or Fever above 100.4 Stop: 09/28/16 16:59 Albuterol (Proventil Hfa) 8 puff INH Q6H PRN PRN Reason: WHEEZING Stop: 09/29/16 14:21 Last Admin: 09/16/16 09:04 Dose: 8 puff Lact Acid/Bifidobact/Lact [place]/Streptoc Th (Felisha Q) 1 tab PO BIDLS [facility] Stop: 09/29/16 21:59 Last Admin: 09/16/16 11:36 Dose: 1 tab Lisinopril (Zestril) 20 mg PO BID [facility] Stop: 09/28/16 20:59 Last Admin: 09/16/16 10:03 Dose: Not Given Lorazepam (Ativan) 1 - 2 mg IV Q30M PRN PRN Reason: Acute Agitation/on Ventilator Stop: 09/29/16 10:40 Last Admin: 09/15/16 13:50 Dose: 2 mg Petrolatum ([place]) 1 tube TOP DIR PRN PRN Reason: Oral Care While Intubated Stop: 09/29/16 16:59 Pravastatin Sodium (Pravachol) 80 mg PO HS Y[facility] Stop: 09/28/16 20:59 Last Admin: 09/15/16 22:35 Dose: 80 mg Sertraline HCl (Zoloft) 25 mg PO DAILY [facility] Stop: 09/29/16 08:59 Last Admin: 09/16/16 09:42 Dose: 25 mg Enteral Nutritional Formula (Jevity 1.0) 1,000 ml NG Q18H [facility] Stop: 10/03/16 17:59 Last Admin: 09/20/16 11:13 Dose: 1,000 ml Diltiazem HCl (Cardizem) 20 mg IV DIR PRN PRN Reason: AFIB/HR SUSTAINED ABOVE 125 Stop: 10/06/16 10:06 Enteral Nutritional Formula (Jevity 1.0) 1,000 ml NG Q18H [facility] Stop: 10/03/16 17:59 Last Admin: 09/25/16 17:05 Dose: 1,000 ml Theophylline (Alexis-Dur) 200 mg PO BID [facility] Stop: 10/10/16 16:59 Last Admin: 09/29/16 07:32 Dose: 200 mg Warfarin Sodium (Coumadin) 6 mg PO DAILY@1800 [facility] Stop: 10/05/16 16:59 Last Admin: 09/28/16 17:54 Dose: 6 mg Metoprolol Tartrate (Lopressor) 50 mg PO BID [facility] Stop: 10/13/16 20:59 Potassium Chloride (Klor-Con M20) 40 meq PO TIDWM [facility] Stop: 10/02/16 11:59 Last Admin: 10/01/16 13:07 Dose: 40 meq Furosemide (Lasix) 80 mg IV LASBID [facility] Stop: 10/12/16 16:59 Last Admin: 09/29/16 07:32 Dose: 80 mg Diltiazem HCl (Cardizem) 60 mg PO Q6 [facility] Stop: 10/14/16 11:59 Last Admin: 10/01/16 13:07 Dose: 60 mg - Assessment/Plan (1) Acute respiratory failure with hypoxia Acute J96.01 - ACUTE RESPIRATORY FAILURE WITH HYPOXIA Comment/Plan: Patient has been requiring BiPAP at nighttime I think that is reasonable and she may be able to go home on BiPAP at nighttime continue oxygen during the day to keep the pulse ox above 90 continue full supportive care with DVT and GI prophylaxis patient needs to follow up with me as an outpatient to further evaluate her pulmonary condition (2) Bilateral pleural effusion Resolved J90 - PLEURAL EFFUSION, NOT ELSEWHERE CLASSIFIED Comment/Plan: Effusions have been improving slowly continue Lasix (3) Diastolic CHF Chronic I50.30 - UNSPECIFIED DIASTOLIC (CONGESTIVE) HEART FAILURE acute on chronic I50.33 - Acute on chronic diastolic (congestive) heart failure Comment/Plan: Continue supportive care continue diuresis (4) Pulmonary artery hypertension Resolved I27.2 - OTHER SECONDARY PULMONARY HYPERTENSION Comment/Plan: No treatment at this time continue current oxygen and on noninvasive ventilation as needed
[2016-10-01 10:34] VITALS: TEMP 98.1
[2016-10-01] MEDS: PROBIOTIC BLEND TAB PO SCH ×2 (13:07→18:20)
--- NOTE | 2016-10-01 13:43 | PCM.DCS92 ---
- Final/Secondary Discharge Diagnosis (1) Diastolic CHF Chronic I50.30 - UNSPECIFIED DIASTOLIC (CONGESTIVE) HEART FAILURE Present on Admission: Yes acute on chronic I50.33 - Acute on chronic diastolic (congestive) heart failure Comment: Cardiomegaly on chest x-ray. She has diastolic dysfunction, will hold Lasix for today is patient's blood pressure is a bit low she appears to be a bit dehydrated. Cardiology is following, appreciate their help. (2) Respiratory failure with hypoxia and hypercapnia Chronic J96.91 - RESPIRATORY FAILURE, UNSPECIFIED WITH HYPOXIA; J96.92 - RESPIRATORY FAILURE, UNSPECIFIED WITH HYPERCAPNIA Present on Admission: Yes acute on chronic J96.21 - Acute and chronic respiratory failure with hypoxia ; J96.22 - Acute and chronic respiratory failure with hypercapnia Comment: Continue p.r. n. BiPAP specially at night.. (3) Atrial fibrillation, controlled Chronic I48.91 - UNSPECIFIED ATRIAL FIBRILLATION Present on Admission: Yes Comment: Adjusting Coumadin therapy, INR today acceptable. Continue rate control as able. Cardizem 60 mg p.o. q.6 and getting Lopressor 50 p.o. Q 12. Doses had to be adjusted yesterday due to hypotension. Will monitor throughout today. (4) Pulmonary artery hypertension Resolved I27.2 - OTHER SECONDARY PULMONARY HYPERTENSION Present on Admission: No Comment: Echocardiogram is showed ejection fraction of 60% and left ventricular hypertrophy which shows the CHF to be more diastolic than systolic failure. (5) Bradycardia Resolved R00.1 - BRADYCARDIA, UNSPECIFIED Comment: Blood pressure is improving today will bring calcium channel nikolas back up to normal dose hold Lasix continue twice daily beta-nikolas (6) Bilateral pleural effusion Resolved J90 - PLEURAL EFFUSION, NOT ELSEWHERE CLASSIFIED Present on Admission: Yes Comment: Related to her CHF much improved. (7) Peripheral edema Resolved R60.9 - EDEMA, UNSPECIFIED Present on Admission: Yes Comment: Peripheral edema has improved with the IV Lasix for this manifestation of CHF. Discharge Disposition: Care Home Facility ([facility]) Discharge Condition: Improved Cognitive Discharge Status: Unimpaired Fuctional Discharge Status: Walker Assistance, Total Assistance Required, Fall Risk, Deconditioning, Ambulatory Dysfunction Physician Follow up/Referrals: Brandon Browning MD [Primary Care Provider] - Six Weeks Home Medications / New Prescriptions: New Warfarin Sodium [Coumadin] 6 mg PO DAILY@1800 #14 tablet Probiotic Blend [Felisha Q] 1 tab PO BIDLS #60 tablet Furosemide [Lasix] 40 mg PO BID #60 tab Metoprolol Tartrate [Lopressor] 50 mg PO BID #30 tablet Lansoprazole [Prevacid Solutabs] 30 mg NG 0600 #30 tablet Continue Pravastatin [Pravachol] 80 mg PO HS POTASSIUM CHLORIDE Tablet [K-DUR 20 mEq Tablet*] 20 meq PO QAM Sertraline HCl [Zoloft] 25 mg PO DAILY Discontinued Diltiazem HCl [Cardizem Cd] 300 mg PO QAM Lisinopril/Hydrochlorothiazide [Zestoretic 20-12.5 mg Tablet] 1 tab PO BID Warfarin Sodium [Coumadin] 7 mg PO SUTUTHSA Warfarin Sodium [Coumadin] 7.5 mg PO MOWEFR Discharge Home Medication List POTASSIUM CHLORIDE Tablet [K-DUR 20 mEq Tablet*] 20 meq PO QAM 05/25/14 [ History Confirmed 09/14/16] Pravastatin [Pravachol] 80 mg PO HS 05/25/14 [History Confirmed 09/14/16] Sertraline HCl [Zoloft] 25 mg PO DAILY 03/19/15 [History Confirmed 09/14/16] Furosemide [Lasix] 40 mg PO BID #60 tab 10/01/16 [Rx] Lansoprazole [Prevacid Solutabs] 30 mg NG 0600 #30 tablet 10/01/16 [Rx] Metoprolol Tartrate [Lopressor] 50 mg PO BID #30 tablet 10/01/16 [Rx] Probiotic Blend [Felisha Q] 1 tab PO BIDLS #60 tablet 10/01/16 [Rx] Warfarin Sodium [Coumadin] 6 mg PO DAILY@1800 #14 tablet 10/01/16 [Rx] New Discharge Medications (Rx) Furosemide [Lasix] 40 mg PO BID #60 tab 10/01/16 [Rx] Lansoprazole [Prevacid Solutabs] 30 mg NG 0600 #30 tablet 10/01/16 [Rx] Metoprolol Tartrate [Lopressor] 50 mg PO BID #30 tablet 10/01/16 [Rx] Probiotic Blend [Felisha Q] 1 tab PO BIDLS #60 tablet 10/01/16 [Rx] Warfarin Sodium [Coumadin] 6 mg PO DAILY@1800 #14 tablet 10/01/16 [Rx] O2 Device: Room Air Diet at Discharge: Cardiac, Heart Healthy, Low Salt Activity: No Restrictions, As Tolerated Call Office For: Worsening Symptoms, Fever over 100.5, Pain Uncontrolled By Meds - DC Summary Notes HPI/Notes: She is admitted to the hospital with respiratory failure requiring intubation and presented with severe hyponatremia serum sodium 117. Her son relates she has had no pulmonary evaluation to his knowledge as an outpatient. Her other cardiac problems include atrial fibrillation rate controlled as an outpatient she takes calcium channel nikolas and is anticoagulated with warfarin. As an outpatient she is on a thiazide diuretic and FRANCOISE-inhibitor no loop diuretic. Her BNP level is elevated chest x-ray suggest heart failure. She is intubated sedated with propofol and history is obtained from the son in chart review Hospital Course Note:: Discharge summary on patient named ALEXSANDRA PLUNKETT admitted to [facility] on 09/14/16 by Scott Simmons MD. Date of discharge is []. 70-year-old female presented to our facility with congestive heart failure. She had a very long and tumultuous course involving being intubated for multiple days. Ultimately she was extubated and with careful monitoring from Cardiology she slowly improved. She was noted to have atrial fibrillation and this was treated with both anticoagulation and rate control. Unfortunately she had trouble with her blood pressures on the rate control medication and diltiazem was discontinued but metoprolol was continued. She slowly improved. Today she ambulated in the halls on room air without any desaturation and with no cardiac issues. Heart rate was stable. At this point the patient is ready for significant rehab. She has been very weak and by her critical illness. She has reached maximal benefit of hospitalization. She is stable for discharge to skilled facility. Total Time: 45 min Code: 66337 (>30min.) - Physical Exam Vital Signs: Last Vital Signs Temp 98.5 F 10/01/16 12:00 Pulse 96 10/01/16 12:01 Resp 18 10/01/16 12:00 BP 114/60 10/01/16 12:01 Pulse Ox 93 10/01/16 12:00 Oxygen Pulse Oxygen Saturation 93 O2 Device Room Air Oxygen Flow Rate 1 Fraction of Inspired Oxygen ( 30 FIO2) Constitutional: Alert, Well nourished, Well appearing. negative: Confused - HEENT Head: Normal (No neck vein distention or bruit). negative: Deformity, Swelling Eye: Normal. negative: Edema, Scleral Icterus Oropharynx: Normal (Pharynx: Moist without exudate,Gums-no swelling, No oropharyngeal lesions or erythema, Mucous membranes are dry.) Nose: No Symptoms Reported (Nares patent, without discharge or bleeding.) - Respiratory/Cardiovascular Respiratory: Diminished. negative: Rales, Rhonchi, Wheezes Cardiovascular: Normal (RRR , Normal S1, S2. No murmurs, rubs, or gallops. PMI non-displaced. Carotids: no carotid bruits. No bradycardia or tachycardia. DP pulses 2+ bilaterally.) - GI Auscultation: Normal (Soft nondistended) Palpation: Normal Tenderness: Non tender Longo's Sign: Negative - Musculoskeletal Back: negative: Ecchymosis, CVA Tenderness Extremities: Femoral Pulse, Pedal Pulse, Radial Pulse. negative: Calf Tenderness, Clubbing, Cyanosis, Edema, Pedal Edema - Integumentary Skin: Normal (Warm dry no rashes) Lymphatics: Normal (No lymph node swelling or pain.) - Neurologic Memory Impaired: Normal Motor Function: Normal (Motor 5/5 throughout.Normal tone, Pulses 2+ No cyanosis or edema, FROM) Cranial Nerve: Normal (CN II-XII intact sensation, strength 5/5) Cerebellar: Normal (Babinski: toes downgoing bilaterally. Intact Finger to nose. Sensory grossly intact to light touch. Intact rapid alternating movements bilaterally. No pronator drift.) Mood Description: Normal (Fully oriented. Normal and appropriate affect.) Thought: Coherent Perception: Normal (Normal and appropriate affect.) - Other Exam Other Exam Findings: Laboratory Results - last 24 hr 09/30/16 09/30/16 10/01/16 15:48 19:31 05:14 WBC RBC Hgb Hct MCV MCH MCHC RDW Plt Count MPV Neut % (Auto) Lymph % (Auto) [place] % (Auto) Eos % (Auto) Baso % (Auto) Absolute Neuts (auto) Absolute Lymphs (auto) PT INR Sodium Potassium Chloride Carbon Dioxide Anion Gap BUN Creatinine Estimated GFR (MDRD) Glucose POC Capillary Glucose 151 H 299 H 81 Calculated Osmolality Calcium Magnesium 10/01/16 10/01/16 10/01/16 07:45 07:45 07:45 WBC 10.8 RBC 4.22 Hgb 10.8 L Hct 34.0 L MCV 81 MCH 25.7 L MCHC 31.8 L RDW 18.8 H Plt Count 189 MPV 8.8 Neut % (Auto) 86.0 H Lymph % (Auto) 5.5 L [place] % (Auto) 7.2 Eos % (Auto) 1.2 Baso % (Auto) 0.1 Absolute Neuts (auto) 9.29 H Absolute Lymphs (auto) 0.54 L PT INR Sodium 136 L Potassium 4.6 Chloride 99 Carbon Dioxide 36 H Anion Gap 6 L BUN 27 H Creatinine 0.70 Estimated GFR (MDRD) > 60 Glucose 89 POC Capillary Glucose Calculated Osmolality 266 L Calcium 7.8 L Magnesium 2.20 Cancelled 10/01/16 10/01/16 07:45 11:00 WBC RBC Hgb Hct MCV MCH MCHC RDW Plt Count MPV Neut % (Auto) Lymph % (Auto) [place] % (Auto) Eos % (Auto) Baso % (Auto) Absolute Neuts (auto) Absolute Lymphs (auto) PT 22.9 H INR 2.2 Sodium Potassium Chloride Carbon Dioxide Anion Gap BUN Creatinine Estimated GFR (MDRD) Glucose POC Capillary Glucose 261 H Calculated Osmolality Calcium Magnesium
[2016-10-01] MEDS: This patient is receiving warfarin therapy SCH (17:04)
[2016-10-01] MEDS: WARFARIN 6 MG TAB PO SCH (18:20)
[2016-10-01] MEDS: THEOPHYLLINE 80 MG/15 ML PO SCH (20:54)
[2016-10-01] MEDS: PRAVASTATIN 80 MG TABLET PO SCH (20:54)
[2016-10-02] MEDS: DILTIAZEM 60 MG TAB PO SCH ×2 (00:51→06:16)
[2016-10-02] MEDS: REGULAR INSULIN 100 UNITS/ML - 3 ML VIAL SQ SCH ×2 (06:16→12:00)
[2016-10-02] MEDS: LANSOPRAZOLE 30 MG TAB NG SCH (06:16)
[2016-10-02 07:22] LABS: AUTOMATED BASOPHIL 0.1 % (0-2); AUTOMATED EOSINOPHIL 2.1 % (0-5); AUTOMATED LYMPH 7.4 % (17-44); AUTOMATED MONOCYTE 8.5 % (3-10); AUTOMATED NEUTROPHIL 81.9 % (45-76); MPV 9.1 fL (7.4-10.4)
[2016-10-02 07:31] LABS: BLOOD UREA NITROGEN 16 MG/DL (7-17); CALCIUM 7.6 MG/DL (8.4-10.2); CALCULATED OSMOLALITY 260 MOs/Kg (270-290); CHLORIDE 104 mEq/L (98-107); GLUCOSE 81 MG/DL (70-99); SODIUM LEVEL 135 mEq/L (137-146)
--- NOTE | 2016-10-02 08:15 | PCM.PULM ---
Chief Complaint: Uneventful overnight Patient in bed breathing has improved and on BIPAP 08/06 overnight Current medication list and notes reviewed:yes - Physical Examination Vital Signs and I&O: Last Vital Signs Temp 98.9 F 10/01/16 21:26 Pulse 103 10/02/16 05:34 Resp 20 10/02/16 05:34 BP 124/71 10/02/16 05:34 Pulse Ox 97 10/02/16 05:34 Oxygen Pulse Oxygen Saturation 97 O2 Device BiPAP Oxygen Flow Rate 1 Fraction of Inspired Oxygen ( 30 FIO2) Intake & Output 09/29/16 09/30/16 10/01/16 10/02/16 23:59 23:59 23:59 23:59 Intake Total 9936 173 6720 Output Total 110 989 0596 Balance 1463 -80 373 Patient's weight 59.874 kg 60.781 kg 60.781 kg 61.348 kg General: Alert, Oriented x3, No acute distress Respiratory: Normal - CTA, Diminished Cardiovascular: Regular rate, No Gallops,Rubs/Murmurs, Irregular GI: Normal bowel sounds, Soft, Non tender, No masses Extremities/Musculoskeletal: Normal pulses Skin: Warm,Dry and Intact, No rashes, No breakdown, No significant lesion Neurological: Normal Steady Gait, Normal speech, Strength at 5/5 X4 ext, Cranial nerves 3-12 NL Psych/Mental Status: Appropriate, Cooperative Result Diagrams: 10/02/16 06:13 10/02/16 06:13 Labs (last 24 hours): Laboratory Results - last 24 hr 10/01/16 10/02/16 10/02/16 21:31 05:38 06:13 WBC 8.8 RBC 3.96 L Hgb 10.2 L Hct 32.1 L MCV 81 MCH 25.7 L MCHC 31.7 L RDW 19.4 H Plt Count 162 MPV 9.1 Neut % (Auto) 81.9 H Lymph % (Auto) 7.4 L [place] % (Auto) 8.5 Eos % (Auto) 2.1 Baso % (Auto) 0.1 Absolute Neuts (auto) 7.13 Absolute Lymphs (auto) 0.62 L PT INR Sodium Potassium Chloride Carbon Dioxide Anion Gap BUN Creatinine Estimated GFR (MDRD) Glucose POC Capillary Glucose 230 H 85 Calculated Osmolality Calcium Magnesium 10/02/16 06:13 WBC RBC Hgb Hct MCV MCH MCHC RDW Plt Count MPV Neut % (Auto) Lymph % (Auto) [place] % (Auto) Eos % (Auto) Baso % (Auto) Absolute Neuts (auto) Absolute Lymphs (auto) PT INR Sodium 135 L Potassium 4.5 Chloride 104 Carbon Dioxide 28 Anion Gap 8 BUN 16 Creatinine 0.70 Estimated GFR (MDRD) > 60 Glucose 81 POC Capillary Glucose Calculated Osmolality 260 L Calcium 7.6 L Magnesium Lab/DI/Studies Reviewed: EKG: Atrial fibrillation rate controlled Medications: Lansoprazole (Prevacid Solutabs) 30 mg NG 0600 [facility] Stop: 09/29/16 16:59 Last Admin: 09/16/16 05:42 Dose: 30 mg Sennosides (Senokot) 1 tab PO BID PRN PRN Reason: Constipation - First Option Stop: 09/28/16 16:59 Promethazine HCl (Phenergan) 12.5 mg IV Q6H PRN; Protocol PRN Reason: Nausea/Vomiting - Alternative Stop: 09/28/16 16:59 Furosemide (Lasix) 80 mg IV LASBID [facility] Stop: 10/12/16 16:59 Last Admin: 09/30/16 08:22 Dose: 80 mg Acetaminophen (Tylenol Suppository) 325 mg [place] Q6H PRN; Protocol PRN Reason: Mild Pain or Fever above 100.4 Stop: 09/28/16 16:59 Acetaminophen (Tylenol Tablet) 325 mg PO Q6H PRN; Protocol PRN Reason: Mild Pain or Fever above 100.4 Stop: 09/28/16 16:59 Albuterol (Proventil Hfa) 8 puff INH Q6H PRN PRN Reason: WHEEZING Stop: 09/29/16 14:21 Last Admin: 09/16/16 09:04 Dose: 8 puff Benzonatate (Tessalon) 200 mg PO Q8H PRN PRN Reason: Cough - First Option Stop: 09/28/16 16:59 Lact Acid/Bifidobact/Lact [place]/Streptoc Th (Felisha Q) 1 tab PO BIDLS [facility] Stop: 09/29/16 21:59 Last Admin: 09/16/16 11:36 Dose: 1 tab Lisinopril (Zestril) 20 mg PO BID [facility] Stop: 09/28/16 20:59 Last Admin: 09/16/16 10:03 Dose: Not Given Petrolatum ([place]) 1 tube TOP DIR PRN PRN Reason: Oral Care While Intubated Stop: 09/29/16 16:59 Pravastatin Sodium (Pravachol) 80 mg PO HS [facility] Stop: 09/28/16 20:59 Last Admin: 09/15/16 22:35 Dose: 80 mg Sertraline HCl (Zoloft) 25 mg PO DAILY YOKO Stop: 09/29/16 08:59 Last Admin: 09/16/16 09:42 Dose: 25 mg Enteral Nutritional Formula (Jevity 1.0) 1,000 ml NG Q18H YOKO Stop: 10/03/16 17:59 Last Admin: 09/20/16 11:13 Dose: 1,000 ml Diltiazem HCl (Cardizem) 20 mg IV DIR PRN PRN Reason: AFIB/HR SUSTAINED ABOVE 125 Stop: 10/06/16 10:06 Diltiazem HCl (Cardizem) 30 mg PEG Q6 [facility] Stop: 10/07/16 16:59 Enteral Nutritional Formula (Jevity 1.0) 1,000 ml NG Q18H [facility] Stop: 10/03/16 17:59 Last Admin: 09/25/16 17:05 Dose: 1,000 ml Warfarin Sodium (Coumadin) 6 mg PO DAILY@1800 [facility] Stop: 10/05/16 16:59 Last Admin: 09/28/16 17:54 Dose: 6 mg Metoprolol Tartrate (Lopressor) 50 mg PO BID [facility] Stop: 10/13/16 20:59 Potassium Chloride (Klor-Con M20) 40 meq PO TIDWM [facility] Stop: 10/02/16 11:59 Last Admin: 10/01/16 13:07 Dose: 40 meq Theophylline (Slo-Phyllin) 100 mg PO QID [facility] Stop: 10/15/16 20:59 Last Admin: 10/01/16 20:54 Dose: 100 mg - Assessment/Plan (1) Acute respiratory failure with hypoxia Acute J96.01 - ACUTE RESPIRATORY FAILURE WITH HYPOXIA Comment/Plan: Patient is relatively stable and would getting out of the hospital she would require BiPAP while she is sleeping at night and oxygen during the daytime continue supportive care DVT and GI prophylaxis prognosis remains guarded would follow the patient as an outpatient within a week or so after her discharge (2) Diastolic CHF Chronic I50.30 - UNSPECIFIED DIASTOLIC (CONGESTIVE) HEART FAILURE acute on chronic I50.33 - Acute on chronic diastolic (congestive) heart failure Comment/Plan: Continue supportive care continue diuresis I personally saw and evaluated the patient.: Yes Case Care Discussed with: Patient Education/Counseling Given To: Patient Education/Counseling Given Regarding: Diagnosis, Treatment, Prognosis, Follow Up , Disposition Plan
[2016-10-02] MEDS: POTASSIUM CHLORIDE 20 MEQ TAB PO SCH (08:34)
[2016-10-02] MEDS: THEOPHYLLINE 80 MG/15 ML PO SCH (09:43)
[2016-10-02 09:54] VITALS: BP 118/65; PULSE 96; TEMP 98.7
[2016-10-02] MEDS: SERTRALINE HCL 25 MG TAB PO SCH (09:58)
[2016-10-02] MEDS: METOPROLOL TARTRATE 50 MG TAB PO SCH (09:58)
--- NOTE | 2016-10-02 11:13 | PCM.DCS92 ---
- Final/Secondary Discharge Diagnosis (1) Acute respiratory failure with hypoxia Acute J96.01 - ACUTE RESPIRATORY FAILURE WITH HYPOXIA (2) Bilateral pleural effusion Resolved J90 - PLEURAL EFFUSION, NOT ELSEWHERE CLASSIFIED Present on Admission: Yes Comment: Related to her CHF much improved. (3) Bradycardia Resolved R00.1 - BRADYCARDIA, UNSPECIFIED Comment: Blood pressure is improving today will bring calcium channel nikolas back up to normal dose hold Lasix continue twice daily beta-nikolas (4) Diastolic CHF Chronic I50.30 - UNSPECIFIED DIASTOLIC (CONGESTIVE) HEART FAILURE Present on Admission: Yes acute on chronic I50.33 - Acute on chronic diastolic (congestive) heart failure Comment: Cardiomegaly on chest x-ray. She has diastolic dysfunction, will hold Lasix for today is patient's blood pressure is a bit low she appears to be a bit dehydrated. Cardiology is following, appreciate their help. (5) Hyponatremia Resolved E87.1 - HYPO-OSMOLALITY AND HYPONATREMIA Present on Admission: Yes Comment: SIADH appears improved with normalization of the sodium. Tolerating the IV Rocephin and finished her course of Zithromax. (6) Peripheral edema Resolved R60.9 - EDEMA, UNSPECIFIED Present on Admission: Yes Comment: Peripheral edema has improved with the IV Lasix for this manifestation of CHF. (7) Poor venous access Acute I87.8 - OTHER SPECIFIED DISORDERS OF VEINS (8) Respiratory failure with hypoxia and hypercapnia Chronic J96.91 - RESPIRATORY FAILURE, UNSPECIFIED WITH HYPOXIA; J96.92 - RESPIRATORY FAILURE, UNSPECIFIED WITH HYPERCAPNIA Present on Admission: Yes acute on chronic J96.21 - Acute and chronic respiratory failure with hypoxia ; J96.22 - Acute and chronic respiratory failure with hypercapnia Comment: Continue p.r. n. BiPAP specially at night.. [facility]charge Disposition: [facility] Discharge Condition: Improved Fuctional Discharge Status: Walker Assistance Physician Follow up/Referrals: Brandon Browning MD [Primary Care Provider] - F/U Facility Physician Home Medications / New Prescriptions: New Warfarin Sodium [Coumadin] 6 mg PO DAILY@1800 #14 tablet Probiotic Blend [Felisha Q] 1 tab PO BIDLS #60 tablet Furosemide [Lasix] 40 mg PO BID #60 tab Metoprolol Tartrate [Lopressor] 50 mg PO BID #30 tablet Lansoprazole [Prevacid Solutabs] 30 mg NG 0600 #30 tablet Continue Pravastatin [Pravachol] 80 mg PO HS POTASSIUM CHLORIDE Tablet [K-DUR 20 mEq Tablet*] 20 meq PO QAM Sertraline HCl [Zoloft] 25 mg PO DAILY Discontinued Diltiazem HCl [Cardizem Cd] 300 mg PO QAM Lisinopril/Hydrochlorothiazide [Zestoretic 20-12.5 mg Tablet] 1 tab PO BID Warfarin Sodium [Coumadin] 7 mg PO SUTUTHSA Warfarin Sodium [Coumadin] 7.5 mg PO MOWEFR O2 Device: BiPAP Diet at Discharge: Cardiac, Heart Healthy, Low Salt Activity: No Restrictions, As Tolerated Call Office For: Worsening Symptoms, Fever over 100.5, Pain Uncontrolled By Meds - [employer] Summary Notes HPI/Notes: She is admitted to the hospital with respiratory failure requiring intubation and presented with severe hyponatremia serum sodium 117. Her son relates she has had no pulmonary evaluation to his knowledge as an outpatient. Her other cardiac problems include atrial fibrillation rate controlled as an outpatient she takes calcium channel nikolas and is anticoagulated with warfarin. As an outpatient she is on a thiazide diuretic and FRANCOISE-inhibitor no loop diuretic. Her BNP level is elevated chest x-ray suggest heart failure. She is intubated sedated with propofol and history is obtained from the son in chart review Hospital Course Note:: Discharge summary on patient named ALEXSANDRA PLUNKETT admitted to [facility] on 09/14/16 by Scott Simmons MD. Date of discharge is []. 70-year-old female presented to our facility with congestive heart failure. She had a very long and tumultuous course involving being intubated for multiple days. Ultimately she was extubated and with careful monitoring from Cardiology she slowly improved. She was noted to have atrial fibrillation and this was treated with both anticoagulation and rate control. Unfortunately she had trouble with her blood pressures on the rate control medication and diltiazem was discontinued but metoprolol was continued. She slowly improved. Today she ambulated in the halls on room air without any desaturation and with no cardiac issues. Heart rate was stable. At this point the patient is ready for significant rehab. She has been very weak and by her critical illness. She has reached maximal benefit of hospitalization. She is stable for discharge to skilled facility. Hospital Course Note:: Discharge summary on patient named ALEXSANDRA PLUNKETT admitted to [facility] on 09/14/16 by Scott Simmons MD. Date of discharge is []. Total Time: 45 Wound Care Surgical Site: No - Physical Exam Vital Signs: Last Vital Signs Temp 98.7 F 10/02/16 09:00 Pulse 96 10/02/16 09:00 Resp 18 10/02/16 09:00 BP 118/65 10/02/16 09:00 Pulse Ox 94 10/02/16 09:00 Oxygen Pulse Oxygen Saturation 94 O2 Device BiPAP Oxygen Flow Rate 1 Fraction of Inspired Oxygen ( 30 FIO2) Constitutional: No apparent distress, Alert, Well nourished, Well appearing. negative: Confused Oriented to: Time, Person, Place Exam: Resting in bed comfortably this morning, breathing on room air. - HEENT Head: Normal (No neck vein distention or bruit). negative: Deformity, Swelling Eye: Normal. negative: Edema, Scleral Icterus Oropharynx: Normal (Pharynx: Moist without exudate,Gums-no swelling, No oropharyngeal lesions or erythema, Mucous membranes are dry.) Nose: No Symptoms Reported (Nares patent, without discharge or bleeding.) - Respiratory/Cardiovascular Respiratory: Diminished. negative: Rales, Rhonchi, Wheezes Cardiovascular: Normal (RRR , Normal S1, S2. No murmurs, rubs, or gallops. PMI non-displaced. Carotids: no carotid bruits. No bradycardia or tachycardia. DP pulses 2+ bilaterally.) - GI Auscultation: Normal (Soft nondistended) Palpation: Normal Tenderness: Non tender Longo's Sign: Negative - Musculoskeletal Back: negative: Ecchymosis, CVA Tenderness Extremities: Femoral Pulse, Pedal Pulse, Radial Pulse. negative: Calf Tenderness, Clubbing, Cyanosis, Edema, Pedal Edema - Integumentary Skin: Normal (Warm dry no rashes) Lymphatics: Normal (No lymph node swelling or pain.) - Neurologic Memory Impaired: Normal Cerebellar: Normal (Babinski: toes downgoing bilaterally. Intact Finger to nose. Sensory grossly intact to light touch. Intact rapid alternating movements bilaterally. No pronator drift.) Mood Description: Normal (Fully oriented. Normal and appropriate affect.) Thought: Coherent Perception: Normal (Normal and appropriate affect.)
== END 2016-10-02 13:12 | DRG 207 ==
LOC: ED 12:55 → EDINP 16:50 → PCU 19:46 → ICU 09-15 08:09 → PCU 09-28 16:23 → MPS3 10-01 22:08
PROVIDERS: ADMIT Internal Medicine; ATTEND Internal Medicine
PROC: 0BH17EZ Insertion of Endotracheal Airway into Trachea, Via Natural or Artificial Opening (ICD-10-PCS; principal; 2016-09-15)
PROC: 5A1955Z Respiratory Ventilation, Greater than 96 Consecutive Hours (ICD-10-PCS; 2016-09-15)
PROC: 039B3ZZ Drainage of Right Radial Artery, Percutaneous Approach (ICD-10-PCS; 2016-09-15)
PROC: 5A09357 Assistance with Respiratory Ventilation, Less than 24 Consecutive Hours, Continuous Positive Airway Pressure (ICD-10-PCS; 2016-09-15)
PROC: 05HM33Z Insertion of Infusion Device into Right Internal Jugular Vein, Percutaneous Approach (ICD-10-PCS; 2016-09-17)
PROC: B543ZZA Ultrasonography of Right Jugular Veins, Guidance (ICD-10-PCS; 2016-09-17)
DX: J96.22 Acute and chronic respiratory failure with hypercapnia (principal); I50.33 Acute on chronic diastolic (congestive) heart failure; E22.2 Syndrome of inappropriate secretion of antidiuretic hormone; I48.2 Chronic atrial fibrillation; I27.2 Other secondary pulmonary hypertension; J44.1 Chronic obstructive pulmonary disease with (acute) exacerbation; F32.9 Major depressive disorder, single episode, unspecified; E86.0 Dehydration; I13.0 Hypertensive heart and chronic kidney disease with heart failure and stage 1 through stage 4 chronic kidney disease, or unspecified chronic kidney disease; N18.9 Chronic kidney disease, unspecified; J96.21 Acute and chronic respiratory failure with hypoxia; Z79.01 Long term (current) use of anticoagulants; Z79.899 Other long term (current) drug therapy; Z86.73 Personal history of transient ischemic attack (TIA), and cerebral infarction without residual deficits; I87.8 Other specified disorders of veins; R00.1 Bradycardia, unspecified
CPT/HCPCS: 31720; 36415; 36600; 70450; 71010; 71275; 80048; 80053; 80076; 80198; 81001; 82104; 82550; 82553; 82803; 82962; 83735; 83880; 84484; 85007; 85025; 85027; 85610; 85730; 87070; 87086; 87205; 87641; 93005; 93306; 94002; 94003; 94640; 94660; 94762; 94770; 96372; 96374; 97162; 99282; A9698; E0710; G0237; J0330; J0456; J0696; J1940; J1956; J2060; J2250; J2405; J2920; J2930; J3010; J3475; J3480; J3490; J7030; J7040; J7060; J7070